=== PATIENT | female | born 1960 | race Caucasian/White ===

== ENCOUNTER 2017-07-31 23:50 | Emergency (ER) | payer OTHER, SELFPAY ==
[2017-08-01 00:46] LABS: Absolute Lymphocytes (CBC) 0.6 K/uL (0.7-4.9); Absolute Monocytes 0.5 K/uL (0.1-1.3); Absolute Neutrophil 7.5 K/uL (1.8-8.0); Basophils % 0.2 % (0-1.3); Eosinophils % 0.2 % (0-4.4); Hematocrit 37.9 % (36.0-45.0); MCH 32.6 pg (27.0-35.0); MCV 95.8 fL (80-100); MPV 7.1 fL (7.6-11.3); Monocytes % 6.3 % (3.3-12.3); RBC Red Blood Cell Count 3.95 M/uL (3.86-4.86)
[2017-08-01 00:54] LABS: Bicarbonate 24 mEq/L (21-31); Glucose Level 132 mg/dL (65-120); Potassium 3.9 mEq/L (3.6-5.0); Sodium Level 136 mEq/L (135-145)
[2017-08-01 00:57] LABS: Protime INR 0.99
[2017-08-01 00:59] LABS: ALT/SGPT 19 IU/L (10-60); AST/SGOT 35 IU/L (10-42); Albumin 3.9 g/dL (3.2-5.5); Alkaline Phosphatase 90 IU/L (42-121); BUN Blood Urea Nitrogen 13 mg/dL (6-20); Bilirubin Direct 0.1 mg/dL (0-0.2); Bilirubin Total 0.5 mg/dL (0.3-1.2); Glomerular Filtration Rate > 90 mL/min (=/>90); Protein, Total 6.7 g/dL (6.0-8.3)
[2017-08-01 01:04] LABS: Alcohol Serum/Plasma < 10 mg/dl; Salicylates Level < 4.0 mg/dl (<30)
[2017-08-01 01:34] LABS: Blood Morphology Comment NOT SEEN (NOT SEEN); Platelet Estimate ADEQ; Urine White Blood Cell Casts OK
[2017-08-01] MEDS ORDERED: LORazepam 2 MG/ML VIAL ONE (01:45)
[2017-08-01 02:59] LABS: Barbiturates NEGATIVE; Benzodiazepines NEGATIVE; Cocaine NEGATIVE; METHAMPHETAM NEGATIVE; Opiates NEGATIVE; Phencyclidine NEGATIVE; THC Cannibis NEGATIVE
[2017-08-01 03:31] LABS: Urine Blood 2+ (NEG); Urine Glucose NEGATIVE (NEG); Urine Protein NEGATIVE (NEG)
[2017-08-01] MEDS ORDERED: NA CHLORIDE 0.9% 100 ML IV ONE (03:58)
[2017-08-01] MEDS ORDERED: LEVETIRACETAM 500 MG/5 ML VIAL IV ONE (03:58)
--- NOTE | 2017-08-01 04:12 | ER ---
Nurse's Notes [facility] Unit Name: Kena Cutler Age: 56 yrs Sex: Female : 1960 Arrival Date: 07/31/2017 Time: 23:52 Bed 5 Private MD: Diagnosis: New Onset Seizure Presentation: 07/31 23:50 Presenting complaint: EMS states: that pt has had multiple seizure post smoking of fc synthetic today. EMS had gone out to see pt earlier but pt refused transport. She seized again and EMS was called back out. Transition of care: patient was not received from another setting of care. Onset of symptoms was July 31, 2017. Care prior to arrival: Medication(s) given: Normal saline infusion, 100 ml Ativan 2 mg ivp IV initiated. 20 GA, in the left antecubital area. 23:50 [facility] Of Ar[facility]: [facility] Acuity: SHELLY 3 fc TIME STUDY TECHNOLOGIST: 08/01 01:55 unknown ak1 Historical: - Allergies: 07/31 23:58 No Known Allergies; fc - Home Meds: 23:58 None [Active]; fc - PMHx: 23:58 None; fc - PSHx: 23:58 ; fc - Immunization history:: Last tetanus immunization: unknown. - Social history:: Smoking status: unknown Patient uses street drugs, Synthetic Marijuana . Screenin:59 Abuse screen: Denies threats or abuse. Nutritional screening: No deficits noted. fc Tuberculosis screening: No symptoms or risk factors identified. 08/01 01:18 Fall Risk IV access (20 points). ak1 Assessment: 00:07 General: Appears slender, Behavior is drowsy, pt responds to painful stimuli. EMS ak1 reported pt had seizures after smoking synthetic. pt was given 2mg Ativan in route. . Pain: Unable to use pain scale. Patient is unresponsive. 01:13 Reassessment: Patient appears in no apparent distress at this time. pt unwilling to ak1 uncurl from position for EKG. ERP notified, will attempt again when pt is more alert. pt became combative when RN tried to attach EKG wires. 01:17 Reassessment: pt combative on CT table, head CT unable to be performed and ERP ak1 notified. no new orders given at this time. 01:30 Reassessment: ERP gave verbal orders for 1mg Ativan IVP. pt allowed medication to be ak1 given, pt refused oxygen via NC. pt hits RN hands when attempting to apply oxygen and blood pressure cuff. 02:58 Reassessment: Pt asleep, will wake up to verbal stimuli. Continues to be resistant and tl2 combative if you try to move her. Vital Signs: 07/31 23:58 BP 159 / 71; Pulse 103; Resp 16; Temp 97.3(TE); Pulse Ox 97% on R/A; Weight 49.9 kg fc (R); Height 5 ft. 2 in. (157.48 cm) (R); Pain 0/10; 08/01 01:17 Pulse 93; Resp 16; Pulse Ox 94% on R/A; ak1 02:33 BP 127 / 101; Pulse 84; Resp 18; Temp 99.1(R); Pulse Ox 96% on R/A; tl2 02:58 BP 154 / 78; Pulse 86; Resp 18; Pulse Ox 95% on R/A; tl2 03:54 BP 170 / 83; Pulse 84; Resp 18; Temp 99.1(R); Pulse Ox 96% on R/A; Pain 0/10; ak1 07/31 23:58 Body Mass Index 20.12 (49.90 kg, 157.48 cm) fc ED Course: 07/31 23:50 Arm band placed on Patient placed in an exam room, on a stretcher. fc 23:50 Patient has correct armband on for positive identification. Bed in low position. Call fc light in reach. Side rails up X2. Seizure precautions initiated. 23:52 Patient arrived in ED. em1 23:57 Aravind Norris PA is PHCP. cp 23:57 Hai Garcia MD is Attending Physician. cp 23:57 Triage completed. fc 23:59 Maintain EMS IV. Dressing intact. Good blood return noted. Site clean \T\ dry. Gauge \T\ fc site: 20 gauge to left a/c. 08/01 00:06 Philly Valdes, RN is Primary Nurse. ak1 01:10 Radiology exam delayed due to pt not cooperating/combative for CT, Dr. Aravind Norris nb1 notified and to try again in a little bit. 01:55 No provider procedures requiring assistance completed. ak1 02:28 X-ray completed. Portable x-ray completed in exam room. Patient tolerated procedure jw2 poorly. 04:02 Patient transferred, IV remains in place. ak1 Administered Medications: 01:32 Drug: Ativan 1 mg Route: IVP; Site: right antecubital; ak1 04:12 Follow up: Response: No adverse reaction ak1 03:48 Drug: Keppra 1000 mg Route: IV; Rate: bolus; Site: left antecubital; ak1 Outcome: 04:01 Transferred by ground EMS to [facility], Transfer form completed. ak1 X-rays sent w/ patient. 04:01 Condition: stable 04:01 Discharge instructions given to family, Instructed on the need for transfer. 04:11 ER care complete, transfer ordered by . matt 04:49 Patient left the ED. ak1 Signatures: Krystal Hammond RN RN Kwame White em1 Philly Valdes RN RN ak1 Aravind Norris PA PA cp Wailes, Jenni jw2 Tina Purvis RN RN tl2 Hai Garcia MD MD wa Boothe, Nicole nb1 Corrections: (The following items were deleted from the chart) 04:00 03:54 BP 170 / 83; ak1 ak1
--- NOTE | 2017-08-01 04:12 | EDPHYS ---
Physician Documentation [facility] Name: Kena Cutler Age: 56 yrs Sex: Female : 1960 Arrival Date: 07/31/2017 Time: 23:52 Bed 5 Private MD: ED Physician Hai Garcia HPI: 08/01 00:15 This 56 yrs old Female presents to ER via EMS with complaints of seizure. cp 00:15 The patient presents with a history of multiple seizures, a total of 4, that last an cp unknown period of time, the episode(s) was witnessed, neighbor. Character of seizure(s): Loss of consciousness: the patient experienced loss of consciousness, between seizures, Motor activity: generalized, shaking all over, Incontinence: none. Seizure onset: about 2200 this evening. Associated injury: The patient did not suffer any apparent associated injury. EMS care: Ativan, 2 mg(s), IV, IV fluids. Current symptoms: decreased level of consciousness, is arousable but tired. 00:15 Patient accompanied to ED by neighbor who reports patient has been smoking synthetic cp marijuana today and had a reported seizure at about 2200 this evening. Neighbor reports he was called to patient's home by a family member and upon arrival, patient was not responsive. He picked patient up in his arms and patient begin to shake all over again, lasted 1-2 minutes. EMS was called and responded. Upon arrival, patient seemed to be okay, so EMS left and was called to scene again after another reported seizure. Neighbor reports patient had approximately 4 seizures prior to arrival to hospital. EMS administered 2 mg Ativan while in route. FILM BOOKER: 01:55 unknown ak1 Historical: - Allergies: 07/31 23:58 No Known Allergies; fc - Home Meds: 23:58 None [Active]; fc - PMHx: 23:58 None; fc - PSHx: 23:58 ; fc - Immunization history:: Last tetanus immunization: unknown. - Social history:: Smoking status: unknown Patient uses street drugs, Synthetic Marijuana . ROS: 08/01 00:20 Constitutional: Negative for fever. cp 00:20 Neuro: Positive for history of seizures. cp 00:20 Unable to obtain ROS due to altered mental status. Exam: 00:27 Head/Face: Normocephalic, atraumatic. cp 00:27 Constitutional: The patient appears in no acute distress, non-diaphoretic, well developed, frail. 00:27 Eyes: Periorbital structures: appear normal, Pupils: equal, round, and reactive to light and accomodation, Conjunctiva: normal, no exudate, no injection, Sclera: no appreciated abnormality, Lids and lashes: appear normal, bilaterally. 00:27 ENT: External ear(s): are unremarkable, Ear canal(s): are normal, clear, TM's: dullness, bilaterally, Nose: is normal, Mouth: Lips: moist, Oral mucosa: moist, Posterior pharynx: Airway: no evidence of obstruction, patent, Uvula: midline, swelling, is not appreciated, erythema, is not appreciated, exudate, is not appreciated. 00:27 Neck: External neck: is normal, C-spine: vertebral tenderness, is not appreciated, crepitus, is not appreciated, ROM/movement: Meningeal signs: are not present, nuchal rigidity, is not appreciated. 00:27 Chest/axilla: Inspection: normal, Palpation: is normal, no crepitus, no tenderness. 00:27 Cardiovascular: Rate: tachycardic, Rhythm: regular, Pulses: Pulses are 2+ in right radial artery and left radial artery. Edema: is not appreciated, JVD: is not appreciated. 00:27 Respiratory: the patient does not display signs of respiratory distress, Respirations: normal, no use of accessory muscles, no retractions, no splinting, no tachypnea, labored breathing, is not present, Breath sounds: are clear throughout, no decreased breath sounds, no stridor, no wheezing. 00:27 Abdomen/GI: Inspection: abdomen appears normal, Bowel sounds: active, all quadrants, Palpation: abdomen is soft and non-tender, in all quadrants, rebound tenderness, is not appreciated, voluntary guarding, is not appreciated, involuntary guarding, is not appreciated. 00:27 Back: pain, is absent, ROM is normal. 00:27 Skin: cellulitis, is not appreciated, no rash present. 00:27 Neuro: Orientation: Not oriented to person, place, situation, Mentation: confused, responsive to pain, combative when aroused, Motor: moves all fours. Vital Signs: 07/31 23:58 BP 159 / 71; Pulse 103; Resp 16; Temp 97.3(TE); Pulse Ox 97% on R/A; Weight 49.9 kg fc (R); Height 5 ft. 2 in. (157.48 cm) (R); Pain 0/10; 08/01 01:17 Pulse 93; Resp 16; Pulse Ox 94% on R/A; ak1 02:33 BP 127 / 101; Pulse 84; Resp 18; Temp 99.1(R); Pulse Ox 96% on R/A; tl2 02:58 BP 154 / 78; Pulse 86; Resp 18; Pulse Ox 95% on R/A; tl2 03:54 BP 170 / 83; Pulse 84; Resp 18; Temp 99.1(R); Pulse Ox 96% on R/A; Pain 0/10; ak1 07/31 23:58 Body Mass Index 20.12 (49.90 kg, 157.48 cm) fc MDM: 07/31 23:57 Patient medically screened. cp 08/01 01:00 Differential diagnosis: cerebral vascular accident, drug overdose, cardiac arrhythmia, cp seizure. 02:14 ED course: VSS. vRad report of head CT negative for acute findings. cp 03:10 Data reviewed: vital signs, nurses notes, lab test result(s), radiologic studies, CT cp scan. 03:10 Response to treatment: the patient's symptoms have mildly improved after treatment, and cp as a result, I will transfer patient. 08/01 00:15 Order name: Acetaminophen cp 08/01 00:15 Order name: Basic Metabolic Panel cp 08/01 00:15 Order name: CBC with Diff cp 08/01 00:15 Order name: ETOH Level cp 08/01 00:15 Order name: Hepatic Function cp 08/01 00:15 Order name: PT-INR cp 08/01 00:15 Order name: Ptt, Activated cp 08/01 00:15 Order name: Salicylate cp 08/01 00:15 Order name: Urine Drug Screen cp 08/01 00:49 Order name: CBC with Automated Diff; Complete Time: 01:38 EDMS 08/01 01:24 Interpretation: Normal except: MPV 7.1; DELTA% 86.3; LYM% 7.0; LYMA 0.6. cp 08/01 00:54 Order name: Basic Metabolic Panel; Complete Time: 01:24 EDMS 08/01 01:24 Interpretation: Normal except: GLUC 132. cp 08/01 01:04 Order name: Liver (Hepatic) Function; Complete Time: 01:24 EDMS 08/01 01:04 Order name: Acetaminophen Level; Complete Time: 01:24 EDMS 08/01 01:04 Order name: Alcohol Serum/Plasma; Complete Time: 01:24 EDMS 08/01 00:15 Order name: CT Head Brain wo Cont cp 08/01 00:15 Order name: Urine Test (obtain specimen); Complete Time: 02:32 cp 08/01 00:15 Order name: EKG; Complete Time: 00:16 cp 08/01 01:04 Order name: Salicylates Level; Complete Time: 01:24 EDMS 08/01 01:05 Order name: Protime (+INR); Complete Time: 01:24 EDMS 08/01 01:05 Order name: PTT, Activated Partial Thromb; Complete Time: 01:24 EDMS 08/01 01:34 Order name: CBC Smear Scan; Complete Time: 01:38 EDMS 08/01 02:14 Order name: CXR XRAY 08/01 02:52 Order name: Urine Dipstick--Ancillary (enter results) em 08/01 02:52 Order name: Urine --Ancillary (enter results) em 08/01 02:59 Order name: Urine Drug Screen; Complete Time: 03:08 EDMS 08/01 03:08 Interpretation: Reviewed. 08/01 03:32 Order name: Urine --Ancillary EDDE 08/01 03:32 Order name: Urine Dipstick-Ancillary EDDE 08/01 00:15 Order name: IV Saline Lock; Complete Time: 00:32 cp 08/01 00:15 Order name: Labs collected and sent; Complete Time: 00:32 cp 08/01 00:15 Order name: Urine Dipstick-Ancillary (obtain specimen); Complete Time: 02:32 cp Administered Medications: 01:32 Drug: Ativan 1 mg Route: IVP; Site: right antecubital; ak1 04:12 Follow up: Response: No adverse reaction ak1 03:48 Drug: Keppra 1000 mg Route: IV; Rate: bolus; Site: left antecubital; ak1 Disposition: 08/01/17 04:11 Transfer ordered to [facility]. Diagnosis is New Onset Seizure. - Reason for transfer: Higher level of care. - Accepting physician is Dr. Severino. - Condition is Stable. - Problem is new. - Symptoms have improved. Addendum: 08/04/2017 07:09 Co-signature as Attending Physician, Hai Garcia MD I agree with the assessment and w a plan of care. Signatures: Dispatcher [employer] Krystal Venegas RN RN Philly Valdes RN RN ak1 Aravind Norris PA PA Hai Urbina MD MD ny Corrections: (The following items were deleted from the chart) 08/01 01:24 01:24 Normal except: MPV 7.1; DELTA% 86.3; LYM% 7.0. cp cp
--- NOTE | 2017-08-01 08:01 | RAD REPORT ---
EXAM DESCRIPTION: Keo Single View08/01/2017 2:30 am CLINICAL HISTORY: Cough COMPARISON: none FINDINGS: 10 millimeter nodular opacity overlies the right lung base. The remainder of the lungs appear clear of acute infiltrate. The heart is normal size IMPRESSION: 10 millimeter nodular opacity overlies the right lung base. This may represent a nipple shadow or pulmonary nodule. Follow-up chest films with right nipple marker and frontal oblique chest films are recommended
--- NOTE | 2017-08-01 09:41 | RAD REPORT ---
EXAM DESCRIPTION: CT - Head Brain Wo Cont - 08/01/2017 6:56 am CLINICAL HISTORY: Seizures COMPARISON: None. TECHNIQUE: Computed axial tomography of the head was obtained. IV contrast was not requested. All CT scans are performed using dose optimization technique as appropriate and may include automated exposure control or mA/KV adjustment according to patient size. FINDINGS: An intracranial bleed is not seen . The ventricles are normal in caliber. No extra-axial fluid collection is noted. Fluid within the sinuses/ mastoids is not seen. IMPRESSION: No acute intracranial abnormality is seen. If patient's symptoms persist MRI of the bra in would be recommended.
== END 2017-08-01 04:49 | disposition short-term general hospital (02) ==
LOC: ER 23:50
DX: G40.89 Other seizures (principal); F12.90 Cannabis use, unspecified, uncomplicated
CPT/HCPCS: 36415; 70450; 71045; 80048; 80076; 80307; 80320; 80329; 81003; 81025; 85025; 85610; 85730; 99285; J1953

== ENCOUNTER 2018-03-29 09:42 | Emergency (ER) | payer SELFPAY ==
[2018-03-29] MEDS ORDERED: ETOMIDATE 20 MG/10 ML VIAL IV ONE (09:43)
[2018-03-29] MEDS ORDERED: SUCCINYLCHOLINE 20 MG/ML (10 ML) IV ONE (09:43)
--- OUTSIDE RECORDS SUMMARY | 2018-03-29 09:44 | XMS REPORT ---
:1960 [facility] [address] [place] [address] Care Team Providers Name Role Phone MARY CLAUDIO Unavailable Unavailable Problems This patient has no known problems. Allergies, Adverse Reactions, Alerts This patient has no known allergies or adverse reactions. Medications This patient has no known medications. Results Test Description Test Time Test Comments Text Results Atomic Results Result Comments URINE CULTURE 2017-08-03 11:34:00 Test Item Value Reference Range Comments CULTURE (BEAKER) (test dpxz=2482) 40-49,000 col/mL skin [place] POCT-GLUCOSE [id number] 15:55:00 Test Item Value Reference Range Comments POC-GLUCOSE METER (BEAKER) 80 mg/dL 70-110 TESTED AT [facility] [address] [facility] (test bsuh=0280) [facility] [id number] URINALYSIS W/ [id number] 14:34:00 Test Item Value Reference Range Comments COLOR (BEAKER) (test aapr=020) Light Yellow CLARITY (BEAKER) (test iwyh=216) Clear SPECIFIC GRAVITY UA (BEAKER) (test bzhe=321) 1.009 1.001-1.035 PH UA (BEAKER) (test deqo=533) 7.0 5.0-8.0 PROTEIN UA (BEAKER) (test yatn=965) Negative Negative GLUCOSE UA (BEAKER) (test rhey=617) Negative Negative KETONES UA (BEAKER) (test ytta=360) Negative Negative BILIRUBIN UA (BEAKER) (test wlvb=394) Negative Negative BLOOD UA (BEAKER) (test ejxl=353) Small Negative NITRITE UA (BEAKER) (test gcig=892) Negative Negative LEUKOCYTE ESTERASE UA (BEAKER) (test xpmr=107) Negative Negative UROBILINOGEN UA (BEAKER) (test jjei=572) 0.2 mg/dL 0.2-1.0 RBC UA (BEAKER) (test zzvo=928) 2 /HPF WBC UA (BEAKER) (test jrlo=609) < /HPF MUCUS (BEAKER) (test vrdr=0718) Rare SQUAMOUS EPITHELIAL (BEAKER) (test ddso=630) < /HPF SOURCE(BEAKER) (test kfjw=7761) RAPID DRUG SCREEN, [id number] 13:10:00 Test Item Value Reference Range Comments BARBITURATE URINE (BEAKER) (test snio=265) Negative Negative BENZODIAZEPINE SCREEN URINE (BEAKER) (test Negative Negative gfid=760) COCAINE (METAB.) SCREEN (BEAKER) (test agur=4084) Negative Negative METHADONE SCREEN (BEAKER) (test oacr=0711) Negative Negative OPIATE SCREEN URINE (BEAKER) (test jjuf=116) Negative Negative CANNABINOID SCREEN URINE (BEAKER) (test mihr=365) Negative Negative AMPH/METHAMPH SCREEN (BEAKER) (test yexx=3793) Negative Negative PHENCYCLIDINE SCREEN URINE (BEAKER) (test vipy=483) Negative Negative OXYCODONE SCREEN URINE (BEAKER) (test xlht=2271) Negative Negative DRUG CUTOFF CONC.Cocaine 300 ng/mL Cannabinoid 50 ng/mL Benzodiazepine 200 ng/mLBarbiturate 200 ng/ mLPhencyclidine 25 ng/mLOpiate 300 ng/mLMethadone 300 ng/mLAmphetamine/ 1000 ng/mL MethamphetamineOxycodone 300 ng/mLThis assay provides an unconfirmed qualitative test result for the clinical management of patients in emergency situations. Chain of custody not maintained. Some jvdh-qwj-iydkufe medications, as well as adulterants, may cause inaccurate results. Clinical correlation should be applied. A more comprehensive drug screen or confirmation of a detected drug may be performed upon request.POCT-GLUCOSE [id number] 11:49:00 Test Item Value Reference Range Comments POC-GLUCOSE METER (BEAKER) 93 mg/dL 70-110 TESTED AT [facility] [address] [facility] (test uvfh=1276) [facility] [address] [id number] 10:40:00 Test Item Value Reference Range Comments PHOSPHORUS (BEAKER) (test qacz=404) 3.0 mg/dL 2.3-4.7 [id number] 10:40:00 Test Item Value Reference Range Comments MAGNESIUM (BEAKER) (test uhhd=459) 2.6 mg/dL 1.6-2.6 BASIC METABOLIC [id number] 10:40:00 Test Item Value Reference Range Comments SODIUM (BEAKER) (test 139 meq/L 136-145 aadr=547) POTASSIUM (BEAKER) (test 3.8 meq/L 3.5-5.1 zxyr=777) CHLORIDE (BEAKER) (test 105 meq/L 98-107 yhxg=054) CO2 (BEAKER) (test 22 meq/L 22-29 jbxj=258) BLOOD UREA NITROGEN 9 mg/dL 7-21 (BEAKER) (test hqwf=766) CREATININE (BEAKER) (test 0.61 mg/dL 0.57-1.25 axdl=861) GLUCOSE RANDOM (BEAKER) 86 mg/dL 70-105 (test ilao=066) CALCIUM (BEAKER) (test 9.5 mg/dL 8.4-10.2 iuch=450) EGFR (BEAKER) (test 102 mL/min/1.73 sq m ESTIMATED GFR IS NOT gogk=2833) ACCURATE CREATININE CLEARANCE IN PREDICTING GLOMERULAR FILTRATION RATE. ESTIMATED GFR IS NOT APPLICABLE FOR DIALYSIS PATIENTS. HEPATIC FUNCTION [id number] 10:40:00 Test Item Value Reference Range Comments TOTAL PROTEIN (BEAKER) (test lwjj=004) 7.5 gm/dL 6.0-8.3 ALBUMIN (BEAKER) (test mmsf=4527) 4.4 g/dL 3.5-5.0 BILIRUBIN TOTAL (BEAKER) (test cqgq=845) 0.9 mg/dL 0.2-1.2 BILIRUBIN DIRECT (BEAKER) (test kjsg=800) 0.3 mg/dL 0.1-0.5 ALKALINE PHOSPHATASE (BEAKER) (test ampm=238) 108 U/L 40-150 AST (SGOT) (BEAKER) (test lktp=233) 28 U/L 5-34 ALT (SGPT) (BEAKER) (test myfi=484) 18 U/L 6-55 CBC W/PLT COUNT & AUTO [id number] 09:28:00 Test Item Value Reference Range Comments WHITE BLOOD CELL COUNT (BEAKER) (test cpda=857) 8.8 K/ L 3.5-10.5 RED BLOOD CELL COUNT (BEAKER) (test upvf=434) 4.39 M/ L 3.93-5.22 HEMOGLOBIN (BEAKER) (test patp=957) 13.9 GM/DL 11.2-15.7 HEMATOCRIT (BEAKER) (test ckxy=896) 41.6 % 34.1-44.9 MEAN CORPUSCULAR VOLUME (BEAKER) (test clyv=574) 94.8 fL 79.4-94.8 MEAN CORPUSCULAR HEMOGLOBIN (BEAKER) (test 31.7 pg 25.6-32.2 nxnd=589) MEAN CORPUSCULAR HEMOGLOBIN CONC (BEAKER) (test 33.4 GM/DL 32.2-35.5 zvvt=374) RED CELL DISTRIBUTION WIDTH (BEAKER) (test 13.1 % 11.7-14.4 ptfq=574) PLATELET COUNT (BEAKER) (test ngug=810) 234 K/CU MM 150-450 MEAN PLATELET VOLUME (BEAKER) (test omib=645) 9.0 fL 9.4-12.3 NUCLEATED RED BLOOD CELLS (BEAKER) (test 0 /100 WBC 0-0 pofs=159) NEUTROPHILS RELATIVE PERCENT (BEAKER) (test 69 % tkjv=213) LYMPHOCYTES RELATIVE PERCENT (BEAKER) (test 22 % cqju=951) MONOCYTES RELATIVE PERCENT (BEAKER) (test 9 % ekje=411) EOSINOPHILS RELATIVE PERCENT (BEAKER) (test 0 % wpyc=201) BASOPHILS RELATIVE PERCENT (BEAKER) (test 0 % tzul=031) NEUTROPHILS ABSOLUTE COUNT (BEAKER) (test 6.05 K/ L 1.56-6.13 fwsm=822) LYMPHOCYTES ABSOLUTE COUNT (BEAKER) (test 1.91 K/ L 1.18-3.74 roke=026) MONOCYTES ABSOLUTE COUNT (BEAKER) (test 0.76 K/ L 0.24-0.36 iebi=017) EOSINOPHILS ABSOLUTE COUNT (BEAKER) (test 0.01 K/ L 0.04-0.36 tgpn=286) BASOPHILS ABSOLUTE COUNT (BEAKER) (test 0.03 K/ L 0.01-0.08 csyl=542) IMMATURE GRANULOCYTES-RELATIVE PERCENT (BEAKER) 0 % 0-1 (test uddi=8916) PROTHROMBIN [id number] 09:23:00 Test Item Value Reference Range Comments PROTIME (BEAKER) (test rkwg=843) 13.5 seconds 11.7-14.7 INR (MARLIN) (test opik=476) 1.0 <=5.9 RECOMMENDED COUMADIN/WARFARIN INR THERAPY RANGESSTANDARD DOSE: 2.0 - 3.0 Includes: PROPHYLAXIS forvenous thrombosis, systemic embolization; TREATMENT for venous thrombosis and/or pulmonary embolus.HIGH RISK: Target INR is 2.5-3.5 for patients with mechanical heart valves.POCT-GLUCOSE [id number] 07:05:00 Test Item Value Reference Range Comments POC-GLUCOSE METER (MARLIN) 96 mg/dL 70-110 TESTED AT [facility] [address] [facility] (test tlem=8560) [facility] [address]
--- OUTSIDE RECORDS SUMMARY | 2018-03-29 09:44 | XMS REPORT | Clinical Summary ---
:1960 Author Organization [facility] Address [address] [place] [address] Care Team Providers Name Role Phone Margarita Primary Care Provider Allergies No Known Allergies Medications Medication Sig Dispensed Refills Start Date End Date Status levETIRAcetam (KEPPRA) Take 1 tablet 180 tablet 0 08/01/2017 10/30/2017 500 MG tablet (500 mg total) by mouth 2 (two) times daily for 90 days. Active Problems Problem Noted Date Seizure 08/01/2017 Encounters Date Type Specialty Care Team Description 08/01/2017 Hospital Encounter General Internal Peter Severino Seizure ( HCC); Medicine MD Sergio Substance abuse Sy Rubin MD after 03/28/2017 Social History Tobacco Use Types Packs/Day Years Used Date Never Assessed Sex Assigned at Date Recorded Not on file Job Start Date Occupation Industry Not on file Not on file Not on file Travel History Travel Start Travel End No recent travel history available. Last Filed Vital Signs Vital Sign Reading Time Taken Blood Pressure 131/60 08/01/2017 8:00 AM CDT Pulse 76 08/01/2017 8:00 AM CDT Temperature 36 C (96.8 F) 08/01/2017 8:00 AM CDT Respiratory Rate 17 08/01/2017 8:00 AM CDT Oxygen Saturation 99% 08/01/2017 8:00 AM CDT Inhaled Oxygen Concentration - - Weight - - Height - - Body Mass Index - - Plan of Treatment Not on file Procedures Procedure Name Priority Date/Time Associated Comments Diagnosis RHYTHM STRIP - SCAN 08/03/2017 2:40 PM CDT POCT-GLUCOSE METER Routine 08/01/2017 3:27 Results for this PM CDT procedure are in the results section. POCT-GLUCOSE METER Routine 08/01/2017 11:47 Results for this AM CDT procedure are in the results section. RAPID DRUG SCREEN, Routine 08/01/2017 11:15 Results for this URINE AM CDT procedure are in the results section. URINALYSIS W/ Routine 08/01/2017 11:15 Results for this MICROSCOPIC AM CDT procedure are in the results section. URINE CULTURE Routine 08/01/2017 11:14 Results for this AM CDT procedure are in the results section. ECG 12-LEAD Routine 08/01/2017 9:11 Results for this AM CDT procedure are in the results section. CBC W/PLT COUNT & Routine 08/01/2017 8:45 Results for this AUTO DIFFERENTIAL AM CDT procedure are in the results section. CBC W/PLT COUNT & Routine 08/01/2017 8:45 Results for this AUTO DIFFERENTIAL AM CDT procedure are in the results section. PHOSPHORUS Routine 08/01/2017 8:45 Results for this AM CDT procedure are in the results section. MAGNESIUM Routine 08/01/2017 8:45 Results for this AM CDT procedure are in the results section. PROTHROMBIN TIME/INR Routine 08/01/2017 8:45 Results for this AM CDT procedure are in the results section. HEPATIC FUNCTION Routine 08/01/2017 8:45 Results for this PANEL AM CDT procedure are in the results section. BASIC METABOLIC PANEL Routine 08/01/2017 8:45 Results for this (7) AM CDT procedure are in the results section. POCT-GLUCOSE METER Routine 08/01/2017 7:03 Results for this AM CDT procedure are in the results section. after 03/28/2017 Results RHYTHM STRIP - SCAN (08/03/2017 2:40 PM CDT) Narrative Performed At POC-Glucose meter (08/01/2017 3:27 PM CDT)Only the most recent of3 resultswithin the time period is included. POC-Glucose Meter 80Comment: TESTED AT 70 - 110 mg/dL [facility] [address] [facility] [place] [address] Specimen Blood Performing Organization Address City/State/Zipcode Phone Number [address] [address] CENTER Rapid drug screen, urine (08/01/2017 11:15 AM CDT) Barbiturate Screen Negative Negative [facility] Benzodiazepine Screen Negative Negative [facility] Cocaine (Metab.) Screen Negative Negative [facility] Methadone Screen Negative Negative [facility] Opiate Screen Negative Negative [facility] Cannabinoid Screen Negative Negative [facility] Amph/Methamph Screen Negative Negative [facility] Phencyclidine Screen Negative Negative [facility] Oxycodone Screen Negative Negative [facility] Specimen Urine Narrative Performed At [facility] DRUGCUTOFF CONC. Cocaine 300 ng/mL Jtskhbpsojw95 ng/mL Aklfulwwowkigq388 ng/mL Barbiturate 200 ng/mL Wrrwtmnbqngdi93 ng/mL Ntagxo247 ng/mL Methadone 300 ng/mL Amphetamine/ 1000 ng/mL Methamphetamine Oxycodone 300 ng/mL This assay provides an unconfirmed qualitative test result for the clinical management of patients in emergency situations. Chain of custody not maintained. Some dnfn-oht-dcleofe medications, as well as adulterants, may cause inaccurate results. Clinical correlation should be applied. A more comprehensive drug screen or confirmation of a detected drug may be performed upon request. Performing Organization Address City/State/Zipcode Phone Number [facility] [address] [place] [address] CENTER Urinalysis w/Microscopic (08/01/2017 11:15 AM CDT) Color, UA Light Yellow [facility] Clarity, UA Clear [facility] Specific Mcdavid, UA 1.009 1.001 - 1.035 [facility] pH, UA 7.0 5.0 - 8.0 [facility] Protein, UA Negative Negative [facility] Glucose, UA Negative Negative [facility] Ketones, UA Negative Negative [facility] Bilirubin, UA Negative Negative [facility] Blood, UA Small (A) Negative [facility] Nitrite, UA Negative Negative [facility] Leukocytes, UA Negative Negative [facility] Urobilinogen, UA 0.2 0.2 - 1.0 mg/dL [facility] RBC, UA 2 /HPF [facility] WBC, UA <1 /HPF [facility] Mucus Rare [facility] Squam Epithel, UA <1 /HPF [facility] Specimen Source [facility] Specimen Urine Performing Organization Address City/State/Zipcode Phone Number [address] [address] [place] Urine culture (08/01/2017 11:14 AM CDT) Result 40-49,000 col/mL skin [place] [facility] Specimen Urine - Urine, Voided Performing Organization Address [facility] Phone Number [address] [address] [phone] [place] ECG 12 lead (08/01/2017 9:11 AM CDT) Narrative Performed At Ventricular Rate 93 BPM GE MUSE Atrial Rate 93 BPM P-R Interval 180 ms QRS Duration 86 ms Q-T Interval 356 ms QTC Calculation(Bazett) 442 ms P [place] 82 degrees R [place] -14 degrees T [place] 74 degrees Normal sinus rhythm Normal ECG No previous ECGs available Confirmed by MD AIMEE, CICI ([id number]) on 08/01/2017 11:56:51 AM Procedure Note Interface, External Ris In - 08/01/2017 11:57 AM CDT Ventricular Rate 93 BPM Atrial Rate 93 BPM P-R Interval 180 ms QRS Duration 86 ms Q-T Interval 356 ms QTC Calculation(Bazett) 442 ms P [place] 82 degrees R [place] -14 degrees T [place] 74 degrees Normal sinus rhythm Normal ECG No previous ECGs available Confirmed by MD AIMEE, CICI ([id number]) on 08/01/2017 11:56:51 AM Performing Organization Address City/State/Zipcode Phone Number GE AYMF CBC with platelet count + automated diff (08/01/2017 8:45 AM CDT) WBC 8.8 3.5 - 10.5 K/L [facility] RBC 4.39 3.93 - 5.22 M/L [facility] Hemoglobin 13.9 11.2 - 15.7 GM/DL [facility] Hematocrit 41.6 34.1 - 44.9 % [facility] MCV 94.8 79.4 - 94.8 fL [facility] MCH 31.7 25.6 - 32.2 pg [facility] MCHC 33.4 32.2 - 35.5 GM/DL [facility] RDW 13.1 11.7 - 14.4 % [facility] Platelets 234 150 - 450 K/CU MM [facility] MPV 9.0 (L) 9.4 - 12.3 fL [facility] nRBC 0 0 - 0 /100 WBC [facility] % Neutros 69 % [facility] % Lymphs 22 % [facility] % Monos 9 % [facility] % Eos 0 % [facility] % Baso 0 % [facility] # Neutros 6.05 1.56 - 6.13 K/L [facility] # Lymphs 1.91 1.18 - 3.74 K/L [facility] # Monos 0.76 (H) 0.24 - 0.36 K/L [facility] # Eos 0.01 (L) 0.04 - 0.36 K/L [facility] # Baso 0.03 0.01 - 0.08 K/L [facility] Immature Granulocytes-Relative 0 0 - 1 % [facility] Specimen Blood Performing Organization Address City/[facility] Phone Number [address] [address] [phone] [place] Prothrombin time/INR (08/01/2017 8:45 AM CDT) Protime 13.5 11.7 - 14.7 seconds [facility] INR 1.0 <=5.9 [facility] Specimen Blood Narrative Performed At [facility] RECOMMENDED COUMADIN/WARFARIN INR THERAPY RANGES STANDARD DOSE: 2.0 - 3.0 Includes: PROPHYLAXIS for venous thrombosis, systemic embolization; TREATMENT for venous thrombosis and/or pulmonary embolus. HIGH RISK: Target INR is 2.5-3.5 for patients with mechanical heart valves. Performing Organization Address City/[facility] Phone Number [address] [address] CENTER Phosphorus (08/01/2017 8:45 AM CDT) Phosphorus 3.0 2.3 - 4.7 mg/dL [facility] Specimen Blood Performing Organization Address City/[facility] Phone Number [address] [address] CENTER Magnesium (08/01/2017 8:45 AM CDT) Magnesium 2.6 1.6 - 2.6 mg/dL [facility] Specimen Blood Performing Organization Address City/[facility] Phone Number [address] [address] CENTER Hepatic function panel (08/01/2017 8:45 AM CDT) Protein, Total 7.5 6.0 - 8.3 gm/dL [facility] Albumin 4.4 3.5 - 5.0 g/dL [facility] Total Bilirubin 0.9 0.2 - 1.2 mg/dL [facility] Bilirubin, Direct 0.3 0.1 - 0.5 mg/dL [facility] Alkaline Phosphatase 108 40 - 150 U/L [facility] AST 28 5 - 34 U/L [facility] ALT 18 6 - 55 U/L [facility] Specimen Blood Performing Organization Address City/State/Zipcode Phone Number [address] [address] [place] Basic metabolic panel (08/01/2017 8:45 AM CDT) Sodium 139 136 - 145 meq/L [facility] Potassium 3.8 3.5 - 5.1 meq/L [facility] Chloride 105 98 - 107 meq/L [facility] CO2 22 22 - 29 meq/L [facility] BUN 9 7 - 21 mg/dL [facility] Creatinine 0.61 0.57 - 1.25 mg/dL [facility] Glucose 86 70 - 105 mg/dL [facility] Calcium 9.5 8.4 - 10.2 mg/dL [facility] EGFR 102Comment: ESTIMATED GFR IS mL/min/1.73 sq m [facility] NOT ACCURATE CREATININE [facility] CLEARANCE IN PREDICTING GLOMERULAR FILTRATION RATE. ESTIMATED GFR IS NOT APPLICABLE FOR DIALYSIS PATIENTS. Specimen Blood Performing Organization Address City/State/Zipcode Phone Number [address] [address] [phone] [place] after 03/28/2017 Advance Directives For more information, please contact:[address] [phone] Code Status Date Activated Date Inactivated Comments Full Code 08/01/2017 7:39 AM 08/01/2017 7:46 PM This code status was determined by: Patient
[2018-03-29] MEDS ORDERED: RSI MEDICATION KIT IV ONE (09:50)
[2018-03-29] MEDS ORDERED: FOSPHENYTOIN PE 1,000 MG in NA CHLORIDE 0.9% 100 ML IV ONE (10:00)
[2018-03-29] MEDS ORDERED: NA CHLORIDE 0.9% 1,000 ML ONE ×3 (10:02→12:08)
[2018-03-29] MEDS ORDERED: LORazepam 2 MG/ML VIAL ONE (10:06)
[2018-03-29] MEDS ORDERED: PROPOFOL 1,000 MG/100 ML VIAL IV ONE ×2 (10:09→13:40)
--- NOTE | 2018-03-29 10:31 | RAD REPORT ---
EXAM DESCRIPTION: RAD - Chest Single View - 03/29/2018 10:07 am CLINICAL HISTORY: INTUBATION Chest pain. COMPARISON: Chest Single View dated 08/01/2017 FINDINGS: Portable technique limits examination quality. Tip of the ET tube is above the srinivasan. Lungs are grossly clear. The heart is normal in size. No disp laced fractures.
[2018-03-29] MEDS ORDERED: ACETAMINOPHEN 650MG/RECT SUPP PR ONE (10:33)
[2018-03-29] MEDS ORDERED: PHENOBARBITAL IV ONE (11:00)
[2018-03-29] MEDS ORDERED: NA CHLORIDE 0.9% IV ONE (11:00)
[2018-03-29 11:07] LABS: Absolute Lymphocytes (CBC) 0.5 K/uL (0.7-4.9); Absolute Monocytes 0.9 K/uL (0.1-1.3); Absolute Neutrophil 13.7 K/uL (1.8-8.0); Basophils % 0.3 % (0-1.3); Hematocrit 36.1 % (36.0-45.0); Lymphocytes % 3.5 % (15.3-44.8); MCV 97.9 fL (80-100); MPV 7.1 fL (7.6-11.3); RBC Red Blood Cell Count 3.69 M/uL (3.86-4.86)
[2018-03-29 11:10] LABS: Protime INR 1.06
[2018-03-29 11:22] LABS: Barbiturates NEGATIVE (NEGATIVE); Benzodiazepines POSITIVE (NEGATIVE); Cocaine NEGATIVE (NEGATIVE); METHAMPHETAM NEGATIVE (NEGATIVE); Methadone NEGATIVE (NEGATIVE); Opiates NEGATIVE (NEGATIVE); Phencyclidine NEGATIVE (NEGATIVE); THC Cannibis NEGATIVE (NEGATIVE)
[2018-03-29 11:26] LABS: ALT/SGPT 23 U/L (12-78); AST/SGOT 30 U/L (15-37); Albumin 3.1 g/dL (3.4-5.0); Alkaline Phosphatase 94 U/L (45-117); BUN Blood Urea Nitrogen 17 mg/dL (7-18); Bicarbonate 25 mmol/L (21-32); Bilirubin Direct 0.2 mg/dL (0-0.2); Bilirubin Total 0.4 mg/dL (0.2-1.0); Creatine Phosphokinase 245 U/L (26-192); Glucose Level 102 mg/dL (74-106); Protein, Total 6.1 g/dL (6.4-8.2); Sodium Level 142 mmol/L (136-145); Troponin (Emerg Dept Use Only) 0.16 ng/mL (0.0-0.045)
[2018-03-29 11:44] LABS: Urine Blood 2+ (NEG); Urine Glucose TRACE (NEG); Urine Protein 2+ (NEG); Urine Specific Gravity >1.030 (1.005-1.030); Urine pH 5.5 (5.0-7.0)
--- NOTE | 2018-03-29 12:00 | RAD REPORT ---
EXAM DESCRIPTION: CT - Head Brain Wo Cont - 03/29/2018 11:49 am CLINICAL HISTORY: Mental status change;Seizure Head injury Drowsiness COMPARISON: Head Brain Wo Cont dated 08/01/2017 TECHNIQUE: All CT scans are performed using dose optimization technique as appropriate and may inclu de automated exposure control or mA/KV adjustment according to patient size. FINDINGS: No intracranial hemorrhage, hydrocephalus or extra-axial fluid collection.No areas of brai n edema or evidence of midline shift. The paranasal sinuses and mastoids are clear. The calvarium is intact. Left frontal scalp hematoma. IMPRESSION: No acute intracranial abnormality.
[2018-03-29] MEDS ORDERED: CEFTRIAXONE/SWI 1gm 1 GM/10 ML SYR ONE (12:09)
[2018-03-29] MEDS ORDERED: VANCOMYCIN 1 GM/250 ML BAG ONE (12:22)
[2018-03-29 12:25] LABS: Blood Morphology Comment NOT SEEN (NOT SEEN); Platelet Estimate ADEQ; Urine White Blood Cell Casts OK
[2018-03-29 12:27] LABS: Arterial Blood Carboxyhemoglob 0.5 % (0-1.5); Blood Gas Oxyhemoglobin 97.8 % (94-97); Blood O2 Saturation 99.4 % (92-98.5)
[2018-03-29] MEDS ORDERED: CEFEPIME 1 GM/100 ML BAG IV ONE (12:37)
--- NOTE | 2018-03-29 12:47 | EDPHYS ---
Physician Documentation [facility] Name: Kena Cutler Age: 57 yrs Sex: Female : 1960 Arrival Date: 03/29/2018 Time: 09:47 Bed 3 Private MD: ED Physician Aravind Hobson HPI: 03/29 12:00 This 57 yrs old Female presents to ER via EMS with complaints of jr8 Unresponsive, Seizure. 12:00 Onset: The symptoms/episode began/occurred acutely, today. Duration: The episode is jr8 continuous. The symptoms are alleviated by nothing. The symptoms are aggravated by nothing. Associated signs and symptoms: Pertinent positives: agitation, combativeness. Severity of symptoms: At their worst the symptoms were moderate in the emergency department the symptoms are unchanged. Patient's baseline: Neuro: alert and fully oriented, Motor: no deficits, Ambulation: walks without assistance, Speech: normal. It is unknown whether or not the patient has had similar symptoms in the past. It is unknown whether or not the patient has recently seen a physician. Boyfriend of patient stated that they smoked synthetic last night. Was fine today and while drinking orange juice at the table immediately slumped over and had seizure. EMS called at that time. EMS stated that she was extremely combative upon there arrival. Patient when pulling in had another seizure per EMS and now is in status epilepticus . Historical: - Allergies: 09:40 No Known Allergies; bp - Home Meds: 09:40 None [Active]; bp - PMHx: 09:40 SUBSTANCE ABUSE; bp - Immunization history:: Adult Immunizations unknown. - Social history:: Smoking status: Patient uses tobacco products, unknown amount. - Ebola Screening: : Patient negative for fever greater than or equal to 101.5 degrees Fahrenheit, and additional compatible Ebola Virus Disease symptoms Patient denies exposure to infectious person Patient denies travel to an Ebola-affected area in the 21 days before illness onset No symptoms or risks identified at this time. ROS: 12:00 Unable to obtain ROS due to obtunded state, patient is on ventilator. jr8 Exam: 12:00 Radiologist reports: no acute findings jr8 12:00 Head/Face: Normocephalic, atraumatic. ENT: Nares patent. No nasal discharge, no septal abnormalities noted. Tympanic membranes are normal and external auditory canals are clear. Oropharynx with no redness, swelling, or masses, exudates, or evidence of obstruction, uvula midline. Mucous membranes moist. Neck: Trachea midline, no thyromegaly or masses palpated, and no cervical lymphadenopathy. Supple, full range of motion without nuchal rigidity, or vertebral point tenderness. No Meningismus. Abdomen/GI: Soft with normal bowel sounds. No distension or tympany. Skin: Warm, dry with normal turgor. Normal color with no rashes, no lesions, and no evidence of cellulitis. MS/ Extremity: Pulses equal, no cyanosis. 12:00 Eyes: Periorbital structures: appear normal, Pupils: dilated, bilaterally, sluggish to respond with right upward gaze, Conjunctiva: normal, Lids and lashes: appear normal. 12:00 Cardiovascular: Rate: tachycardic, Rhythm: regular, Pulses: Pulses are 2+ in right radial artery and left radial artery. Heart sounds: normal, normal S1and S2, no S3 or S4, no murmur, no rub, no gallop, Edema: is not appreciated, JVD: is not appreciated. 12:00 Neuro: Orientation: Not oriented to person, place, time, situation, Mentation: unable to follow commands, Memory: unable to test, Cranial nerves: unable to test, Cerebellar function: unable to test, Motor: unable to test, Sensation: unable to test, Gait: not tested. seizure activity, grand mal type is displayed. Vital Signs: 09:40 Pulse 151; Resp 24; Weight 40.82 kg; bp 10:00 BP 135 / 63; Pulse 150; Resp 19; Temp 99.4; Pulse Ox 100% ; bp 10:13 BP 98 / 53; Pulse 118; Resp 18; Temp 101.7; Pulse Ox 100% ; bp 10:15 BP 97 / 60; Pulse 116; Resp 20; Temp 101.5; Pulse Ox 100% ; bp 10:20 BP 113 / 63; Pulse 133; Resp 16; Temp 102.5; Pulse Ox 100% ; bp 10:30 BP 127 / 113; Pulse 131; Resp 17; Temp 102.7; Pulse Ox 100% ; bp 10:45 BP 122 / 59; Pulse 119; Resp 16; Temp 102.7; Pulse Ox 100% ; bp 11:00 BP 132 / 57; Pulse 135; Resp 17; Temp 103.0; Pulse Ox 100% ; bp 11:30 BP 107 / 61; Pulse 126; Resp 15; Temp 103.7; Pulse Ox 100% ; bp 12:00 BP 118 / 63; Pulse 113; Resp 16; Temp 104.6; Pulse Ox 100% ; bp 12:30 BP 104 / 63; Pulse 108; Resp 17; Temp 104.4; Pulse Ox 100% ; bp 13:00 BP 110 / 62; Pulse 105; Resp 17; Temp 103.8; Pulse Ox 100% ; bp 13:30 BP 116 / 65; Pulse 104; Resp 17; Temp 103.3; Pulse Ox 100% ; bp Girish Coma Score: 12:00 Eye Response: none(1). Verbal Response: none(1). Motor Response: none(1). Modifying jr8 Factors: Intubated. Total: 3. Ventilator: 12:00 Fi02: 60%; Rate: 16min; ET tube: 7.5 mm (Oral); jr8 Procedures: 03/30 06:25 Intubation: Ventilated with 100% NRB prior to procedure. O2 saturation prior to jr8 procedure was 96 %. Intubated orally using # 3 Mary blade with 7.5 mm ETT. was successful on first attempt. Ventilated with Ambu bag. ventilator. Tube secured with ETT perera at center of mouth measured 22 cm at lip. Placement verified by CXR, CO2 detector with (+) color change, auscultating bilateral breath sounds, O2 saturation after procedure was 100 %. Patient tolerated well. MDM: 03/29 09:50 Patient medically screened. jr8 12:07 Data reviewed: vital signs, nurses notes, lab test result(s), EKG, radiologic studies, jr8 CT scan, plain films. Data interpreted: Pulse oximetry: on ventilator is 100 %. Interpretation: normal. Counseling: I had a detailed discussion with the patient and/or guardian regarding: the historical points, exam findings, and any diagnostic results supporting the discharge/admit diagnosis, lab results, radiology results, the need to transfer to another facility, for higher level of care, [facility] does not immediately have the required specialist. 12:07 Differential diagnosis: CVA, metabolic disorder, drug effects, sepsis, ICH, Meningitis. jr8 12:18 ED course: Dr. Saunders consulted at [facility] and accepted to Neuro ICU for further [facility] evaluation . 03/29 09:50 Order name: Acetaminophen; Complete Time: 11:32 [facility] 03/29 09:50 Order name: Basic Metabolic Panel; Complete Time: 11:32 [facility] 03/29 09:50 Order name: CBC with Diff; Complete Time: 12:45 [facility] 03/29 09:50 Order name: ETOH Level; Complete Time: 11:32 [facility] 03/29 09:50 Order name: Hepatic Function; Complete Time: 11:32 [facility] 03/29 09:50 Order name: PT-INR; Complete Time: 12:00 [facility] 03/29 09:50 Order name: Ptt, Activated; Complete Time: 12:00 [facility] 03/29 09:50 Order name: Salicylate; Complete Time: 11:54 [facility] 03/29 09:50 Order name: Urine Drug Screen; Complete Time: 11:32 [facility] 03/29 09:51 Order name: Troponin (emerg Dept Use Only); Complete Time: 11:32 [facility] 03/29 09:52 Order name: Lactate; Complete Time: 11:32 [facility] 03/29 09:52 Order name: CK; Complete Time: 11:32 [facility] 03/29 10:48 Order name: Urine Dipstick--Ancillary (enter results); Complete Time: 11:54 03/29 10:48 Order name: Urine --Ancillary (enter results); Complete Time: 11:54 03/29 09:50 Order name: CT Head Brain wo Cont; Complete Time: 12:08 [facility] 03/29 10:01 Order name: Chest Single View; Complete Time: 10:44 [facility] 03/29 11:06 Order name: ABG; Complete Time: 12:45 [facility] 03/29 11:06 Order name: Blood Culture Adult (2) [facility] 03/29 11:09 Order name: CBC Smear Scan; Complete Time: 12:45 [facility] 03/29 09:50 Order name: Urine Test (obtain specimen); Complete Time: 12:25 [facility] 03/29 09:50 Order name: EKG; Complete Time: 09:51 [facility] 03/29 09:50 Order name: EKG - Nurse/Tech; Complete Time: 12:25 [facility] 03/29 09:50 Order name: IV Saline Lock; Complete Time: 09:53 03/29 09:50 Order name: Labs collected and sent; Complete Time: 12:26 [facility] 03/29 09:50 Order name: Urine Dipstick-Ancillary (obtain specimen); Complete Time: 10:45 03/29 09:50 Order name: Simon; Complete Time: 10:08 [facility] 03/29 12:03 Order name: Restraint:Non-Violent; Complete Time: 12:03 bp Administered Medications: 09:44 Drug: Versed 4 mg Route: IVP; Site: left antecubital; sv 10:21 Follow up: Response: No adverse reaction bp 09:47 Drug: Succinylcholine 70 mg Route: IVP; Site: left antecubital; sv 10:21 Follow up: Response: No adverse reaction bp 09:47 Drug: Etomidate 20 mg Route: IVP; Site: left antecubital; sv 10:21 Follow up: Response: No adverse reaction bp 09:50 Drug: NS 0.9% 1000 ml Route: IV; Rate: 1000 ml; Site: left upper arm; bp 10:15 Follow up: IV Status: Completed infusion; IV Intake: 1000ml bp 09:55 Drug: CEREbyx 1 grams Route: IVPB; Site: left antecubital; bp 12:25 Follow up: IV Status: Completed infusion; IV Intake: 100ml bp 09:59 Drug: Ativan 2 mg Route: IVP; Site: left antecubital; sv 10:20 Follow up: Response: No adverse reaction bp 10:00 Drug: Propofol 5 mcg/kg/min Route: IV; Rate: calculated rate; Site: left upper arm; bp 12:24 Follow up: IV Status: Infusion continued upon transfer bp 10:30 Drug: Tylenol Suppository 650 mg Route: [place]; bp 11:38 Follow up: Response: No adverse reaction bp 10:45 Drug: NS 0.9% 1000 ml Route: IV; Rate: 1000 ml; Site: left upper arm; bp 11:30 Follow up: IV Status: Completed infusion; IV Intake: 1000ml bp 11:00 Drug: PHENobarbital 20 mg/kg Route: IVPB; Rate: calculated rate; Site: left antecubital;bp 12:22 Follow up: IV Status: Completed infusion; IV Intake: 100ml bp 12:00 Drug: Cefepime 1 grams Route: IVPB; Rate: 200 ml/hr; Infused Over: 30 mins; Site: left bp upper arm; 12:30 Follow up: IV Status: Completed infusion; IV Intake: 100ml bp 12:00 Drug: NS 0.9% 1000 ml Route: IV; Rate: 250 ml/hr; Site: left upper arm; bp 12:24 Follow up: IV Status: Infusion continued upon transfer bp 12:15 Drug: vancoMYCIN 1 grams Route: IVPB; Infused Over: 2 hrs; Site: left upper arm; bp 13:30 Follow up: IV Status: Completed infusion; IV Intake: 150ml bp Disposition: 17:09 Co-signature as Attending Physician, Aravind Hobson MD I agree with the assessment and brock plan of care. Disposition: 03/29/18 12:46 Transfer ordered to [facility]. Diagnosis is Epilepsy, unspecified, intractable, with status epilepticus. - Reason for transfer: Higher level of care. - Accepting physician is Dr. Saunders . - Condition is Serious. - Problem is new. - Symptoms have improved. Critical care time excluding procedures: 12:07 Critical care time: Bedside Care: 20 minutes, Consultation: 10 minutes, Family jr8 Intervention: 10 minutes. Total time: 40 minutes Signatures: Dispatcher [employer] Rosi Ferrara, RN Aravind De Souza MD MD cha Williams, Irene, RN RN iw Terrence Russell PA PA jr8 Alexander Yan, RN RN bp Corrections: (The following items were deleted from the chart) 14:06 12:46 03/29/2018 12:46 Transfer ordered to [facility]. Diagnosis is iw Epilepsy, unspecified, intractable, with status epilepticus. Reason for transfer: Higher level of care. Accepting physician is Dr. Saunders . Condition is Serious. Problem is new. Symptoms have improved. jr8 03/30 06:27 03/29 12:00 FiO2 60%, Rate 16 min, ET 22 mm Oral, jr8 jr8
--- NOTE | 2018-03-29 12:47 | ER ---
Nurse's Notes [facility] Name: Kena Cutler Age: 57 yrs Sex: Female : 1960 Arrival Date: 03/29/2018 Time: 09:47 Bed 3 Private MD: Diagnosis: Epilepsy, unspecified, intractable, with status epilepticus Presentation: 03/29 09:40 Presenting complaint: EMS states: SMOKED SYNTHETIC, HAD A SEIZURE AND VERY COMBATIVE. bp Transition of care: patient was not received from another setting of care. Onset of symptoms is unknown. Risk Assessment: Do you want to hurt yourself or someone else? Unable to obtain. Initial Sepsis Screen: Does the patient meet any 2 criteria? Altered Mental Status. HR > 90 bpm. Yes Does the patient have a suspected source of infection? No. Patient's initial sepsis screen is negative. Care prior to arrival: EMS UNABLE TO 2/2 COMBATIVENESS. 09:40 Method Of Arrival: EMS: [facility] bp 09:40 Acuity: SHELLY 1 bp Triage Assessment: 09:40 General: Appears distressed, uncomfortable, unkempt, Behavior is combative. Pain: bp Unable to use pain scale. Does not appear to understand pain scale. Historical: - Allergies: 09:40 No Known Allergies; bp - Home Meds: 09:40 None [Active]; bp - PMHx: 09:40 SUBSTANCE ABUSE; bp - Immunization history:: Adult Immunizations unknown. - Social history:: Smoking status: Patient uses tobacco products, unknown amount. - Ebola Screening: : Patient negative for fever greater than or equal to 101.5 degrees Fahrenheit, and additional compatible Ebola Virus Disease symptoms Patient denies exposure to infectious person Patient denies travel to an Ebola-affected area in the 21 days before illness onset No symptoms or risks identified at this time. Screenin:40 Abuse screen: UNABLE TO OBTAIN. Nutritional screening: No deficits noted. Tuberculosis bp screening: No symptoms or risk factors identified. Fall Risk No fall in past 12 months (0 pts). Secondary diagnosis (15 points) seizures, IV access (20 points). Ambulatory Aid- None/Bed Rest/Nurse Assist (0 pts). Gait- Normal/Bed Rest/Wheelchair (0 pts) Mental Status- Overestimates/Forgets Limitations (15 pts.). Total Timmons Fall Scale indicates High Risk Score (45 or more points). Fall prevention measures have been instituted. Side Rails Up X 2 Placed Close to Nursing Station Frequent Obs/Assessments Occuring Family Present and informed to notify staff if the need to leave the bedside As available patient and family educated on Fall Prevention Program and Strategies. Assessment: 09:40 General: Appears unkempt, Behavior is combative, 57YO WF P/W AMS/INGESTION. PER EMS, bp 911 CALLED FOR SZ. EMS ARRIVED ON SCENE TO FIND PT AOx0, COMBATIVE AND DIAPHORETIC. PT ARRIVED TO ER COMBATIVE, AOx0, NONVERBAL. PER FAMILY, PT SMOKED "SYNTHETIC" RECENTLY. PT NONVERBAL AND COMBATIVE, NOT RESPONDING TO REDIRECTION. Pain: Unable to use pain scale. Does not appear to understand pain scale. Neuro: Level of Consciousness is COMBATIVE. Oriented to none. Cardiovascular: Rhythm is sinus tachycardia. Respiratory: Airway UNPROTECTED. GI: No deficits noted. : No deficits noted. EENT: No deficits noted. Derm: Skin is diaphoretic, Skin temperature is hot. Musculoskeletal: Range of motion: intact in all extremities. 09:45 Reassessment: PT CONTINUES TO RESIST HEALTH CARE EFFORTS, REMAINING COMBATIVE AND bp NON-VERBAL. INTUBATED AND RESTRAINED FOR PT AND STAFF SAFETY. AT B/S. 10:00 Reassessment: PT CONTINUES TO HAVE PERIODS OF SEIZURES AND POSTURING, UNABLE TO ATTEMPT bp CT AT THIS TIME. 11:00 Reassessment: PHENOBARBITOL OBTAINED FROM PHARMACY, INFUSING. CT PENDING. bp 12:00 Reassessment: PT RETURNED FROM CT. ALL CURRENT ORDERS COMPLETED. TRANSFER PENDING. bp 13:00 Reassessment: TRANSPORT IN PROCESS, ICE PACKS IN PLACE. bp 13:47 Reassessment: EMS AT B/S. PT TRANSPORTED MICHELLE. bp Vital Signs: 09:40 Pulse 151; Resp 24; Weight 40.82 kg; bp 10:00 BP 135 / 63; Pulse 150; Resp 19; Temp 99.4; Pulse Ox 100% ; bp 10:13 BP 98 / 53; Pulse 118; Resp 18; Temp 101.7; Pulse Ox 100% ; bp 10:15 BP 97 / 60; Pulse 116; Resp 20; Temp 101.5; Pulse Ox 100% ; bp 10:20 BP 113 / 63; Pulse 133; Resp 16; Temp 102.5; Pulse Ox 100% ; bp 10:30 BP 127 / 113; Pulse 131; Resp 17; Temp 102.7; Pulse Ox 100% ; bp 10:45 BP 122 / 59; Pulse 119; Resp 16; Temp 102.7; Pulse Ox 100% ; bp 11:00 BP 132 / 57; Pulse 135; Resp 17; Temp 103.0; Pulse Ox 100% ; bp 11:30 BP 107 / 61; Pulse 126; Resp 15; Temp 103.7; Pulse Ox 100% ; bp 12:00 BP 118 / 63; Pulse 113; Resp 16; Temp 104.6; Pulse Ox 100% ; bp 12:30 BP 104 / 63; Pulse 108; Resp 17; Temp 104.4; Pulse Ox 100% ; bp 13:00 BP 110 / 62; Pulse 105; Resp 17; Temp 103.8; Pulse Ox 100% ; bp 13:30 BP 116 / 65; Pulse 104; Resp 17; Temp 103.3; Pulse Ox 100% ; bp Girish Coma Score: 12:00 Eye Response: none(1). Verbal Response: none(1). Motor Response: none(1). Modifying jr8 Factors: Intubated. Total: 3. ED Course: 09:40 Inserted saline lock: 18 gauge in left antecubital area, using aseptic technique. bp 09:40 Assisted provider with intubation using 7.5 mm ETT via oral route. ET tube secured at bp 23cm at the teeth. Set up intubation tray. Intubated by Terrence BLISS Placement verified by CXR, auscultating bilateral breath sounds, Patient tolerated well. Patient transferred, IV remains in place. 09:40 Patient has correct armband on for positive identification. Placed in gown. Bed in low bp position. Call light in reach. Side rails up X2. Seizure precautions initiated. 09:40 Arm band placed on. bp 09:47 Patient arrived in ED. iw 09:50 Terrence Russell PA is PHCP. jr8 09:50 Aravind Hobson MD is Attending Physician. jr8 10:00 Inserted saline lock: 18 gauge in left upper arm, using aseptic technique. bp 10:02 X-ray completed. Portable x-ray completed in exam room. Patient tolerated procedure mh1 poorly. 10:02 Chest Single View In Process Unspecified. EDMS 10:07 Harsh Yan, RN is Primary Nurse. bp 10:08 Simon cath inserted, using sterile technique, 16 Fr., by me, balloon inflated, to sv gravity drainage, other Criticore. 10:11 Triage completed. bp 10:30 Inserted saline lock: 20 gauge in right antecubital area, using aseptic technique. bp Blood collected. 10:32 Radiology exam delayed due to PT UNSTABLE, HARSH TO CALL WHEN READY. kw1 10:44 Urine collected: Simon catheter specimen, cloudy, sediment noted. dh3 10:57 EKG done, by fire extinguisher technician. reviewed by Terrence BLISS. at1 11:[address] via stretcher. vr 11:49 CT completed. Patient tolerated procedure well. Patient moved back from CT. vr 11:49 CT Head Brain wo Cont In Process Unspecified. EDMS 13:08 Report given to LAWRENCE SALOMON, [facility], [address] [place] [address], BED [id number]. bp Restraints: 09:45 Non-Violent Restraint: Order obtained. Initiated on March 29, 2018 at 09:45 bp Restraint Education provided to family/significant other/legally authorized assisted sales representative. Actions/Behavior observed: Confused/disoriented, has impaired decision making, has decreased level of consciousness, unable to follow instructions, Less restrictive alternatives attempted: decrease environmental stimuli, 1:1 patient care, reoriented to location, medications evaluated, medicated for pain/anxiety, lines/tubes covered, eliminated unnecessary lines/tubes, verbal de-escalation performed, Alternative interventions: Ineffective. Clinical justification for use: airway protection, line protection, patient safety, Mental status: agitated/restless, Cognition: poor judgement, poor safety awareness, unable to follow commands, Circulation: Within defined parameters (based on Cardiovascular assessment) Skin integrity: Within defined parameters (based on Integumentary assessment) Signs of injury related to restraint: No injuries noted. Range of Motion (ROM): performed. Hydration/Food: patient declined. Elimination/Hygiene: with urinary catheter, Restraint status: Soft wrist restraint (Right) Started. Soft wrist restraint (Left) Started. Criteria to discontinue Restraint not met. Restraint continued. 11:00 Non-Violent Restraint: Actions/Behavior observed: Confused/disoriented, has difficulty bp remembering/follow instructions, has impaired decision making, has decreased level of consciousness, unable to follow instructions, Less restrictive alternatives attempted: decrease environmental stimuli, 1:1 patient care, placed near Nurse station, reoriented to location, medications evaluated, medicated for pain/anxiety, lines/tubes covered, eliminated unnecessary lines/tubes, verbal de-escalation performed, Alternative interventions: Ineffective. Clinical justification for use: airway protection, line protection, patient safety, Mental status: agitated/restless, Cognition: poor judgement, poor safety awareness, unable to follow commands, Circulation: Within defined parameters (based on Cardiovascular assessment) Skin integrity: Within defined parameters (based on Integumentary assessment) Signs of injury related to restraint: No injuries noted. Range of Motion (ROM): performed. Hydration/Food: patient declined. Elimination/Hygiene: with urinary catheter, Restraint status: Soft wrist restraint (Right) Continued. Soft wrist restraint (Left) Continued. Criteria to discontinue Restraint not met. Restraint continued. 13:00 Non-Violent Restraint: Actions/Behavior observed: Confused/disoriented, has impaired bp decision making, has decreased level of consciousness, unable to follow instructions, Less restrictive alternatives attempted: decrease environmental stimuli, 1:1 patient care, placed near Nurse station, reoriented to location, medications evaluated, medicated for pain/anxiety, lines/tubes covered, eliminated unnecessary lines/tubes, verbal de-escalation performed, Alternative interventions: Ineffective. Clinical justification for use: airway protection, line protection, patient safety, Mental status: agitated/restless, confused, Cognition: poor judgement, poor safety awareness, unable to follow commands, Circulation: Within defined parameters (based on Cardiovascular assessment) Skin integrity: Within defined parameters (based on Integumentary assessment) Signs of injury related to restraint: No injuries noted. Range of Motion (ROM): performed. Hydration/Food: patient declined. Elimination/Hygiene: with urinary catheter, Restraint status: Soft wrist restraint (Right) Continued. Soft wrist restraint (Left) Continued. Criteria to discontinue Restraint not met. Restraint continued. 13:45 Non-Violent Restraint: Actions/Behavior observed: Confused/disoriented, has difficulty bp remembering/follow instructions, has impaired decision making, has decreased level of consciousness, unable to follow instructions, Less restrictive alternatives attempted: decrease environmental stimuli, 1:1 patient care, placed near Nurse station, reoriented to location, medications evaluated, medicated for pain/anxiety, lines/tubes covered, eliminated unnecessary lines/tubes, verbal de-escalation performed, Alternative interventions: Ineffective. Clinical justification for use: airway protection, line protection, patient safety, Mental status: agitated/restless, confused, Cognition: poor judgement, poor safety awareness, unable to follow commands, Circulation: Within defined parameters (based on Cardiovascular assessment) Skin integrity: Within defined parameters (based on Integumentary assessment) Signs of injury related to restraint: No injuries noted. Range of Motion (ROM): performed. Hydration/Food: patient declined. Elimination/Hygiene: with urinary catheter, Restraint status: Soft wrist restraint (Right) Continued. Soft wrist restraint (Left) Continued. Criteria to discontinue Restraint not met. Restraint continued. Administered Medications: 09:44 Drug: Versed 4 mg Route: IVP; Site: left antecubital; sv 10:21 Follow up: Response: No adverse reaction bp 09:47 Drug: Succinylcholine 70 mg Route: IVP; Site: left antecubital; sv 10:21 Follow up: Response: No adverse reaction bp 09:47 Drug: Etomidate 20 mg Route: IVP; Site: left antecubital; sv 10:21 Follow up: Response: No adverse reaction bp 09:50 Drug: NS 0.9% 1000 ml Route: IV; Rate: 1000 ml; Site: left upper arm; bp 10:15 Follow up: IV Status: Completed infusion; IV Intake: 1000ml bp 09:55 Drug: CEREbyx 1 grams Route: IVPB; Site: left antecubital; bp 12:25 Follow up: IV Status: Completed infusion; IV Intake: 100ml bp 09:59 Drug: Ativan 2 mg Route: IVP; Site: left antecubital; sv 10:20 Follow up: Response: No adverse reaction bp 10:00 Drug: Propofol 5 mcg/kg/min Route: IV; Rate: calculated rate; Site: left upper arm; bp 12:24 Follow up: IV Status: Infusion continued upon transfer bp 10:30 Drug: Tylenol Suppository 650 mg Route: MT; bp 11:38 Follow up: Response: No adverse reaction bp 10:45 Drug: NS 0.9% 1000 ml Route: IV; Rate: 1000 ml; Site: left upper arm; bp 11:30 Follow up: IV Status: Completed infusion; IV Intake: 1000ml bp 11:00 Drug: PHENobarbital 20 mg/kg Route: IVPB; Rate: calculated rate; Site: left antecubital;bp 12:22 Follow up: IV Status: Completed infusion; IV Intake: 100ml bp 12:00 Drug: Cefepime 1 grams Route: IVPB; Rate: 200 ml/hr; Infused Over: 30 mins; Site: left bp upper arm; 12:30 Follow up: IV Status: Completed infusion; IV Intake: 100ml bp 12:00 Drug: NS 0.9% 1000 ml Route: IV; Rate: 250 ml/hr; Site: left upper arm; bp 12:24 Follow up: IV Status: Infusion continued upon transfer bp 12:15 Drug: vancoMYCIN 1 grams Route: IVPB; Infused Over: 2 hrs; Site: left upper arm; bp 13:30 Follow up: IV Status: Completed infusion; IV Intake: 150ml bp Intake: 10:15 IV: 1000ml; Total: 1000ml. bp 11:30 IV: 1000ml; Total: 2000ml. bp 12:22 IV: 100ml; Total: 2100ml. bp 12:25 IV: 100ml; Total: 2200ml. bp 12:30 IV: 100ml; Total: 2300ml. bp 13:30 IV: 150ml; Total: 2450ml. bp Ventilator: 12:00 Fi02: 60%; Rate: 16min; ET tube: 7.5 mm (Oral); jr8 Outcome: 12:46 ER care complete, transfer ordered by MD. summesr 13:48 Transferred by ground EMS to [facility], Transfer form completed. bp X-rays sent w/ patient. 13:48 Condition: stable 13:48 Instructed on the need for transfer. 14:06 Patient left the ED. iw Signatures: Dispatcher [employer] EDMS Rosi Gan RN Hollie Frey 1 Radha Montaño, Светлана Sosa RN, Josh, PA PA jr8 Rain Stewart, teller manager EKG Tat1 Delphine Greco 3 Harsh Yan RN RN Arianna Rodriguez kw1 Corrections: (The following items were deleted from the chart) 13:52 11:00 Non-Violent Restraint: Actions/Behavior observed: Confused/disoriented, has bp difficulty remembering/follow instructions, has impaired decision making, has decreased level of consciousness, unable to follow instructions, Less restrictive alternatives attempted: decrease environmental stimuli, 1:1 patient care, placed near Nurse station, reoriented to location, medications evaluated, medicated for pain/anxiety, lines/tubes covered, eliminated unnecessary lines/tubes, verbal de-escalation performed, Alternative interventions: Ineffective. Clinical justification for use: airway protection, line protection, patient safety, Mental status: agitated/restless, Cognition: poor judgement, poor safety awareness, unable to follow commands, Circulation: Within defined parameters (based on Cardiovascular assessment) Skin integrity: Within defined parameters (based on Integumentary assessment) Signs of injury related to restraint: No injuries noted. Range of Motion (ROM): performed. Hydration/Food: patient declined. Elimination/Hygiene: with urinary catheter, Restraint status: Soft wrist restraint (Right) Started. Soft wrist restraint (Left) Started. Criteria to discontinue Restraint not met. Restraint continued bp
--- NOTE | 2018-03-29 22:07 | EKG ---
Test Date: 2018-03-29 Test Time: 10:47:35 Patient Support Assistant: DAYAN MEASUREMENT RESULTS: Intervals: Rate: 120 LA: 140 QRSD: 84 QT: 300 QTc: 424 Ulman: P: 81 LA: 140 QRS: -32 T: 90 INTERPRETIVE STATEMENTS: Sinus tachycardia Left axis deviation Septal infarct, age undetermined Abnormal ECG Compared to ECG 08/30/2013 10:00:17 Left-axis deviation now present Myocardial infarct finding now present Atrial abnormality no longer present Electronically Signed On 03-29-18 22:06:36 [employer] PIPING DESIGNER by Sergio Main
== END 2018-03-29 14:06 | disposition short-term general hospital (02) ==
LOC: ER 09:42
PROC: 0BH17EZ Insertion of Endotracheal Airway into Trachea, Via Natural or Artificial Opening (ICD-10-PCS; principal; 2018-03-29)
PROC: 5A1935Z Respiratory Ventilation, Less than 24 Consecutive Hours (ICD-10-PCS; 2018-03-29)
DX: G40.901 Epilepsy, unspecified, not intractable, with status epilepticus (principal); Z72.0 Tobacco use
CPT/HCPCS: 31500; 36415; 51702; 70450; 71045; 80048; 80076; 80307; 80320; 80329; 81003; 81025; 82550; 82805; 83605; 84484; 85025; 85610; 85730; 87040; 93005; 99291; 99292; J0330; J0692; J0696; J2560; J2704; J3370; J7030; Q2009

== ENCOUNTER 2018-06-15 00:32 | Emergency (ER) | payer SELFPAY ==
--- OUTSIDE RECORDS SUMMARY | 2018-06-15 00:35 | XMS REPORT | Clinical Summary ---
:1960 Author Organization [facility] Address [address] [place] [address] Care Team Providers Name Role Phone Margarita Primary Care Provider Allergies No Known Allergies Medications Medication Sig Dispensed Refills Start End Date Status Date levETIRAcetam Take 1 tablet (500 60 tablet 2 03/31/20 Active (KEPPRA) 500 MG mg total) by mouth 8 19 tablet 2 (two) times daily. levETIRAcetam Take 1 tablet (500 180 tablet 0 10/31/19 (KEPPRA) 500 MG mg total) by mouth 8 18 tablet 2 (two) times daily for 90 days. levETIRAcetam Inject 1,000 mg 60 tablet 2 03/31/20 Discontinued (KEPPRA) 1000 intravenously 8 18 mg/100 mL NS (V2B) every 12 (twelve) IVPB hours for 30 days. 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 Seizure 08/01/2017 Encounters Date Type Specialty Care Team Description 03/29/2018 - Hospital Encounter Intensive Care Kwame Saunders Seizure ([facility]) 03/31/2018 MD Jacinto 08/01/2017 Hospital Encounter General Internal Peter Severino Seizure ( [facility]); Medicine MD Sergio Substance abuse Sy Rubin MD after 06/14/2017 Social History Tobacco Use Types Packs/Day Years Used Date Never Assessed Sex Assigned at Date Recorded Not on file Job Start Date Occupation Industry Not on file Not on file Not on file Travel History Travel Start Travel End No recent travel history available. Last Filed Vital Signs Vital Sign Reading Time Taken Blood Pressure 140/68 03/31/2018 2:35 PM OFFSHORING MANAGER Pulse 101 03/31/2018 2:30 PM OFFSHORING MANAGER Temperature 36.4 C (97.6 F) 03/31/2018 2:05 PM OFFSHORING MANAGER Respiratory Rate 26 03/31/2018 2:30 PM OFFSHORING MANAGER Oxygen Saturation 91% 03/31/2018 2:35 PM OFFSHORING MANAGER Inhaled Oxygen Concentration 40% 03/31/2018 10:00 AM OFFSHORING MANAGER Weight 49.1 kg (108 lb 3.9 oz) 03/31/2018 5:00 AM OFFSHORING MANAGER Height 157.5 cm (5' 2") 03/29/2018 4:02 PM OFFSHORING MANAGER Body Mass Index 19.8 03/31/2018 5:00 AM OFFSHORING MANAGER Plan of Treatment Not on file Procedures Procedure Name Priority Date/Time Associated Comments Diagnosis RHYTHM STRIP - SCAN 04/12/2018 11:30 AM OFFSHORING MANAGER POCT-GLUCOSE METER Routine 03/31/2018 11:59 Results for this AM OFFSHORING MANAGER procedure are in the results section. POTASSIUM Routine 03/31/2018 11:56 Results for this AM OFFSHORING MANAGER procedure are in the results section. PLATELET COUNT Routine 03/31/2018 11:56 Results for this AM OFFSHORING MANAGER procedure are in the results section. BLOOD GAS, VENOUS Routine 03/31/2018 8:23 Results for this AM OFFSHORING MANAGER procedure are in the results section. EEG MONITORING WITH Routine 03/31/2018 6:16 Results for this VIDEO RECORDING EACH AM OFFSHORING MANAGER procedure are in 24 HOURS the results section. POCT-GLUCOSE METER Routine 03/31/2018 6:14 Results for this AM OFFSHORING MANAGER procedure are in the results section. BLOOD GAS, ARTERIAL Routine 03/31/2018 4:21 Results for this AM OFFSHORING MANAGER procedure are in the results section. CBC W/PLT COUNT & AUTO Routine 03/31/2018 4:20 Results for this DIFFERENTIAL AM OFFSHORING MANAGER procedure are in the results section. CBC W/PLT COUNT & AUTO Routine 03/31/2018 4:20 Results for this DIFFERENTIAL AM OFFSHORING MANAGER procedure are in the results section. TRIGLYCERIDES Routine 03/31/2018 4:20 Results for this AM OFFSHORING MANAGER procedure are in the results section. LACTIC ACID, VENOUS, Routine 03/31/2018 4:20 Results for this WHOLE BLOOD AM OFFSHORING MANAGER procedure are in the results section. CREATINE KINASE (CK) Routine 03/31/2018 4:20 Results for this AM OFFSHORING MANAGER procedure are in the results section. COMPREHENSIVE Routine 03/31/2018 4:20 Results for this METABOLIC PANEL AM OFFSHORING MANAGER procedure are in the results section. XR CHEST 1 VIEW Routine 03/31/2018 3:12 Results for this PORTABLE/BEDSIDE AM OFFSHORING MANAGER procedure are in the results section. POCT-GLUCOSE METER Routine 03/30/2018 11:46 Results for this PM OFFSHORING MANAGER procedure are in the results section. XR ABDOMEN 1 VIEW STAT 03/30/2018 9:32 Results for this PM OFFSHORING MANAGER procedure are in the results section. POCT-GLUCOSE METER Routine 03/30/2018 5:48 Results for this PM OFFSHORING MANAGER procedure are in the results section. XR ABDOMEN 1 VIEW STAT 03/30/2018 1:18 Results for this PM OFFSHORING MANAGER procedure are in the results section. POCT-GLUCOSE METER Routine 03/30/2018 12:06 Results for this PM OFFSHORING MANAGER procedure are in the results section. XR CHEST 1 VIEW Routine 03/30/2018 7:41 Results for this PORTABLE/BEDSIDE AM OFFSHORING MANAGER procedure are in the results section. EEG MONITORING WITH STAT 03/30/2018 7:00 Results for this VIDEO RECORDING EACH AM OFFSHORING MANAGER procedure are in 24 HOURS the results section. POCT-GLUCOSE METER Routine 03/30/2018 6:14 Results for this AM OFFSHORING MANAGER procedure are in the results section. CBC W/PLT COUNT & AUTO Routine 03/30/2018 4:37 Results for this DIFFERENTIAL AM OFFSHORING MANAGER procedure are in the results section. BASIC METABOLIC PANEL Routine 03/30/2018 4:37 Results for this (7) AM OFFSHORING MANAGER procedure are in the results section. CBC W/PLT COUNT & AUTO Routine 03/30/2018 4:37 Results for this DIFFERENTIAL AM OFFSHORING MANAGER procedure are in the results section. BLOOD GAS, ARTERIAL Routine 03/30/2018 4:37 Results for this AM OFFSHORING MANAGER procedure are in the results section. LACTIC ACID, VENOUS, Routine 03/30/2018 4:37 Results for this WHOLE BLOOD AM OFFSHORING MANAGER procedure are in the results section. LACTIC ACID, VENOUS, STAT 03/30/2018 12:12 Results for this WHOLE BLOOD AM OFFSHORING MANAGER procedure are in the results section. POCT-GLUCOSE METER Routine 03/29/2018 11:51 Results for this PM OFFSHORING MANAGER procedure are in the results section. CT/CTA CAROTID STAT 03/29/2018 11:07 Results for this PM OFFSHORING MANAGER procedure are in the results section. CT/CTA BRAIN STAT 03/29/2018 11:07 Results for this PM OFFSHORING MANAGER procedure are in the results section. POCT-GLUCOSE METER Routine 03/29/2018 6:28 Results for this PM OFFSHORING MANAGER procedure are in the results section. EEG AWAKE AND DROWSY Routine 03/29/2018 5:52 Results for this PM OFFSHORING MANAGER procedure are in the results section. XR CHEST 1 VIEW STAT 03/29/2018 5:35 Results for this PORTABLE/BEDSIDE PM OFFSHORING MANAGER procedure are in the results section. BLOOD GAS, ARTERIAL Routine 03/29/2018 5:15 Results for this PM OFFSHORING MANAGER procedure are in the results section. CREATINE KINASE (CK) Routine 03/29/2018 5:00 Results for this PM OFFSHORING MANAGER procedure are in the results section. ETHANOL Routine 03/29/2018 5:00 Results for this PM OFFSHORING MANAGER procedure are in the results section. APTT STAT 03/29/2018 5:00 Results for this PM OFFSHORING MANAGER procedure are in the results section. PROTHROMBIN TIME/INR STAT 03/29/2018 5:00 Results for this PM OFFSHORING MANAGER procedure are in the results section. PROCALCITONIN STAT 03/29/2018 5:00 Results for this PM OFFSHORING MANAGER procedure are in the results section. LACTIC ACID, VENOUS, STAT 03/29/2018 5:00 Results for this WHOLE BLOOD PM OFFSHORING MANAGER procedure are in the results section. LACTIC ACID, VENOUS, STAT 03/29/2018 5:00 Results for this WHOLE BLOOD PM OFFSHORING MANAGER procedure are in the results section. BLOOD CULTURE STAT 03/29/2018 4:59 Results for this PM OFFSHORING MANAGER procedure are in the results section. BLOOD CULTURE STAT 03/29/2018 4:59 Results for this PM OFFSHORING MANAGER procedure are in the results section. POCT-GLUCOSE METER Routine 03/29/2018 3:46 Results for this PM OFFSHORING MANAGER procedure are in the results section. RHYTHM STRIP - SCAN 08/03/2017 2:40 PM [...] the results section. CBC W/PLT COUNT & AUTO Routine 08/01/2017 8:45 Results for this DIFFERENTIAL AM CDT procedure are in the results section. CBC W/PLT COUNT & AUTO Routine 08/01/2017 8:45 Results for this DIFFERENTIAL AM CDT procedure are in the results section. PHOSPHORUS Routine 08/01/2017 8:45 Results for this AM CDT procedure are in the results section. MAGNESIUM Routine 08/01/2017 8:45 Results for this AM CDT procedure are in the results section. PROTHROMBIN TIME/INR Routine 08/01/2017 8:45 Results for this AM CDT procedure are in the results section. HEPATIC FUNCTION PANEL Routine 08/01/2017 8:45 Results for this AM CDT procedure are in the results section. BASIC METABOLIC PANEL Routine 08/01/2017 8:45 Results for this (7) AM CDT procedure are in the results section. POCT-GLUCOSE METER Routine 08/01/2017 7:03 Results for this AM CDT procedure are in the results section. after 06/14/2017 Results RHYTHM STRIP - SCAN (04/12/2018 11:30 AM OFFSHORING MANAGER)Only the most recent of2 resultswithin the time period is included. Narrative Performed At POC-Glucose meter (03/31/2018 11:59 AM OFFSHORING MANAGER)Only the most recent of12 resultswithin the time period is included. POC-Glucose Meter 137 (H)Comment: TESTED AT 70 - 110 mg/dL [place] [id number] [facility] [id number] Specimen Blood Performing Organization Address City/[facility]/Zipcode Phone Number [address] [address] CENTER Platelet count (03/31/2018 11:56 AM OFFSHORING MANAGER) Platelets 149 (L) 150 - 450 K/CU MM [facility] Specimen Blood - Arm, Left Performing Organization Address City/State/Zipcode Phone Number [facility] [address] [place], [place] [id number] [phone] [place] Potassium (03/31/2018 11:56 AM OFFSHORING MANAGER) Potassium 4.0 3.5 - 5.1 meq/L [facility] Specimen Blood - Arm, Left Performing Organization Address City/[facility]/Zipcode Phone Number [facility] [address] [place] [address] [place] Blood gas, venous (03/31/2018 8:23 AM OFFSHORING MANAGER) pH, Patel 7.40 7.32 - 7.42 [facility] pCO2, Patel 38 (L) 41 - 51 mmHg [facility] pO2, Patel 71 (H) 25 - 40 mmHg [facility] O2 Sat, Patel 94.4 (H) 40.0 - 70.0 % [facility] HCO3, Patel 23 21 - 29 mmol/L [facility] Base Excess, Patel -1.2 -2.0 - 3.0 mmol/L [facility] Patient Temperature 37.0 C [facility] FIO2 50.0 % [facility] Specimen Blood - Arm, Right Performing Organization Address City/[facility] Phone Number [facility] [address] [place] [address] [place] EEG monitoring with video recording each 24 hours (03/31/2018 6:16 AM OFFSHORING MANAGER) Narrative Performed At Date(s) of EE03/29/18; 03/30/18;03/31/2018 GE RIS DATE OF REPORT: 03/31/18 ACC: [id number] EEG Number: [id number] Start time: 03/30/2018 at 09:41 Stop time: 03/30/2018 at 05:41 ICD-10: R56.9 CPT Code: 15514 REASON FOR EXAM: 57 yo female with PMHx of tobacco and marijuana abuse who is transferred from [facility] for treatment of sepsis and seizures in the setting of synthetic marijuana use. MEDICATIONS WHICH COULD AFFECT EEG: Levetiracetam, dexmedetomidine TECHNICAL SUMMARY: This is a digital video-EEG recorded with 32 input channels reviewed with bipolar and referential montages using the modified combinatorial system nomenclature. DESCRIPTION OF RECORD: The background is symmetric and continuous. The background consists of mixed frequency activity with a combination of13-18 Hz,with admixed 1.5-3 Hz and 5-7 Hz activity.There is spontaneous reactivity and reactivity to state change. EVENTS: none HYPERVENTILATION: Not performed PHOTIC STIMULATION: Not performed ELECTROCARDIOGRAM EVENTS: None IMPRESSION: This is an abnormal video EEG in coma due: 1. Presence of diffuse mixed frequency moderate reactive background slowing with presence of excess faster alpha/beta activity. CLINICAL CORRELATION: The Presence of diffuse mixed frequency moderate background slowing is consistent with moderate degree of encephalopathy of nonspecific etiology. Excess alpha/beta activity in this record in all regions suggests medication effect. This recording is slightly improved from the previous recording as there is spontaneous reactivity and reactivity to state change. Dmitriy Mcmillan MD Clinical Neurophysiology Fellow Howard Blanc M.D., FACAMBREEN, FAAN, JESSIKA Professor of Neurology, [facility] [employer] [facility] Director, [facility] Head, [facility] Neurophysiology Lab Procedure Note Interface, External Ris In - 03/31/2018 11:38 AM OFFSHORING MANAGER Date(s) of EE03/29/18; 03/30/18;03/31/2018 DATE OF REPORT: 03/31/18 ACC: [id number] EEG Number: [id number] Start time: 03/30/2018 at 09:41 Stop time: 03/30/2018 at 05:41 ICD-10: R56.9 CPT Code: 45769 REASON FOR EXAM: 57 yo female with PMHx of tobacco and marijuana abuse who is transferred from [facility] for treatment of sepsis and seizures in the setting of synthetic marijuana use. MEDICATIONS WHICH COULD AFFECT EEG: Levetiracetam, dexmedetomidine TECHNICAL SUMMARY: This is a digital video-EEG recorded with 32 input channels reviewed with bipolar and referential montages using the modified combinatorial system nomenclature. DESCRIPTION OF RECORD: The background is symmetric and continuous. The background consists of mixed frequency activity with a combination of 13-18 Hz, with admixed 1.5-3 Hz and 5-7 Hz activity. There is spontaneous reactivity and reactivity to state change. EVENTS: none HYPERVENTILATION: Not performed PHOTIC STIMULATION: Not performed ELECTROCARDIOGRAM EVENTS: None IMPRESSION: This is an abnormal video EEG in coma due: 1. Presence of diffuse mixed frequency moderate reactive background slowing with presence of excess faster alpha/beta activity. CLINICAL CORRELATION: The Presence of diffuse mixed frequency moderate background slowing is consistent with moderate degree of encephalopathy of nonspecific etiology. Excess alpha/beta activity in this record in all regions suggests medication effect. This recording is slightly improved from the previous recording as there is spontaneous reactivity and reactivity to state change. Dmitriy Mcmillan MD Clinical Neurophysiology Fellow Howard Blanc M.D., ALISE, JACQUIEN, JESSIKA Professor of Neurology, [facility] Director, [facility] Epilepsy [place] Head, Doyle Devi Neurophysiology Lab Performing Organization Address City/[facility] Phone Number [facility] Blood gas, arterial (03/31/2018 4:21 AM OFFSHORING MANAGER)Only the most recent of3 resultswithin the time period is included. pH, Arterial 7.45 7.35 - 7.45 [facility] pCO2, Arterial 29 (L) 35 - 45 mmHg [facility] pO2, Arterial 175 (H) 80 - 90 mmHg [facility] O2 Sat, Arterial 99.3 (H) 96.0 - 97.0 % [facility] HCO3, Arterial 19 (L) 21 - 29 mmol/L [facility] Base Excess, Arterial -3.8 (L) -2.0 - 3.0 mmol/L [facility] Patient Temperature 37.0 C [facility] FIO2 50.0 % [facility] Specimen Blood, Arterial Performing Organization Address City/[facility]/Zipcode Phone Number [facility] [address] [place] [address] CENTER CBC with platelet count + automated diff (03/31/2018 4:20 AM OFFSHORING MANAGER)Only the most recent of3 resultswithin the time period is included. WBC 9.5 3.5 - 10.5 K/L [facility] RBC 3.07 (L) 3.93 - 5.22 M/L [facility] Hemoglobin 9.9 (L) 11.2 - 15.7 GM/DL [facility] Hematocrit 29.5 (L) 34.1 - 44.9 % [facility] MCV 96.1 (H) 79.4 - 94.8 fL [facility] MCH 32.2 25.6 - 32.2 pg [facility] MCHC 33.6 32.2 - 35.5 GM/DL [facility] RDW 13.4 11.7 - 14.4 % [facility] Platelets 97 (L) 150 - 450 K/CU MM [facility] MPV 10.7 9.4 - 12.3 fL [facility] nRBC 0 0 - 0 /100 WBC [facility] % Neutros 82 % [facility] % Lymphs 10 % [facility] % Monos 8 % [facility] % Eos 0 % [facility] % Baso 0 % [facility] # Neutros 7.76 (H) 1.56 - 6.13 K/L [facility] # Lymphs 0.93 (L) 1.18 - 3.74 K/L [facility] # Monos 0.75 (H) 0.24 - 0.36 K/L [facility] # Eos 0.01 (L) 0.04 - 0.36 K/L [facility] # Baso 0.03 0.01 - 0.08 K/L [facility] Immature Granulocytes-Relative 0 0 - 1 % [facility] Specimen Blood - Arm, Left Performing Organization Address [facility] Phone Number [address] [address] [place] Lactic acid, venous, whole blood Daily (03/31/2018 4:20 AM OFFSHORING MANAGER)Only the most recent of5 resultswithin the time period is included. Lactate, Venous 0.8 0.5 - 2.2 mmol/L [facility] Specimen Blood - Arm, Left Performing Organization Address [facility] Phone Number [address] [address] [place] Triglycerides (03/31/2018 4:20 AM OFFSHORING MANAGER) Triglycerides 85 mg/dL [facility] Specimen Blood - Arm, Left Narrative Performed At TRIGLYCERIDE REFERENCE RANGE [facility] Low Risk<150 Borderline Risk 150-199 High [id number] Very High Risk >=500 Performing Organization Address [facility] Phone Number [address] [address] [phone] CENTER Creatine Kinase (CK) (03/31/2018 4:20 AM OFFSHORING MANAGER)Only the most recent of2 resultswithin the time period is included. Total CK 969 (H) 29 - 200 U/L [facility] Specimen Blood - Arm, Left Performing Organization Address [facility] Phone Number [address] [address] [place] Comprehensive metabolic panel (03/31/2018 4:20 AM OFFSHORING MANAGER) Protein, Total 5.7 (L) 6.0 - 8.3 gm/dL [facility] Albumin 3.9 3.5 - 5.0 g/dL [facility] Alkaline Phosphatase 85 40 - 150 U/L [facility] Total Bilirubin 1.1 0.2 - 1.2 mg/dL [facility] Sodium 134 (L) 136 - 145 meq/L [facility] Potassium 2.9 (L) 3.5 - 5.1 meq/L [facility] Chloride 107 98 - 107 meq/L [facility] CO2 20 (L) 22 - 29 meq/L [facility] BUN 10 7 - 21 mg/dL [facility] Creatinine 0.58 0.57 - 1.25 mg/dL [facility] Glucose 105 70 - 105 mg/dL [facility] Calcium 8.3 (L) 8.4 - 10.2 mg/dL [facility] AST 60 (H) 5 - 34 U/L [facility] ALT 37 6 - 55 U/L [facility] EGFR 108Comment: ESTIMATED mL/min/1.73 sq m [facility] GFR IS NOT ACCURATE [facility] CREATININE CLEARANCE IN PREDICTING GLOMERULAR FILTRATION RATE. ESTIMATED GFR IS NOT APPLICABLE FOR DIALYSIS PATIENTS. Specimen Blood - Arm, Left Performing Organization Address City/State/Zipcode Phone Number [facility] [address] [place] [address] CENTER XR chest 1 view portable / bedside (03/31/2018 3:12 AM OFFSHORING MANAGER)Only the most recent of3 resultswithin the time period is included. Narrative Performed At FINAL REPORT [facility] CLINICAL INDICATION: Support lines. Comparison: 03/30/2018 The cardiomediastinal contours are stable. There is no focal consolidation, pneumothorax, large pleural effusion or evidence of overt pulmonary edema. A feeding tube traverses examination to the upper abdomen. An endotracheal tube is stable. Signed: Leonides Guerra MD Report Verified Date/Time:03/31/2018 03:30:39 Reading Location: [address] Reading Room Procedure Note Interface, External Ris In - 03/31/2018 4:45 AM OFFSHORING MANAGER FINAL REPORT CLINICAL INDICATION: Support lines. Comparison: 03/30/2018 The cardiomediastinal contours are stable. There is no focal consolidation, pneumothorax, large pleural effusion or evidence of overt pulmonary edema. A feeding tube traverses examination to the upper abdomen. An endotracheal tube is stable. Signed: Leonides Guerra MD Report Verified Date/Time: 03/31/2018 03:30:39 Reading Location: [address] Reading Room Performing Organization Address City/State/Zipcode Phone Number GE RIS XR abdomen / KUB 1 view (03/30/2018 9:32 PM OFFSHORING MANAGER)Only the most recent of2 resultswithin the time period is included. Narrative Performed At FINAL REPORT [facility] CLINICAL HISTORY: ngt placement TECHNIQUE: RAD, ABDOMEN/KUB, 1 VIEW AP COMPARISON: Plain radiograph the abdomen, same day. FINDINGS: Weighted tip enteric tube is seen coursing below the diaphragm, looping in the stomach with tip overlying the gastric fundus. Nonspecific bowel gas pattern without distended loops of bowel. Otherwise unchanged imaging of the abdomen. Signed: Abbey Day MD Report Verified Date/Time:03/30/2018 22:04:23 Reading Location: [facility] C013 Transitional Reading Room Procedure Note Interface, External Ris In - 03/30/2018 10:06 PM OFFSHORING MANAGER FINAL REPORT CLINICAL HISTORY: ngt placement TECHNIQUE: RAD, ABDOMEN/KUB, 1 VIEW AP COMPARISON: Plain radiograph the abdomen, same day. FINDINGS: Weighted tip enteric tube is seen coursing below the diaphragm, looping in the stomach with tip overlying the gastric fundus. Nonspecific bowel gas pattern without distended loops of bowel. Otherwise unchanged imaging of the abdomen. Signed: Abbey Day MD Report Verified Date/Time: 03/30/2018 22:04:23 Reading Location: [place] [id number] Transitional Reading Room Performing Organization Address City/State/Zipcode Phone Number [facility] EEG monitoring with video recording each 24 hours (03/30/2018 7:00 AM OFFSHORING MANAGER) Narrative Performed At Date(s) of EE03/29/18 GE RIS DATE OF REPORT: 03/30/18 ACC: [id number] EEG Number: [id number] Start time: 03/29/2018 at 17:52 Stop time: 03/29/2018 at 22:28 ICD-10: R56.9 CPT Code: 22179-63 REASON FOR EXAM: 57 yo female with PMHx of tobacco and marijuana abuse who is transferred from [facility] for treatment of sepsis and seizures in the setting of synthetic marijuana use. MEDICATIONS WHICH COULD AFFECT EEG: propofol, Lorazepam, Levetiracetam, Midazolam TECHNICAL SUMMARY: This is a digital video-EEG recorded with 32 input channels reviewed with bipolar and referential montages using the modified combinatorial system nomenclature. DESCRIPTION OF RECORD: The background is symmetric and consists of mixed frequency activity witha combination of8- 13 Hz with admixed 1.5-3 Hz and 5-7 Hz activity.There brief periods of background attenuation lasting 1-3s. No obvious reactive background variability is evident. HYPERVENTILATION: Not performed PHOTIC STIMULATION: Not performed ELECTROCARDIOGRAM EVENTS: None IMPRESSION: This is an abnormal EEG in coma due the 1. Presence of diffusemixed frequency background slowing and discontinuity with presence ofexcess faster alpha/beta activity. CLINICAL CORRELATION: The Presence of diffuse mixed frequency background slowing and discontinuity is consistent with severe encephalopathy of nonspecific etiology. Excess alpha/beta activity in this record in all regions suggests medication effect. Dmitriy Mcmillan MD Clinical Neurophysiology Fellow I have reviewed the electroencephalogram and this report and agree with its interpretation. Igor Garnica MD Attending Neurophysiologist [facility] Procedure Note Interface, External Ris In - 03/30/2018 4:39 PM OFFSHORING MANAGER Date(s) of EE03/29/18 DATE OF REPORT: 03/30/18 ACC: [id number] EEG Number: [id number] Start time: 03/29/2018 at 17:52 Stop time: 03/29/2018 at 22:28 ICD-10: R56.9 CPT Code: 16286-27 REASON FOR EXAM: 57 yo female with PMHx of tobacco and marijuana abuse who is transferred from [facility] for treatment of sepsis and seizures in the setting of synthetic marijuana use. MEDICATIONS WHICH COULD AFFECT EEG: propofol, Lorazepam, Levetiracetam, Midazolam TECHNICAL SUMMARY: This is a digital video-EEG recorded with 32 input channels reviewed with bipolar and referential montages using the modified combinatorial system nomenclature. DESCRIPTION OF RECORD: The background is symmetric and consists of mixed frequency activity with a combination of 8- 13 Hz with admixed 1.5-3 Hz and 5-7 Hz activity. There brief periods of background attenuation lasting 1-3s. No obvious reactive background variability is evident. HYPERVENTILATION: Not performed PHOTIC STIMULATION: Not performed ELECTROCARDIOGRAM EVENTS: None IMPRESSION: This is an abnormal EEG in coma due the 1. Presence of diffuse mixed frequency background slowing and discontinuity with presence of excess faster alpha/beta activity. CLINICAL CORRELATION: The Presence of diffuse mixed frequency background slowing and discontinuity is consistent with severe encephalopathy of nonspecific etiology. Excess alpha/beta activity in this record in all regions suggests medication effect. Dmitriy Mcmillan MD Clinical Neurophysiology Fellow I have reviewed the electroencephalogram and this report and agree with its interpretation. Igor Garnica MD Attending Neurophysiologist [facility] Performing Organization Address City/State/Zipcode Phone Number [facility] Basic Metabolic Panel (03/30/2018 4:37 AM OFFSHORING MANAGER)Only the most recent of2 resultswithin the time period is included. Sodium 136 136 - 145 meq/L [facility] Potassium 2.4 (LL) 3.5 - 5.1 meq/L [facility] Chloride 109 (H) 98 - 107 meq/L [facility] CO2 20 (L) 22 - 29 meq/L [facility] BUN 9 7 - 21 mg/dL [facility] Creatinine 0.49 (L) 0.57 - 1.25 mg/dL [facility] Glucose 80 70 - 105 mg/dL [facility] Calcium 8.0 (L) 8.4 - 10.2 mg/dL [facility] EGFR 131Comment: ESTIMATED GFR IS mL/min/1.73 sq m [facility] NOT ACCURATE CREATININE [facility] CENTER CLEARANCE IN PREDICTING GLOMERULAR FILTRATION RATE. ESTIMATED GFR IS NOT APPLICABLE FOR DIALYSIS PATIENTS. Specimen Blood Performing Organization Address City/State/Zipcode Phone Number [facility] [address] [place] [address] CENTER CTA carotid (03/29/2018 11:07 PM OFFSHORING MANAGER) Narrative Performed At FINAL REPORT [facility] CLINICAL HISTORY: Stroke TECHNIQUE: Initially, noncontrast head CT images were performed. Contiguous contrast-enhanced axial images through the neck followed by axial images through the head with coronal and sagittal reformations to assess the arterial circulation. 3-D reconstructions were performed using a volume rendered technique separately on a workstation. This exam was performed according to the departmental dose optimization program which includes automated exposure control, adjustment of the mA and/or kV according to the patient size, and/or use of an iterative reconstruction technique. COMPARISON: None FINDINGS: There is no CT evidence of acute infarct or hemorrhage. There is no hydrocephalus or midline shift. Ventricles are normal in size and configuration. The skull is intact. Soft tissue stranding and subgaleal fluid collection over the left frontal calvarium. Mild mucosal thickening in the bilateral ethmoid air cells, otherwise paranasal sinuses are clear. Trace left mastoid air cell effusion. The CT angiogram images of the head reveal no evidence of proximal branch vessel occlusion. 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 Moderate stenosis of the origin of the temporal branch of the right M2 segment of the middle cerebral artery. Sclerotic calcifications of the carotid siphons resulting in mild stenosis of the supraclinoid right internal carotid artery. There is no significant stenosis of the left internal carotid artery. The left MCA and bilateral ACAs are patent. The basilar artery is patent. The posterior cerebral arteries are patent. The major intradural venous sinuses are patent. Fibrofatty plaque in the left common carotid artery with no more than 25% stenosis. There is no stenosis of the proximal right internal carotid artery by NASCET criteria. There is no stenosis of the proximal left internal carotid artery by NASCET criteria. Mild stenosis of the origins of the bilateral vertebral arteries. The remainder of the cervical vertebral arteries are patent. Endotracheal tube terminates the level of T3-4. Heterogeneous thyroid gland with no discrete lesions that meet size criteria for additional evaluation. There are dorsal spondylitic changes in the cervical spine. There are scattered subcentimeter lymph nodes in the neck. Soft tissues of the neck are normal. Paraseptal emphysematous changes. Scattered areas of mucous plugging and bronchial wall thickening. Scattered centrilobular ground glass micronodules are favored to be smoking-related changes. IMPRESSION: There is no CT evidence of acute infarct or hemorrhage. Soft tissue stranding and subgaleal fluid collection over the left frontal calvarium. No evidence of intracranial proximal branch vessel occlusion. 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 Intracranial atherosclerosis, worst in the right M2 branch of the middle cerebral artery with, temporal branch origin where it is moderate. No evidence of hemodynamically significant stenosis in the cervical internal carotid arteries by NASCET criteria. Approximately 25% stenosis of the left common carotid artery secondary to fibrofatty plaque. Mild stenosis of the origins of the bilateral vertebral arteries are otherwise patent. Signed: Abbey Day MD Report Verified Date/Time:03/29/2018 23:38:34 Reading Location: [address] Transitional Reading Room Procedure Note Interface, External Ris In - 03/29/2018 11:40 PM OFFSHORING MANAGER FINAL REPORT CLINICAL HISTORY: Stroke TECHNIQUE: Initially, noncontrast head CT images were performed. Contiguous contrast-enhanced axial images through the neck followed by axial images through the head with coronal and sagittal reformations to assess the arterial circulation. 3-D reconstructions were performed using a volume rendered technique separately on a workstation. This exam was performed according to the departmental dose optimization program which includes automated exposure control, adjustment of the mA and/or kV according to the patient size, and/or use of an iterative reconstruction technique. COMPARISON: None FINDINGS: There is no CT evidence of acute infarct or hemorrhage. There is no hydrocephalus or midline shift. Ventricles are normal in size and configuration. The skull is intact. Soft tissue stranding and subgaleal fluid collection over the left frontal calvarium. Mild mucosal thickening in the bilateral ethmoid air cells, otherwise paranasal sinuses are clear. Trace left mastoid air cell effusion. The CT angiogram images of the head reveal no evidence of proximal branch vessel occlusion. 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 Moderate stenosis of the origin of the temporal branch of the right M2 segment of the middle cerebral artery. Sclerotic calcifications of the carotid siphons resulting in mild stenosis of the supraclinoid right internal carotid artery. There is no significant stenosis of the left internal carotid artery. The left MCA and bilateral ACAs are patent. The basilar artery is patent. The posterior cerebral arteries are patent. The major intradural venous sinuses are patent. Fibrofatty plaque in the left common carotid artery with no more than 25% stenosis. There is no stenosis of the proximal right internal carotid artery by NASCET criteria. There is no stenosis of the proximal left internal carotid artery by NASCET criteria. Mild stenosis of the origins of the bilateral vertebral arteries. The remainder of the cervical vertebral arteries are patent. Endotracheal tube terminates the level of T3-4. Heterogeneous thyroid gland with no discrete lesions that meet size criteria for additional evaluation. There are dorsal spondylitic changes in the cervical spine. There are scattered subcentimeter lymph nodes in the neck. Soft tissues of the neck are normal. Paraseptal emphysematous changes. Scattered areas of mucous plugging and bronchial wall thickening. Scattered centrilobular ground glass micronodules are favored to be smoking-related changes. IMPRESSION: There is no CT evidence of acute infarct or hemorrhage. Soft tissue stranding and subgaleal fluid collection over the left frontal calvarium. No evidence of intracranial proximal branch vessel occlusion. 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 Intracranial atherosclerosis, worst in the right M2 branch of the middle cerebral artery with, temporal branch origin where it is moderate. No evidence of hemodynamically significant stenosis in the cervical internal carotid arteries by NASCET criteria. Approximately 25% stenosis of the left common carotid artery secondary to fibrofatty plaque. Mild stenosis of the origins of the bilateral vertebral arteries are otherwise patent. Signed: Abbey Day MD Report Verified Date/Time: 03/29/2018 23:38:34 Reading Location: [facility] B1 C013T Transitional Reading Room Performing Organization Address City/State/Zipcode Phone Number [facility] CTA brain (03/29/2018 11:07 PM OFFSHORING MANAGER) Narrative Performed At FINAL REPORT [facility] CLINICAL HISTORY: Stroke TECHNIQUE: Initially, noncontrast head CT images were performed. Contiguous contrast-enhanced axial images through the neck followed by axial images through the head with coronal and sagittal reformations to assess the arterial circulation. 3-D reconstructions were performed using a volume rendered technique separately on a workstation. This exam was performed according to the departmental dose optimization program which includes automated exposure control, adjustment of the mA and/or kV according to the patient size, and/or use of an iterative reconstruction technique. COMPARISON: None FINDINGS: There is no CT evidence of acute infarct or hemorrhage. There is no hydrocephalus or midline shift. Ventricles are normal in size and configuration. The skull is intact. Soft tissue stranding and subgaleal fluid collection over the left frontal calvarium. Mild mucosal thickening in the bilateral ethmoid air cells, otherwise paranasal sinuses are clear. Trace left mastoid air cell effusion. The CT angiogram images of the head reveal no evidence of proximal branch vessel occlusion. 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 Moderate stenosis of the origin of the temporal branch of the right M2 segment of the middle cerebral artery. Sclerotic calcifications of the carotid siphons resulting in mild stenosis of the supraclinoid right internal carotid artery. There is no significant stenosis of the left internal carotid artery. The left MCA and bilateral ACAs are patent. The basilar artery is patent. The posterior cerebral arteries are patent. The major intradural venous sinuses are patent. Fibrofatty plaque in the left common carotid artery with no more than 25% stenosis. There is no stenosis of the proximal right internal carotid artery by NASCET criteria. There is no stenosis of the proximal left internal carotid artery by NASCET criteria. Mild stenosis of the origins of the bilateral vertebral arteries. The remainder of the cervical vertebral arteries are patent. Endotracheal tube terminates the level of T3-4. Heterogeneous thyroid gland with no discrete lesions that meet size criteria for additional evaluation. There are dorsal spondylitic changes in the cervical spine. There are scattered subcentimeter lymph nodes in the neck. Soft tissues of the neck are normal. Paraseptal emphysematous changes. Scattered areas of mucous plugging and bronchial wall thickening. Scattered centrilobular ground glass micronodules are favored to be smoking-related changes. IMPRESSION: There is no CT evidence of acute infarct or hemorrhage. Soft tissue stranding and subgaleal fluid collection over the left frontal calvarium. No evidence of intracranial proximal branch vessel occlusion. 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 Intracranial atherosclerosis, worst in the right M2 branch of the middle cerebral artery with, temporal branch origin where it is moderate. No evidence of hemodynamically significant stenosis in the cervical internal carotid arteries by NASCET criteria. Approximately 25% stenosis of the left common carotid artery secondary to fibrofatty plaque. Mild stenosis of the origins of the bilateral vertebral arteries are otherwise patent. Signed: Abbey Day MD Report Verified Date/Time:03/29/2018 23:38:34 Reading Location: [address] Transitional Reading Room Procedure Note Interface, External Ris In - 03/29/2018 11:40 PM OFFSHORING MANAGER FINAL REPORT CLINICAL HISTORY: Stroke TECHNIQUE: Initially, noncontrast head CT images were performed. Contiguous contrast-enhanced axial images through the neck followed by axial images through the head with coronal and sagittal reformations to assess the arterial circulation. 3-D reconstructions were performed using a volume rendered technique separately on a workstation. This exam was performed according to the departmental dose optimization program which includes automated exposure control, adjustment of the mA and/or kV according to the patient size, and/or use of an iterative reconstruction technique. COMPARISON: None FINDINGS: There is no CT evidence of acute infarct or hemorrhage. There is no hydrocephalus or midline shift. Ventricles are normal in size and configuration. The skull is intact. Soft tissue stranding and subgaleal fluid collection over the left frontal calvarium. Mild mucosal thickening in the bilateral ethmoid air cells, otherwise paranasal sinuses are clear. Trace left mastoid air cell effusion. The CT angiogram images of the head reveal no evidence of proximal branch vessel occlusion. 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 Moderate stenosis of the origin of the temporal branch of the right M2 segment of the middle cerebral artery. Sclerotic calcifications of the carotid siphons resulting in mild stenosis of the supraclinoid right internal carotid artery. There is no significant stenosis of the left internal carotid artery. The left MCA and bilateral ACAs are patent. The basilar artery is patent. The posterior cerebral arteries are patent. The major intradural venous sinuses are patent. Fibrofatty plaque in the left common carotid artery with no more than 25% stenosis. There is no stenosis of the proximal right internal carotid artery by NASCET criteria. There is no stenosis of the proximal left internal carotid artery by NASCET criteria. Mild stenosis of the origins of the bilateral vertebral arteries. The remainder of the cervical vertebral arteries are patent. Endotracheal tube terminates the level of T3-4. Heterogeneous thyroid gland with no discrete lesions that meet size criteria for additional evaluation. There are dorsal spondylitic changes in the cervical spine. There are scattered subcentimeter lymph nodes in the neck. Soft tissues of the neck are normal. Paraseptal emphysematous changes. Scattered areas of mucous plugging and bronchial wall thickening. Scattered centrilobular ground glass micronodules are favored to be smoking-related changes. IMPRESSION: There is no CT evidence of acute infarct or hemorrhage. Soft tissue stranding and subgaleal fluid collection over the left frontal calvarium. No evidence of intracranial proximal branch vessel occlusion. 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 Intracranial atherosclerosis, worst in the right M2 branch of the middle cerebral artery with, temporal branch origin where it is moderate. No evidence of hemodynamically significant stenosis in the cervical internal carotid arteries by NASCET criteria. Approximately 25% stenosis of the left common carotid artery secondary to fibrofatty plaque. Mild stenosis of the origins of the bilateral vertebral arteries are otherwise patent. Signed: Abbey Day MD Report Verified Date/Time: 03/29/2018 23:38:34 Reading Location: [facility] [address] [place] [address] Reading Room Performing Organization Address City/State/Zipcode Phone Number [facility] EEG AWAKE AND DROWSY (03/29/2018 5:52 PM OFFSHORING MANAGER) Narrative Performed At Date(s) of EE03/29/18 RIS DATE OF REPORT: 03/29/18 ACC: [id number] EEG Number: [id number] Start time: 17:29 Stop time: 17:52 ICD-10: R56.9 CPT Code: 78018 REASON FOR EXAM: 57 yo female with PMHx of tobacco and marijuana abuse who is transferred from [facility] for treatment of sepsis and seizures in the setting of synthetic marijuana use. MEDICATIONS WHICH COULD AFFECT EEG: Dexmedetomidine, Lorazepam, Levetiracetam, Midazolam TECHNICAL SUMMARY: This is a digital video-EEG recorded with 32 input channels reviewed with bipolar and referential montages using the modified combinatorial system nomenclature. DESCRIPTION OF RECORD: Symmetric mixed frequency activity is evident, made up of a combination of primarily 8- 13 Hz with admixed 1.5-3 Hz and 5-7 Hz activity.There are frequent very brief suppressive bursts, lasting 1-3s. No obvious reactive background variability is evident. HYPERVENTILATION: Not performed PHOTIC STIMULATION: No abnormal waveforms were appreciated with varying frequencies of flickering lights. ELECTROCARDIOGRAM EVENTS: None IMPRESSION: This is an abnormal EEG in coma due the presence of diffuse mixed frequency background slowing and disorganization with mild discontinuity, consistent with a severe etiologically nonspecific encephalopathy. Excess alpha/beta activity in this record in all regions suggests the presence of chemical sedation, such as propofol. Maureen Cao MD Clinical Neurophysiology Fellow Arturo Walker [facility] Attending Neurophysiologist [facility] Procedure Note Interface, External Ris In - 03/29/2018 10:21 PM OFFSHORING MANAGER Date(s) of EE03/29/18 DATE OF REPORT: 03/29/18 ACC: [id number] EEG Number: [id number] Start time: 17:29 Stop time: 17:52 ICD-10: R56.9 CPT Code: 37427 REASON FOR EXAM: 57 yo female with PMHx of tobacco and marijuana abuse who is transferred from [facility]SH for treatment of sepsis and seizures in the setting of synthetic marijuana use. MEDICATIONS WHICH COULD AFFECT EEG: Dexmedetomidine, Lorazepam, Levetiracetam, Midazolam TECHNICAL SUMMARY: This is a digital video-EEG recorded with 32 input channels reviewed with bipolar and referential montages using the modified combinatorial system nomenclature. DESCRIPTION OF RECORD: Symmetric mixed frequency activity is evident, made up of a combination of primarily 8- 13 Hz with admixed 1.5-3 Hz and 5-7 Hz activity. There are frequent very brief suppressive bursts, lasting 1-3s. No obvious reactive background variability is evident. HYPERVENTILATION: Not performed PHOTIC STIMULATION: No abnormal waveforms were appreciated with varying frequencies of flickering lights. ELECTROCARDIOGRAM EVENTS: None IMPRESSION: This is an abnormal EEG in coma due the presence of diffuse mixed frequency background slowing and disorganization with mild discontinuity, consistent with a severe etiologically nonspecific encephalopathy. Excess alpha/beta activity in this record in all regions suggests the presence of chemical sedation, such as propofol. Maureen Cao MD Clinical Neurophysiology Fellow Arturo Walker [facility] Attending Neurophysiologist [facility] Performing Organization Address [facility] Phone Number [facility] Procalcitonin (03/29/2018 5:00 PM OFFSHORING MANAGER) Procalcitonin 0.42 (H) <0.05 ng/mL [facility] Specimen Blood Narrative Performed At SEPSIS RISK (ng/mL) [facility] Low:0.05-0.50 Intermediate: 0.51-2.00 High: >=2.01 Performing Organization Address [facility] Phone Number [address] [address] [place] aPTT (03/29/2018 5:00 PM OFFSHORING MANAGER) PTT 29.1 22.5 - 36.0 seconds [facility] Specimen Blood Performing Organization Address [facility] Phone Number [address] [address] [place] Prothrombin time/INR (03/29/2018 5:00 PM OFFSHORING MANAGER)Only the most recent of2 resultswithin the time period is included. Protime 14.6 11.7 - 14.7 seconds [facility] INR 1.1 <=5.9 [facility] Specimen Blood Narrative Performed At RECOMMENDED COUMADIN/WARFARIN INR THERAPY [facility] RANGES STANDARD DOSE: 2.0 - 3.0 Includes: PROPHYLAXIS for venous thrombosis, systemic embolization; TREATMENT for venous thrombosis and/or pulmonary embolus. HIGH RISK: Target INR is 2.5-3.5 for patients with mechanical heart valves. Performing Organization Address City/[facility]/Zipcode Phone Number [address] [address] [phone] [place] Ethanol (03/29/2018 5:00 PM OFFSHORING MANAGER) Ethanol Lvl <10 <=10 mg/dL [facility] Specimen Blood Performing Organization Address City/[facility] Phone Number [address] [address] [phone] [place] Blood culture #2 (03/29/2018 4:59 PM OFFSHORING MANAGER)Only the most recent of2 resultswithin the time period is included. Result No growth in 5 days [facility] Specimen Blood - Arm, Right Performing Organization Address [facility] Phone Number [address] [address] [phone] [place] Rapid drug screen, urine (08/01/2017 11:15 AM CDT) Barbiturate Screen Negative Negative [facility] Benzodiazepine Screen Negative Negative [facility] Cocaine (Metab.) Screen Negative Negative [facility] Methadone Screen Negative Negative [facility] Opiate Screen Negative Negative [facility] Cannabinoid Screen Negative Negative [facility] Amph/Methamph Screen Negative Negative [facility] Phencyclidine Screen Negative Negative [facility] Oxycodone Screen Negative Negative [facility] CENTER Specimen Urine Narrative Performed At [facility] DRUGCUTOFF CONC. Cocaine 300 ng/mL Qdbydaetazj20 ng/mL Bskopexpvvxvqt490 ng/mL Barbiturate 200 ng/mL Vohbbgcgmgooq27 ng/mL Hdixix755 ng/mL Methadone 300 ng/mL Amphetamine/ 1000 ng/mL Methamphetamine Oxycodone 300 ng/mL This assay provides an unconfirmed qualitative test result for the clinical management of patients in emergency situations. Chain of custody not maintained. Some unep-kir-jgobcwf medications, as well as adulterants, may cause inaccurate results. Clinical correlation should be applied. A more comprehensive drug screen or confirmation of a detected drug may be performed upon request. Performing Organization Address City/State/Zipcode Phone Number [facility] [address] [place] [address] CENTER Urinalysis w/Microscopic (08/01/2017 11:15 AM CDT) Color, UA Light Yellow [facility] Clarity, UA Clear [facility] Specific [place], UA 1.009 1.001 - 1.035 [facility] pH, UA 7.0 5.0 - 8.0 [facility] Protein, UA Negative Negative [facility] Glucose, UA Negative Negative [facility] Ketones, UA Negative Negative [facility] Bilirubin, UA Negative Negative [facility] Blood, UA Small (A) Negative [facility] Nitrite, UA Negative Negative [facility] Leukocytes, UA Negative Negative [facility] Urobilinogen, UA 0.2 0.2 - 1.0 mg/dL [facility] RBC, UA 2 /HPF [facility] WBC, UA <1 /HPF [facility] Mucus Rare [facility] Squam Epithel, UA <1 /HPF [facility] Specimen Source [facility] Specimen Urine Performing Organization Address City/[facility]/Zipcode Phone Number [facility] [address] [place] [phone] [place] Urine culture (08/01/2017 11:14 AM CDT) Result 40-49,000 col/mL skin [place] [facility] Specimen Urine - Urine, Voided Performing Organization Address [facility] Phone Number [address] [phone] [place] ECG 12 lead (08/01/2017 9:11 AM CDT) Narrative Performed At Ventricular Rate 93 BPM GE MUSE Atrial Rate 93 BPM P-R Interval 180 ms QRS Duration 86 ms Q-T Interval 356 ms QTC Calculation(Bazett) 442 ms P [place] 82 degrees R [place] -14 degrees T [place] 74 degrees Normal sinus rhythm Normal ECG No previous ECGs available Confirmed by MD YU RUPA ([id number]) on 08/01/2017 11:56:51 AM Procedure Note Interface, External Ris In - 08/01/2017 11:57 AM CDT Ventricular Rate 93 BPM Atrial Rate 93 BPM P-R Interval 180 ms QRS Duration 86 ms Q-T Interval 356 ms QTC Calculation(Bazett) 442 ms P [place] 82 degrees R [place] -14 degrees T [place] 74 degrees Normal sinus rhythm Normal ECG No previous ECGs available Confirmed by MD YU RUPA ([id number]) on 08/01/2017 11:56:51 AM Performing Organization Address City/[facility] Phone Number GE MUSE Phosphorus (08/01/2017 8:45 AM CDT) Phosphorus 3.0 2.3 - 4.7 mg/dL [facility] Specimen Blood Performing Organization Address City/[facility]/Zipcode Phone Number [address] [address] [phone] [place] Magnesium (08/01/2017 8:45 AM CDT) Magnesium 2.6 1.6 - 2.6 mg/dL [facility] Specimen Blood Performing Organization Address City/[facility] Phone Number [facility] [address] [place] [address] [place] Hepatic function panel (08/01/2017 8:45 AM CDT) Protein, Total 7.5 6.0 - 8.3 gm/dL [facility] Albumin 4.4 3.5 - 5.0 g/dL [facility] Total Bilirubin 0.9 0.2 - 1.2 mg/dL [facility] Bilirubin, Direct 0.3 0.1 - 0.5 mg/dL [facility] Alkaline Phosphatase 108 40 - 150 U/L [facility] AST 28 5 - 34 U/L [facility] ALT 18 6 - 55 U/L [facility] Specimen Blood Performing Organization Address City/State/Zipcode Phone Number [facility] [address] [place] [phone] [place] after 06/14/2017 Advance Directives For more information, please contact:[address] [phone] Code Status Date Activated Date Inactivated Comments Full Code 08/01/2017 7:39 AM 08/01/2017 7:46 PM This code status was determined by: Patient
--- OUTSIDE RECORDS SUMMARY | 2018-06-15 00:36 | XMS REPORT ---
:1960 [facility] Address [address] [place] [address] Care Team Providers Name Role Phone MARTIN WILLIS Unavailable Unavailable MARY CLAUDIO Unavailable Unavailable Problems This patient has no known problems. Allergies, Adverse Reactions, Alerts This patient has no known allergies or adverse reactions. Medications This patient has no known medications. Results Test Description Test Time Test Comments Text Results Atomic Results Result Comments BLOOD CULTURE 2018-04-03 23:01:00 Test Item Value Reference Range Comments CULTURE (BEAKER) (test hsxh=9630) No growth in 5 days BLOOD [id number] 23:01:00 Test Item Value Reference Range Comments CULTURE (BEAKER) (test blou=0843) No growth in 5 days [id number] 13:27:00 Test Item Value Reference Range Comments POTASSIUM (BEAKER) (test wghv=087) 4.0 meq/L 3.5-5.1 PLATELET [id number] 12:44:00 Test Item Value Reference Range Comments PLATELET COUNT (BEAKER) (test egzj=631) 149 K/CU MM 150-450 POCT-GLUCOSE [id number] 12:14:00 Test Item Value Reference Range Comments POC-GLUCOSE METER (BEAKER) 137 mg/dL 70-110 TESTED AT [address] (test sjfl=8222) [facility] [address] EEG MONITORING WITH VIDEO RECORDING EACH 24 [id number] 11:38:00For STAT EEG - after 5 PM weekdays, weekends and holidays, page the on-call EEG TechReason for exam:->SeizureDate(s) of EE03/29/18; 03/30/18;03/31/2018DATE OF REPORT : 03/31/18ACC: [id number] Number: [id number] time: 03/30/2018 at 09:41Stop time: 03/30/2018 at 05:41ICD-10: R56.9CPT Code: 66674LJKAOZ FOR EXAM: 57 yo female with PMHx of tobacco and marijuana abuse who is transferred from [facility] for treatmentof sepsis and seizures in the setting of synthetic marijuana use. MEDICATIONS WHICH COULD AFFECT EEG: Levetiracetam, dexmedetomidineTECHNICAL SUMMARY: This is a digital video-EEG recorded with 32 inputchannels reviewed with bipolar and referential montages using the modified combinatorial system nomenclature. DESCRIPTION OF RECORD: The background is symmetric and continuous. The background consists of mixed frequency activity with a combination of 13-18 Hz, with admixed 1.5-3 Hz and 5-7 Hz activity. There is spontaneous reactivity and reactivity to state change. EVENTS: noneHYPERVENTILATION: Not performedPHOTIC STIMULATION: Not performedELECTROCARDIOGRAM EVENTS: NoneIMPRESSION: This is an abnormal video EEG in coma due: 1. Presence of diffuse mixed frequency moderate reactive background slowing with presence of excess faster alpha/beta activity. CLINICAL CORRELATION: The Presence of diffuse mixed frequency moderate background slowing is consistent with moderate degree of encephalopathy of nonspecific etiology. Excess alpha/beta activity in this record in all regions suggests medicationeffect. This recording is slightly improved from the previous recording as there is spontaneous reactivity and reactivity to state change.Dmitriy Mcmillan, MDClinical Neurophysiology Fellow Howard Castro M.D. , FACNS, FAAN, FAESProfessor of Neurology, [facility]'S HospitalDirector, [facility] Epilepsy CenterSelect Medical Specialty Hospital - YoungstownDoyleschuyler [facility] hospital Neurophysiology Lab BLOOD GAS , [id number] 11:32:00 Test Item Value Reference Range Comments PH VENOUS (BEAKER) (test fsqb=803) 7.40 7.32-7.42 PCO2 VENOUS (BEAKER) (test vafw=690) 38 mmHg 41-51 PO2 VENOUS (BEAKER) (test lamm=674) 71 mmHg 25-40 O2 SATURATION VENOUS (BEAKER) (test xdma=937) 94.4 % 40.0-70.0 HCO3 VENOUS (BEAKER) (test fwxh=839) 23 mmol/L 21-29 BASE EXCESS VENOUS (BEAKER) (test sfqy=253) -1.2 mmol/L -2.0-3.0 PATIENT TEMPERATURE (BEAKER) (test feeq=5260) 37.0 C FIO2 (BEAKER) (test vdpi=3109) 50.0 % POCT-GLUCOSE [id number] 06:16:00 Test Item Value Reference Range Comments POC-GLUCOSE METER (BEAKER) 130 mg/dL 70-110 TESTED AT [facility] [address] [facility] (test ncud=3578) [facility] [address] CBC W/PLT COUNT & AUTO [id number] 05:59:00 Test Item Value Reference Range Comments WHITE BLOOD CELL COUNT (BEAKER) (test uikk=975) 9.5 K/ L 3.5-10.5 RED BLOOD CELL COUNT (BEAKER) (test mojp=565) 3.07 M/ L 3.93-5.22 HEMOGLOBIN (BEAKER) (test cxmi=402) 9.9 GM/DL 11.2-15.7 HEMATOCRIT (BEAKER) (test raxi=479) 29.5 % 34.1-44.9 MEAN CORPUSCULAR VOLUME (BEAKER) (test uram=941) 96.1 fL 79.4-94.8 MEAN CORPUSCULAR HEMOGLOBIN (BEAKER) (test 32.2 pg 25.6-32.2 oomf=407) MEAN CORPUSCULAR HEMOGLOBIN CONC (BEAKER) (test 33.6 GM/DL 32.2-35.5 lnez=844) RED CELL DISTRIBUTION WIDTH (BEAKER) (test 13.4 % 11.7-14.4 bcgh=055) PLATELET COUNT (BEAKER) (test lelt=775) 97 K/CU MM 150-450 MEAN PLATELET VOLUME (BEAKER) (test pluk=467) 10.7 fL 9.4-12.3 NUCLEATED RED BLOOD CELLS (BEAKER) (test 0 /100 WBC 0-0 fggy=529) NEUTROPHILS RELATIVE PERCENT (BEAKER) (test 82 % spdz=745) LYMPHOCYTES RELATIVE PERCENT (BEAKER) (test 10 % bzwb=528) MONOCYTES RELATIVE PERCENT (BEAKER) (test 8 % ksls=541) EOSINOPHILS RELATIVE PERCENT (BEAKER) (test 0 % uafv=274) BASOPHILS RELATIVE PERCENT (BEAKER) (test 0 % oqon=755) NEUTROPHILS ABSOLUTE COUNT (BEAKER) (test 7.76 K/ L 1.56-6.13 gqei=167) LYMPHOCYTES ABSOLUTE COUNT (BEAKER) (test 0.93 K/ L 1.18-3.74 bitr=809) MONOCYTES ABSOLUTE COUNT (BEAKER) (test obfx=864) 0.75 K/ L 0.24-0.36 EOSINOPHILS ABSOLUTE COUNT (BEAKER) (test 0.01 K/ L 0.04-0.36 oucx=040) BASOPHILS ABSOLUTE COUNT (BEAKER) (test sipw=096) 0.03 K/ L 0.01-0.08 IMMATURE GRANULOCYTES-RELATIVE PERCENT (BEAKER) 0 % 0-1 (test qdvt=8852) COMPREHENSIVE METABOLIC [id number] 05:19:00 Test Item Value Reference Range Comments TOTAL PROTEIN (BEAKER) 5.7 gm/dL 6.0-8.3 (test zqii=797) ALBUMIN (BEAKER) (test 3.9 g/dL 3.5-5.0 rewk=2017) ALKALINE PHOSPHATASE 85 U/L 40-150 (BEAKER) (test uovf=273) BILIRUBIN TOTAL (BEAKER) 1.1 mg/dL 0.2-1.2 (test ylea=691) SODIUM (BEAKER) (test 134 meq/L 136-145 elde=033) POTASSIUM (BEAKER) (test 2.9 meq/L 3.5-5.1 qmlj=558) CHLORIDE (BEAKER) (test 107 meq/L 98-107 vndz=119) CO2 (BEAKER) (test 20 meq/L 22-29 mqaj=041) BLOOD UREA NITROGEN 10 mg/dL 7-21 (BEAKER) (test qpki=300) CREATININE (BEAKER) (test 0.58 mg/dL 0.57-1.25 cpjb=527) GLUCOSE RANDOM (BEAKER) 105 mg/dL 70-105 (test tydc=484) CALCIUM (BEAKER) (test 8.3 mg/dL 8.4-10.2 ozla=227) AST (SGOT) (BEAKER) (test 60 U/L 5-34 nnrh=375) ALT (SGPT) (BEAKER) (test 37 U/L 6-55 nmji=224) EGFR (BEAKER) (test 108 mL/min/1.73 sq ESTIMATED GFR IS NOT ckok=4632) m ACCURATE CREATININE CLEARANCE IN PREDICTING GLOMERULAR FILTRATION RATE. ESTIMATED GFR IS NOT APPLICABLE FOR DIALYSIS PATIENTS. CREATINE KINASE (CK)2018-03-31 05:19:00 Test Item Value Reference Range Comments CREATINE KINASE TOTAL (BEAKER) (test rwls=014) 969 U/L 29-200 [id number] 05:05:00 Test Item Value Reference Range Comments TRIGLYCERIDES (BEAKER) (test ondo=466) 85 mg/dL TRIGLYCERIDE REFERENCE RANGELow Risk <150Borderline Risk 150-199High Risk 200-499Very High Risk>=500BLOOD GAS, [id number] 05:01:00 Test Item Value Reference Range Comments PH ARTERIAL (BEAKER) (test tjuo=690) 7.45 7.35-7.45 PCO2 ARTERIAL (BEAKER) (test hgrr=907) 29 mmHg 35-45 PO2 ARTERIAL (BEAKER) (test iwqd=571) 175 mmHg 80-90 O2 SATURATION ARTERIAL (BEAKER) (test zibi=470) 99.3 % 96.0-97.0 HCO3 ARTERIAL (BEAKER) (test bkto=385) 19 mmol/L 21-29 BASE EXCESS ARTERIAL (BEAKER) (test rgxr=683) -3.8 mmol/L -2.0-3.0 PATIENT TEMPERATURE (BEAKER) (test pufb=5586) 37.0 C FIO2 (BEAKER) (test kiid=3725) 50.0 % LACTIC ACID, VENOUS, WHOLE [id number] 05:01:00 Test Item Value Reference Range Comments LACTATE BLOOD VENOUS (2) (BEAKER) (test 0.8 mmol/L 0.5-2.2 lobg=6639) RAD, CHEST, 1 VIEW, NON [id number] 03:30:00Reason for exam:->ETTShould this be performed at the bedside?->YesFINAL REPORT CLINICAL INDICATION: Support lines. Comparison: 03/30/2018 The cardiomediastinal contours are stable. There is no focal consolidation, pneumothorax, large pleural effusion or evidence of overt pulmonary edema. A feeding tube traverses examination to the upper abdomen. An endotracheal tube is stable. Signed: Leonides Guerraeport Verified Date/Time: 03/31/2018 03:30: 39 Reading Location: [address] Reading Room POCT-GLUCOSE [id number] 23:48:00 Test Item Value Reference Range Comments POC-GLUCOSE METER (BEAKER) 70 mg/dL 70-110 TESTED AT [address] (test xrtq=6591) [facility] [address] RAD, ABDOMEN/KUB, 1 VIEW [id number] 22:04:00Reason for exam:->ngt placement Should this be performed at the bedside?->YesFINAL REPORT CLINICAL HISTORY: ngt placement TECHNIQUE: RAD, ABDOMEN/KUB, 1 VIEW AP COMPARISON: Plain radiograph the abdomen, same day. FINDINGS: Weighted tip enteric tube is seen coursing below the diaphragm, looping in the stomach with tip overlying the gastric fundus. Nonspecific bowel gas pattern without distended loops of bowel. Otherwise unchanged imaging of the abdomen.Signed: Abbey Day Verified Date/Time: 03/30/2018 22:04:23 Reading Location: [address] Reading Room POCT-GLUCOSE [id number] 17:50:00 Test Item Value Reference Range Comments POC-GLUCOSE METER (BEAKER) 68 mg/dL 70-110 Notified AIME MCINTOSH/TESTED AT [facility] (test wwnf=2144) [address] [place] [address] EEG MONITORING WITH VIDEO RECORDING EACH 24 [id number] 16:39:00c/f subclinical seizuresDate(s) of EE03/29/18 DATE OF REPORT: 03/30/18 ACC: [id number] EEG Number: [id number] Start time: 03/29/2018 at 17:52 Stop time: 2017 at 22:28 ICD-10: R56.9 CPT Code: 30566-25 REASON FOR EXAM: 57 yo female with PMHx of tobacco and marijuana abuse who is transferred from OSH for treatment of sepsisand seizures in the setting of synthetic marijuana [...] its interpretation. Igor Garnica MD Attending Neurophysiologist [facility] RAD, ABDOMEN/ KUB, 1 VIEW [id number] 14:37:00Reason for exam:->NGT placementFINAL REPORT CLINICAL HISTORY: NGT placement TECHNIQUE: Two supine views of the abdomen. IMPRESSION: The tip of the feeding tube is at the gastroesophageal junction and should beadvanced into the stomach. The bowel gas pattern is nonspecific. Signed: Anahi Leigh MDReport Verified Date/Time: 14:37:17 Reading Location: [address] Consult Reading Room POCT- GLUCOSE [id number] 12:10:00 Test Item Value Reference Range Comments POC-GLUCOSE METER (BEAKER) 76 mg/dL 70-110 TESTED AT [address] (test nyrs=2139) [facility] [address] RAD, CHEST, 1 VIEW, NON [id number] 07:16:00Reason for exam:->ETTShould this be performed at the bedside?->YesFINAL REPORT RAD , CHEST, 1 VIEW, NON DEPT INDICATION: ETT COMPARISON: Prior day's exam FINDINGS : Portable frontal view of the chest. IMPRESSION: Support Lines: Positioning of endotracheal tube is stable. Lungs and pleura: Lungs are normally inflated. There is no focal consolidation. No pneumothorax.Heart and mediastinum: Stable contours. Additional findings: None. Signed: JR Gates Robert MDReport Verified Date/Time: 03/30/2018 07:16:21 Reading Location: [facility] C013V Neuro Reading Room POCT-GLUCOSE [id number] 06:54:00 Test Item Value Reference Range Comments POC-GLUCOSE METER (BEAKER) 77 mg/dL 70-110 TESTED AT [facility] [address] [facility] (test zogo=0490) [facility] [address] BASIC METABOLIC [id number] 06:01:00 Test Item Value Reference Range Comments SODIUM (BEAKER) (test 136 meq/L 136-145 hoyf=449) POTASSIUM (BEAKER) (test 2.4 meq/L 3.5-5.1 najc=193) CHLORIDE (BEAKER) (test 109 meq/L 98-107 txrp=017) CO2 (BEAKER) (test 20 meq/L 22-29 xtfw=632) BLOOD UREA NITROGEN 9 mg/dL 7-21 (BEAKER) (test iixq=383) CREATININE (BEAKER) (test 0.49 mg/dL 0.57-1.25 kdqm=070) GLUCOSE RANDOM (BEAKER) 80 mg/dL 70-105 (test npfx=670) CALCIUM (BEAKER) (test 8.0 mg/dL 8.4-10.2 ukqs=820) EGFR (BEAKER) (test 131 mL/min/1.73 sq m ESTIMATED GFR IS NOT xmbs=7611) ACCURATE CREATININE CLEARANCE IN PREDICTING GLOMERULAR FILTRATION RATE. ESTIMATED GFR IS NOT APPLICABLE FOR DIALYSIS PATIENTS. LACTIC ACID, VENOUS, WHOLE [id number] 05:46:00 Test Item Value Reference Range Comments LACTATE BLOOD VENOUS (2) (BEAKER) (test 0.5 mmol/L 0.5-2.2 mdky=0209) CBC W/PLT COUNT & AUTO [id number] 05:40:00 Test Item Value Reference Range Comments WHITE BLOOD CELL COUNT (BEAKER) (test kvih=444) 8.0 K/ L 3.5-10.5 RED BLOOD CELL COUNT (BEAKER) (test vzoq=954) 3.03 M/ L 3.93-5.22 HEMOGLOBIN (BEAKER) (test amwi=518) 9.7 GM/DL 11.2-15.7 HEMATOCRIT (BEAKER) (test vouo=375) 29.7 % 34.1-44.9 MEAN CORPUSCULAR VOLUME (BEAKER) (test kyja=621) 98.0 fL 79.4-94.8 MEAN CORPUSCULAR HEMOGLOBIN (BEAKER) (test 32.0 pg 25.6-32.2 sxnx=222) MEAN CORPUSCULAR HEMOGLOBIN CONC (BEAKER) (test 32.7 GM/DL 32.2-35.5 mfad=726) RED CELL DISTRIBUTION WIDTH (BEAKER) (test 13.6 % 11.7-14.4 xzdp=254) PLATELET COUNT (BEAKER) (test hrna=062) 140 K/CU MM 150-450 MEAN PLATELET VOLUME (BEAKER) (test xmwp=363) 9.4 fL 9.4-12.3 NUCLEATED RED BLOOD CELLS (BEAKER) (test 0 /100 WBC 0-0 outx=103) NEUTROPHILS RELATIVE PERCENT (BEAKER) (test 75 % laqs=909) LYMPHOCYTES RELATIVE PERCENT (BEAKER) (test 14 % gjrk=106) MONOCYTES RELATIVE PERCENT (BEAKER) (test 10 % vovf=127) EOSINOPHILS RELATIVE PERCENT (BEAKER) (test 0 % kcua=905) BASOPHILS RELATIVE PERCENT (BEAKER) (test 0 % jlcv=588) NEUTROPHILS ABSOLUTE COUNT (BEAKER) (test 5.98 K/ L 1.56-6.13 uagr=704) LYMPHOCYTES ABSOLUTE COUNT (BEAKER) (test 1.15 K/ L 1.18-3.74 qbvm=516) MONOCYTES ABSOLUTE COUNT (BEAKER) (test 0.81 K/ L 0.24-0.36 ciqs=929) EOSINOPHILS ABSOLUTE COUNT (BEAKER) (test 0.01 K/ L 0.04-0.36 yzie=137) BASOPHILS ABSOLUTE COUNT (BEAKER) (test 0.03 K/ L 0.01-0.08 llfo=836) IMMATURE GRANULOCYTES-RELATIVE PERCENT (BEAKER) 0 % 0-1 (test thed=5416) BLOOD GAS, [id number] 05:38:00 Test Item Value Reference Range Comments PH ARTERIAL (BEAKER) (test mklk=357) 7.42 7.35-7.45 PCO2 ARTERIAL (BEAKER) (test nlsu=161) 32 mmHg 35-45 PO2 ARTERIAL (BEAKER) (test lrhk=282) 131 mmHg 80-90 O2 SATURATION ARTERIAL (BEAKER) (test beew=525) 98.7 % 96.0-97.0 HCO3 ARTERIAL (BEAKER) (test mbzq=632) 20 mmol/L 21-29 BASE EXCESS ARTERIAL (BEAKER) (test powi=737) -3.3 mmol/L -2.0-3.0 PATIENT TEMPERATURE (BEAKER) (test nquz=5522) 36.8 C FIO2 (BEAKER) (test soap=9185) 50.0 % LACTIC ACID, VENOUS, WHOLE [id number] 00:48:00 Test Item Value Reference Range Comments LACTATE BLOOD VENOUS (2) (BEAKER) (test 1.8 mmol/L 0.5-2.2 qrof=8491) POCT-GLUCOSE [id number] 23:53:00 Test Item Value Reference Range Comments POC-GLUCOSE METER (BEAKER) 107 mg/dL 70-110 TESTED AT [address] (test fwji=7967) [facility] [address] [address], CTANGIO [id number] 23:38:00FINAL REPORT CLINICAL HISTORY: Stroke TECHNIQUE: Initially, noncontrast head CT images were performed. Contiguous contrast-enhanced axial images through the neck followed by axial images through the head with coronal and sagittal reformations to assess the arterial circulation. 3-D reconstructions were performed using a volume rendered technique separately on a workstation. This exam was performed according to the departmental dose optimization program which includes automatedexposure control, adjustment of the mA and/or kV [...] of the origin of the temporal branch ofthe right M2 segment of the middle cerebral artery. Sclerotic calcifications of the carotid siphons resulting in mild stenosis of the supraclinoid right internal carotid artery. There is no significantstenosis of the left internal carotid artery. The left MCA and bilateral ACAs are patent. The basilar artery is patent. The posterior cerebral arteries are patent. The major intradural venous sinuses are patent.Fibrofatty plaque in the left common carotid artery with no more than 25 % stenosis. There is no stenosis of the proximal right internal carotid artery by NASCET criteria. There is no stenosis of the proximal left internal carotid artery by NASCET criteria. Mild stenosis of the origins of the bilateral vertebral arteries. The remainder of the cervical vertebral arteries are patent. Endotracheal tube terminates the level of T3-4. Heterogeneous thyroid gland with no discrete lesions thatmeet size criteria for additional evaluation.There are dorsal spondylitic changes in the cervical spine. There are scattered subcentimeter lymph nodes in the neck. Soft tissues of the neck are normal. Paraseptal emphysematous changes. Scattered areas of mucous plugging and bronchial wall thickening. Scattered centrilobular ground glass micronodules are favored to be smoking-related changes. IMPRESSION:There is no CT evidence of acute infarct [...] vertebral arteries are otherwise patent. Signed: [facility] Verified Date/Time: 03/29/2018 23:38:34 Reading Location: [facility] Transitional Reading Room CT, CAROTID, [id number] 23:38: 00FINAL REPORT CLINICAL HISTORY: Stroke TECHNIQUE: Initially, noncontrast head CT images were performed. Contiguous contrast- enhanced axial images through the neck followed by axial images through the head with coronal and sagittal reformations to assess the arterial circulation. 3-D reconstructions were performed using a volume rendered technique separately on a workstation. This exam was performed according to the departmental dose optimization program which includes automatedexposure control, adjustment of the mA and/or kV [...] of the origin of the temporal branch ofthe right M2 segment of the middle cerebral artery. Sclerotic calcifications of the carotid siphons resulting in mild stenosis of the supraclinoid right internal carotid artery. There is no significantstenosis of the left internal carotid artery. The left MCA and bilateral ACAs are patent. The basilar artery is patent. The posterior cerebral arteries are patent. The major intradural venous sinuses are patent.Fibrofatty plaque in the left common carotid artery [...] Heterogeneous thyroid gland with no discrete lesions thatmeet size criteria for additional evaluation.There are dorsal spondylitic changes in the cervical spine. There are scattered subcentimeter lymph nodes in the neck. Soft tissues of the neck are normal. Paraseptal emphysematous changes. Scattered areas of mucous plugging and bronchial wall thickening. Scattered centrilobular ground glass micronodules are favored to be smoking-related changes. IMPRESSION:There is no CT evidence of acute infarct [...] vertebral arteries are otherwise patent. Signed: Abbey Dayeport Verified Date/Time: 03/29/2018 23:38:34 Reading Location: [address] Transitional Reading Room EEG AWAKE AND [id number] 22:21:00Baseline for cEEGDate(s) of EE03/29/18 DATE OF REPORT: 03/29/18 ACC: [id number] EEG Number: [id number] Start time: 17:29 Stop time: 17:52 ICD-10: R56.9 CPT Code: 17141 REASON FOR EXAM: 57 yo female with [...] activity is evident, made up of a combinationof primarily 8- 13 Hz with admixed 1.5-3 [...] with a severe etiologically nonspecific encephalopathy. Excess alpha/ beta activity in this record in all regions suggests the presence of chemical sedation, such as propofol. Maureen Cao MD Clinical Neurophysiology Fellow Arturo Walker [facility] Attending Neurophysiologist [facility] POCT-GLUCOSE [id number] 18:57:00 Test Item Value Reference Range Comments POC-GLUCOSE METER (BEAKER) 90 mg/dL 70-110 TESTED AT [facility] [address] (test opag=8668) [facility] [address] RAD, CHEST, 1 VIEW, NON [id number] 18:48:00Reason for exam:->TubeShould this be performed at the bedside?->YesFINAL REPORT Portable chest. MEDICAL HISTORY: Tube. COMPARISON STUDY: None available. FINDINGS: A dextrocardia is seen. There is an endotracheal tube in place, the tip approximately 5 cm above the srinivasan. No focal pulmonary opacity, pleural effusion or pneumothorax is seen. IMPRESSION: Dextrocardia identified. Please ensure proper labeling of the film. Signed: Yan Calabrese MDReport Verified Date/Time: 03/29/2018 18:48:13 Reading Location: [address] Consult Reading Room [id number] 18:04:00 Test Item Value Reference Range Comments PROCALCITONIN (BEAKER) (test ubia=5196) 0.42 ng/mL <0.05 SEPSIS RISK (ng/mL)Low: 0.05-0.50Intermediate: 0.51-2.00High: & gt;=2.01CREATINE KINASE (CK)2018-03-29 17:58:00 Test Item Value Reference Range Comments CREATINE KINASE TOTAL (BEAKER) (test xbmc=475) 983 U/L 29-200 [id number] 17:43:00 Test Item Value Reference Range Comments ETHANOL (BEAKER) (test lnsr=056) < mg/dL <=10 LACTIC ACID, VENOUS, WHOLE [id number] 17:42:00 Test Item Value Reference Range Comments LACTATE BLOOD VENOUS (2) 0.6 mmol/L 0.5-2.2 Specimen slightly hemolyzed (BEAKER) (test nlnd=2435) LACTIC ACID, VENOUS, WHOLE [id number] 17:42:00 Test Item Value Reference Range Comments LACTATE BLOOD VENOUS (2) 1.6 mmol/L 0.5-2.2 Specimen slightly hemolyzed (BEAKER) (test rkqt=9486) PROTHROMBIN TIME/[id number] 17:34:00 Test Item Value Reference Range Comments PROTIME (BEAKER) (test hdjw=280) 14.6 seconds 11.7-14.7 INR (BEAKER) (test osmm=501) 1.1 <=5.9 RECOMMENDED COUMADIN/WARFARIN INR THERAPY RANGESSTANDARD DOSE: 2.0 - 3.0 Includes: PROPHYLAXIS forvenous thrombosis, systemic embolization; TREATMENT for venous thrombosis and/or pulmonary embolus.HIGH RISK: Target INR is 2.5-3.5 for patients with mechanical heart valves.[id number] 17:34:00 Test Item Value Reference Range Comments PARTIAL THROMBOPLASTIN TIME (BEAKER) (test 29.1 seconds 22.5-36.0 pqur=761) BLOOD GAS, [id number] 17:33:00 Test Item Value Reference Range Comments PH ARTERIAL (BEAKER) (test lhtd=709) 7.42 7.35-7.45 PCO2 ARTERIAL (BEAKER) (test kqey=451) 35 mmHg 35-45 PO2 ARTERIAL (BEAKER) (test lsuh=787) 277 mmHg 80-90 O2 SATURATION ARTERIAL (BEAKER) (test hzjt=093) 99.7 % 96.0-97.0 HCO3 ARTERIAL (BEAKER) (test clrr=343) 22 mmol/L 21-29 BASE EXCESS ARTERIAL (BEAKER) (test swkn=786) -1.3 mmol/L -2.0-3.0 PATIENT TEMPERATURE (BEAKER) (test mjqn=9254) 38.0 C FIO2 (BEAKER) (test dmnh=1053) 50.0 % POCT-GLUCOSE [id number] 16:39:00 Test Item Value Reference Range Comments POC-GLUCOSE METER (BEAKER) 110 mg/dL 70-110 TESTED AT [address] (test rekg=4978) [facility] [address] URINE [id number] 11:34:00 Test Item Value Reference Range Comments CULTURE (BEAKER) (test 40-49,000 col/mL skin [place] ilmz=3564) POCT-GLUCOSE [id number] 15:55:00 Test Item Value Reference Range Comments POC-GLUCOSE METER (BEAKER) 80 mg/dL 70-110 TESTED AT [address] (test mcep=1187) [facility] [address] URINALYSIS W/ [id number] 14:34:00 Test Item Value Reference Range Comments COLOR (BEAKER) (test rcvl=068) Light Yellow CLARITY (BEAKER) (test bqtg=109) Clear SPECIFIC GRAVITY UA (BEAKER) (test shrw=583) 1.009 1.001-1.035 PH UA (BEAKER) (test qjge=178) 7.0 5.0-8.0 PROTEIN UA (BEAKER) (test ssqp=494) Negative Negative GLUCOSE UA (BEAKER) (test lytt=519) Negative Negative KETONES UA (BEAKER) (test fznm=602) Negative Negative BILIRUBIN UA (BEAKER) (test ixmi=795) Negative Negative BLOOD UA (BEAKER) (test httz=698) Small Negative NITRITE UA (BEAKER) (test hlop=989) Negative Negative LEUKOCYTE ESTERASE UA (BEAKER) (test xczf=090) Negative Negative UROBILINOGEN UA (BEAKER) (test sjkm=076) 0.2 mg/dL 0.2-1.0 RBC UA (BEAKER) (test mxvi=160) 2 /HPF WBC UA (BEAKER) (test zrvg=630) < /HPF MUCUS (BEAKER) (test xfag=9971) Rare SQUAMOUS EPITHELIAL (BEAKER) (test sscn=013) < /HPF SOURCE(BEAKER) (test kpns=0071) RAPID DRUG SCREEN, [id number] 13:10:00 Test Item Value Reference Range Comments BARBITURATE URINE (BEAKER) (test nhau=088) Negative Negative BENZODIAZEPINE SCREEN URINE (BEAKER) (test Negative Negative vezb=809) COCAINE (METAB.) SCREEN (BEAKER) (test btbm=8302) Negative Negative METHADONE SCREEN (BEAKER) (test hxfh=5498) Negative Negative OPIATE SCREEN URINE (BEAKER) (test jkdk=979) Negative Negative CANNABINOID SCREEN URINE (BEAKER) (test zrms=312) Negative Negative AMPH/METHAMPH SCREEN (BEAKER) (test khoy=8454) Negative Negative PHENCYCLIDINE SCREEN URINE (BEAKER) (test ekrs=059) Negative Negative OXYCODONE SCREEN URINE (BEAKER) (test sghe=2130) Negative Negative DRUG CUTOFF CONC.Cocaine 300 ng/mL Cannabinoid 50 ng/mL Benzodiazepine 200 ng/mLBarbiturate 200 ng/ mLPhencyclidine 25 ng/mLOpiate 300 ng/mLMethadone 300 ng/mLAmphetamine/ 1000 ng/mL MethamphetamineOxycodone 300 ng/mLThis assay provides an unconfirmed qualitative test result for the clinical management of patients in emergency situations. Chain of custody not maintained. Some tsmz-knt-letlulv medications, as well as adulterants, may cause inaccurate results. Clinical correlation should be applied. A more comprehensive drug screen or confirmation of a detected drug may be performed upon request.POCT-GLUCOSE [id number] 11:49:00 Test Item Value Reference Range Comments POC-GLUCOSE METER (BEAKER) 93 mg/dL 70-110 TESTED AT [facility] [address] [facility] (test cssg=7300) [facility] [address] [id number] 10:40:00 Test Item Value Reference Range Comments PHOSPHORUS (BEAKER) (test ejhw=248) 3.0 mg/dL 2.3-4.7 [id number] 10:40:00 Test Item Value Reference Range Comments MAGNESIUM (BEAKER) (test rrrc=406) 2.6 mg/dL 1.6-2.6 BASIC METABOLIC [id number] 10:40:00 Test Item Value Reference Range Comments SODIUM (BEAKER) (test 139 meq/L 136-145 inrz=958) POTASSIUM (BEAKER) (test 3.8 meq/L 3.5-5.1 ducj=440) CHLORIDE (BEAKER) (test 105 meq/L 98-107 vhby=412) CO2 (BEAKER) (test 22 meq/L 22-29 yldn=175) BLOOD UREA NITROGEN 9 mg/dL 7-21 (BEAKER) (test phrd=373) CREATININE (BEAKER) (test 0.61 mg/dL 0.57-1.25 vsvc=743) GLUCOSE RANDOM (BEAKER) 86 mg/dL 70-105 (test smps=982) CALCIUM (BEAKER) (test 9.5 mg/dL 8.4-10.2 wsgc=507) EGFR (BEAKER) (test 102 mL/min/1.73 sq m ESTIMATED GFR IS NOT rdeo=0566) ACCURATE CREATININE CLEARANCE IN PREDICTING GLOMERULAR FILTRATION RATE. ESTIMATED GFR IS NOT APPLICABLE FOR DIALYSIS PATIENTS. HEPATIC FUNCTION [id number] 10:40:00 Test Item Value Reference Range Comments TOTAL PROTEIN (BEAKER) (test awhg=818) 7.5 gm/dL 6.0-8.3 ALBUMIN (BEAKER) (test pqjg=1408) 4.4 g/dL 3.5-5.0 BILIRUBIN TOTAL (BEAKER) (test nqkf=644) 0.9 mg/dL 0.2-1.2 BILIRUBIN DIRECT (BEAKER) (test xqwe=408) 0.3 mg/dL 0.1-0.5 ALKALINE PHOSPHATASE (BEAKER) (test jtdg=084) 108 U/L 40-150 AST (SGOT) (BEAKER) (test oeft=937) 28 U/L 5-34 ALT (SGPT) (BEAKER) (test wuyh=182) 18 U/L 6-55 CBC W/PLT COUNT & AUTO [id number] 09:28:00 Test Item Value Reference Range Comments WHITE BLOOD CELL COUNT (BEAKER) (test uzut=149) 8.8 K/ L 3.5-10.5 RED BLOOD CELL COUNT (BEAKER) (test tbwo=835) 4.39 M/ L 3.93-5.22 HEMOGLOBIN (BEAKER) (test bnfw=546) 13.9 GM/DL 11.2-15.7 HEMATOCRIT (BEAKER) (test hpvg=771) 41.6 % 34.1-44.9 MEAN CORPUSCULAR VOLUME (BEAKER) (test odgw=328) 94.8 fL 79.4-94.8 MEAN CORPUSCULAR HEMOGLOBIN (BEAKER) (test 31.7 pg 25.6-32.2 ezma=352) MEAN CORPUSCULAR HEMOGLOBIN CONC (BEAKER) (test 33.4 GM/DL 32.2-35.5 ejab=991) RED CELL DISTRIBUTION WIDTH (BEAKER) (test 13.1 % 11.7-14.4 dxdn=157) PLATELET COUNT (BEAKER) (test dumj=752) 234 K/CU MM 150-450 MEAN PLATELET VOLUME (BEAKER) (test orxn=443) 9.0 fL 9.4-12.3 NUCLEATED RED BLOOD CELLS (BEAKER) (test 0 /100 WBC 0-0 qalj=144) NEUTROPHILS RELATIVE PERCENT (BEAKER) (test 69 % wokn=230) LYMPHOCYTES RELATIVE PERCENT (BEAKER) (test 22 % xyvp=673) MONOCYTES RELATIVE PERCENT (BEAKER) (test 9 % hbwb=192) EOSINOPHILS RELATIVE PERCENT (BEAKER) (test 0 % tupj=242) BASOPHILS RELATIVE PERCENT (BEAKER) (test 0 % ozrd=337) NEUTROPHILS ABSOLUTE COUNT (BEAKER) (test 6.05 K/ L 1.56-6.13 eybg=479) LYMPHOCYTES ABSOLUTE COUNT (BEAKER) (test 1.91 K/ L 1.18-3.74 jjwe=514) MONOCYTES ABSOLUTE COUNT (BEAKER) (test 0.76 K/ L 0.24-0.36 zoch=783) EOSINOPHILS ABSOLUTE COUNT (BEAKER) (test 0.01 K/ L 0.04-0.36 qvvu=001) BASOPHILS ABSOLUTE COUNT (BEAKER) (test 0.03 K/ L 0.01-0.08 hcpb=725) IMMATURE GRANULOCYTES-RELATIVE PERCENT (BEAKER) 0 % 0-1 (test gyjm=7522) PROTHROMBIN [id number] 09:23:00 Test Item Value Reference Range Comments PROTIME (BEAKER) (test ztkq=286) 13.5 seconds 11.7-14.7 INR (BEAKER) (test jkde=787) 1.0 <=5.9 RECOMMENDED COUMADIN/WARFARIN INR THERAPY RANGESSTANDARD DOSE: 2.0 - 3.0 Includes: PROPHYLAXIS forvenous thrombosis, systemic embolization; TREATMENT for venous thrombosis and/or pulmonary embolus.HIGH RISK: Target INR is 2.5-3.5 for patients with mechanical heart valves.POCT-GLUCOSE [id number] 07:05:00 Test Item Value Reference Range Comments POC-GLUCOSE METER (BEAKER) 96 mg/dL 70-110 TESTED AT [address] (test ekuq=0004) [facility] [address]
[2018-06-15] MEDS ORDERED: LORazepam 2 MG/ML VIAL ONE (00:51)
[2018-06-15] MEDS ORDERED: NA CHLORIDE 0.9% 1,000 ML ONE (01:30)
[2018-06-15 01:45] LABS: Barbiturates NEGATIVE (NEGATIVE); Benzodiazepines POSITIVE (NEGATIVE); Cocaine NEGATIVE (NEGATIVE); METHAMPHETAM NEGATIVE (NEGATIVE); Methadone NEGATIVE (NEGATIVE); Opiates NEGATIVE (NEGATIVE); Phencyclidine NEGATIVE (NEGATIVE); THC Cannibis NEGATIVE (NEGATIVE)
[2018-06-15] MEDS ORDERED: LIDOCAINE 1% 20 ML MDV ONE (02:06)
[2018-06-15 02:29] LABS: Absolute Lymphocytes (CBC) 0.5 K/uL (0.7-4.9); Absolute Monocytes 0.7 K/uL (0.1-1.3); Absolute Neutrophil 13.2 K/uL (1.8-8.0); Basophils % 0.1 % (0-1.3); Hematocrit 36.8 % (36.0-45.0); Lymphocytes % 3.4 % (15.3-44.8); MPV 7.4 fL (7.6-11.3); Monocytes % 4.8 % (3.3-12.3); RBC Red Blood Cell Count 3.92 M/uL (3.86-4.86)
[2018-06-15 03:56] LABS: ALT/SGPT 20 U/L (12-78); AST/SGOT 31 U/L (15-37); Albumin 3.8 g/dL (3.4-5.0); Alkaline Phosphatase 120 U/L (45-117); BUN Blood Urea Nitrogen 16 mg/dL (7-18); Bicarbonate 24 mmol/L (21-32); Bilirubin Direct 0.2 mg/dL (0-0.2); Bilirubin Total 0.7 mg/dL (0.2-1.0); Glucose Level 106 mg/dL (74-106); Potassium 3.7 mmol/L (3.5-5.1); Protein, Total 6.8 g/dL (6.4-8.2); Sodium Level 140 mmol/L (136-145)
[2018-06-15 04:02] LABS: Blood Morphology Comment NOT SEEN (NOT SEEN); Platelet Estimate ADEQ
[2018-06-15 04:07] LABS: Urine Blood 2+ (NEG); Urine Glucose NEGATIVE (NEG); Urine Protein 2+ (NEG); Urine Specific Gravity >1.030 (1.005-1.030)
--- NOTE | 2018-06-15 07:39 | EKG ---
Test Date: 2018-05-15 Test Time: 00:58:44 Poultry Processing Supervisor: JAYDON MEASUREMENT RESULTS: Intervals: Rate: 106 [place]: 158 QRSD: 88 QT: 322 QTc: 427 [place]: P: 79 [place]: 158 QRS: 27 T: 83 INTERPRETIVE STATEMENTS: Sinus tachycardia Possible Left atrial enlargement Septal infarct, age undetermined Abnormal ECG Compared to ECG 03/29/2018 10:47:35 Left-axis deviation no longer present Myocardial infarct finding still present Electronically Signed On 06-15-18 07:29:56 WASTE RECYCLER by Sergio Main
--- NOTE | 2018-06-15 11:15 | ER ---
Nurse's Notes [facility] Name: Kena Cutler Age: 57 yrs Sex: Female : 1960 Arrival Date: 06/15/2018 Time: 00:34 Bed 3 Private MD: Diagnosis: Adverse effect of unspecified narcotics Presentation: 06/15 00:36 Presenting complaint: EMS states: they were called to the residence for a "person not ak1 acting right" EMS stated pt did not wish to have pt transported. a "friend" at the residence called EMS but could not report how the pt received the laceration to the right side of her forehead. pt awake with eyes closed, pt combative. EMS stated no one at the residence could say how the pt received the lac or what was going on with the pt. pt arrived combative and unclothed. Transition of care: patient was not received from another setting of care. Onset of symptoms was June 15, 2018. Risk Assessment: Do you want to hurt yourself or someone else? Patient reports no desire to harm self or others. Care prior to arrival: None. 00:36 Method Of Arrival: EMS: [facility] ak1 00:36 Acuity: SHELLY 2 ak1 00:44 Note EMS stated they gave 2 ativan and [address] WORKER. ak1 01:32 Initial Sepsis Screen: Does the patient meet any 2 criteria? No. Patient's initial ak1 sepsis screen is negative. Does the patient have a suspected source of infection? No. Patient's initial sepsis screen is negative. Historical: - Allergies: 00:43 No Known Allergies; ak1 - Home Meds: 00:43 Unable to obtain [Active]; ak1 - PMHx: 00:43 Substance Abuse; ak1 - PSHx: 00:43 Unable to obtain; ak1 - Immunization history:: Adult Immunizations unknown. - Social history:: Smoking status: unknown Patient uses pt has been seen in ER for synthetic marijuana use in the past.. - Ebola Screening: : No symptoms or risks identified at this time. Screenin:30 Abuse screen: unknown at this time. Nutritional screening: No deficits noted. ak1 Tuberculosis screening: No symptoms or risk factors identified. Fall Risk IV access (20 points). Assessment: 01:26 General: Appears unkempt, Behavior is pt becomes combative when stimulated. . Pain: ak1 Unable to use pain scale. Patient is disoriented. Does not appear to understand pain scale. Patient appears agitated, quiet, withdrawn. Neuro: Level of Consciousness is stuporous, Oriented to none Moves all extremities. Cardiovascular: Rhythm is sinus tachycardia. Respiratory: No deficits noted. GI: No signs and/or symptoms were reported involving the gastrointestinal system. : No signs and/or symptoms were reported regarding the genitourinary system. EENT: No signs and/or symptoms were reported regarding the EENT system. Derm: Wound noted forehead. Musculoskeletal: No signs and/or symptoms reported regarding the musculoskeletal system. 02:16 Reassessment: Patient appears in no apparent distress at this time. No changes from ak1 previously documented assessment. labs collected by Dr. Herrera via EJ butterfly draw. 03:18 Reassessment: Patient appears in no apparent distress at this time. No changes from ak1 previously documented assessment. Patient states symptoms have not improved. pt remains responsive to painful stimuli only. pt resting with eyes closed. resp even and unlabored, skin warm and dry. will continue to monitor. . 05:11 Reassessment: Patient appears in no apparent distress at this time. No changes from ak1 previously documented assessment. Patient states symptoms have not improved. pt remains responsive to painful stimuli. resp even and unlabored. pt repositioned for comfort. will continue to monitor. . 06:23 Reassessment: Patient appears in no apparent distress at this time. No changes from ak1 previously documented assessment. 07:15 Reassessment: Patient appears in no apparent distress at this time. NAD. Responds to hb painful stimuli. Respirations even and unlabored. Pt repositioned. 08:15 Reassessment: Patient appears in no apparent distress at this time. No changes from hb previously documented assessment. 09:00 Reassessment: Patient appears in no apparent distress at this time. No changes from hb previously documented assessment. 10:00 Reassessment: Patient appears in no apparent distress at this time. No changes from hb previously documented assessment. 11:20 Reassessment: Patient appears in no apparent distress at this time. Pt woke up ph momentarily, assisted from bed by landscape technician to be taken to restroom, pt then stood up from wheelchair and urinated on floor, now back in bed asleep, VSS. 13:00 Reassessment: Patient appears in no apparent distress at this time. Patient and/or ph family updated on plan of care and expected duration. Pain level reassessed. Pt asleep w/ equal and unlabored respirations. 14:20 Reassessment: Patient appears in no apparent distress at this time. Patient and/or ph family updated on plan of care and expected duration. Pain level reassessed. Pt woke up, stated, " I gotta pee." Taken to restroom via wheelchair, now back in bed sleeping w/ even and unlabored respirations, attempted to contact family or friend to come and molded goods spot picker pt but #'s for next of kin no good. 15:30 Reassessment: Patient appears in no apparent distress at this time. Patient and/or hb family updated on plan of care and expected duration. Pain level reassessed. Patient is alert, oriented x 3, equal unlabored respirations, skin warm/dry/pink. 16:20 Reassessment: Unsuccessful phone call attempts to reach pt's family for d/c home. [place] was contacted to go to pt's residence and check if there was family there. PD to call us back with update. . 16:45 Reassessment: Pt's daughter in law called and stated she is on her way to pick pt up. . nick 18:19 Reassessment: Contacted pt's daughter in law and she states "I am on my way now, I just nick didn't have a car earlier but I should be there in about 15 minutes" . Vital Signs: 00:46 Resp 20; Temp 98.4; Weight 54.43 kg (R); Height 5 ft. 2 in. (157.48 cm) (R); ak1 01:18 BP 155 / 74; Pulse 101; Resp 20; Pulse Ox 97% on R/A; ak1 01:26 Pulse 98; Resp 20; Pulse Ox 96% on R/A; ak1 02:16 BP 162 / 75; Pulse 98; Resp 18; Pulse Ox 96% on R/A; ak1 02:42 BP 147 / 60; Pulse 98; Resp 22; Pulse Ox 96% on R/A; ak1 03:20 BP 151 / 65; Pulse 94; Resp 20; Pulse Ox 96% on R/A; ak1 05:14 BP 150 / 62; Pulse 95; Resp 22; Pulse Ox 97% on R/A; ak1 06:23 BP 144 / 65; Pulse 89; Resp 20; Pulse Ox 97% on R/A; ak1 07:15 BP 138 / 64; Pulse 88; Resp 15; Pulse Ox 97% on R/A; hb 08:15 BP 132 / 59; Pulse 78; Resp 15; Pulse Ox 97% on R/A; hb 09:00 BP 137 / 76; Pulse 74; Resp 15; Pulse Ox 100% on R/A; hb 10:00 BP 131 / 68; Pulse 76; Resp 18; Pulse Ox 98% on R/A; ph 11:00 BP 140 / 76; Pulse 72; Resp 16; Pulse Ox 99% on R/A; ph 12:00 BP 127 / 70; Pulse 72; Resp 18; Pulse Ox 100% on R/A; ph 13:00 BP 137 / 80; Pulse 73; Resp 16; Pulse Ox 98% on R/A; ph 14:00 BP 118 / 78; Pulse 71; Resp 16; Pulse Ox 99% on R/A; ph 15:00 BP 135 / 68; Pulse 68; Resp 16; Pulse Ox 100% on R/A; ph 16:00 BP 134 / 68; Pulse 75; Resp 16; Pulse Ox 98% on R/A; ph 17:00 BP 127 / 72; Pulse 74; Resp 16; Pulse Ox 99% on R/A; ph 00:46 Body Mass Index 21.95 (54.43 kg, 157.48 cm) ak1 ED Course: 00:34 Patient arrived in ED. bb 00:34 Rafael Herrera MD is Attending Physician. gs 00:36 Philly Valdes RN is Primary Nurse. ak1 00:40 Triage completed. ak1 00:44 Arm band placed on Patient placed in an exam room, on a stretcher, on advanced manufacturing consultant, ak1 on pulse oximetry. 00:45 Patient has correct armband on for positive identification. Placed in gown. Bed in low ak1 position. Side rails up X2. Seizure precautions initiated. practice director on. Pulse ox on. NIBP on. 00:45 Inserted saline lock: 20 gauge in right antecubital area, using aseptic technique. ak1 ,using aseptic technique. unable to obtain blood for labs. 01:07 CT Head C Spine In Process Unspecified. EDMS 01:30 Urine collected: straight cath specimen, clear, Amount Returned: 75mL. ak1 02:17 Assist provider with laceration repair on head that was 2.5 cm. or less using sutures. ak1 Set up tray. Performed by Rafael Herrera MD Patient tolerated well. 16:00 IV discontinued, intact, bleeding controlled, No redness/swelling at site. Pressure hb dressing applied. 16:13 Primary Nurse role handed off by Philly Valdes RN hb 16:13 Attending Physician role handed off by Rafael Herrera MD 16:17 Monico Barrow MD is Attending Physician. ps1 17:20 Meagan Helms RN is Primary Nurse. ph Administered Medications: 00:45 Drug: Ativan 2 mg Route: IVP; Site: right antecubital; ak1 01:25 Follow up: Response: No adverse reaction ak1 01:25 Drug: NS 0.9% 1000 ml Route: IV; Rate: 125 ml/hr; Site: right antecubital; ak1 05:22 Follow up: IV Status: Completed infusion; verbal order to change fluids to a bolus, ak1 bolus complete. 02:13 Drug: Lidocaine-Epinephrine -1%: (1:100,000) 5 ml {Note: at bedside for ERP.} Volume: ak1 20 ml; Route: Infiltration; Point of Care Testing: Blood Glucose: 00:46 Blood Glucose: 163 mg/dL; ak1 Ranges: Intake: Outcome: 11:15 Discharge ordered by . rn 15:59 Discharged to home via wheelchair. hb 15:59 Condition: stable 15:59 Discharge instructions given to patient, Instructed on discharge instructions, follow up and referral plans. Demonstrated understanding of instructions, follow-up care. 16:01 Patient left the ED. hb 18:48 Patient left the ED. hb Signatures: Dispatcher [employer] EDMS Catie Carrillo RN RN bb Nieto, Roman, MD MD rn Calderon, Audri, RN RN aa5 Philly Valdes RN RN ak1 Meagan Helms RN RN ph Baxter, Heather, RN RN Rafael Herrera MD MD Monico Barrow MD MD ps1
--- NOTE | 2018-06-15 11:16 | EDPHYS ---
Physician Documentation [facility] Name: Kena Cutler Age: 57 yrs Sex: Female : 1960 Arrival Date: 06/15/2018 Time: 00:34 Bed 3 Private MD: ED Physician HPI: 06/15 03:42 This 57 yrs old Female presents to ER via EMS with complaints of ams. gs 03:42 Onset: The symptoms/episode began/occurred just prior to arrival. Possible causes: drug gs use, similar episodes in past with . Current symptoms: In the emergency department the patient's symptoms are unchanged from the initial presentation, lethargic, comatose. The patient has experienced similar episodes in the past, several times. Historical: - Allergies: 00:43 No Known Allergies; ak1 - Home Meds: 00:43 Unable to obtain [Active]; ak1 - PMHx: 00:43 Substance Abuse; ak1 - PSHx: 00:43 Unable to obtain; ak1 - Immunization history:: Adult Immunizations unknown. - Social history:: Smoking status: unknown Patient uses pt has been seen in ER for synthetic marijuana use in the past.. - Ebola Screening: : No symptoms or risks identified at this time. ROS: 03:42 All other systems are negative. gs Exam: 04:04 Head/Face: Normocephalic, atraumatic. Eyes: Pupils equal round and reactive to light, gs extra-ocular motions intact. Lids and lashes normal. Conjunctiva and sclera are non-icteric and not injected. Cornea within normal limits. Periorbital areas with no swelling, redness, or edema. ENT: Nares patent. No nasal discharge, no septal abnormalities noted. Tympanic membranes are normal and external auditory canals are clear. Oropharynx with no redness, swelling, or masses, exudates, or evidence of obstruction, uvula midline. Mucous membranes moist. Neck: Trachea midline, no thyromegaly or masses palpated, and no cervical lymphadenopathy. Supple, full range of motion without nuchal rigidity, or vertebral point tenderness. No Meningismus. Chest/axilla: Normal chest wall appearance and motion. Nontender with no deformity. No lesions are appreciated. 04:04 Respiratory: Lungs have equal breath sounds bilaterally, clear to auscultation and percussion. No rales, rhonchi or wheezes noted. No increased work of breathing, no retractions or nasal flaring. Abdomen/GI: Soft, non-tender, with normal bowel sounds. No distension or tympany. No guarding or rebound. No evidence of tenderness throughout. Back: No spinal tenderness. No costovertebral tenderness. Full range of motion. Skin: Warm, dry with normal turgor. Normal color with no rashes, no lesions, and no evidence of cellulitis. MS/ Extremity: Pulses equal, no cyanosis. Neurovascular intact. Full, normal range of motion. 04:04 Constitutional: The patient appears lethargic. 04:04 Cardiovascular: Rate: tachycardic, Rhythm: regular, Pulses: no pulse deficits are appreciated. 04:04 ECG was reviewed by the Attending Physician. 04:04 Neuro: Orientation: Not oriented to person, place, time, situation, Mentation: somnolent, responsive to pain, Motor: moves all fours. 04:04 Head/face: Noted is a laceration(s), that is deep, 3.5 cm(s). gs Vital Signs: 00:46 Resp 20; Temp 98.4; Weight 54.43 kg (R); Height 5 ft. 2 in. (157.48 cm) (R); ak1 01:18 BP 155 / 74; Pulse 101; Resp 20; Pulse Ox 97% on R/A; ak1 01:26 Pulse 98; Resp 20; Pulse Ox 96% on R/A; ak1 02:16 BP 162 / 75; Pulse 98; Resp 18; Pulse Ox 96% on R/A; ak1 02:42 BP 147 / 60; Pulse 98; Resp 22; Pulse Ox 96% on R/A; ak1 03:20 BP 151 / 65; Pulse 94; Resp 20; Pulse Ox 96% on R/A; ak1 05:14 BP 150 / 62; Pulse 95; Resp 22; Pulse Ox 97% on R/A; ak1 06:23 BP 144 / 65; Pulse 89; Resp 20; Pulse Ox 97% on R/A; ak1 07:15 BP 138 / 64; Pulse 88; Resp 15; Pulse Ox 97% on R/A; hb 08:15 BP 132 / 59; Pulse 78; Resp 15; Pulse Ox 97% on R/A; hb 09:00 BP 137 / 76; Pulse 74; Resp 15; Pulse Ox 100% on R/A; hb 10:00 BP 131 / 68; Pulse 76; Resp 18; Pulse Ox 98% on R/A; ph 11:00 BP 140 / 76; Pulse 72; Resp 16; Pulse Ox 99% on R/A; ph 12:00 BP 127 / 70; Pulse 72; Resp 18; Pulse Ox 100% on R/A; ph 13:00 BP 137 / 80; Pulse 73; Resp 16; Pulse Ox 98% on R/A; ph 14:00 BP 118 / 78; Pulse 71; Resp 16; Pulse Ox 99% on R/A; ph 15:00 BP 135 / 68; Pulse 68; Resp 16; Pulse Ox 100% on R/A; ph 16:00 BP 134 / 68; Pulse 75; Resp 16; Pulse Ox 98% on R/A; ph 17:00 BP 127 / 72; Pulse 74; Resp 16; Pulse Ox 99% on R/A; ph 00:46 Body Mass Index 21.95 (54.43 kg, 157.48 cm) ak1 Laceration: 04:04 Wound Repair of 3.5cm ( 1.4in ) subcutaneous laceration to forehead. Distal gs neuro/vascular/tendon intact. Anesthesia: Local anesthetic administered with 5 mls of 1% lidocaine. Wound prep: Simple cleansing with betadine. Skin closed with 4 4-0 Prolene using simple sutures and sterile technique. Patient tolerated well. MDM: 00:34 Patient medically screened. 04:04 Differential Diagnosis: CVA, electrolyte abnormality, alcohol intoxication, gs intracranial bleed, overdose. Data reviewed: vital signs, nurses notes. Response to treatment: the patient's symptoms have markedly improved after treatment. ED course: pt awake answers questions, knows where she is at plan to observe a couple more hours and discharge. 11:13 Counseling: I had a detailed discussion with the patient and/or guardian regarding: the rn historical points, exam findings, and any diagnostic results supporting the discharge/admit diagnosis, lab results, the need for outpatient follow up, to return to the emergency department if symptoms worsen or persist or if there are any questions or concerns that arise at home. 06/15 00:34 Order name: Acetaminophen; Complete Time: :33 gs 06/15 00:34 Order name: Basic Metabolic Panel; Complete Time: 05:33 gs 02/05 00:34 Order name: CBC with Diff; Complete Time: 05:33 gs 02 00:34 Order name: ETOH Level; Complete Time: 05:33 gs 06/15 00:34 Order name: Hepatic Function; Complete Time: 05:33 gs 02 00:34 Order name: CT Head C Spine gs 06/15 00:34 Order name: Salicylate; Complete Time: 05:33 gs 06/15 00:34 Order name: Urine Drug Screen; Complete Time: 05:33 gs 02 00:47 Order name: glucometer results - FOR PT WITH NO ID ak1 06/15 01:18 Order name: Urine Dipstick--Ancillary (enter results); Complete Time: 05:33 ar5 02 02:33 Order name: Manual Differential; Complete Time: 05:33 EDMS 02 00:34 Order name: EKG; Complete Time: 00:36 gs 06/15 00:34 Order name: EKG - Nurse/Tech; Complete Time: 01:16 gs 06/15 00:34 Order name: IV Saline Lock; Complete Time: 00:47 gs 06/15 00:34 Order name: Labs collected and sent; Complete Time: 02:13 gs 06/15 00:34 Order name: Urine Dipstick-Ancillary (obtain specimen); Complete Time: 01:17 gs 06/15 15:41 Order name: Diet Regular; Complete Time: 15:41 aj EC:04 Rate is 106 beats/min. Rhythm is regular. [place] interval is normal. QRS interval is gs normal. QT interval is normal. T waves are Flattened. Clinical impression: NSR w/ Non-specific ST/T Changes. Interpreted by me. Administered Medications: 00:45 Drug: Ativan 2 mg Route: IVP; Site: right antecubital; ak1 01:25 Follow up: Response: No adverse reaction ak1 01:25 Drug: NS 0.9% 1000 ml Route: IV; Rate: 125 ml/hr; Site: right antecubital; ak1 05:22 Follow up: IV Status: Completed infusion; verbal order to change fluids to a bolus, ak1 bolus complete. 02:13 Drug: Lidocaine-Epinephrine -1%: (1:100,000) 5 ml {Note: at bedside for ERP.} Volume: ak1 20 ml; Route: Infiltration; Point of Care Testing: Blood Glucose: 00:46 Blood Glucose: 163 mg/dL; ak1 Ranges: Critical Glucose Levels:Adult <50 mg/dl or >400 mg/dl <40 mg/dl or >180 mg/dl Disposition: 06/15/18 11:15 Discharged to Home. Impression: Adverse effect of unspecified narcotics. - Condition is Stable. - Discharge Instructions: Drug Overdose, Drug Toxicity. - Medication Reconciliation Form, Thank You Letter, Antibiotic Education, Prescription Opioid Use form. - Follow up: Private Physician; When: 2 - 3 days; Reason: Re-evaluation by your physician. Signatures: Dispatcher [employer] EDMS Marbin Aguirre MD MD rn Krenek, Amber, RN RN ak1 Viviana Huynh RN RN hb Herrera, MD DAYNA Hall gs Corrections: (The following items were deleted from the chart) 04:06 03:42 Constitutional: The patient appears alert, awake, gs gs 16:01 11:15 06/15/2018 11:15 Discharged to Home. Impression: Adverse effect of unspecified hb narcotics. Condition is Stable. Discharge Instructions: Drug Overdose, Drug Toxicity. Forms are Medication Reconciliation Form, Thank You Letter, Antibiotic Education, Prescription Opioid Use. Follow up: Private Physician; When: 2 - 3 days; Reason: Re-evaluation by your physician. rn 18:48 16:01 06/15/2018 11:15 Discharged to Home. Impression: Adverse effect of unspecified hb narcotics. Condition is Stable. Discharge Instructions: Drug Overdose, Drug Toxicity. Forms are Medication Reconciliation Form, Thank You Letter, Antibiotic Education, Prescription Opioid Use. Follow up: Private Physician; When: 2 - 3 days; Reason: Re-evaluation by your physician. hb
--- NOTE | 2018-06-15 21:37 | RAD REPORT ---
EXAM DESCRIPTION: CT - Head C Spine Mpr Wo Con CLINICAL HISTORY: The patinet is 57 years old and is Female; PAIN. COMPARISON: CT head without contrast dated March 29, 2018 (report not available) TECHNIQUE: Axial computed tomography images of the head/brain and cervical spine without intravenous contrast. Sagittal and coronal reformatted images were created and reviewed. This CT exam was perfor med using one or more of the following dose reduction techniques: Automated exposure control, adjustm ent of the mA and/or kV according to patient size, and/or use of iterative reconstruction technique. FINDINGS: BRAIN: Unremarkable. No hemorrhage. No significant white matter disease. No edema. VENTRICLES: Unremarkable.No ventriculomegaly. SKULL: No acute fracture. SINUSES: Unremarkable as visualized. No acute sinusitis. MASTOID AIR CELLS: Partial pneumatization of the right mastoid air cells, unchanged. VERTEBRAE: Anterolisthesis of C4 on C5 and retrolisthesis of C5 on C6 noted. Reversal of cervical lordosis centered at C5. No acute fracture. DISCS/SPINAL CANAL/NEURAL FORAMINA: Mild C5-6 disc space narrowing and anterior osteophytosis. SOFT TISSUES: Small nodular soft tissue defects involving the right frontal scalp. LUNG APICES: Apical lung zones demonstrate emphysematous changes. OTHER FINDINGS: IMPRESSION: 1. No acute intracranial abnormality. 2. No acute fracture of the cervical spine. 3. Small nodular soft tissue defects involving the right frontal scalp. Resolved left frontal scalp s welling. 4. Mid cervical degenerative changes with spondylolisthesis as detailed above. 5. Mild apical chronic lung changes. Electronically signed by: Michael Basihr DO 06/15/2018 1:19 AM OSD CLERK Due to temporary technical issues with the PACS/Fluency reporting system, reports are being signed by the in house radiologist as a courtesy to ensure prompt reporting. The interpreting radiologist is f ully responsible for the content of the report.
== END 2018-06-15 18:48 | disposition home or self-care (01) ==
LOC: ER 00:32
PROC: 0JQ10ZZ Repair Face Subcutaneous Tissue and Fascia, Open Approach (ICD-10-PCS; principal; 2018-06-15)
DX: S01.81XA Laceration without foreign body of other part of head, initial encounter (principal); T40.605A Adverse effect of unspecified narcotics, initial encounter
CPT/HCPCS: 36415; 70450; 72125; 80048; 80076; 80307; 80320; 80329; 81003; 82962; 85025; 93005; 96361; 96374; 99285; J7030

== ENCOUNTER 2018-07-06 11:18 | Emergency (ER) | payer SELFPAY ==
--- OUTSIDE RECORDS SUMMARY | 2018-07-06 11:22 | XMS REPORT | Clinical Summary ---
:1960 Author Organization [facility] Address [address] [place] [address] Care Team Providers Name Role Phone Margarita [...] Hospital Encounter Intensive Care Kwame Saunders Seizure (FORMERLY [facility]) 03/31/2018 MD Jacinto 08/01/2017 Hospital Encounter General Internal Peter Severino Seizure ( FORMERLY [facility]); Medicine MD Sergio Substance abuse Sy Rubin MD after 07/05/2017 Social History Tobacco Use Types Packs/Day Years Used Date Never Assessed Sex Assigned at Date Recorded Not on file Job Start Date Occupation Industry Not on file Not on file Not on file Travel History Travel Start Travel End No recent travel history available. Last Filed Vital Signs Vital Sign Reading Time Taken Blood Pressure 140/68 03/31/2018 2:35 PM [employer] WORK[employer] Pulse 101 03/31/2018 2:30 PM [employer] WORKER Temperature 36.4 C (97.6 F) 03/31/2018 2:05 PM H[employer] WORKER Respiratory Rate 26 03/31/2018 2:30 PM HIGH WORKER Oxygen Saturation 91% 03/31/2018 2:35 PM HIGH WORKER Inhaled Oxygen Concentration 40% 03/31/2018 10:00 AM HIGH WORKER Weight 49.1 kg (108 lb 3.9 oz) 03/31/2018 5:00 AM HIGH WORKER Height 157.5 cm (5' 2") 03/29/2018 4:02 PM HIGH WORKER Body Mass Index 19.8 03/31/2018 5:00 AM HIGH WORKER Plan of Treatment Not on file Procedures Procedure Name Priority Date/Time Associated Comments Diagnosis RHYTHM STRIP - SCAN 04/12/2018 11:30 AM HIGH WORKER POCT-GLUCOSE METER Routine 03/31/2018 11:59 Results for this AM HIGH WORKER procedure are in the results section. POTASSIUM Routine 03/31/2018 11:56 Results for this AM HIGH WORKER procedure are in the results section. PLATELET COUNT Routine 03/31/2018 11:56 Results for this AM HIGH WORKER procedure are in the results section. BLOOD GAS, VENOUS Routine 03/31/2018 8:23 Results for this AM HIGH WORKER procedure are in the results section. EEG MONITORING WITH Routine 03/31/2018 6:16 Results for this VIDEO RECORDING EACH AM HIGH WORKER procedure are in 24 HOURS the results section. POCT-GLUCOSE METER Routine 03/31/2018 6:14 Results for this AM HIGH WORKER procedure are in the results section. BLOOD GAS, ARTERIAL Routine 03/31/2018 4:21 Results for this AM HIGH WORKER procedure are in the results section. CBC W/PLT COUNT & AUTO Routine 03/31/2018 4:20 Results for this DIFFERENTIAL AM HIGH WORKER procedure are in the results section. CBC W/PLT COUNT & AUTO Routine 03/31/2018 4:20 Results for this DIFFERENTIAL AM HIGH WORKER procedure are in the results section. TRIGLYCERIDES Routine 03/31/2018 4:20 Results for this AM HIGH WORKER procedure are in the results section. LACTIC ACID, VENOUS, Routine 03/31/2018 4:20 Results for this WHOLE BLOOD AM HIGH WORKER procedure are in the results section. CREATINE KINASE (CK) Routine 03/31/2018 4:20 Results for this AM HIGH WORKER procedure are in the results section. COMPREHENSIVE Routine 03/31/2018 4:20 Results for this METABOLIC PANEL AM HIGH WORKER procedure are in the results section. XR CHEST 1 VIEW Routine 03/31/2018 3:12 Results for this PORTABLE/BEDSIDE AM HIGH WORKER procedure are in the results section. POCT-GLUCOSE METER Routine 03/30/2018 11:46 Results for this PM H[employer] WORKER procedure are in the results section. XR ABDOMEN 1 VIEW STAT 03/30/2018 9:32 Results for this PM HIGH WORKER procedure are in the results section. POCT-GLUCOSE METER Routine 03/30/2018 5:48 Results for this PM HIGH WORKER procedure are in the results section. XR ABDOMEN 1 VIEW STAT 03/30/2018 1:18 Results for this PM HIGH WORKER procedure are in the results section. POCT-GLUCOSE METER Routine 03/30/2018 12:06 Results for this PM HIGH WORKER procedure are in the results section. XR CHEST 1 VIEW Routine 03/30/2018 7:41 Results for this PORTABLE/BEDSIDE AM HIGH WORKER procedure are in the results section. EEG MONITORING WITH STAT 03/30/2018 7:00 Results for this VIDEO RECORDING EACH AM HIGH WORKER procedure are in 24 HOURS the results section. POCT-GLUCOSE METER Routine 03/30/2018 6:14 Results for this AM HIGH WORKER procedure are in the results section. CBC W/PLT COUNT & AUTO Routine 03/30/2018 4:37 Results for this DIFFERENTIAL AM HIGH WORKER procedure are in the results section. BASIC METABOLIC PANEL Routine 03/30/2018 4:37 Results for this (7) AM HIGH WORKER procedure are in the results section. CBC W/PLT COUNT & AUTO Routine 03/30/2018 4:37 Results for this DIFFERENTIAL AM HIGH WORKER procedure are in the results section. BLOOD GAS, ARTERIAL Routine 03/30/2018 4:37 Results for this AM HIGH WORKER procedure are in the results section. LACTIC ACID, VENOUS, Routine 03/30/2018 4:37 Results for this WHOLE BLOOD AM HIGH WORKER procedure are in the results section. LACTIC ACID, VENOUS, STAT 03/30/2018 12:12 Results for this WHOLE BLOOD AM HIGH WORKER procedure are in the results section. POCT-GLUCOSE METER Routine 03/29/2018 11:51 Results for this PM HIGH WORKER procedure are in the results section. CT/CTA CAROTID STAT 03/29/2018 11:07 Results for this PM HIGH WORKER procedure are in the results section. CT/CTA BRAIN STAT 03/29/2018 11:07 Results for this PM HIGH WORKER procedure are in the results section. POCT-GLUCOSE METER Routine 03/29/2018 6:28 Results for this PM HIGH WORKER procedure are in the results section. EEG AWAKE AND DROWSY Routine 03/29/2018 5:52 Results for this PM HIGH WORKER procedure are in the results section. XR CHEST 1 VIEW STAT 03/29/2018 5:35 Results for this PORTABLE/BEDSIDE PM HIGH WORKER procedure are in the results section. BLOOD GAS, ARTERIAL Routine 03/29/2018 5:15 Results for this PM HIGH WORKER procedure are in the results section. CREATINE KINASE (CK) Routine 03/29/2018 5:00 Results for this PM HIGH WORKER procedure are in the results section. ETHANOL Routine 03/29/2018 5:00 Results for this PM HIGH WORKER procedure are in the results section. APTT STAT 03/29/2018 5:00 Results for this PM HIGH WORKER procedure are in the results section. PROTHROMBIN TIME/INR STAT 03/29/2018 5:00 Results for this PM HIGH WORKER procedure are in the results section. PROCALCITONIN STAT 03/29/2018 5:00 Results for this PM HIGH WORKER procedure are in the results section. LACTIC ACID, VENOUS, STAT 03/29/2018 5:00 Results for this WHOLE BLOOD PM [employer] WORKER procedure are in the results section. LACTIC ACID, VENOUS, STAT 03/29/2018 5:00 Results for this WHOLE BLOOD PM HIGH WORKER procedure are in the results section. BLOOD CULTURE STAT 03/29/2018 4:59 Results for this PM H[employer] WORKER procedure are in the results section. BLOOD CULTURE STAT 03/29/2018 4:59 Results for this PM HIGH WORKER procedure are in the results section. POCT-GLUCOSE METER Routine 03/29/2018 3:46 Results for this PM HIGH WORKER procedure are in the results section. RHYTHM [...] procedure are in the results section. after 07/05/2017 Results RHYTHM STRIP - SCAN (04/12/2018 11:30 AM HIGH WORKER)Only the most recent of2 resultswithin the time period is included. Narrative Performed At POC-Glucose meter (03/31/2018 11:59 AM HIGH WORKER)Only the most recent of12 resultswithin the time period is included. POC-Glucose Meter 137 (H)Comment: TESTED AT 70 - 110 mg/dL [place] [id number] [facility] [id number] Specimen Blood Performing Organization Address City/[facility]/Zipcode Phone Number [address] [address] [phone] CENTER Platelet count (03/31/2018 11:56 AM HIGH WORKER) Platelets 149 (L) 150 - 450 K/CU MM [facility] Specimen Blood - Arm, Left Performing Organization Address City/State/Zipcode Phone Number [facility] [address] [place], [place] [phone] [place] Potassium (03/31/2018 11:56 AM HIGH WORKER) Potassium 4.0 3.5 - 5.1 meq/L [facility] Specimen Blood - Arm, Left Performing Organization Address City/[facility]/Zipcode Phone Number [facility] [address] [place] [address] [phone] [place] Blood gas, venous (03/31/2018 8:23 AM HIGH WORKER) pH, Patel 7.40 7.32 - 7.42 [facility] pCO2, Patel 38 (L) 41 - 51 mmHg [facility] pO2, Patel 71 (H) 25 - 40 mmHg [facility] O2 Sat, Patel 94.4 (H) 40.0 - 70.0 % [facility] HCO3, Patel 23 21 - 29 mmol/L [facility] Base Excess, Patel -1.2 -2.0 - 3.0 mmol/L [facility] Patient Temperature 37.0 C [facility] FIO2 50.0 % [facility] Specimen Blood - Arm, Right Performing Organization Address City/[facility] Phone Number [facility] [address] [place] [address] [place] EEG monitoring with video recording each 24 hours (03/31/2018 6:16 AM HIGH WORKER) Narrative Performed At Date(s) of EE03/29/18; 03/30/18;03/31/2018 GE RIS DATE OF REPORT: 03/31/18 ACC: [id number] EEG Number: [id number] Start time: 03/30/2018 at 09:41 Stop time: 03/30/2018 at 05:41 ICD-10: R56.9 CPT Code: 44447 REASON FOR EXAM: 57 yo female with [...] M.D., FACAMBREEN, FAAN, JESSIKA Professor of Neurology, [facility] [employer] [facility] Director, [facility] Head, Doyle [facility] Neurophysiology Lab Procedure Note Interface, External Ris In - 03/31/2018 11:38 AM HIGH WORKER Date(s) of EE03/29/18; 03/30/18;03/31/2018 DATE OF REPORT: 03/31/18 ACC: [id number] EEG Number: [id number] Start time: 03/30/2018 at 09:41 Stop time: 03/30/2018 at 05:41 ICD-10: R56.9 CPT Code: 74539 REASON FOR EXAM: 57 yo female with [...] M.D., ALISE, JACQUIEN, JESSIKA Professor of Neurology, [facility] Director, [facility] Epilepsy [place] Head, Doyle Devi Neurophysiology Lab Performing Organization Address City/[facility] Cent[facility]ode Phone Number [facility] Blood gas, arterial (03/31/2018 4:21 AM HIGH WORKER)Only the most recent of3 resultswithin the time period is included. pH, Arterial 7.45 7.35 - 7.45 [facility] pCO2, Arterial 29 (L) 35 - 45 mmHg [facility] pO2, Arterial 175 (H) 80 - 90 mmHg [facility] O2 Sat, Arterial 99.3 (H) 96.0 - 97.0 % [facility] HCO3, Arterial 19 (L) 21 - 29 mmol/L [facility] Base Excess, Arterial -3.8 (L) -2.0 - 3.0 mmol/L [facility] Patient Temperature 37.0 C [facility] FIO2 50.0 % [facility] Specimen Blood, Arterial Performing Organization Address City/[facility]/Zipcode Phone Number [facility] [address] [place] [address] CENTER CBC with platelet count + automated diff (03/31/2018 4:20 AM HIGH WORKER)Only the most recent of3 resultswithin the time period is included. WBC 9.5 3.5 - 10.5 K/L [facility] RBC 3.07 (L) 3.93 - 5.22 M/L [facility] Hemoglobin 9.9 (L) 11.2 - 15.7 GM/DL [facility] Hematocrit 29.5 (L) 34.1 - 44.9 % [facility] MCV 96.1 (H) 79.4 - 94.8 fL [facility] MCH 32.2 25.6 - 32.2 pg [facility] MCHC 33.6 32.2 - 35.5 GM/DL [facility] RDW 13.4 11.7 - 14.4 % [facility] Platelets 97 (L) 150 - 450 K/CU MM [facility] MPV 10.7 9.4 - 12.3 fL [facility] nRBC 0 0 - 0 /100 WBC [facility] % Neutros 82 % [facility] % Lymphs 10 % [facility] % Monos 8 % [facility] % Eos 0 % [facility] % Baso 0 % [facility] # Neutros 7.76 (H) 1.56 - 6.13 K/L [facility] # Lymphs 0.93 (L) 1.18 - 3.74 K/L [facility] # Monos 0.75 (H) 0.24 - 0.36 K/L [facility] # Eos 0.01 (L) 0.04 - 0.36 K/L [facility] # Baso 0.03 0.01 - 0.08 K/L [facility] Immature Granulocytes-Relative 0 0 - 1 % [facility] Specimen Blood - Arm, Left Performing Organization Address [facility]oks Phone Number [address] [address] [place] Lactic acid, venous, whole blood Daily (03/31/2018 4:20 AM HIGH WORKER)Only the most recent of5 resultswithin the time period is included. Lactate, Venous 0.8 0.5 - 2.2 mmol/L [facility] Specimen Blood - Arm, Left Performing Organization Address [facility] Phone Number [address] [address] [place] Triglycerides (03/31/2018 4:20 AM HIGH WORKER) Triglycerides 85 mg/dL [facility] Specimen Blood - Arm, Left Narrative Performed At TRIGLYCERIDE REFERENCE RANGE [facility] Low Risk<150 Borderline Risk 150-199 High Qwst395-275 Very High Risk >=500 Performing Organization Address [facility] Phone Number [address] [address] CENTER Creatine Kinase (CK) (03/31/2018 4:20 AM HIGH WORKER)Only the most recent of2 resultswithin the time period is included. Total CK 969 (H) 29 - 200 U/L [facility] Specimen Blood - Arm, Left Performing Organization Address [facility] Phone Number [address] [address] [phone] [place] Comprehensive metabolic panel (03/31/2018 4:20 AM HIGH WORKER) Protein, Total 5.7 (L) 6.0 - 8.3 gm/dL [facility] Albumin 3.9 3.5 - 5.0 g/dL [facility] Alkaline Phosphatase 85 40 - 150 U/L [facility] Total Bilirubin 1.1 0.2 - 1.2 mg/dL [facility] Sodium 134 (L) 136 - 145 meq/L [facility] Potassium 2.9 (L) 3.5 - 5.1 meq/L [facility] Chloride 107 98 - 107 meq/L [facility] CO2 20 (L) 22 - 29 meq/L [facility] BUN 10 7 - 21 mg/dL [facility] Creatinine 0.58 0.57 - 1.25 mg/dL [facility] Glucose 105 70 - 105 mg/dL [facility] Calcium 8.3 (L) 8.4 - 10.2 mg/dL [facility] AST 60 (H) 5 - 34 U/L [facility] ALT 37 6 - 55 U/L [facility] EGFR 108Comment: ESTIMATED mL/min/1.[address] [facility] GFR IS NOT ACCURATE [facility] CREATININE CLEARANCE IN PREDICTING GLOMERULAR FILTRATION RATE. ESTIMATED GFR IS NOT APPLICABLE FOR DIALYSIS PATIENTS. Specimen Blood - Arm, Left Performing Organization Address City/State/Zipcode Phone Number [facility] [address] [place] [address] [phone] CENTER XR chest 1 view portable / bedside (03/31/2018 3:12 AM HIGH WORKER)Only the most recent of3 resultswithin the time period is included. Narrative Performed At FINAL REPORT [facility] CLINICAL INDICATION: Support lines. Comparison: 03/30/2018 The cardiomediastinal contours are stable. There is no focal consolidation, pneumothorax, large pleural effusion or evidence of overt pulmonary edema. A feeding tube traverses examination to the upper abdomen. An endotracheal tube is stable. Signed: Leonides Guerra MD Report Verified Date/Time:03/31/2018 03:30:39 Reading Location: [address] Reading Room Procedure Note Interface, External Ris In - 03/31/2018 4:45 AM HIGH WORKER FINAL REPORT CLINICAL INDICATION: Support lines. Comparison: 03/30/2018 The cardiomediastinal contours are stable. There is no focal consolidation, pneumothorax, large pleural effusion or evidence of overt pulmonary edema. A feeding tube traverses examination to the upper abdomen. An endotracheal tube is stable. Signed: Leonides Guerra MD Report Verified Date/Time: 03/31/2018 03:30:39 Reading Location: [address] Reading Room Performing Organization Address City/State/Zipcode Phone Number GE RIS XR abdomen / KUB 1 view (03/30/2018 9:32 PM HIGH WORKER)Only the most recent of2 resultswithin the time [...] MD Report Verified Date/Time:03/30/2018 22:04:23 Reading Location: [facility] C013 Transitional Reading Room Procedure Note Interface, External Ris In - 03/30/2018 10:06 PM HIGH WORKER FINAL REPORT CLINICAL HISTORY: ngt placement TECHNIQUE: [...] Report Verified Date/Time: 03/30/2018 22:04:23 Reading Location: [place] [id number] Transitional Reading Room Performing Organization Address City/State/Zipcode Phone Number [facility] EEG monitoring with video recording each 24 hours (03/30/2018 7:00 AM HIGH WORKER) Narrative Performed At Date(s) of EE03/29/18 GE RIS DATE OF REPORT: 03/30/18 ACC: [id number] EEG Number: [id number] Start time: 03/29/2018 at 17:52 Stop time: 03/29/2018 at 22:28 ICD-10: R56.9 CPT Code: 08622-60 REASON FOR EXAM: 57 yo female with [...] report and agree with its interpretation. Igor Garinca MD Attending Neurophysiologist [facility] Procedure Note Interface, External Ris In - 03/30/2018 4:39 PM HIGH WORKER Date(s) of EE03/29/18 DATE OF REPORT: 03/30/18 ACC: [id number] EEG Number: [id number] Start time: 03/29/2018 at 17:52 Stop time: 03/29/2018 at 22:28 ICD-10: R56.9 CPT Code: 62489-74 REASON FOR EXAM: 57 yo female with [...] its interpretation. Igor Garnica MD Attending Neurophysiologist [facility] Performing Organization Address City/State/Zipcode Phone Number GE RIS Basic Metabolic Panel (03/30/2018 4:37 AM HIGH WORKER)Only the most recent of2 resultswithin the time period is included. Sodium 136 136 - 145 meq/L [facility] Potassium 2.4 (LL) 3.5 - 5.1 meq/L [facility] Chloride 109 (H) 98 - 107 meq/L [facility] CO2 20 (L) 22 - 29 meq/L [facility] BUN 9 7 - 21 mg/dL [facility] Creatinine 0.49 (L) 0.57 - 1.25 mg/dL [facility] Glucose 80 70 - 105 mg/dL [facility] Calcium 8.0 (L) 8.4 - 10.2 mg/dL [facility] EGFR 131Comment: ESTIMATED GFR IS mL/min/1.73 sq m [facility] NOT ACCURATE [facility]ATININE [facility] CLEARANCE IN PREDICTING GLOMERULAR FILTRATION RATE. ESTIMATED GFR IS NOT APPLICABLE FOR DIALYSIS PATIENTS. Specimen Blood Performing Organization Address City/State/Zipcode Phone Number [facility] [address] [place] [address] CENTER CTA carotid (03/29/2018 11:07 PM HIGH WORKER) Narrative Performed At FINAL REPORT [facility] CLINICAL HISTORY: Stroke TECHNIQUE: Initially, noncontrast head [...] MD Report Verified Date/Time:03/29/2018 23:38:34 Reading Location: [address] Transitional Reading Room Procedure Note Interface, External Ris In - 03/29/2018 11:40 PM HIGH WORKER FINAL REPORT CLINICAL HISTORY: Stroke TECHNIQUE: Initially, [...] Report Verified Date/Time: 03/29/2018 23:38:34 Reading Location: [facility] B1 [id number] Transitional Reading Room Performing Organization Address City/State/Zipcode Phone Number GE RIS CTA brain (03/29/2018 11:07 PM HIGH WORKER) Narrative Performed At FINAL REPORT GE RIS [...] MD Report Verified Date/Time:03/29/2018 23:38:34 Reading Location: [address] Transitional Reading Room Procedure Note Interface, External Ris In - 03/29/2018 11:40 PM HIGH WORKER FINAL REPORT CLINICAL HISTORY: Stroke TECHNIQUE: Initially, [...] Report Verified Date/Time: 03/29/2018 23:38:34 Reading Location: [facility] [address] [place] [address] Reading Room Performing Organization Address City/State/Zipcode Phone Number [facility] EEG AWAKE AND DROWSY (03/29/2018 5:52 PM HIGH WORKER) Narrative Performed At Date(s) of EE03/29/18 RIS DATE OF REPORT: 03/29/18 ACC: [id number] EEG Number: [id number] Start time: 17:29 Stop time: 17:52 ICD-10: R56.9 CPT Code: 76001 REASON FOR EXAM: 57 yo female with [...] Cao MD Clinical Neurophysiology Fellow Arturo Walker [facility] Attending Neurophysiologist [facility] Procedure Note Interface, External Ris In - 03/29/2018 10:21 PM HIGH WORKER Date(s) of EE03/29/18 DATE OF REPORT: 03/29/18 ACC: [id number] EEG Number: [id number] Start time: 17:29 Stop time: 17:52 ICD-10: R56.9 CPT Code: 93812 REASON FOR EXAM: 57 yo female with [...] Cao MD Clinical Neurophysiology Fellow Arturo Walker [facility] Attending Neurophysiologist [facility] Performing Organization Address [facility] Phone Number GE RIS Procalcitonin (03/29/2018 5:00 PM HIGH WORKER) Procalcitonin 0.42 (H) <0.05 ng/mL [facility] Specimen Blood Narrative Performed At SEPSIS RISK (ng/mL) [facility] Low:0.05-0.50 Intermediate: 0.51-2.00 High: >=2.01 Performing Organization Address [facility] Phone Number [address] [address] [place] aPTT (03/29/2018 5:00 PM HIGH WORKER) PTT 29.1 22.5 - 36.0 seconds [facility] Specimen Blood Performing Organization Address [facility] Phone Number [address] [address] [place] Prothrombin time/INR (03/29/2018 5:00 PM HIGH WORKER)Only the most recent of2 resultswithin the time period is included. Protime 14.6 11.7 - 14.7 seconds [facility] INR 1.1 <=5.9 [facility] Specimen Blood Narrative Performed At RECOMMENDED COUMADIN/WARFARIN INR THERAPY [facility] RANGES STANDARD DOSE: 2.0 - 3.0 Includes: PROPHYLAXIS for venous thrombosis, systemic embolization; TREATMENT for venous thrombosis and/or pulmonary embolus. HIGH RISK: Target INR is 2.5-3.5 for patients with mechanical heart valves. Performing Organization Address City/[facility]/Zipcode Phone Number [address] [address] [place] Ethanol (03/29/2018 5:00 PM HIGH WORKER) Ethanol Lvl <10 <=10 mg/dL [facility] Specimen Blood Performing Organization Address City/[facility] Cent[facility]ode Phone Number [address] [address] [place] Blood culture #2 (03/29/2018 4:59 PM HIGH WORKER)Only the most recent of2 resultswithin the time period is included. Result No growth in 5 days [facility] Specimen Blood - Arm, Right Performing Organization Address [facility] Phone Number [address] [address] [place] Rapid drug screen, urine (08/01/2017 11:15 AM CDT) Barbiturate Screen Negative Negative [facility] Benzodiazepine Screen Negative Negative [facility] Cocaine (Metab.) Screen Negative Negative [facility] Methadone Screen Negative Negative [facility] Opiate Screen Negative Negative [facility] Cannabinoid Screen Negative Negative [facility] Amph/Methamph Screen Negative Negative [facility] Phencyclidine Screen Negative Negative [facility] Oxycodone Screen Negative Negative [facility] Specimen Urine Narrative Performed At [facility] DRUGCUTOFF CONC. Cocaine 300 ng/mL Vtikkkjmpvg78 ng/mL Cvwklvnucsueda095 ng/mL Barbiturate 200 ng/mL Ymlrjuvnrsnly28 ng/mL Xxkdlq783 ng/mL Methadone 300 ng/mL Amphetamine/ 1000 ng/mL Methamphetamine Oxycodone 300 ng/mL This assay provides an unconfirmed qualitative test result for the clinical management of patients in emergency situations. Chain of custody not maintained. Some [id number] medications, as well as adulterants, may cause inaccurate results. Clinical correlation should be applied. A more comprehensive drug screen or confirmation of a detected drug may be performed upon request. Performing Organization Address City/State/Zipcode Phone Number [facility] [address] [place] [address] [phone] CENTER Urinalysis w/Microscopic (08/01/2017 11:15 AM CDT) Color, UA Light Yellow [facility] Clarity, UA Clear [facility] Specific [place], UA 1.009 1.001 - 1.035 [facility] pH, UA 7.0 5.0 - 8.0 [facility] Protein, UA Negative Negative [facility] Glucose, UA Negative Negative [facility] Ketones, UA Negative Negative [facility] Bilirubin, UA Negative Negative [facility] Blood, UA Small (A) Negative [facility] Nitrite, UA Negative Negative [facility] Leukocytes, UA Negative Negative [facility] Urobilinogen, UA 0.2 0.2 - 1.0 mg/dL [facility] RBC, UA 2 /HPF [facility] WBC, UA <1 /HPF [facility] Mucus Rare [facility] Squam Epithel, UA <1 /HPF [facility] Specimen Source [facility] Specimen Urine Performing Organization Address City/[facility]/Zipcode Phone Number [facility] [address] [place] [phone] [place] Urine culture (08/01/2017 11:14 AM CDT) Result 40-49,000 col/mL skin [place] [facility] Specimen Urine - Urine, Voided Performing Organization Address [facility] Phone Number [address] [address] [phone] [place] ECG 12 lead (08/01/2017 9:11 AM CDT) Narrative Performed At Ventricular Rate 93 BPM GE MUSE Atrial Rate 93 BPM P-R Interval 180 ms QRS Duration 86 ms Q-T Interval 356 ms QTC Calculation(Bazett) 442 ms P [place] 82 degrees R Vern[place] -14 degrees T [place] 74 degrees Normal sinus rhythm Normal ECG No previous ECGs available Confirmed by MD YU RUPA ([id number]) on 08/01/2017 11:56:51 AM Procedure Note Interface, External Ris In - 08/01/2017 11:57 AM CDT Ventricular Rate 93 BPM Atrial Rate 93 BPM P-R Interval 180 ms QRS Duration 86 ms Q-T Interval 356 ms QTC Calculation(Bazett) 442 ms P [place] 82 degrees R [place] -14 degrees T [place] 74 degrees Normal sinus rhythm Normal ECG No previous ECGs available Confirmed by MD YU RUPA ([id number]) on 08/01/2017 11:56:51 AM Performing Organization Address City/[facility] Phone Number GE MUSE Phosphorus (08/01/2017 8:45 AM CDT) Phosphorus 3.0 2.3 - 4.7 mg/dL [facility] Specimen Blood Performing Organization Address City/[facility]/Zipcode Phone Number [address] [address] [phone] [place] Magnesium (08/01/2017 8:45 AM CDT) Magnesium 2.6 1.6 - 2.6 mg/dL [facility] Specimen Blood Performing Organization Address City/[facility] Cent[facility]ode Phone Number [facility] [address] [place] [address] [place] Hepatic function panel (08/01/2017 8:45 AM CDT) Protein, Total 7.5 6.0 - 8.3 gm/dL [facility] Albumin 4.4 3.5 - 5.0 g/dL [facility] Total Bilirubin 0.9 0.2 - 1.2 mg/dL [facility] Bilirubin, Direct 0.3 0.1 - 0.5 mg/dL [facility] Alkaline Phosphatase 108 40 - 150 U/L [facility] AST 28 5 - 34 U/L [facility] ALT 18 6 - 55 U/L [facility] Specimen Blood Performing Organization Address City/State/Zipcode Phone Number [facility] [address] [place] [phone] [place] after 07/05/2017 Advance Directives For more information, please contact:[address] [phone] Code Status Date Activated Date Inactivated Comments Full Code 08/01/2017 7:39 AM 08/01/2017 7:46 PM This code status was determined by: Patient
--- OUTSIDE RECORDS SUMMARY | 2018-07-06 11:23 | XMS REPORT ---
:1960 [facility] Address [address] [place] [address] Care Team Providers Name Role Phone MARTIN [...] Value Reference Range Comments CULTURE (BEAKER) (test vfgr=1455) No growth in 5 days BLOOD [id number] 23:01:00 Test Item Value Reference Range Comments CULTURE (BEAKER) (test gmao=9353) No growth in 5 days [id number] 13:27:00 Test Item Value Reference Range Comments POTASSIUM (BEAKER) (test hdsh=604) 4.0 meq/L 3.5-5.1 PLATELET [id number] 12:44:00 Test Item Value Reference Range Comments PLATELET COUNT (BEAKER) (test vseo=305) 149 K/CU MM 150-450 POCT-GLUCOSE [id number] 12:14:00 Test Item Value Reference Range Comments POC-GLUCOSE METER (BEAKER) 137 mg/dL 70-110 TESTED AT [address] (test lzav=2784) [facility] [address] EEG MONITORING WITH VIDEO RECORDING EACH 24 [id number] 11:38:00For STAT EEG - after 5 PM weekdays, weekends and holidays, page the on-call EEG TechReason for exam:->SeizureDate(s) of EE03/29/18; 03/30/18;03/31/2018DATE OF REPORT : 03/31/18ACC: [id number] Number: [id number] time: 03/30/2018 at 09:41Stop time: 03/30/2018 at 05:41ICD-10: R56.9CPT Code: [id number] FOR EXAM: 57 yo female with PMHx [...] M.D. , FACNS, FAAN, FAESProfessor of Neurology, [facility] HospitalDirector, [facility]ile[facility] CenterNorwalk Memorial HospitalDoylecommunity [facility] Neurophysiology Lab BLOOD GAS , [id number] 11:32:00 Test Item Value Reference Range Comments PH VENOUS (BEAKER) (test ykjm=562) 7.40 7.32-7.42 PCO2 VENOUS (BEAKER) (test ldtf=905) 38 mmHg 41-51 PO2 VENOUS (BEAKER) (test ijif=743) 71 mmHg 25-40 O2 SATURATION VENOUS (BEAKER) (test mfiy=657) 94.4 % 40.0-70.0 HCO3 VENOUS (BEAKER) (test ctuo=788) 23 mmol/L 21-29 BASE EXCESS VENOUS (BEAKER) (test afdc=691) -1.2 mmol/L -2.0-3.0 PATIENT TEMPERATURE (BEAKER) (test issi=9141) 37.0 C FIO2 (BEAKER) (test qiev=3046) 50.0 % POCT-GLUCOSE [id number] 06:16:00 Test Item Value Reference Range Comments POC-GLUCOSE METER (BEAKER) 130 mg/dL 70-110 TESTED AT [facility] [address] [facility] (test nafh=8293) [facility] [address] CBC W/PLT COUNT & AUTO [id number] 05:59:00 Test Item Value Reference Range Comments WHITE BLOOD CELL COUNT (BEAKER) (test qlbv=483) 9.5 K/ L 3.5-10.5 RED BLOOD CELL COUNT (BEAKER) (test mulh=802) 3.07 M/ L 3.93-5.22 HEMOGLOBIN (BEAKER) (test qlse=311) 9.9 GM/DL 11.2-15.7 HEMATOCRIT (BEAKER) (test hiny=739) 29.5 % 34.1-44.9 MEAN CORPUSCULAR VOLUME (BEAKER) (test klpg=502) 96.1 fL 79.4-94.8 MEAN CORPUSCULAR HEMOGLOBIN (BEAKER) (test 32.2 pg 25.6-32.2 gymm=730) MEAN CORPUSCULAR HEMOGLOBIN CONC (BEAKER) (test 33.6 GM/DL 32.2-35.5 kqsi=118) RED CELL DISTRIBUTION WIDTH (BEAKER) (test 13.4 % 11.7-14.4 quic=732) PLATELET COUNT (BEAKER) (test bhhv=773) 97 K/CU MM 150-450 MEAN PLATELET VOLUME (BEAKER) (test xnjs=670) 10.7 fL 9.4-12.3 NUCLEATED RED BLOOD CELLS (BEAKER) (test 0 /100 WBC 0-0 txme=607) NEUTROPHILS RELATIVE PERCENT (BEAKER) (test 82 % gnha=048) LYMPHOCYTES RELATIVE PERCENT (BEAKER) (test 10 % yhpj=615) MONOCYTES RELATIVE PERCENT (BEAKER) (test 8 % qshv=291) EOSINOPHILS RELATIVE PERCENT (BEAKER) (test 0 % rjsq=911) BASOPHILS RELATIVE PERCENT (BEAKER) (test 0 % fsjv=780) NEUTROPHILS ABSOLUTE COUNT (BEAKER) (test 7.76 K/ L 1.56-6.13 yzhu=950) LYMPHOCYTES ABSOLUTE COUNT (BEAKER) (test 0.93 K/ L 1.18-3.74 hzmb=040) MONOCYTES ABSOLUTE COUNT (BEAKER) (test ejik=284) 0.75 K/ L 0.24-0.36 EOSINOPHILS ABSOLUTE COUNT (BEAKER) (test 0.01 K/ L 0.04-0.36 toyq=183) BASOPHILS ABSOLUTE COUNT (BEAKER) (test emdv=243) 0.03 K/ L 0.01-0.08 IMMATURE GRANULOCYTES-RELATIVE PERCENT (BEAKER) 0 % 0-1 (test wwjx=3650) COMPREHENSIVE METABOLIC [id number] 05:19:00 Test Item Value Reference Range Comments TOTAL PROTEIN (BEAKER) 5.7 gm/dL 6.0-8.3 (test ifip=375) ALBUMIN (BEAKER) (test 3.9 g/dL 3.5-5.0 outf=0090) ALKALINE PHOSPHATASE 85 U/L 40-150 (BEAKER) (test stul=653) BILIRUBIN TOTAL (BEAKER) 1.1 mg/dL 0.2-1.2 (test ubqv=982) SODIUM (BEAKER) (test 134 meq/L 136-145 bnvz=104) POTASSIUM (BEAKER) (test 2.9 meq/L 3.5-5.1 wbnp=018) CHLORIDE (BEAKER) (test 107 meq/L 98-107 avkw=128) CO2 (BEAKER) (test 20 meq/L 22-29 plyj=144) BLOOD UREA NITROGEN 10 mg/dL 7-21 (BEAKER) (test qwyx=818) CREATININE (BEAKER) (test 0.58 mg/dL 0.57-1.25 jtyl=256) GLUCOSE RANDOM (BEAKER) 105 mg/dL 70-105 (test gudi=118) CALCIUM (BEAKER) (test 8.3 mg/dL 8.4-10.2 jiid=179) AST (SGOT) (BEAKER) (test 60 U/L 5-34 wypa=038) ALT (SGPT) (BEAKER) (test 37 U/L 6-55 pzcj=590) EGFR (BEAKER) (test 108 mL/min/1.73 sq ESTIMATED GFR IS NOT meep=7362) m ACCURATE CREATININE CLEARANCE IN PREDICTING GLOMERULAR FILTRATION RATE. ESTIMATED GFR IS NOT APPLICABLE FOR DIALYSIS PATIENTS. CREATINE KINASE (CK)2018-03-31 05:19:00 Test Item Value Reference Range Comments CREATINE KINASE TOTAL (BEAKER) (test uniu=165) 969 U/L 29-200 [id number] 05:05:00 Test Item Value Reference Range Comments TRIGLYCERIDES (BEAKER) (test ayez=475) 85 mg/dL TRIGLYCERIDE REFERENCE RANGELow Risk <150Borderline Risk 150-199High Risk 200-499Very High Risk>=500BLOOD GAS, [id number] 05:01:00 Test Item Value Reference Range Comments PH ARTERIAL (BEAKER) (test ffts=539) 7.45 7.35-7.45 PCO2 ARTERIAL (BEAKER) (test mufx=572) 29 mmHg 35-45 PO2 ARTERIAL (BEAKER) (test eath=423) 175 mmHg 80-90 O2 SATURATION ARTERIAL (BEAKER) (test ensg=380) 99.3 % 96.0-97.0 HCO3 ARTERIAL (BEAKER) (test fyao=905) 19 mmol/L 21-29 BASE EXCESS ARTERIAL (BEAKER) (test eoik=888) -3.8 mmol/L -2.0-3.0 PATIENT TEMPERATURE (BEAKER) (test eafr=8237) 37.0 C FIO2 (BEAKER) (test fvbh=6711) 50.0 % LACTIC ACID, VENOUS, WHOLE [id number] 05:01:00 Test Item Value Reference Range Comments LACTATE BLOOD VENOUS (2) (BEAKER) (test 0.8 mmol/L 0.5-2.2 myef=5332) RAD, CHEST, 1 VIEW, NON [id number] 03:30:00Reason for exam:->ETTShould this be performed at the bedside?->YesFINAL REPORT CLINICAL INDICATION: Support lines. Comparison: 03/30/2018 The cardiomediastinal contours are stable. There is no focal consolidation, pneumothorax, large pleural effusion or evidence of overt pulmonary edema. A feeding tube traverses examination to the upper abdomen. An endotracheal tube is stable. Signed: Leonides Guerraeport Verified Date/Time: 03/31/2018 03:30: 39 Reading Location: [address] Reading Room POCT-GLUCOSE [id number] 23:48:00 Test Item Value Reference Range Comments POC-GLUCOSE METER (BEAKER) 70 mg/dL 70-110 TESTED AT [address] (test luyl=8062) [facility] [address] RAD, ABDOMEN/KUB, 1 VIEW [id number] 22:04:00Reason for exam:->ngt placement Should this be [...] Day Verified Date/Time: 03/30/2018 22:04:23 Reading Location: [address] Reading Room POCT-GLUCOSE [id number] 17:50:00 Test Item Value Reference Range Comments POC-GLUCOSE METER (BEAKER) 68 mg/dL 70-110 Notified AIME MCINTOSH/TESTED AT [facility] (test ikjq=4004) [address] [place] [address] EEG MONITORING WITH VIDEO RECORDING EACH 24 [id number] 16:39:00c/f subclinical seizuresDate(s) of EE03/29/18 DATE OF REPORT: 03/30/18 ACC: [id number] EEG Number: [id number] Start time: 03/29/2018 at 17:52 Stop time: 2017 at 22:28 ICD-10: R56.9 CPT Code: 85317-20 REASON FOR EXAM: 57 yo female with [...] interpretation. Igor Garnica MD Attending Neurophysiologist [facility] RAD, ABDOMEN/ KUB, 1 VIEW [id number] 14:37:00Reason for exam:->NGT placementFINAL REPORT CLINICAL HISTORY: NGT placement TECHNIQUE: Two supine views of the abdomen. IMPRESSION: The tip of the feeding tube is at the gastroesophageal junction and should beadvanced into the stomach. The bowel gas pattern is nonspecific. Signed: Anahi Leigh MDReport Verified Date/Time: 14:37:17 Reading Location: [address] Consult Reading Room POCT- GLUCOSE [id number] 12:10:00 Test Item Value Reference Range Comments POC-GLUCOSE METER (BEAKER) 76 mg/dL 70-110 TESTED AT [address] (test bvxw=2630) [facility] [address] RAD, CHEST, 1 VIEW, NON [id number] 07:16:00Reason for exam:->ETTShould this be performed at [...] MDReport Verified Date/Time: 03/30/2018 07:16:21 Reading Location: [facility] C013V Neuro Reading Room POCT-GLUCOSE [id number] 06:54:00 Test Item Value Reference Range Comments POC-GLUCOSE METER (BEAKER) 77 mg/dL 70-110 TESTED AT [facility] [address] [facility] (test rcfq=8725) [facility] [address] BASIC METABOLIC [id number] 06:01:00 Test Item Value Reference Range Comments SODIUM (BEAKER) (test 136 meq/L 136-145 xnix=042) POTASSIUM (BEAKER) (test 2.4 meq/L 3.5-5.1 pfwh=226) CHLORIDE (BEAKER) (test 109 meq/L 98-107 npzx=589) CO2 (BEAKER) (test 20 meq/L 22-29 belt=103) BLOOD UREA NITROGEN 9 mg/dL 7-21 (BEAKER) (test ulqc=668) CREATININE (BEAKER) (test 0.49 mg/dL 0.57-1.25 sgwz=598) GLUCOSE RANDOM (BEAKER) 80 mg/dL 70-105 (test oyfi=807) CALCIUM (BEAKER) (test 8.0 mg/dL 8.4-10.2 mydb=067) EGFR (BEAKER) (test 131 mL/min/1.73 sq m ESTIMATED GFR IS NOT sjyu=7192) ACCURATE CREATININE CLEARANCE IN PREDICTING GLOMERULAR FILTRATION RATE. ESTIMATED GFR IS NOT APPLICABLE FOR DIALYSIS PATIENTS. LACTIC ACID, VENOUS, WHOLE [id number] 05:46:00 Test Item Value Reference Range Comments LACTATE BLOOD VENOUS (2) (BEAKER) (test 0.5 mmol/L 0.5-2.2 nvxf=3375) CBC W/PLT COUNT & AUTO [id number] 05:40:00 Test Item Value Reference Range Comments WHITE BLOOD CELL COUNT (BEAKER) (test jpzo=480) 8.0 K/ L 3.5-10.5 RED BLOOD CELL COUNT (BEAKER) (test tqbq=969) 3.03 M/ L 3.93-5.22 HEMOGLOBIN (BEAKER) (test kurz=940) 9.7 GM/DL 11.2-15.7 HEMATOCRIT (BEAKER) (test yguu=050) 29.7 % 34.1-44.9 MEAN CORPUSCULAR VOLUME (BEAKER) (test krgo=701) 98.0 fL 79.4-94.8 MEAN CORPUSCULAR HEMOGLOBIN (BEAKER) (test 32.0 pg 25.6-32.2 qsdu=413) MEAN CORPUSCULAR HEMOGLOBIN CONC (BEAKER) (test 32.7 GM/DL 32.2-35.5 mnxo=377) RED CELL DISTRIBUTION WIDTH (BEAKER) (test 13.6 % 11.7-14.4 uvwc=909) PLATELET COUNT (BEAKER) (test krtl=032) 140 K/CU MM 150-450 MEAN PLATELET VOLUME (BEAKER) (test foqt=263) 9.4 fL 9.4-12.3 NUCLEATED RED BLOOD CELLS (BEAKER) (test 0 /100 WBC 0-0 agss=521) NEUTROPHILS RELATIVE PERCENT (BEAKER) (test 75 % cldf=174) LYMPHOCYTES RELATIVE PERCENT (BEAKER) (test 14 % fxpa=677) MONOCYTES RELATIVE PERCENT (BEAKER) (test 10 % lyks=732) EOSINOPHILS RELATIVE PERCENT (BEAKER) (test 0 % hdyl=320) BASOPHILS RELATIVE PERCENT (BEAKER) (test 0 % awlt=554) NEUTROPHILS ABSOLUTE COUNT (BEAKER) (test 5.98 K/ L 1.56-6.13 adrb=180) LYMPHOCYTES ABSOLUTE COUNT (BEAKER) (test 1.15 K/ L 1.18-3.74 vuhp=183) MONOCYTES ABSOLUTE COUNT (BEAKER) (test 0.81 K/ L 0.24-0.36 iwun=430) EOSINOPHILS ABSOLUTE COUNT (BEAKER) (test 0.01 K/ L 0.04-0.36 wnwr=132) BASOPHILS ABSOLUTE COUNT (BEAKER) (test 0.03 K/ L 0.01-0.08 jhba=181) IMMATURE GRANULOCYTES-RELATIVE PERCENT (BEAKER) 0 % 0-1 (test xcsj=0157) BLOOD GAS, [id number] 05:38:00 Test Item Value Reference Range Comments PH ARTERIAL (BEAKER) (test krsp=955) 7.42 7.35-7.45 PCO2 ARTERIAL (BEAKER) (test xtwk=643) 32 mmHg 35-45 PO2 ARTERIAL (BEAKER) (test tquk=178) 131 mmHg 80-90 O2 SATURATION ARTERIAL (BEAKER) (test ehog=528) 98.7 % 96.0-97.0 HCO3 ARTERIAL (BEAKER) (test pxnk=266) 20 mmol/L 21-29 BASE EXCESS ARTERIAL (BEAKER) (test nrzb=751) -3.3 mmol/L -2.0-3.0 PATIENT TEMPERATURE (BEAKER) (test orpy=5161) 36.8 C FIO2 (BEAKER) (test iemv=7699) 50.0 % LACTIC ACID, VENOUS, WHOLE [id number] 00:48:00 Test Item Value Reference Range Comments LACTATE BLOOD VENOUS (2) (BEAKER) (test 1.8 mmol/L 0.5-2.2 fnck=4523) POCT-GLUCOSE [id number] 23:53:00 Test Item Value Reference Range Comments POC-GLUCOSE METER (BEAKER) 107 mg/dL 70-110 TESTED AT [address] (test xgck=3377) [facility] [address] CT, CTANGIO [id number] 23:38:00FINAL REPORT CLINICAL HISTORY: Stroke TECHNIQUE: Initially, [...] vertebral arteries are otherwise patent. Signed: Abbey Dayssm [facility] Verified Date/Time: 03/29/2018 23:38:34 Reading Location: [facility] C0[facility] Transitional Reading Room CT, CAROTID, [id number] 23:38: 00FINAL REPORT CLINICAL HISTORY: Stroke TECHNIQUE: [...] Dayeport Verified Date/Time: 03/29/2018 23:38:34 Reading Location: [address] Transitional Reading Room EEG AWAKE AND [id number] 22:21:00Baseline for cEEGDate(s) of EE03/29/18 DATE OF REPORT: 03/29/18 ACC: [id number] EEG Number: [id number] Start time: 17:29 Stop time: 17:52 ICD-10: R56.9 CPT Code: 84385 REASON FOR EXAM: 57 yo female with [...] Cao MD Clinical Neurophysiology Fellow Arturo Walker [facility] ED Attending Neurophysiologist [facility][note 3] POCT-GLUCOSE [id number] 18:57:00 Test Item Value Reference Range Comments POC-GLUCOSE METER (BEAKER) 90 mg/dL 70-110 TESTED AT [facility] [address] (test ijdp=5869) [facility] [address] RAD, CHEST, 1 VIEW, NON [id number] 18:48:00Reason for exam:->TubeShould this be performed at [...] MDReport Verified Date/Time: 03/29/2018 18:48:13 Reading Location: [address] Consult Reading Room [id number] 18:04:00 Test Item Value Reference Range Comments PROCALCITONIN (BEAKER) (test wvbt=4591) 0.42 ng/mL <0.05 SEPSIS RISK (ng/mL)Low: 0.05-0.50Intermediate: 0.51-2.00High: & gt;=2.01CREATINE KINASE (CK)2018-03-29 17:58:00 Test Item Value Reference Range Comments CREATINE KINASE TOTAL (BEAKER) (test llot=795) 983 U/L 29-200 [id number] 17:43:00 Test Item Value Reference Range Comments ETHANOL (BEAKER) (test ilbs=069) < mg/dL <=10 LACTIC ACID, VENOUS, WHOLE [id number] 17:42:00 Test Item Value Reference Range Comments LACTATE BLOOD VENOUS (2) 0.6 mmol/L 0.5-2.2 Specimen slightly hemolyzed (BEAKER) (test qntx=8778) LACTIC ACID, VENOUS, WHOLE [id number] 17:42:00 Test Item Value Reference Range Comments LACTATE BLOOD VENOUS (2) 1.6 mmol/L 0.5-2.2 Specimen slightly hemolyzed (BEAKER) (test qsoy=7695) PROTHROMBIN [id number] 17:34:00 Test Item Value Reference Range Comments PROTIME (BEAKER) (test yzpl=729) 14.6 seconds 11.7-14.7 INR (BEAKER) (test kqat=780) 1.1 <=5.9 RECOMMENDED COUMADIN/WARFARIN INR THERAPY RANGESSTANDARD DOSE: 2.0 - 3.0 Includes: PROPHYLAXIS forvenous thrombosis, systemic embolization; TREATMENT for venous thrombosis and/or pulmonary embolus.HIGH RISK: Target INR is 2.5-3.5 for patients with mechanical heart valves.[id number] 17:34:00 Test Item Value Reference Range Comments PARTIAL THROMBOPLASTIN TIME (BEAKER) (test 29.1 seconds 22.5-36.0 jbjy=712) BLOOD GAS, [id number] 17:33:00 Test Item Value Reference Range Comments PH ARTERIAL (BEAKER) (test apue=295) 7.42 7.35-7.45 PCO2 ARTERIAL (BEAKER) (test absq=650) 35 mmHg 35-45 PO2 ARTERIAL (BEAKER) (test wzvi=414) 277 mmHg 80-90 O2 SATURATION ARTERIAL (BEAKER) (test udog=922) 99.7 % 96.0-97.0 HCO3 ARTERIAL (BEAKER) (test douz=106) 22 mmol/L 21-29 BASE EXCESS ARTERIAL (BEAKER) (test wylp=589) -1.3 mmol/L -2.0-3.0 PATIENT TEMPERATURE (BEAKER) (test fbzl=0678) 38.0 C FIO2 (BEAKER) (test vyoh=4832) 50.0 % POCT-GLUCOSE [id number] 16:39:00 Test Item Value Reference Range Comments POC-GLUCOSE METER (BEAKER) 110 mg/dL 70-110 TESTED AT [address] (test aoha=4017) [facility] [address] URINE [id number] 11:34:00 Test Item Value Reference Range Comments CULTURE (BEAKER) (test 40-49,000 col/mL skin [place] ednu=4624) POCT-GLUCOSE [id number] 15:55:00 Test Item Value Reference Range Comments POC-GLUCOSE METER (BEAKER) 80 mg/dL 70-110 TESTED AT [address] (test tqgg=6580) [facility] [address] URINALYSIS W/ [id number] 14:34:00 Test Item Value Reference Range Comments COLOR (BEAKER) (test lnby=859) Light Yellow CLARITY (BEAKER) (test wyif=155) Clear SPECIFIC GRAVITY UA (BEAKER) (test sdcs=772) 1.009 1.001-1.035 PH UA (BEAKER) (test naeg=441) 7.0 5.0-8.0 PROTEIN UA (BEAKER) (test boxq=795) Negative Negative GLUCOSE UA (BEAKER) (test hrmg=843) Negative Negative KETONES UA (BEAKER) (test fhfw=675) Negative Negative BILIRUBIN UA (BEAKER) (test zdas=072) Negative Negative BLOOD UA (BEAKER) (test spxt=456) Small Negative NITRITE UA (BEAKER) (test tkks=340) Negative Negative LEUKOCYTE ESTERASE UA (BEAKER) (test vewc=615) Negative Negative UROBILINOGEN UA (BEAKER) (test xamg=376) 0.2 mg/dL 0.2-1.0 RBC UA (BEAKER) (test cmhj=211) 2 /HPF WBC UA (BEAKER) (test xwpm=548) < /HPF MUCUS (BEAKER) (test kfec=2728) Rare SQUAMOUS EPITHELIAL (BEAKER) (test mduc=831) < /HPF SOURCE(BEAKER) (test rrvl=8495) RAPID DRUG SCREEN, [id number] 13:10:00 Test Item Value Reference Range Comments BARBITURATE URINE (BEAKER) (test xraa=796) Negative Negative BENZODIAZEPINE SCREEN URINE (BEAKER) (test Negative Negative spgh=166) COCAINE (METAB.) SCREEN (BEAKER) (test qpdj=5994) Negative Negative METHADONE SCREEN (BEAKER) (test jcxm=7612) Negative Negative OPIATE SCREEN URINE (BEAKER) (test qnwx=719) Negative Negative CANNABINOID SCREEN URINE (BEAKER) (test xyux=306) Negative Negative AMPH/METHAMPH SCREEN (BEAKER) (test jhjz=8771) Negative Negative PHENCYCLIDINE SCREEN URINE (BEAKER) (test kwle=730) Negative Negative OXYCODONE SCREEN URINE (BEAKER) (test esut=8436) Negative Negative DRUG CUTOFF CONC.Cocaine 300 ng/mL Cannabinoid 50 ng/mL Benzodiazepine 200 ng/mLBarbiturate 200 ng/ mLPhencyclidine 25 ng/mLOpiate 300 ng/mLMethadone 300 ng/mLAmphetamine/ 1000 ng/mL MethamphetamineOxycodone 300 ng/mLThis assay provides an unconfirmed qualitative test result for the clinical management of patients in emergency situations. Chain of custody not maintained. Some tpvd-sif-fzkxcvn medications, as well as adulterants, may cause inaccurate results. Clinical correlation should be applied. A more comprehensive drug screen or confirmation of a detected drug may be performed upon request.POCT-GLUCOSE [id number] 11:49:00 Test Item Value Reference Range Comments POC-GLUCOSE METER (BEAKER) 93 mg/dL 70-110 TESTED AT [facility] [address] [facility] (test mxrn=7096) [facility] [address] [id number] 10:40:00 Test Item Value Reference Range Comments PHOSPHORUS (BEAKER) (test cjly=464) 3.0 mg/dL 2.3-4.7 [id number] 10:40:00 Test Item Value Reference Range Comments MAGNESIUM (BEAKER) (test ezmv=832) 2.6 mg/dL 1.6-2.6 BASIC METABOLIC [id number] 10:40:00 Test Item Value Reference Range Comments SODIUM (BEAKER) (test 139 meq/L 136-145 cxbk=708) POTASSIUM (BEAKER) (test 3.8 meq/L 3.5-5.1 tyke=635) CHLORIDE (BEAKER) (test 105 meq/L 98-107 edmm=294) CO2 (BEAKER) (test 22 meq/L 22-29 skui=763) BLOOD UREA NITROGEN 9 mg/dL 7-21 (BEAKER) (test amns=494) CREATININE (BEAKER) (test 0.61 mg/dL 0.57-1.25 vicg=771) GLUCOSE RANDOM (BEAKER) 86 mg/dL 70-105 (test dfne=541) CALCIUM (BEAKER) (test 9.5 mg/dL 8.4-10.2 ajrn=389) EGFR (BEAKER) (test 102 mL/min/1.73 sq m ESTIMATED GFR IS NOT nyql=0016) ACCURATE CREATININE CLEARANCE IN PREDICTING GLOMERULAR FILTRATION RATE. ESTIMATED GFR IS NOT APPLICABLE FOR DIALYSIS PATIENTS. HEPATIC FUNCTION [id number] 10:40:00 Test Item Value Reference Range Comments TOTAL PROTEIN (BEAKER) (test epqy=605) 7.5 gm/dL 6.0-8.3 ALBUMIN (BEAKER) (test rhlq=9225) 4.4 g/dL 3.5-5.0 BILIRUBIN TOTAL (BEAKER) (test hzjj=257) 0.9 mg/dL 0.2-1.2 BILIRUBIN DIRECT (BEAKER) (test kwqf=596) 0.3 mg/dL 0.1-0.5 ALKALINE PHOSPHATASE (BEAKER) (test jlth=643) 108 U/L 40-150 AST (SGOT) (BEAKER) (test pzcq=289) 28 U/L 5-34 ALT (SGPT) (BEAKER) (test fwga=594) 18 U/L 6-55 CBC W/PLT COUNT & AUTO [id number] 09:28:00 Test Item Value Reference Range Comments WHITE BLOOD CELL COUNT (BEAKER) (test cflw=482) 8.8 K/ L 3.5-10.5 RED BLOOD CELL COUNT (BEAKER) (test jlvl=212) 4.39 M/ L 3.93-5.22 HEMOGLOBIN (BEAKER) (test ilie=253) 13.9 GM/DL 11.2-15.7 HEMATOCRIT (BEAKER) (test zvtq=824) 41.6 % 34.1-44.9 MEAN CORPUSCULAR VOLUME (BEAKER) (test zfkk=493) 94.8 fL 79.4-94.8 MEAN CORPUSCULAR HEMOGLOBIN (BEAKER) (test 31.7 pg 25.6-32.2 mlyk=592) MEAN CORPUSCULAR HEMOGLOBIN CONC (BEAKER) (test 33.4 GM/DL 32.2-35.5 xjav=218) RED CELL DISTRIBUTION WIDTH (BEAKER) (test 13.1 % 11.7-14.4 lqtr=625) PLATELET COUNT (BEAKER) (test ojya=112) 234 K/CU MM 150-450 MEAN PLATELET VOLUME (BEAKER) (test jbjd=370) 9.0 fL 9.4-12.3 NUCLEATED RED BLOOD CELLS (BEAKER) (test 0 /100 WBC 0-0 trtx=485) NEUTROPHILS RELATIVE PERCENT (BEAKER) (test 69 % icfn=700) LYMPHOCYTES RELATIVE PERCENT (BEAKER) (test 22 % yrxr=768) MONOCYTES RELATIVE PERCENT (BEAKER) (test 9 % wkyj=682) EOSINOPHILS RELATIVE PERCENT (BEAKER) (test 0 % yxxf=915) BASOPHILS RELATIVE PERCENT (BEAKER) (test 0 % yjxw=235) NEUTROPHILS ABSOLUTE COUNT (BEAKER) (test 6.05 K/ L 1.56-6.13 qezg=631) LYMPHOCYTES ABSOLUTE COUNT (BEAKER) (test 1.91 K/ L 1.18-3.74 ekij=810) MONOCYTES ABSOLUTE COUNT (BEAKER) (test 0.76 K/ L 0.24-0.36 kexe=047) EOSINOPHILS ABSOLUTE COUNT (BEAKER) (test 0.01 K/ L 0.04-0.36 xzso=423) BASOPHILS ABSOLUTE COUNT (BEAKER) (test 0.03 K/ L 0.01-0.08 ttwb=721) IMMATURE GRANULOCYTES-RELATIVE PERCENT (BEAKER) 0 % 0-1 (test klll=0925) PROTHROMBIN [id number] 09:23:00 Test Item Value Reference Range Comments PROTIME (BEAKER) (test duqn=046) 13.5 seconds 11.7-14.7 INR (BEAKER) (test leif=372) 1.0 <=5.9 RECOMMENDED COUMADIN/WARFARIN INR THERAPY RANGESSTANDARD DOSE: 2.0 - 3.0 Includes: PROPHYLAXIS forvenous thrombosis, systemic embolization; TREATMENT for venous thrombosis and/or pulmonary embolus.HIGH RISK: Target INR is 2.5-3.5 for patients with mechanical heart valves.POCT-GLUCOSE [id number] 07:05:00 Test Item Value Reference Range Comments POC-GLUCOSE METER (BEAKER) 96 mg/dL 70-110 TESTED AT [address] (test njdd=0568) [facility] [id number]
--- NOTE | 2018-07-06 11:52 | EDPHYS ---
Physician Documentation [facility] Name: Kena Cutler Age: 57 yrs Sex: Female : 1960 Arrival Date: 07/06/2018 Time: 11:19 Bed 17 Private MD: ED Physician Marbin Aguirre HPI: 07/06 11:50 This 57 yrs old Female presents to ER via Ambulatory with complaints of rn Suture Removal. 11:50 The patient has sutures on the face. Previous treatment: The patient was initially rn treated 2 weeks ago. Sutures/colin progress: The patient has no c/o's. The wound is well-healing with no redness, swelling, discharge, or dehiscence reported. The patient has not experienced similar symptoms in the past. Here with , thought to get her sutures out, no complications.. Historical: - Allergies: 11:31 No Known Allergies; tw2 - PMHx: 11:31 Substance Abuse; tw2 - Immunization history:: Adult Immunizations up to date. - Social history:: Smoking status: . - Ebola Screening: : Patient denies travel to an Ebola-affected area in the 21 days before illness onset. - Family history:: not pertinent. - Hospitalizations: : No recent hospitalization is reported. ROS: 11:50 Constitutional: Negative for fever, chills, and weight loss, Skin: + well healed wound rn Exam: 11:50 Constitutional: This is a well developed, well nourished patient who is awake, alert, rn and in no acute distress. Head/Face: Normocephalic, well healed wound with 4 prolene sutures right forehead. c/d/i, no sign of infection Vital Signs: 11:46 BP 127 / 89; Pulse 89; Resp 18; Temp 98.0; Pulse Ox 99% on R/A; ph Procedures: 11:50 Suture/Staple removal: Removed 4 sutures, from face, site appears well healed, dressed rn with band aid, Patient tolerated well. MDM: 11:36 Patient medically screened. rn 11:50 Data reviewed: vital signs, nurses notes, and as a result, I will discharge patient. rn Counseling: I had a detailed discussion with the patient and/or guardian regarding:. Special discussion: I discussed with the patient/guardian in detail that at this point there is no indication for admission to the hospital. It is understood, however, that if the symptoms persist or worsen the patient needs to return immediately for re-evaluation. Administered Medications: No medications were administered Disposition: 07/06/18 11:52 Discharged to Home. Impression: Encounter for removal of sutures. - Condition is Stable. - Discharge Instructions: Suture Removal, Care After. - Medication Reconciliation Form, Thank You Letter, Antibiotic Education, Prescription Opioid Use form. - Follow up: Private Physician; When: As needed; Reason: Recheck today's complaints, Re-evaluation by your physician. - Problem is new. - Symptoms have improved. Signatures: Marbin Aguirre MD MD rn Joaquin, Henry, RN RN hj Wise, Tara, RN RN tw2 Corrections: (The following items were deleted from the chart) 11:59 11:52 07/06/2018 11:52 Discharged to Home. Impression: Encounter for removal of hj sutures. Condition is Stable. Forms are Medication Reconciliation Form, Thank You Letter, Antibiotic Education, Prescription Opioid Use. Follow up: Private Physician; When: As needed; Reason: Recheck today's complaints, Re-evaluation by your physician. Problem is new. Symptoms have improved. rn
--- NOTE | 2018-07-06 11:52 | ER ---
Nurse's Notes [facility] Name: Kena Cutler Age: 57 yrs Sex: Female : 1960 Arrival Date: 07/06/2018 Time: 11:19 Bed 17 Private MD: Diagnosis: Encounter for removal of sutures Presentation: 07/06 11:45 Presenting complaint: Patient states: Received sutures to forehead approx 2 weeks ago ph and needs removed. Transition of care: patient was not received from another setting of care. Onset of symptoms was July 06, 2018. Risk Assessment: Do you want to hurt yourself or someone else? Patient reports no desire to harm self or others. Initial Sepsis Screen: Does the patient meet any 2 criteria? No. Patient's initial sepsis screen is negative. Does the patient have a suspected source of infection? No. Patient's initial sepsis screen is negative. Care prior to arrival: None. 11:45 Method Of Arrival: Ambulatory ph 11:45 Acuity: SHELLY 5 ph Triage Assessment: 11:46 General: Appears in no apparent distress. comfortable, slender, well groomed, Behavior ph is calm, cooperative, appropriate for age, Denies fever, feeling ill. Pain: Denies pain. Neuro: Level of Consciousness is awake, alert, obeys commands, Oriented to person, place, time, Appropriate for age. Respiratory: Airway is compromised Respiratory effort is even, unlabored. Derm: Skin is intact, is healthy with good turgor, Skin is pink, warm \T\ dry. sutures noted to R side of forehead, site healthy in appearance w. no redness, swelling, or sign of infection, ERP at bedside to remove sutures, pt tolerated well. Musculoskeletal: Circulation, motion, and sensation intact. Range of motion: intact in all extremities. Historical: - Allergies: 11:31 No Known Allergies; tw2 - PMHx: 11:31 Substance Abuse; tw2 - Immunization history:: Adult Immunizations up to date. - Social history:: Smoking status: . - Ebola Screening: : Patient denies travel to an Ebola-affected area in the 21 days before illness onset. - Family history:: not pertinent. - Hospitalizations: : No recent hospitalization is reported. Screenin:30 Abuse screen: Denies threats or abuse. Nutritional screening: No deficits noted. tw2 Tuberculosis screening: No symptoms or risk factors identified. Fall Risk None identified. Assessment: 11:48 General: No change from previously documented assessment, see triage tab. ph 11:50 General: Appears in no apparent distress. uncomfortable, Behavior is calm, cooperative, hj appropriate for age. Derm: Skin wound on forehead approximated and healing;. Vital Signs: 11:46 BP 127 / 89; Pulse 89; Resp 18; Temp 98.0; Pulse Ox 99% on R/A; ph ED Course: 11:19 Patient arrived in ED. as 11:29 Marbin Aguirre MD is Attending Physician. tw2 11:37 Jv Jimenez, RN is Primary Nurse. hj 11:46 Triage completed. ph 11:48 Arm band placed on. ph 11:48 Patient has correct armband on for positive identification. Bed in low position. Call ph light in reach. Side rails up X 1. 11:48 No provider procedures requiring assistance completed. Patient did not have IV access ph during this emergency room visit. Administered Medications: No medications were administered Outcome: 11:51 Discharged to home ambulatory, with family. hj 11:51 Condition: stable 11:51 Discharge instructions given to patient, family, Instructed on discharge instructions, follow up and referral plans. wound care, Demonstrated understanding of instructions, follow-up care, wound care. 11:52 Discharge ordered by . rn 11:59 Patient left the ED. hj Signatures: Loida Bower as Marbin Aguirre MD MD rn Hall, Patricia, RN RN Jv Jimenez RN RN Mary Cam RN RN tw2
== END 2018-07-06 11:59 | disposition home or self-care (01) ==
LOC: ER 11:18
DX: Z48.02 Encounter for removal of sutures (principal)
CPT/HCPCS: 99281

== ENCOUNTER 2019-01-09 14:04 | Emergency (ER) | payer SELFPAY ==
--- OUTSIDE RECORDS SUMMARY | 2019-01-09 14:06 | XMS REPORT | Clinical Summary ---
:1960 Author Organization [facility] Address [address] [place] [address] Care Team Providers Name Role Phone Margarita Primary Care Provider Allergies No Known Allergies Medications Medication Sig Dispensed Refills Start Date End Date Status levETIRAcetam Take 1 tablet (500 60 tablet 2 03/31/2018 03/31/20 Active (KEPPRA) 500 MG mg total) by mouth 19 tablet 2 (two) times daily. levETIRAcetam Inject 1,000 mg 60 tablet 2 03/31/2018 03/31/20 Discontinued (KEPPRA) 1000 intravenously 18 mg/100 mL NS (V2B) every 12 (twelve) IVPB hours for 30 days. 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 Last Filed Vital Signs Vital Sign Reading Time Taken Blood Pressure 140/68 03/31/2018 2:35 PM [employer] PICK[employer] MACHINE OPERATOR Pulse 101 03/31/2018 2:30 PM [employer] PICK[employer] MACHINE OPERATOR Temperature 36.4 C (97.6 F) 03/31/2018 2:05 PM [employer] MACHINE OPERATOR Respiratory Rate 26 03/31/2018 2:30 PM [employer] PICK[employer] MACHINE OPERATOR Oxygen Saturation 91% 03/31/2018 2:35 PM [employer] MACHINE OPERATOR Inhaled Oxygen Concentration 40% 03/31/2018 10:00 AM [employer] P[employer] MACHINE OPERATOR Weight 49.1 kg (108 lb 3.9 oz) 03/31/2018 5:00 AM [employer] P[employer] MACHINE OPERATOR Height 157.5 cm (5' 2") 03/29/2018 4:02 PM [employer] MACHINE OPERATOR Body Mass Index 19.8 03/31/2018 5:00 AM [employer] PICKING MACHINE OPERATOR Plan of Treatment Not on file Procedures Procedure Name Priority Date/Time Associated Comments Diagnosis RHYTHM STRIP - SCAN 04/12/2018 11:30 AM C[employer]TON PICKING MACHINE OPERATOR POCT-GLUCOSE METER Routine 03/31/2018 11:59 Results for this AM [employer] PICKING MACHINE OPERATOR procedure are in the results section. POTASSIUM Routine 03/31/2018 11:56 Results for this AM [employer] PICKING MACHINE OPERATOR procedure are in the results section. PLATELET COUNT Routine 03/31/2018 11:56 Results for this AM [employer] PICKING MACHINE OPERATOR procedure are in the results section. BLOOD GAS, VENOUS Routine 03/31/2018 8:23 Results for this AM [employer] PICKING MACHINE OPERATOR procedure are in the results section. EEG MONITORING WITH Routine 03/31/2018 6:16 Results for this VIDEO RECORDING EACH AM [employer] PICKING MACHINE OPERATOR procedure are in 24 HOURS the results section. POCT-GLUCOSE METER Routine 03/31/2018 6:14 Results for this AM [employer] PICKING MACHINE OPERATOR procedure are in the results section. BLOOD GAS, ARTERIAL Routine 03/31/2018 4:21 Results for this AM [employer] PICKING MACHINE OPERATOR procedure are in the results section. CBC W/PLT COUNT & AUTO Routine 03/31/2018 4:20 Results for this DIFFERENTIAL AM [employer] PICKING MACHINE OPERATOR procedure are in the results section. CBC W/PLT COUNT & AUTO Routine 03/31/2018 4:20 Results for this DIFFERENTIAL AM [employer] PICKING MACHINE OPERATOR procedure are in the results section. TRIGLYCERIDES Routine 03/31/2018 4:20 Results for this AM [employer] PICKING MACHINE OPERATOR procedure are in the results section. LACTIC ACID, VENOUS Routine 03/31/2018 4:20 Results for this AM [employer] PICKING MACHINE OPERATOR procedure are in the results section. CREATINE KINASE (CK) Routine 03/31/2018 4:20 Results for this AM [employer]TON PICKING MACHINE OPERATOR procedure are in the results section. COMPREHENSIVE Routine 03/31/2018 4:20 Results for this METABOLIC PANEL AM [employer] PICKING MACHINE OPERATOR procedure are in the results section. XR CHEST 1 VIEW Routine 03/31/2018 3:12 Results for this PORTABLE/BEDSIDE AM [employer] PICKING MACHINE OPERATOR procedure are in the results section. POCT-GLUCOSE METER Routine 03/30/2018 11:46 Results for this PM [employer] PICKING MACHINE OPERATOR procedure are in the results section. XR ABDOMEN 1 VIEW STAT 03/30/2018 9:32 Results for this PM [employer] PICKING MACHINE OPERATOR procedure are in the results section. POCT-GLUCOSE METER Routine 03/30/2018 5:48 Results for this PM [employer] PICKING MACHINE OPERATOR procedure are in the results section. XR ABDOMEN 1 VIEW STAT 03/30/2018 1:18 Results for this PM COTTON PICKING MACHINE OPERATOR procedure are in the results section. POCT-GLUCOSE METER Routine 03/30/2018 12:06 Results for this PM [employer]TON PICKING MACHINE OPERATOR procedure are in the results section. XR CHEST 1 VIEW Routine 03/30/2018 7:41 Results for this PORTABLE/BEDSIDE AM [employer]TON PICKING MACHINE OPERATOR procedure are in the results section. EEG MONITORING WITH STAT 03/30/2018 7:00 Results for this VIDEO RECORDING EACH AM [employer] PICKING MACHINE OPERATOR procedure are in 24 HOURS the results section. POCT-GLUCOSE METER Routine 03/30/2018 6:14 Results for this AM [employer] PICKING MACHINE OPERATOR procedure are in the results section. CBC W/PLT COUNT & AUTO Routine 03/30/2018 4:37 Results for this DIFFERENTIAL AM [employer] PICKING MACHINE OPERATOR procedure are in the results section. BASIC METABOLIC PANEL Routine 03/30/2018 4:37 Results for this (7) AM [employer] PICKING MACHINE OPERATOR procedure are in the results section. CBC W/PLT COUNT & AUTO Routine 03/30/2018 4:37 Results for this DIFFERENTIAL AM [employer] PICKING MACHINE OPERATOR procedure are in the results section. BLOOD GAS, ARTERIAL Routine 03/30/2018 4:37 Results for this AM [employer] PICKING MACHINE OPERATOR procedure are in the results section. LACTIC ACID, VENOUS Routine 03/30/2018 4:37 Results for this AM [employer] PICKING MACHINE OPERATOR procedure are in the results section. LACTIC ACID, VENOUS STAT 03/30/2018 12:12 Results for this AM [employer] PICKING MACHINE OPERATOR procedure are in the results section. POCT-GLUCOSE METER Routine 03/29/2018 11:51 Results for this PM [employer] PICKING MACHINE OPERATOR procedure are in the results section. CT/CTA CAROTID STAT 03/29/2018 11:07 Results for this PM [employer]TON PICKING MACHINE OPERATOR procedure are in the results section. CT/CTA BRAIN STAT 03/29/2018 11:07 Results for this PM [employer]TON PICKING MACHINE OPERATOR procedure are in the results section. POCT-GLUCOSE METER Routine 03/29/2018 6:28 Results for this PM [employer]TON PICKING MACHINE OPERATOR procedure are in the results section. EEG AWAKE AND DROWSY Routine 03/29/2018 5:52 Results for this PM [employer] PICKING MACHINE OPERATOR procedure are in the results section. XR CHEST 1 VIEW STAT 03/29/2018 5:35 Results for this PORTABLE/BEDSIDE PM [employer] PICKING MACHINE OPERATOR procedure are in the results section. BLOOD GAS, ARTERIAL Routine 03/29/2018 5:15 Results for this PM [employer] PICKING MACHINE OPERATOR procedure are in the results section. CREATINE KINASE (CK) Routine 03/29/2018 5:00 Results for this PM [employer]TON PICKING MACHINE OPERATOR procedure are in the results section. ETHANOL Routine 03/29/2018 5:00 Results for this PM [employer] PICKING MACHINE OPERATOR procedure are in the results section. APTT STAT 03/29/2018 5:00 Results for this PM [employer] PICKING MACHINE OPERATOR procedure are in the results section. PROTHROMBIN TIME/INR STAT 03/29/2018 5:00 Results for this PM [employer] PICKING MACHINE OPERATOR procedure are in the results section. PROCALCITONIN STAT 03/29/2018 5:00 Results for this PM [employer] PICKING MACHINE OPERATOR procedure are in the results section. LACTIC ACID, VENOUS STAT 03/29/2018 5:00 Results for this PM [employer] PICKING MACHINE OPERATOR procedure are in the results section. LACTIC ACID, VENOUS STAT 03/29/2018 5:00 Results for this PM [employer]OTTON PICKING MACHINE OPERATOR procedure are in the results section. BLOOD CULTURE STAT 03/29/2018 4:59 Results for this PM [employer]OT[employer] PICKING MACHINE OPERATOR procedure are in the results section. BLOOD CULTURE STAT 03/29/2018 4:59 Results for this PM [employer] PICKING MACHINE OPERATOR procedure are in the results section. POCT-GLUCOSE METER Routine 03/29/2018 3:46 Results for this PM COTTON PICKING MACHINE OPERATOR procedure are in the results section. after 01/08/2018 Results RHYTHM STRIP - SCAN (04/12/2018 11:30 AM COTTON PICKING MACHINE OPERATOR) Narrative Performed At POC-Glucose meter (03/31/2018 11:59 AM COTTON PICKING MACHINE OPERATOR)Only the most recent of9 resultswithin the time period is included. POC-Glucose Meter 137 (H)Comment: TESTED AT 70 - 110 mg/dL [facility] [address] [place] [id number] Specimen Blood Performing Organization Address City/[facility]/Zipcode Phone Number [address] [address] CENTER Platelet count (03/31/2018 11:56 AM COTTON PICKING MACHINE OPERATOR) Platelets 149 (L) 150 - 450 K/CU MM [facility] Specimen Blood Performing Organization Address City/[facility]/Zipcode Phone Number [address] [place], [place] [address] [phone] CENTER Potassium (03/31/2018 11:56 AM COTTON PICKING MACHINE OPERATOR) Potassium 4.0 3.5 - 5.1 meq/L [facility] Specimen Blood Performing Organization Address City/State/Zipcode Phone Number [address] [address] [place] Blood gas, venous (03/31/2018 8:23 AM COTTON PICKING MACHINE OPERATOR) pH, Patel 7.40 7.32 - 7.42 [facility] pCO2, Patel 38 (L) 41 - [address] [facility] pO2, Patel 71 (H) 25 - [address] [facility] O2 Sat, Patel 94.4 (H) 40.0 - 70.0 % [facility] HCO3, Patel 23 21 - 29 mmol/L [facility] Base Excess, Patel -1.2 -2.0 - 3.0 mmol/L [facility] Patient Temperature 37.[address] [facility] FIO2 50.0 % [facility] Specimen Blood Performing Organization Address City/State/Zipcode Phone Number [address] [address] [place] EEG monitoring with video recording each 24 hours (03/31/2018 6:16 AM COTTON PICKING MACHINE OPERATOR) Specimen Narrative Performed At Date(s) of EE03/29/18; 03/30/18;03/31/2018 RIS DATE OF REPORT: 03/31/18 ACC: [id number] EEG Number: [id number] Start time: 03/30/2018 at 09:41 Stop time: 03/30/2018 at 05:41 ICD-10: R56.9 CPT Code: 62981 REASON FOR EXAM: 57 yo female with [...] Clinical Neurophysiology Fellow Howard Blanc M.D., ALISE, LIZETT, JESSIKA Professor of Neurology, [facility] of Medicine Director, [facility] Epilepsy Center Head, Doyle [facility] Neurophysiology Lab Procedure Note Interface, External Ris In - 03/31/2018 11:38 AM COTTON PICKING MACHINE OPERATOR Date(s) of EE03/29/18; 03/30/18;03/31/2018 DATE OF REPORT: 03/31/18 ACC: [id number] EEG Number: [id number] Start time: 03/30/2018 at 09:41 Stop time: 03/30/2018 at 05:41 ICD-10: R56.9 CPT Code: 16862 REASON FOR EXAM: 57 yo female with PMHx of tobacco and marijuana abuse who is transferred from [facility] for treatment of sepsis and seizures in [...] M.D., FACAMBREEN, FAAN, JESSIKA Professor of Neurology, [facility] of [facility] Director, [facility] Epilepsy [place] Head, Doyle Devi Neurophysiology Lab Performing Organization Address City/[facility] Phone Number RIS Blood gas, arterial (03/31/2018 4:21 AM COTTON PICKING MACHINE OPERATOR)Only the most recent of3 resultswithin the time period is included. pH, Arterial 7.45 7.35 - 7.45 [facility] pCO2, Arterial 29 (L) 35 - [address] [facility] pO2, Arterial 175 (H) 80 - [address] [facility] O2 Sat, Arterial 99.3 (H) 96.0 - 97.0 % [facility] HCO3, Arterial 19 (L) 21 - 29 mmol/L [facility] Base Excess, Arterial -3.8 (L) -2.0 - 3.0 mmol/L [facility] Patient Temperature 37.[address] [facility] FIO2 50.0 % [facility] Specimen Blood, Arterial Performing Organization Address City/State/Zipcode Phone Number [facility] [address] [place] [address] CENTER CBC with platelet count + automated diff (03/31/2018 4:20 AM COTTON PICKING MACHINE OPERATOR)Only the most recent of2 resultswithin the time period is included. WBC 9.5 3.5 - 10.5 K/L [facility] RBC 3.07 (L) 3.93 - 5.22 M/L [facility] Hemoglobin 9.9 (L) 11.2 - 15.7 GM/DL [facility] Hematocrit 29.5 (L) 34.1 - 44.9 % [facility] MCV 96.1 (H) 79.4 - 94.[address] [facility] MCH 32.2 25.6 - 32.[address] [facility] MCHC 33.6 32.2 - 35.5 GM/DL [facility] RDW 13.4 11.7 - 14.4 % [facility] Platelets 97 (L) 150 - 450 K/CU MM [facility] MPV 10.7 9.4 - 12.[address] [facility] nRBC 0 0 - 0 /[address] [facility] % Neutros 82 % [facility] % Lymphs 10 % [facility] % Monos 8 % [facility] % Eos 0 % [facility] % Baso 0 % [facility] # Neutros 7.76 (H) 1.56 - 6.13 K/L [facility] # Lymphs 0.93 (L) 1.18 - 3.74 K/L [facility] # Monos 0.75 (H) 0.24 - 0.36 K/L [facility] # Eos 0.01 (L) 0.04 - 0.36 K/L [facility] # Baso 0.03 0.01 - 0.08 K/L [facility] Immature Granulocytes-Relative 0 0 - 1 % [facility] Specimen Blood Performing Organization Address [facility] Phone Number [address] [address] [place] Lactic acid, venous, whole blood Daily (03/31/2018 4:20 AM COTTON PICKING MACHINE OPERATOR)Only the most recent of5 resultswithin the time period is included. Lactate, Venous 0.8 0.5 - 2.2 mmol/L [facility] Specimen Blood Performing Organization Address [facility] Phone Number [address] [address] [place] Triglycerides (03/31/2018 4:20 AM COTTON PICKING MACHINE OPERATOR) Triglycerides 85 mg/dL [facility] Specimen Blood Narrative Performed At TRIGLYCERIDE REFERENCE RANGE [facility] Low Risk<150 Borderline Risk 150-199 High [id number] Very High Risk >=500 Performing Organization Address [facility] Phone Number [address] [address] [place] Creatine Kinase (CK) (03/31/2018 4:20 AM COTTON PICKING MACHINE OPERATOR)Only the most recent of2 resultswithin the time period is included. Total CK 969 (H) 29 - 200 U/L [facility] Specimen Blood Performing Organization Address City/[facility] Phone Number [address] [address] [phone] [place] Comprehensive metabolic panel (03/31/2018 4:20 AM COTTON PICKING MACHINE OPERATOR) Protein, Total 5.7 (L) 6.0 - 8.3 gm/dL [facility] Albumin 3.9 3.5 - 5.0 g/dL [facility] Alkaline Phosphatase 85 40 - 150 U/L [facility] Total Bilirubin 1.1 0.2 - 1.2 mg/dL [facility] Sodium 134 (L) 136 - 145 meq/L [facility] Potassium 2.9 (L) 3.5 - 5.1 meq/L [facility] Chloride 107 98 - 107 meq/L [facility] CO2 20 (L) 22 - 29 meq/L [facility] BUN 10 7 - 21 mg/dL [facility] Creatinine 0.58 0.57 - 1.25 mg/dL [facility] Glucose 105 70 - 105 mg/dL [facility] Calcium 8.3 (L) 8.4 - 10.2 mg/dL [facility] AST 60 (H) 5 - 34 U/L [facility] ALT 37 6 - 55 U/L [facility] EGFR 108Comment: ESTIMATED mL/min/1.73 sq m [facility] GFR IS NOT ACCURATE [facility] CREATININE CLEARANCE IN PREDICTING GLOMERULAR FILTRATION RATE. ESTIMATED GFR IS NOT APPLICABLE FOR DIALYSIS PATIENTS. Specimen Blood Performing Organization Address City/State/Zipcode Phone Number [place] [phone] [place] [address] [phone] CENTER XR chest 1 view portable / bedside (03/31/2018 3:12 AM COTTON PICKING MACHINE OPERATOR)Only the most recent of3 resultswithin the time period is included. Specimen Narrative Performed At FINAL REPORT [facility] CLINICAL INDICATION: Support lines. Comparison: 03/30/2018 The cardiomediastinal contours are stable. There is no focal consolidation, pneumothorax, large pleural effusion or evidence of overt pulmonary edema. A feeding tube traverses examination to the upper abdomen. An endotracheal tube is stable. Signed: Leonides Guerra MD Report Verified Date/Time:03/31/2018 03:30:39 Reading Location: [address] Reading Room Procedure Note Interface, External Ris In - 03/31/2018 4:45 AM COTTON PICKING MACHINE OPERATOR FINAL REPORT CLINICAL INDICATION: Support lines. Comparison: 03/30/2018 The cardiomediastinal contours are stable. There is no focal consolidation, pneumothorax, large pleural effusion or evidence of overt pulmonary edema. A feeding tube traverses examination to the upper abdomen. An endotracheal tube is stable. Signed: Leonides Guerra MD Report Verified Date/Time: 03/31/2018 03:30:39 Reading Location: [address] Reading Room Performing Organization Address City/State/Zipcode Phone Number GE RIS XR abdomen / KUB 1 view (03/30/2018 9:32 PM COTTON PICKING MACHINE OPERATOR)Only the most recent of2 resultswithin the time period is included. Specimen Narrative Performed At FINAL REPORT GE [facility]IS [...] MD Report Verified Date/Time:03/30/2018 22:04:23 Reading Location: [address] Transitional Reading Room Procedure Note Interface, External Ris In - 03/30/2018 10:06 PM COTTON PICKING MACHINE OPERATOR FINAL REPORT CLINICAL HISTORY: ngt placement TECHNIQUE: [...] Report Verified Date/Time: 03/30/2018 22:04:23 Reading Location: [address] Transitional Reading Room Performing Organization Address City/State/Zipcode Phone Number [facility] EEG monitoring with video recording each 24 hours (03/30/2018 7:00 AM COTTON PICKING MACHINE OPERATOR) Specimen Narrative Performed At Date(s) of EE03/29/18 [facility] DATE OF REPORT: 03/30/18 ACC: [id number] EEG Number: [id number] Start time: 03/29/2018 at 17:52 Stop time: 03/29/2018 at 22:28 ICD-10: R56.9 CPT Code: 40038-65 REASON FOR EXAM: 57 yo female with PMHx of tobacco and marijuana abuse who is transferred from [facility] for treatment of sepsis and seizures in [...] its interpretation. Igor Garnica MD Attending Neurophysiologist [facility] Procedure Note Interface, External Ris In - 03/30/2018 4:39 PM COTTON PICKING MACHINE OPERATOR Date(s) of EE03/29/18 DATE OF REPORT: 03/30/18 ACC: [id number] EEG Number: [id number] Start time: 03/29/2018 at 17:52 Stop time: 03/29/2018 at 22:28 ICD-10: R56.9 CPT Code: 13109-21 REASON FOR EXAM: 57 yo female with [...] its interpretation. Igor Garnica MD Attending Neurophysiologist [facility] Performing Organization Address City/State/Zipcode Phone Number GE RIS Basic Metabolic Panel (03/30/2018 4:37 AM COTTON PICKING MACHINE OPERATOR) Sodium 136 136 - 145 meq/L [facility] Potassium 2.4 (LL) 3.5 - 5.1 meq/L [facility] Chloride 109 (H) 98 - 107 meq/L [facility] CO2 20 (L) 22 - 29 meq/L [facility] BUN 9 7 - 21 mg/dL [facility] Creatinine 0.49 (L) 0.57 - 1.25 mg/dL [facility] Glucose 80 70 - 105 mg/dL [facility] Calcium 8.0 (L) 8.4 - 10.2 mg/dL [facility] EGFR 131Comment: ESTIMATED GFR IS mL/min/1.73 sq m [facility] NOT ACCURATE [facility] CLEARANCE IN PREDICTING GLOMERULAR FILTRATION RATE. ESTIMATED GFR IS NOT APPLICABLE FOR DIALYSIS PATIENTS. Specimen Blood Performing Organization Address City/State/Zipcode Phone Number [facility] [address] [place] [address] CENTER CTA carotid (03/29/2018 11:07 PM COTTON PICKING MACHINE OPERATOR) Specimen Narrative Performed At FINAL REPORT [employer] CLINICAL HISTORY: Stroke TECHNIQUE: Initially, noncontrast head [...] MD Report Verified Date/Time:03/29/2018 23:38:34 Reading Location: [address] Transitional Reading Room Procedure Note Interface, External Ris In - 03/29/2018 11:40 PM COTTON PICKING MACHINE OPERATOR FINAL REPORT CLINICAL HISTORY: Stroke TECHNIQUE: Initially, [...] Report Verified Date/Time: 03/29/2018 23:38:34 Reading Location: [facility] B1 C013T Transitional Reading Room Performing Organization Address City/State/Zipcode Phone Number [facility]IE SANTIAGO CTA brain (03/29/2018 11:07 PM COTTON PICKING MACHINE OPERATOR) Specimen Narrative Performed At FINAL REPORT [facility] CLINICAL HISTORY: Stroke TECHNIQUE: Initially, noncontrast head [...] MD Report Verified Date/Time:03/29/2018 23:38:34 Reading Location: [address] Transitional Reading Room Procedure Note Interface, External Ris In - 03/29/2018 11:40 PM COTTON PICKING MACHINE OPERATOR FINAL REPORT CLINICAL HISTORY: Stroke TECHNIQUE: Initially, [...] Report Verified Date/Time: 03/29/2018 23:38:34 Reading Location: [facility] B1 C013T Transitional Reading Room Performing Organization Address City/State/Zipcode Phone Number [employer] EEG AWAKE AND DROWSY (03/29/2018 5:52 PM COTTON PICKING MACHINE OPERATOR) Specimen Narrative Performed At Date(s) of EE03/29/18 GE RIS DATE OF REPORT: 03/29/18 ACC: [id number] EEG Number: [id number] Start time: 17:29 Stop time: 17:52 ICD-10: R56.9 CPT Code: 92737 REASON FOR EXAM: 57 yo female with [...] Clinical Neurophysiology Fellow Arturo Walker [facility] Attending Neurophysiologist [facility] Procedure Note Interface, External Ris In - 03/29/2018 10:21 PM COTTON PICKING MACHINE OPERATOR Date(s) of EE03/29/18 DATE OF REPORT: 03/29/18 ACC: [id number] EEG Number: [id number] Start time: 17:29 Stop time: 17:52 ICD-10: R56.9 CPT Code: 84809 REASON FOR EXAM: 57 yo female with [...] Clinical Neurophysiology Fellow Arturo Walker [facility] Attending Neurophysiologist [facility] Performing Organization Address [facility] Phone Number [facility] Procalcitonin (03/29/2018 5:00 PM COTTON PICKING MACHINE OPERATOR) Procalcitonin 0.42 (H) <0.05 ng/mL [facility] Specimen Blood Narrative Performed At SEPSIS RISK (ng/mL) [facility] Low:0.05-0.50 Intermediate: 0.51-2.00 High: >=2.01 Performing Organization Address [facility] Phone Number [address] [address] [phone] [place] aPTT (03/29/2018 5:00 PM COTTON PICKING MACHINE OPERATOR) PTT 29.1 22.5 - 36.[address] [facility] Specimen Blood Performing Organization Address [facility] Phone Number [address] [address] [place] Prothrombin time/INR (03/29/2018 5:00 PM COTTON PICKING MACHINE OPERATOR) Protime 14.6 11.7 - 14.[address] [facility] INR 1.1 <=[address]9 [facility] Specimen Blood Narrative Performed At RECOMMENDED COUMADIN/WARFARIN INR THERAPY [facility] RANGES STANDARD DOSE: 2.0 - 3.0 Includes: PROPHYLAXIS for venous thrombosis, systemic embolization; TREATMENT for venous thrombosis and/or pulmonary embolus. HIGH RISK: Target INR is 2.5-3.5 for patients with mechanical heart valves. Performing Organization Address City/State/Zipcode Phone Number [address] [address] [phone] [place] Ethanol (03/29/2018 5:00 PM COTTON PICKING MACHINE OPERATOR) Ethanol Lvl <10 <=10 mg/dL [facility] Specimen Blood Performing Organization Address City/[facility]/Zipcode Phone Number [address] [address] [phone] [place] Blood culture #2 (03/29/2018 4:59 PM COTTON PICKING MACHINE OPERATOR)Only the most recent of2 resultswithin the time period is included. Result No growth in [address] [facility] Specimen Blood Performing Organization Address [facility] Phone Number [address] [address] [place] after 01/08/2018 Advance Directives For more information, please contact:[address] [phone] Code Status Date Activated Date Inactivated Comments Full Code 08/01/2017 7:39 AM 08/01/2017 7:46 PM This code status was determined by: Patient
--- OUTSIDE RECORDS SUMMARY | 2019-01-09 14:07 | XMS REPORT ---
:1960 Author Organization [facility] Address [address] [place] [address] [address]. Ramos [address] [place] [address] Care Team Providers Name Role Phone MARTIN [...] Value Reference Range Comments CULTURE (BEAKER) (test tnrj=8800) No growth in 5 days BLOOD [id number] 23:01:00 Test Item Value Reference Range Comments CULTURE (BEAKER) (test vftg=8789) No growth in 5 days [id number] 13:27:00 Test Item Value Reference Range Comments POTASSIUM (BEAKER) (test swgn=891) 4.0 meq/L 3.5-5.1 PLATELET [id number] 12:44:00 Test Item Value Reference Range Comments PLATELET COUNT (BEAKER) (test vrgp=672) 149 K/CU MM 150-450 POCT-GLUCOSE [id number] 12:14:00 Test Item Value Reference Range Comments POC-GLUCOSE METER (BEAKER) 137 mg/dL 70-110 TESTED AT [address] (test grqh=1378) [facility] [address] EEG MONITORING WITH VIDEO RECORDING EACH 24 [id number] 11:38:00For STAT EEG - after 5 PM weekdays, weekends and holidays, page the on-call EEG TechReason for exam:->SeizureDate(s) of EE03/29/18; 03/30/18;03/31/2018DATE OF REPORT : 03/31/18ACC: [id number] Number: [id number] time: 03/30/2018 at 09:41Stop time: 03/30/2018 at 05:41ICD-10: R56.9CPT Code: 75383FBTHDH FOR EXAM: 57 yo female with PMHx [...] FAAN, FAESProfessor of Neurology, [facility] HospitalDirector, [facility] Epilepsy [facility] Neurophysiology Lab BLOOD GAS , [id number] 11:32:00 Test Item Value Reference Range Comments PH VENOUS (BEAKER) (test xcnh=639) 7.40 7.32-7.42 PCO2 VENOUS (BEAKER) (test ijho=927) 38 mmHg 41-51 PO2 VENOUS (BEAKER) (test kcxa=691) 71 mmHg 25-40 O2 SATURATION VENOUS (BEAKER) (test soss=307) 94.4 % 40.0-70.0 HCO3 VENOUS (BEAKER) (test knck=100) 23 mmol/L 21-29 BASE EXCESS VENOUS (BEAKER) (test iddk=180) -1.2 mmol/L -2.0-3.0 PATIENT TEMPERATURE (BEAKER) (test taxf=3086) 37.0 C FIO2 (BEAKER) (test ozwa=7353) 50.0 % POCT-GLUCOSE [id number] 06:16:00 Test Item Value Reference Range Comments POC-GLUCOSE METER (BEAKER) 130 mg/dL 70-110 TESTED AT [facility] [address] [facility] (test lmiz=6794) [facility] [address] CBC W/PLT COUNT & AUTO [id number] 05:59:00 Test Item Value Reference Range Comments WHITE BLOOD CELL COUNT (BEAKER) (test rqwp=509) 9.5 K/ L 3.5-10.5 RED BLOOD CELL COUNT (BEAKER) (test mdwe=129) 3.07 M/ L 3.93-5.22 HEMOGLOBIN (BEAKER) (test oajh=540) 9.9 GM/DL 11.2-15.7 HEMATOCRIT (BEAKER) (test hubc=559) 29.5 % 34.1-44.9 MEAN CORPUSCULAR VOLUME (BEAKER) (test hkti=801) 96.1 fL 79.4-94.8 MEAN CORPUSCULAR HEMOGLOBIN (BEAKER) (test 32.2 pg 25.6-32.2 ptyf=242) MEAN CORPUSCULAR HEMOGLOBIN CONC (BEAKER) (test 33.6 GM/DL 32.2-35.5 vswv=669) RED CELL DISTRIBUTION WIDTH (BEAKER) (test 13.4 % 11.7-14.4 slku=863) PLATELET COUNT (BEAKER) (test waut=615) 97 K/CU MM 150-450 MEAN PLATELET VOLUME (BEAKER) (test naep=971) 10.7 fL 9.4-12.3 NUCLEATED RED BLOOD CELLS (BEAKER) (test 0 /100 WBC 0-0 bgzo=682) NEUTROPHILS RELATIVE PERCENT (BEAKER) (test 82 % pmom=757) LYMPHOCYTES RELATIVE PERCENT (BEAKER) (test 10 % smra=995) MONOCYTES RELATIVE PERCENT (BEAKER) (test 8 % tnvf=166) EOSINOPHILS RELATIVE PERCENT (BEAKER) (test 0 % lmcy=746) BASOPHILS RELATIVE PERCENT (BEAKER) (test 0 % qhbq=354) NEUTROPHILS ABSOLUTE COUNT (BEAKER) (test 7.76 K/ L 1.56-6.13 ojeq=020) LYMPHOCYTES ABSOLUTE COUNT (BEAKER) (test 0.93 K/ L 1.18-3.74 pxfb=890) MONOCYTES ABSOLUTE COUNT (BEAKER) (test kkzj=796) 0.75 K/ L 0.24-0.36 EOSINOPHILS ABSOLUTE COUNT (BEAKER) (test 0.01 K/ L 0.04-0.36 dhyp=701) BASOPHILS ABSOLUTE COUNT (BEAKER) (test apfa=521) 0.03 K/ L 0.01-0.08 IMMATURE GRANULOCYTES-RELATIVE PERCENT (BEAKER) 0 % 0-1 (test atyc=9104) COMPREHENSIVE METABOLIC [id number] 05:19:00 Test Item Value Reference Range Comments TOTAL PROTEIN (BEAKER) 5.7 gm/dL 6.0-8.3 (test pyst=823) ALBUMIN (BEAKER) (test 3.9 g/dL 3.5-5.0 ixdr=6952) ALKALINE PHOSPHATASE 85 U/L 40-150 (BEAKER) (test xocs=148) BILIRUBIN TOTAL (BEAKER) 1.1 mg/dL 0.2-1.2 (test zwsi=024) SODIUM (BEAKER) (test 134 meq/L 136-145 ootq=916) POTASSIUM (BEAKER) (test 2.9 meq/L 3.5-5.1 wzfz=293) CHLORIDE (BEAKER) (test 107 meq/L 98-107 xsic=615) CO2 (BEAKER) (test 20 meq/L 22-29 cuny=361) BLOOD UREA NITROGEN 10 mg/dL 7-21 (BEAKER) (test uzni=347) CREATININE (BEAKER) (test 0.58 mg/dL 0.57-1.25 aeor=041) GLUCOSE RANDOM (BEAKER) 105 mg/dL 70-105 (test ezll=786) CALCIUM (BEAKER) (test 8.3 mg/dL 8.4-10.2 vumn=891) AST (SGOT) (BEAKER) (test 60 U/L 5-34 qbye=659) ALT (SGPT) (BEAKER) (test 37 U/L 6-55 dwap=972) EGFR (BEAKER) (test 108 mL/min/1.73 sq ESTIMATED GFR IS NOT moiu=7131) m ACCURATE CREATININE CLEARANCE IN PREDICTING GLOMERULAR FILTRATION RATE. ESTIMATED GFR IS NOT APPLICABLE FOR DIALYSIS PATIENTS. CREATINE KINASE (CK)2018-03-31 05:19:00 Test Item Value Reference Range Comments CREATINE KINASE TOTAL (BEAKER) (test adui=359) 969 U/L 29-200 [id number] 05:05:00 Test Item Value Reference Range Comments TRIGLYCERIDES (BEAKER) (test pynu=702) 85 mg/dL TRIGLYCERIDE REFERENCE RANGELow Risk <150Borderline Risk 150-199High Risk 200-499Very High Risk>=500BLOOD GAS, [id number] 05:01:00 Test Item Value Reference Range Comments PH ARTERIAL (BEAKER) (test qxgs=119) 7.45 7.35-7.45 PCO2 ARTERIAL (BEAKER) (test phic=527) 29 mmHg 35-45 PO2 ARTERIAL (BEAKER) (test uezu=971) 175 mmHg 80-90 O2 SATURATION ARTERIAL (BEAKER) (test hwna=943) 99.3 % 96.0-97.0 HCO3 ARTERIAL (BEAKER) (test jfft=745) 19 mmol/L 21-29 BASE EXCESS ARTERIAL (BEAKER) (test xvuu=009) -3.8 mmol/L -2.0-3.0 PATIENT TEMPERATURE (BEAKER) (test zpzp=4471) 37.0 C FIO2 (BEAKER) (test pzel=7724) 50.0 % LACTIC ACID, VENOUS, WHOLE [id number] 05:01:00 Test Item Value Reference Range Comments LACTATE BLOOD VENOUS (2) (BEAKER) (test 0.8 mmol/L 0.5-2.2 lckp=1715) RAD, CHEST, 1 VIEW, NON [id number] 03:30:00Reason for exam:->ETTShould this be performed at the bedside?->YesFINAL REPORT CLINICAL INDICATION: Support lines. Comparison: 03/30/2018 The cardiomediastinal contours are stable. There is no focal consolidation, pneumothorax, large pleural effusion or evidence of overt pulmonary edema. A feeding tube traverses examination to the upper abdomen. An endotracheal tube is stable. Signed: Leonides Guerraeport Verified Date/Time: 03/31/2018 03:30: 39 Reading Location: [address] Reading Room POCT-GLUCOSE [id number] 23:48:00 Test Item Value Reference Range Comments POC-GLUCOSE METER (BEAKER) 70 mg/dL 70-110 TESTED AT [address] (test nhul=2563) [facility] [address] RAD, ABDOMEN/KUB, 1 VIEW [id number] 22:04:00Reason for exam:->ngt placement Should this be [...] Day Verified Date/Time: 03/30/2018 22:04:23 Reading Location: [address] Reading Room POCT-GLUCOSE [id number] 17:50:00 Test Item Value Reference Range Comments POC-GLUCOSE METER (BEAKER) 68 mg/dL 70-110 Notified AIME MCINTOSH/TESTED AT [facility] (test qfek=2809) [address] [place] [address] EEG MONITORING WITH VIDEO RECORDING EACH 24 [id number] 16:39:00c/f subclinical seizuresDate(s) of EE03/29/18 DATE OF REPORT: 03/30/18 ACC: [id number] EEG Number: [id number] Start time: 03/29/2018 at 17:52 Stop time: 2017 at 22:28 ICD-10: R56.9 CPT Code: 12026-19 REASON FOR EXAM: 57 yo female with [...] interpretation. Igor Garnica MD Attending Neurophysiologist [facility] RAD, ABDOMEN/ KUB, 1 VIEW [id number] 14:37:00Reason for exam:->NGT placementFINAL REPORT CLINICAL HISTORY: NGT placement TECHNIQUE: Two supine views of the abdomen. IMPRESSION: The tip of the feeding tube is at the gastroesophageal junction and should beadvanced into the stomach. The bowel gas pattern is nonspecific. Signed: Anahi Leigh MDReport Verified Date/Time: 14:37:17 Reading Location: [address] Consult Reading Room POCT- GLUCOSE [id number] 12:10:00 Test Item Value Reference Range Comments POC-GLUCOSE METER (BEAKER) 76 mg/dL 70-110 TESTED AT [address] (test znou=1589) [facility] [address] RAD, CHEST, 1 VIEW, NON [id number] 07:16:00Reason for exam:->ETTShould this be performed at [...] Additional findings: None. Signed: JR Gates Robert MDRepmarion Verified Date/Time: 03/30/2018 07:16:21 Reading Location: [facility] C013V Neuro Reading Room POCT-GLUCOSE [id number] 06:54:00 Test Item Value Reference Range Comments POC-GLUCOSE METER (BEAKER) 77 mg/dL 70-110 TESTED AT [facility] [address] [facility] (test hjla=5094) [facility] [address] BASIC METABOLIC [id number] 06:01:00 Test Item Value Reference Range Comments SODIUM (BEAKER) (test 136 meq/L 136-145 sbxp=088) POTASSIUM (BEAKER) (test 2.4 meq/L 3.5-5.1 nvru=683) CHLORIDE (BEAKER) (test 109 meq/L 98-107 mhnb=635) CO2 (BEAKER) (test 20 meq/L 22-29 mevb=465) BLOOD UREA NITROGEN 9 mg/dL 7-21 (BEAKER) (test nafp=155) CREATININE (BEAKER) (test 0.49 mg/dL 0.57-1.25 oyvd=365) GLUCOSE RANDOM (BEAKER) 80 mg/dL 70-105 (test gaqz=107) CALCIUM (BEAKER) (test 8.0 mg/dL 8.4-10.2 yoym=644) EGFR (BEAKER) (test 131 mL/min/1.73 sq m ESTIMATED GFR IS NOT cdif=7521) ACCURATE CREATININE CLEARANCE IN PREDICTING GLOMERULAR FILTRATION RATE. ESTIMATED GFR IS NOT APPLICABLE FOR DIALYSIS PATIENTS. LACTIC ACID, VENOUS, WHOLE [id number] 05:46:00 Test Item Value Reference Range Comments LACTATE BLOOD VENOUS (2) (BEAKER) (test 0.5 mmol/L 0.5-2.2 lxdt=4478) CBC W/PLT COUNT & AUTO [id number] 05:40:00 Test Item Value Reference Range Comments WHITE BLOOD CELL COUNT (BEAKER) (test hpvc=343) 8.0 K/ L 3.5-10.5 RED BLOOD CELL COUNT (BEAKER) (test fkhf=054) 3.03 M/ L 3.93-5.22 HEMOGLOBIN (BEAKER) (test gbmv=884) 9.7 GM/DL 11.2-15.7 HEMATOCRIT (BEAKER) (test wvpn=565) 29.7 % 34.1-44.9 MEAN CORPUSCULAR VOLUME (BEAKER) (test fldg=863) 98.0 fL 79.4-94.8 MEAN CORPUSCULAR HEMOGLOBIN (BEAKER) (test 32.0 pg 25.6-32.2 vrim=602) MEAN CORPUSCULAR HEMOGLOBIN CONC (BEAKER) (test 32.7 GM/DL 32.2-35.5 mxlv=238) RED CELL DISTRIBUTION WIDTH (BEAKER) (test 13.6 % 11.7-14.4 ndok=067) PLATELET COUNT (BEAKER) (test zzvl=698) 140 K/CU MM 150-450 MEAN PLATELET VOLUME (BEAKER) (test wnuk=272) 9.4 fL 9.4-12.3 NUCLEATED RED BLOOD CELLS (BEAKER) (test 0 /100 WBC 0-0 vosj=987) NEUTROPHILS RELATIVE PERCENT (BEAKER) (test 75 % oqzt=462) LYMPHOCYTES RELATIVE PERCENT (BEAKER) (test 14 % uugo=509) MONOCYTES RELATIVE PERCENT (BEAKER) (test 10 % suaa=205) EOSINOPHILS RELATIVE PERCENT (BEAKER) (test 0 % xnnb=354) BASOPHILS RELATIVE PERCENT (BEAKER) (test 0 % engl=084) NEUTROPHILS ABSOLUTE COUNT (BEAKER) (test 5.98 K/ L 1.56-6.13 mnft=734) LYMPHOCYTES ABSOLUTE COUNT (BEAKER) (test 1.15 K/ L 1.18-3.74 pesp=703) MONOCYTES ABSOLUTE COUNT (BEAKER) (test 0.81 K/ L 0.24-0.36 eobc=308) EOSINOPHILS ABSOLUTE COUNT (BEAKER) (test 0.01 K/ L 0.04-0.36 hqrc=787) BASOPHILS ABSOLUTE COUNT (BEAKER) (test 0.03 K/ L 0.01-0.08 nisb=518) IMMATURE GRANULOCYTES-RELATIVE PERCENT (BEAKER) 0 % 0-1 (test cann=0916) BLOOD GAS, [id number] 05:38:00 Test Item Value Reference Range Comments PH ARTERIAL (BEAKER) (test cljr=476) 7.42 7.35-7.45 PCO2 ARTERIAL (BEAKER) (test jfwd=824) 32 mmHg 35-45 PO2 ARTERIAL (BEAKER) (test uzjf=949) 131 mmHg 80-90 O2 SATURATION ARTERIAL (BEAKER) (test hwpe=432) 98.7 % 96.0-97.0 HCO3 ARTERIAL (BEAKER) (test zglo=942) 20 mmol/L 21-29 BASE EXCESS ARTERIAL (BEAKER) (test tssk=245) -3.3 mmol/L -2.0-3.0 PATIENT TEMPERATURE (BEAKER) (test agpt=7702) 36.8 C FIO2 (BEAKER) (test jeto=1280) 50.0 % LACTIC ACID, VENOUS, WHOLE [id number] 00:48:00 Test Item Value Reference Range Comments LACTATE BLOOD VENOUS (2) (BEAKER) (test 1.8 mmol/L 0.5-2.2 ljdw=8507) POCT-GLUCOSE [id number] 23:53:00 Test Item Value Reference Range Comments POC-GLUCOSE METER (BEAKER) 107 mg/dL 70-110 TESTED AT [facility] [address] [facility] (test dyhy=7611) [facility] [address] CT, CTANGIO [id number] 23:38:00FINAL REPORT CLINICAL HISTORY: Stroke TECHNIQUE: Initially, [...] arteries are otherwise patent. Signed: Abbey Day MDReport Verified Date/Time: 03/29/2018 23:38:34 Reading Location: [address] Transitional Reading Room CT, CAROTID, [id number] 23:38: 00FINAL REPORT CLINICAL HISTORY: Stroke TECHNIQUE: [...] arteries are otherwise patent. Signed: Abbey Day Verified Date/Time: 03/29/2018 23:38:34 Reading Location: [address] Reading Room EEG AWAKE AND [id number] 22:21:00Baseline for cEEGDate(s) of EE03/29/18 DATE OF REPORT: 03/29/18 ACC: [id number] EEG Number: [id number] Start time: 17:29 Stop time: 17:52 ICD-10: R56.9 CPT Code: 49042 REASON FOR EXAM: 57 yo female with [...] [facility] Attending Neurophysiologist [facility] [place] POCT-GLUCOSE [id number] 18:57:00 Test Item Value Reference Range Comments POC-GLUCOSE METER (BEAKER) 90 mg/dL 70-110 TESTED AT [facility] [address] (test paio=8483) [facility] [address] RAD, CHEST, 1 VIEW, NON [id number] 18:48:00Reason for exam:->TubeShould this be performed at [...] MDReport Verified Date/Time: 03/29/2018 18:48:13 Reading Location: [address] Consult Reading Room [id number] 18:04:00 Test Item Value Reference Range Comments PROCALCITONIN (BEAKER) (test aqfy=8404) 0.42 ng/mL <0.05 SEPSIS RISK (ng/mL)Low: 0.05-0.50Intermediate: 0.51-2.00High: & gt;=2.01CREATINE KINASE (CK)2018-03-29 17:58:00 Test Item Value Reference Range Comments CREATINE KINASE TOTAL (BEAKER) (test qqpr=463) 983 U/L 29-200 [id number] 17:43:00 Test Item Value Reference Range Comments ETHANOL (BEAKER) (test uysy=141) < mg/dL <=10 LACTIC ACID, VENOUS, WHOLE [id number] 17:42:00 Test Item Value Reference Range Comments LACTATE BLOOD VENOUS (2) 0.6 mmol/L 0.5-2.2 Specimen slightly hemolyzed (BEAKER) (test arsp=1978) LACTIC ACID, VENOUS, WHOLE [id number] 17:42:00 Test Item Value Reference Range Comments LACTATE BLOOD VENOUS (2) 1.6 mmol/L 0.5-2.2 Specimen slightly hemolyzed (BEAKER) (test doli=4571) PROTHROMBIN [id number] 17:34:00 Test Item Value Reference Range Comments PROTIME (BEAKER) (test mzeu=226) 14.6 seconds 11.7-14.7 INR (BEAKER) (test xccm=239) 1.1 <=5.9 RECOMMENDED COUMADIN/WARFARIN INR THERAPY RANGESSTANDARD DOSE: 2.0 - 3.0 Includes: PROPHYLAXIS forvenous thrombosis, systemic embolization; TREATMENT for venous thrombosis and/or pulmonary embolus.HIGH RISK: Target INR is 2.5-3.5 for patients with mechanical heart valves.[id number] 17:34:00 Test Item Value Reference Range Comments PARTIAL THROMBOPLASTIN TIME (BEAKER) (test 29.1 seconds 22.5-36.0 mbcn=511) BLOOD GAS, [id number] 17:33:00 Test Item Value Reference Range Comments PH ARTERIAL (BEAKER) (test zbdy=357) 7.42 7.35-7.45 PCO2 ARTERIAL (BEAKER) (test nabx=885) 35 mmHg 35-45 PO2 ARTERIAL (BEAKER) (test oxja=354) 277 mmHg 80-90 O2 SATURATION ARTERIAL (BEAKER) (test pjjo=126) 99.7 % 96.0-97.0 HCO3 ARTERIAL (BEAKER) (test covz=921) 22 mmol/L 21-29 BASE EXCESS ARTERIAL (BEAKER) (test ygto=354) -1.3 mmol/L -2.0-3.0 PATIENT TEMPERATURE (BEAKER) (test rkiw=3078) 38.0 C FIO2 (BEAKER) (test kzfz=5491) 50.0 % POCT-GLUCOSE [id number] 16:39:00 Test Item Value Reference Range Comments POC-GLUCOSE METER (BEAKER) 110 mg/dL 70-110 TESTED AT [address] (test odef=1352) [facility] [address] URINE [id number] 11:34:00 Test Item Value Reference Range Comments CULTURE (BEAKER) (test 40-49,000 col/mL skin dak[place]ah xgkv=1332) POCT-GLUCOSE [id number] 15:55:00 Test Item Value Reference Range Comments POC-GLUCOSE METER (BEAKER) 80 mg/dL 70-110 TESTED AT [address] (test xddd=9208) [place] [id number] URINALYSIS W/ [id number] 14:34:00 Test Item Value Reference Range Comments COLOR (BEAKER) (test dzjr=191) Light Yellow CLARITY (BEAKER) (test ffay=688) Clear SPECIFIC GRAVITY UA (BEAKER) (test xqqv=516) 1.009 1.001-1.035 PH UA (BEAKER) (test hvpo=916) 7.0 5.0-8.0 PROTEIN UA (BEAKER) (test qhek=542) Negative Negative GLUCOSE UA (BEAKER) (test vylm=296) Negative Negative KETONES UA (BEAKER) (test cpep=059) Negative Negative BILIRUBIN UA (BEAKER) (test gxpu=736) Negative Negative BLOOD UA (BEAKER) (test qfpa=612) Small Negative NITRITE UA (BEAKER) (test okzp=134) Negative Negative LEUKOCYTE ESTERASE UA (BEAKER) (test enqv=133) Negative Negative UROBILINOGEN UA (BEAKER) (test zspy=714) 0.2 mg/dL 0.2-1.0 RBC UA (BEAKER) (test dbxj=960) 2 /HPF WBC UA (BEAKER) (test desd=923) < /HPF MUCUS (BEAKER) (test czdt=1110) Rare SQUAMOUS EPITHELIAL (BEAKER) (test sjjf=718) < /HPF SOURCE(BEAKER) (test buyy=6274) RAPID DRUG SCREEN, [id number] 13:10:00 Test Item Value Reference Range Comments BARBITURATE URINE (BEAKER) (test miok=693) Negative Negative BENZODIAZEPINE SCREEN URINE (BEAKER) (test Negative Negative lmdw=077) COCAINE (METAB.) SCREEN (BEAKER) (test yank=8825) Negative Negative METHADONE SCREEN (BEAKER) (test rulv=5130) Negative Negative OPIATE SCREEN URINE (BEAKER) (test oucl=156) Negative Negative CANNABINOID SCREEN URINE (BEAKER) (test qsml=445) Negative Negative AMPH/METHAMPH SCREEN (BEAKER) (test mwtg=3093) Negative Negative PHENCYCLIDINE SCREEN URINE (BEAKER) (test kvni=444) Negative Negative OXYCODONE SCREEN URINE (BEAKER) (test xnwf=1560) Negative Negative DRUG CUTOFF CONC.Cocaine 300 ng/mL Cannabinoid 50 ng/mL Benzodiazepine 200 ng/mLBarbiturate 200 ng/ mLPhencyclidine 25 ng/mLOpiate 300 ng/mLMethadone 300 ng/mLAmphetamine/ 1000 ng/mL MethamphetamineOxycodone 300 ng/mLThis assay provides an unconfirmed qualitative test result for the clinical management of patients in emergency situations. Chain of custody not maintained. Some kgbg-tws-ybhlhse medications, as well as adulterants, may cause inaccurate results. Clinical correlation should be applied. A more comprehensive drug screen or confirmation of a detected drug may be performed upon request.POCT-GLUCOSE [id number] 11:49:00 Test Item Value Reference Range Comments POC-GLUCOSE METER (BEAKER) 93 mg/dL 70-110 TESTED AT [facility] [address] [facility] (test sahy=8744) [facility] [address] [id number] 10:40:00 Test Item Value Reference Range Comments PHOSPHORUS (BEAKER) (test cchv=658) 3.0 mg/dL 2.3-4.7 [id number] 10:40:00 Test Item Value Reference Range Comments MAGNESIUM (BEAKER) (test wjvr=160) 2.6 mg/dL 1.6-2.6 BASIC METABOLIC [id number] 10:40:00 Test Item Value Reference Range Comments SODIUM (BEAKER) (test 139 meq/L 136-145 meph=599) POTASSIUM (BEAKER) (test 3.8 meq/L 3.5-5.1 maff=487) CHLORIDE (BEAKER) (test 105 meq/L 98-107 nrma=426) CO2 (BEAKER) (test 22 meq/L 22-29 cqvw=084) BLOOD UREA NITROGEN 9 mg/dL 7-21 (BEAKER) (test mkkh=103) CREATININE (BEAKER) (test 0.61 mg/dL 0.57-1.25 zfep=658) GLUCOSE RANDOM (BEAKER) 86 mg/dL 70-105 (test jvlt=691) CALCIUM (BEAKER) (test 9.5 mg/dL 8.4-10.2 ryyp=154) EGFR (BEAKER) (test 102 mL/min/1.73 sq m ESTIMATED GFR IS NOT yxzu=7349) ACCURATE CREATININE CLEARANCE IN PREDICTING GLOMERULAR FILTRATION RATE. ESTIMATED GFR IS NOT APPLICABLE FOR DIALYSIS PATIENTS. HEPATIC FUNCTION [id number] 10:40:00 Test Item Value Reference Range Comments TOTAL PROTEIN (BEAKER) (test kroc=707) 7.5 gm/dL 6.0-8.3 ALBUMIN (BEAKER) (test czpm=0780) 4.4 g/dL 3.5-5.0 BILIRUBIN TOTAL (BEAKER) (test qqpz=210) 0.9 mg/dL 0.2-1.2 BILIRUBIN DIRECT (BEAKER) (test wgdv=761) 0.3 mg/dL 0.1-0.5 ALKALINE PHOSPHATASE (BEAKER) (test sdnq=371) 108 U/L 40-150 AST (SGOT) (BEAKER) (test fnoc=318) 28 U/L 5-34 ALT (SGPT) (BEAKER) (test olhg=683) 18 U/L 6-55 CBC W/PLT COUNT & AUTO [id number] 09:28:00 Test Item Value Reference Range Comments WHITE BLOOD CELL COUNT (BEAKER) (test kzfm=346) 8.8 K/ L 3.5-10.5 RED BLOOD CELL COUNT (BEAKER) (test vbjw=431) 4.39 M/ L 3.93-5.22 HEMOGLOBIN (BEAKER) (test ysfi=349) 13.9 GM/DL 11.2-15.7 HEMATOCRIT (BEAKER) (test mtkw=123) 41.6 % 34.1-44.9 MEAN CORPUSCULAR VOLUME (BEAKER) (test plus=493) 94.8 fL 79.4-94.8 MEAN CORPUSCULAR HEMOGLOBIN (BEAKER) (test 31.7 pg 25.6-32.2 qogl=557) MEAN CORPUSCULAR HEMOGLOBIN CONC (BEAKER) (test 33.4 GM/DL 32.2-35.5 exsa=658) RED CELL DISTRIBUTION WIDTH (BEAKER) (test 13.1 % 11.7-14.4 mgsu=360) PLATELET COUNT (BEAKER) (test xznn=519) 234 K/CU MM 150-450 MEAN PLATELET VOLUME (BEAKER) (test klah=900) 9.0 fL 9.4-12.3 NUCLEATED RED BLOOD CELLS (BEAKER) (test 0 /100 WBC 0-0 ufjs=384) NEUTROPHILS RELATIVE PERCENT (BEAKER) (test 69 % rthk=211) LYMPHOCYTES RELATIVE PERCENT (BEAKER) (test 22 % suro=116) MONOCYTES RELATIVE PERCENT (BEAKER) (test 9 % plhs=699) EOSINOPHILS RELATIVE PERCENT (BEAKER) (test 0 % nfrt=354) BASOPHILS RELATIVE PERCENT (BEAKER) (test 0 % eyro=664) NEUTROPHILS ABSOLUTE COUNT (BEAKER) (test 6.05 K/ L 1.56-6.13 bacb=025) LYMPHOCYTES ABSOLUTE COUNT (BEAKER) (test 1.91 K/ L 1.18-3.74 ocak=509) MONOCYTES ABSOLUTE COUNT (BEAKER) (test 0.76 K/ L 0.24-0.36 wkbu=224) EOSINOPHILS ABSOLUTE COUNT (BEAKER) (test 0.01 K/ L 0.04-0.36 xuxl=582) BASOPHILS ABSOLUTE COUNT (BEAKER) (test 0.03 K/ L 0.01-0.08 recd=242) IMMATURE GRANULOCYTES-RELATIVE PERCENT (BEAKER) 0 % 0-1 (test hqri=7074) PROTHROMBIN [id number] 09:23:00 Test Item Value Reference Range Comments PROTIME (BEAKER) (test fhzb=352) 13.5 seconds 11.7-14.7 INR (BEAKER) (test vbne=543) 1.0 <=5.9 RECOMMENDED COUMADIN/WARFARIN INR THERAPY RANGESSTANDARD DOSE: 2.0 - 3.0 Includes: PROPHYLAXIS forvenous thrombosis, systemic embolization; TREATMENT for venous thrombosis and/or pulmonary embolus.HIGH RISK: Target INR is 2.5-3.5 for patients with mechanical heart valves.POCT-GLUCOSE [id number] 07:05:00 Test Item Value Reference Range Comments POC-GLUCOSE METER (BEAKER) 96 mg/dL 70-110 TESTED AT [address] (test xvcm=5501) [facility] [id number]
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
[2019-01-09] MEDS ORDERED: NA CHLORIDE 0.9% 1,000 ML ONE (16:48)
[2019-01-09] MEDS ORDERED: ONDANSETRON 4 MG/2 ML VIAL ONE (16:48)
== END 2019-01-09 15:23 | disposition left against medical advice (07) ==
LOC: ER 14:04
DX: R45.851 Suicidal ideations (principal); F17.210 Nicotine dependence, cigarettes, uncomplicated
CPT/HCPCS: 99284; J2405; J7030

== ENCOUNTER 2019-01-09 15:26 | Emergency (ER) | payer SELFPAY ==
--- OUTSIDE RECORDS SUMMARY | 2019-01-09 15:29 | XMS REPORT | Clinical Summary ---
:1960 Author Organization [facility] Address [address] [place] [address] Care Team Providers Name Role Phone Margarita [...] Taken Blood Pressure 140/68 03/31/2018 2:35 PM INDUSTRIAL EDUCATION TEACHER Pulse 101 03/31/2018 2:30 PM INDUSTRIAL EDUCATION TEACHER Temperature 36.4 C (97.6 F) 03/31/2018 2:05 PM INDUSTRIAL EDUCATION TEACHER Respiratory Rate 26 03/31/2018 2:30 PM INDUSTRIAL EDUCATION TEACHER Oxygen Saturation 91% 03/31/2018 2:35 PM INDUSTRIAL EDUCATION TEACHER Inhaled Oxygen Concentration 40% 03/31/2018 10:00 AM INDUSTRIAL EDUCATION TEACHER Weight 49.1 kg (108 lb 3.9 oz) 03/31/2018 5:00 AM INDUSTRIAL EDUCATION TEACHER Height 157.5 cm (5' 2") 03/29/2018 4:02 PM INDUSTRIAL EDUCATION TEACHER Body Mass Index 19.8 03/31/2018 5:00 AM INDUSTRIAL EDUCATION TEACHER Plan of Treatment Not on file Procedures Procedure Name Priority Date/Time Associated Comments Diagnosis RHYTHM STRIP - SCAN 04/12/2018 11:30 AM INDUSTRIAL EDUCATION TEACHER POCT-GLUCOSE METER Routine 03/31/2018 11:59 Results for this AM INDUSTRIAL EDUCATION TEACHER procedure are in the results section. POTASSIUM Routine 03/31/2018 11:56 Results for this AM INDUSTRIAL EDUCATION TEACHER procedure are in the results section. PLATELET COUNT Routine 03/31/2018 11:56 Results for this AM INDUSTRIAL EDUCATION TEACHER procedure are in the results section. BLOOD GAS, VENOUS Routine 03/31/2018 8:23 Results for this AM INDUSTRIAL EDUCATION TEACHER procedure are in the results section. EEG MONITORING WITH Routine 03/31/2018 6:16 Results for this VIDEO RECORDING EACH AM INDUSTRIAL EDUCATION TEACHER procedure are in 24 HOURS the results section. POCT-GLUCOSE METER Routine 03/31/2018 6:14 Results for this AM INDUSTRIAL EDUCATION TEACHER procedure are in the results section. BLOOD GAS, ARTERIAL Routine 03/31/2018 4:21 Results for this AM INDUSTRIAL EDUCATION TEACHER procedure are in the results section. CBC W/PLT COUNT & AUTO Routine 03/31/2018 4:20 Results for this DIFFERENTIAL AM INDUSTRIAL EDUCATION TEACHER procedure are in the results section. CBC W/PLT COUNT & AUTO Routine 03/31/2018 4:20 Results for this DIFFERENTIAL AM INDUSTRIAL EDUCATION TEACHER procedure are in the results section. TRIGLYCERIDES Routine 03/31/2018 4:20 Results for this AM INDUSTRIAL EDUCATION TEACHER procedure are in the results section. LACTIC ACID, VENOUS Routine 03/31/2018 4:20 Results for this AM INDUSTRIAL EDUCATION TEACHER procedure are in the results section. CREATINE KINASE (CK) Routine 03/31/2018 4:20 Results for this AM INDUSTRIAL EDUCATION TEACHER procedure are in the results section. COMPREHENSIVE Routine 03/31/2018 4:20 Results for this METABOLIC PANEL AM INDUSTRIAL EDUCATION TEACHER procedure are in the results section. XR CHEST 1 VIEW Routine 03/31/2018 3:12 Results for this PORTABLE/BEDSIDE AM INDUSTRIAL EDUCATION TEACHER procedure are in the results section. POCT-GLUCOSE METER Routine 03/30/2018 11:46 Results for this PM INDUSTRIAL EDUCATION TEACHER procedure are in the results section. XR ABDOMEN 1 VIEW STAT 03/30/2018 9:32 Results for this PM INDUSTRIAL EDUCATION TEACHER procedure are in the results section. POCT-GLUCOSE METER Routine 03/30/2018 5:48 Results for this PM INDUSTRIAL EDUCATION TEACHER procedure are in the results section. XR ABDOMEN 1 VIEW STAT 03/30/2018 1:18 Results for this PM INDUSTRIAL EDUCATION TEACHER procedure are in the results section. POCT-GLUCOSE METER Routine 03/30/2018 12:06 Results for this PM INDUSTRIAL EDUCATION TEACHER procedure are in the results section. XR CHEST 1 VIEW Routine 03/30/2018 7:41 Results for this PORTABLE/BEDSIDE AM INDUSTRIAL EDUCATION TEACHER procedure are in the results section. EEG MONITORING WITH STAT 03/30/2018 7:00 Results for this VIDEO RECORDING EACH AM INDUSTRIAL EDUCATION TEACHER procedure are in 24 HOURS the results section. POCT-GLUCOSE METER Routine 03/30/2018 6:14 Results for this AM INDUSTRIAL EDUCATION TEACHER procedure are in the results section. CBC W/PLT COUNT & AUTO Routine 03/30/2018 4:37 Results for this DIFFERENTIAL AM INDUSTRIAL EDUCATION TEACHER procedure are in the results section. BASIC METABOLIC PANEL Routine 03/30/2018 4:37 Results for this (7) AM INDUSTRIAL EDUCATION TEACHER procedure are in the results section. CBC W/PLT COUNT & AUTO Routine 03/30/2018 4:37 Results for this DIFFERENTIAL AM INDUSTRIAL EDUCATION TEACHER procedure are in the results section. BLOOD GAS, ARTERIAL Routine 03/30/2018 4:37 Results for this AM INDUSTRIAL EDUCATION TEACHER procedure are in the results section. LACTIC ACID, VENOUS Routine 03/30/2018 4:37 Results for this AM INDUSTRIAL EDUCATION TEACHER procedure are in the results section. LACTIC ACID, VENOUS STAT 03/30/2018 12:12 Results for this AM INDUSTRIAL EDUCATION TEACHER procedure are in the results section. POCT-GLUCOSE METER Routine 03/29/2018 11:51 Results for this PM INDUSTRIAL EDUCATION TEACHER procedure are in the results section. CT/CTA CAROTID STAT 03/29/2018 11:07 Results for this PM INDUSTRIAL EDUCATION TEACHER procedure are in the results section. CT/CTA BRAIN STAT 03/29/2018 11:07 Results for this PM INDUSTRIAL EDUCATION TEACHER procedure are in the results section. POCT-GLUCOSE METER Routine 03/29/2018 6:28 Results for this PM INDUSTRIAL EDUCATION TEACHER procedure are in the results section. EEG AWAKE AND DROWSY Routine 03/29/2018 5:52 Results for this PM INDUSTRIAL EDUCATION TEACHER procedure are in the results section. XR CHEST 1 VIEW STAT 03/29/2018 5:35 Results for this PORTABLE/BEDSIDE PM INDUSTRIAL EDUCATION TEACHER procedure are in the results section. BLOOD GAS, ARTERIAL Routine 03/29/2018 5:15 Results for this PM INDUSTRIAL EDUCATION TEACHER procedure are in the results section. CREATINE KINASE (CK) Routine 03/29/2018 5:00 Results for this PM INDUSTRIAL EDUCATION TEACHER procedure are in the results section. ETHANOL Routine 03/29/2018 5:00 Results for this PM INDUSTRIAL EDUCATION TEACHER procedure are in the results section. APTT STAT 03/29/2018 5:00 Results for this PM INDUSTRIAL EDUCATION TEACHER procedure are in the results section. PROTHROMBIN TIME/INR STAT 03/29/2018 5:00 Results for this PM INDUSTRIAL EDUCATION TEACHER procedure are in the results section. PROCALCITONIN STAT 03/29/2018 5:00 Results for this PM INDUSTRIAL EDUCATION TEACHER procedure are in the results section. LACTIC ACID, VENOUS STAT 03/29/2018 5:00 Results for this PM INDUSTRIAL EDUCATION TEACHER procedure are in the results section. LACTIC ACID, VENOUS STAT 03/29/2018 5:00 Results for this PM INDUSTRIAL EDUCATION TEACHER procedure are in the results section. BLOOD CULTURE STAT 03/29/2018 4:59 Results for this PM INDUSTRIAL EDUCATION TEACHER procedure are in the results section. BLOOD CULTURE STAT 03/29/2018 4:59 Results for this PM INDUSTRIAL EDUCATION TEACHER procedure are in the results section. POCT-GLUCOSE METER Routine 03/29/2018 3:46 Results for this PM INDUSTRIAL EDUCATION TEACHER procedure are in the results section. after 01/08/2018 Results RHYTHM STRIP - SCAN (04/12/2018 11:30 AM INDUSTRIAL EDUCATION TEACHER) Narrative Performed At POC-Glucose meter (03/31/2018 11:59 AM INDUSTRIAL EDUCATION TEACHER)Only the most recent of9 resultswithin the time period is included. POC-Glucose Meter 137 (H)Comment: TESTED AT 70 - 110 mg/dL [facility] [address] [place] [id number] Specimen Blood Performing Organization Address City/[facility]/Zipcode Phone Number [address] [address] [phone] CENTER Platelet count (03/31/2018 11:56 AM INDUSTRIAL EDUCATION TEACHER) Platelets 149 (L) 150 - 450 K/CU MM [facility] Specimen Blood Performing Organization Address City/[facility]/Zipcode Phone Number [address] [place], [place] [address] [phone] CENTER Potassium (03/31/2018 11:56 AM INDUSTRIAL EDUCATION TEACHER) Potassium 4.0 3.5 - 5.1 meq/L [facility] Specimen Blood Performing Organization Address City/State/Zipcode Phone Number [address] [address] [phone] [place] Blood gas, venous (03/31/2018 8:23 AM INDUSTRIAL EDUCATION TEACHER) pH, Patel 7.40 7.32 - 7.42 [facility] pCO2, Patel 38 (L) 41 - [address] [facility] pO2, Patel 71 (H) 25 - [address] [facility] O2 Sat, Patel 94.4 (H) 40.0 - 70.0 % [facility] HCO3, Patel 23 21 - 29 mmol/L [facility] Base Excess, Patel -1.2 -2.0 - 3.0 mmol/L [facility] Patient Temperature 37.[address] [facility] FIO2 50.0 % [facility] Specimen Blood Performing Organization Address City/State/Zipcode Phone Number [address] [address] [place] EEG monitoring with video recording each 24 hours (03/31/2018 6:16 AM INDUSTRIAL EDUCATION TEACHER) Specimen Narrative Performed At Date(s) of EE03/29/18; 03/30/18;03/31/2018 RIS DATE OF REPORT: 03/31/18 ACC: [id number] EEG Number: [id number] Start time: 03/30/2018 at 09:41 Stop time: 03/30/2018 at 05:41 ICD-10: R56.9 CPT Code: 17155 REASON FOR EXAM: 57 yo female with [...] M.D., ALISE, LIZETT, JESSIKA Professor of Neurology, [facility] Director, [facility] [[email or web address] Epilepsy Center Head, Doyle [facility] Neurophysiology Lab Procedure Note Interface, External Ris In - 03/31/2018 11:38 AM INDUSTRIAL EDUCATION TEACHER Date(s) of EE03/29/18; 03/30/18;03/31/2018 DATE OF REPORT: 03/31/18 ACC: [id number] EEG Number: [id number] Start time: 03/30/2018 at 09:41 Stop time: 03/30/2018 at 05:41 ICD-10: R56.9 CPT Code: 45592 REASON FOR EXAM: 57 yo female with PMHx of tobacco and marijuana abuse who is transferred from [facility] for treatment of sepsis and seizures in [...] M.D., FACAMBREEN, FAAN, JESSIKA Professor of Neurology, [facility] Director, [facility] [[email or web address] Epilepsy [place] Head, Doyle Devi Neurophysiology Lab Performing Organization Address City/[facility] Phone Number RIS Blood gas, arterial (03/31/2018 4:21 AM INDUSTRIAL EDUCATION TEACHER)Only the most recent of3 resultswithin the time period is included. pH, Arterial 7.45 7.35 - 7.45 [facility] pCO2, Arterial 29 (L) 35 - [address] [facility] pO2, Arterial 175 (H) 80 - [address] [facility] O2 Sat, Arterial 99.3 (H) 96.0 - 97.0 % [facility] HCO3, Arterial 19 (L) 21 - 29 mmol/L [facility] Base Excess, Arterial -3.8 (L) -2.0 - 3.0 mmol/L [facility] Patient Temperature 37.[address] [facility] FIO2 50.0 % [facility] Specimen Blood, Arterial Performing Organization Address City/State/Zipcode Phone Number [facility] [address] [place] [address] CENTER CBC with platelet count + automated diff (03/31/2018 4:20 AM INDUSTRIAL EDUCATION TEACHER)Only the most recent of2 resultswithin the time period is included. WBC 9.5 3.5 - 10.5 K/L [facility] RBC 3.07 (L) 3.93 - 5.22 M/L [facility] Hemoglobin 9.9 (L) 11.2 - 15.7 GM/DL [facility] Hematocrit 29.5 (L) 34.1 - 44.9 % [facility] MCV 96.1 (H) 79.4 - 94.[address] [facility] MCH 32.2 25.6 - 32.[address] [facility] MCHC 33.6 32.2 - 35.5 GM/DL [facility] RDW 13.4 11.7 - 14.4 % [facility] Platelets 97 (L) 150 - 450 K/CU MM [facility] MPV 10.7 9.4 - 12.[address] [facility] nRBC 0 0 - 0 /[address] [facility] % Neutros 82 % [facility] % Lymphs 10 % [facility] % Monos 8 % [facility] % Eos 0 % [facility] % Baso 0 % [facility] # Neutros 7.76 (H) 1.56 - 6.13 K/L [facility] # Lymphs 0.93 (L) 1.18 - 3.74 K/L [facility] # Monos 0.75 (H) 0.24 - 0.36 K/L [facility] # Eos 0.01 (L) 0.04 - 0.36 K/L [facility] # Baso 0.03 0.01 - 0.08 K/L [facility] Immature Granulocytes-Relative 0 0 - 1 % [facility] Specimen Blood Performing Organization Address [facility] Phone Number [address] [address] [phone] [place] Lactic acid, venous, whole blood Daily (03/31/2018 4:20 AM INDUSTRIAL EDUCATION TEACHER)Only the most recent of5 resultswithin the time period is included. Lactate, Venous 0.8 0.5 - 2.2 mmol/L [facility] Specimen Blood Performing Organization Address [facility] Phone Number [address] [address] [phone] [place] Triglycerides (03/31/2018 4:20 AM INDUSTRIAL EDUCATION TEACHER) Triglycerides 85 mg/dL [facility] Specimen Blood Narrative Performed At TRIGLYCERIDE REFERENCE RANGE [facility] Low Risk<150 Borderline Risk 150-199 High Hbxd591-721 Very High Risk >=500 Performing Organization Address [facility] Phone Number [address] [address] [phone] [place] Creatine Kinase (CK) (03/31/2018 4:20 AM INDUSTRIAL EDUCATION TEACHER)Only the most recent of2 resultswithin the time period is included. Total CK 969 (H) 29 - 200 U/L [facility] Specimen Blood Performing Organization Address City/[facility] Phone Number [address] [address] [place] Comprehensive metabolic panel (03/31/2018 4:20 AM INDUSTRIAL EDUCATION TEACHER) Protein, Total 5.7 (L) 6.0 - 8.3 gm/dL [facility] Albumin 3.9 3.5 - 5.0 g/dL [facility] Alkaline Phosphatase 85 40 - 150 U/L [facility] Total Bilirubin 1.1 0.2 - 1.2 mg/dL [facility] Sodium 134 (L) 136 - 145 meq/L [facility] Potassium 2.9 (L) 3.5 - 5.1 meq/L [facility] Chloride 107 98 - 107 meq/L [facility] CO2 20 (L) 22 - 29 meq/L [facility] BUN 10 7 - 21 mg/dL [facility] Creatinine 0.58 0.57 - 1.25 mg/dL [facility] Glucose 105 70 - 105 mg/dL [facility] Calcium 8.3 (L) 8.4 - 10.2 mg/dL [facility] AST 60 (H) 5 - 34 U/L [facility] ALT 37 6 - 55 U/L [facility] EGFR 108Comment: ESTIMATED mL/min/1.[address] [facility] GFR IS NOT ACCURATE [facility] CREATININE CLEARANCE IN PREDICTING GLOMERULAR FILTRATION RATE. ESTIMATED GFR IS NOT APPLICABLE FOR DIALYSIS PATIENTS. Specimen Blood Performing Organization Address City/State/Zipcode Phone Number [place] [phone] [place] [address] [phone] CENTER XR chest 1 view portable / bedside (03/31/2018 3:12 AM INDUSTRIAL EDUCATION TEACHER)Only the most recent of3 resultswithin the time period is included. Specimen Narrative Performed At FINAL REPORT [facility] CLINICAL INDICATION: Support lines. Comparison: 03/30/2018 The cardiomediastinal contours are stable. There is no focal consolidation, pneumothorax, large pleural effusion or evidence of overt pulmonary edema. A feeding tube traverses examination to the upper abdomen. An endotracheal tube is stable. Signed: Leonides Guerra MD Report Verified Date/Time:03/31/2018 03:30:39 Reading Location: [address] Reading Room Procedure Note Interface, External Ris In - 03/31/2018 4:45 AM INDUSTRIAL EDUCATION TEACHER FINAL REPORT CLINICAL INDICATION: Support lines. Comparison: 03/30/2018 The cardiomediastinal contours are stable. There is no focal consolidation, pneumothorax, large pleural effusion or evidence of overt pulmonary edema. A feeding tube traverses examination to the upper abdomen. An endotracheal tube is stable. Signed: Leonides Guerra MD Report Verified Date/Time: 03/31/2018 03:30:39 Reading Location: [address] Reading Room Performing Organization Address City/State/Zipcode Phone Number GE RIS XR abdomen / KUB 1 view (03/30/2018 9:32 PM INDUSTRIAL EDUCATION TEACHER)Only the most recent of2 resultswithin the time [...] MD Report Verified Date/Time:03/30/2018 22:04:23 Reading Location: [address] Transitional Reading Room Procedure Note Interface, External Ris In - 03/30/2018 10:06 PM INDUSTRIAL EDUCATION TEACHER FINAL REPORT CLINICAL HISTORY: ngt placement TECHNIQUE: [...] Report Verified Date/Time: 03/30/2018 22:04:23 Reading Location: [address] Transitional Reading Room Performing Organization Address City/State/Zipcode Phone Number [facility] EEG monitoring with video recording each 24 hours (03/30/2018 7:00 AM INDUSTRIAL EDUCATION TEACHER) Specimen Narrative Performed At Date(s) of EE03/29/18 [facility] DATE OF REPORT: 03/30/18 ACC: [id number] EEG Number: [id number] Start time: 03/29/2018 at 17:52 Stop time: 03/29/2018 at 22:28 ICD-10: R56.9 CPT Code: 56069-52 REASON FOR EXAM: 57 yo female with PMHx of tobacco and marijuana abuse who is transferred from [facility] for treatment of sepsis and seizures in [...] its interpretation. Igor Garnica MD Attending Neurophysiologist [facility] Procedure Note Interface, External Ris In - 03/30/2018 4:39 PM INDUSTRIAL EDUCATION TEACHER Date(s) of EE03/29/18 DATE OF REPORT: 03/30/18 ACC: [id number] EEG Number: [id number] Start time: 03/29/2018 at 17:52 Stop time: 03/29/2018 at 22:28 ICD-10: R56.9 CPT Code: 39669-50 REASON FOR EXAM: 57 yo female with [...] its interpretation. Igor Garnica MD Attending Neurophysiologist [facility] Performing Organization Address City/State/Zipcode Phone Number GE RIS Basic Metabolic Panel (03/30/2018 4:37 AM INDUSTRIAL EDUCATION TEACHER) Sodium 136 136 - 145 meq/L [facility] Potassium 2.4 (LL) 3.5 - 5.1 meq/L [facility] Chloride 109 (H) 98 - 107 meq/L [facility] CO2 20 (L) 22 - 29 meq/L [facility] BUN 9 7 - 21 mg/dL [facility] Creatinine 0.49 (L) 0.57 - 1.25 mg/dL [facility] Glucose 80 70 - 105 mg/dL [facility] Calcium 8.0 (L) 8.4 - 10.2 mg/dL [facility] EGFR 131Comment: ESTIMATED GFR IS mL/min/1.73 sq m [facility] NOT ACCURATE [facility] CLEARANCE IN PREDICTING GLOMERULAR FILTRATION RATE. ESTIMATED GFR IS NOT APPLICABLE FOR DIALYSIS PATIENTS. Specimen Blood Performing Organization Address City/State/Zipcode Phone Number [facility] [address] [place] [address] CENTER CTA carotid (03/29/2018 11:07 PM INDUSTRIAL EDUCATION TEACHER) Specimen Narrative Performed At FINAL REPORT [employer] CLINICAL HISTORY: Stroke TECHNIQUE: Initially, noncontrast head [...] MD Report Verified Date/Time:03/29/2018 23:38:34 Reading Location: [address] Transitional Reading Room Procedure Note Interface, External Ris In - 03/29/2018 11:40 PM INDUSTRIAL EDUCATION TEACHER FINAL REPORT CLINICAL HISTORY: Stroke TECHNIQUE: Initially, [...] Report Verified Date/Time: 03/29/2018 23:38:34 Reading Location: [facility] B1 C013T Transitional Reading Room Performing Organization Address City/State/Zipcode Phone Number ROMIE SANTIAGO CTA brain (03/29/2018 11:07 PM INDUSTRIAL EDUCATION TEACHER) Specimen Narrative Performed At FINAL REPORT ROMIE [...] MD Report Verified Date/Time:03/29/2018 23:38:34 Reading Location: [address] Transitional Reading Room Procedure Note Interface, External Ris In - 03/29/2018 11:40 PM INDUSTRIAL EDUCATION TEACHER FINAL REPORT CLINICAL HISTORY: Stroke TECHNIQUE: Initially, [...] Report Verified Date/Time: 03/29/2018 23:38:34 Reading Location: [facility] B1 C013T Transitional Reading Room Performing Organization Address City/State/Zipcode Phone Number [employer] EEG AWAKE AND DROWSY (03/29/2018 5:52 PM INDUSTRIAL EDUCATION TEACHER) Specimen Narrative Performed At Date(s) of EE03/29/18 [facility]IS DATE OF REPORT: 03/29/18 ACC: [id number] EEG Number: [id number] Start time: 17:29 Stop time: 17:52 ICD-10: R56.9 CPT Code: 34229 REASON FOR EXAM: 57 yo female with [...] Clinical Neurophysiology Fellow Arturo Walker [facility] Attending Neurophysiologist [facility] Procedure Note Interface, External Ris In - 03/29/2018 10:21 PM INDUSTRIAL EDUCATION TEACHER Date(s) of EE03/29/18 DATE OF REPORT: 03/29/18 ACC: [id number] EEG Number: [id number] Start time: 17:29 Stop time: 17:52 ICD-10: R56.9 CPT Code: 60536 REASON FOR EXAM: 57 yo female with [...] Clinical Neurophysiology Fellow Arturo Walker [facility] Attending Neurophysiologist [facility] Performing Organization Address [facility] Phone Number [facility] Procalcitonin (03/29/2018 5:00 PM INDUSTRIAL EDUCATION TEACHER) Procalcitonin 0.42 (H) <0.05 ng/mL [facility] Specimen Blood Narrative Performed At SEPSIS RISK (ng/mL) [facility] Low:0.05-0.50 Intermediate: 0.51-2.00 High: >=2.01 Performing Organization Address [facility] Phone Number [address] [address] [phone] [place] aPTT (03/29/2018 5:00 PM INDUSTRIAL EDUCATION TEACHER) PTT 29.1 22.5 - 36.[address] [facility] Specimen Blood Performing Organization Address [facility] Phone Number [address] [address] [place] Prothrombin time/INR (03/29/2018 5:00 PM INDUSTRIAL EDUCATION TEACHER) Protime 14.6 11.7 - 14.[address] [facility] INR 1.1 <=5.9 [facility] Specimen Blood Narrative Performed At RECOMMENDED COUMADIN/WARFARIN INR THERAPY [facility] RANGES STANDARD DOSE: 2.0 - 3.0 Includes: PROPHYLAXIS for venous thrombosis, systemic embolization; TREATMENT for venous thrombosis and/or pulmonary embolus. HIGH RISK: Target INR is 2.5-3.5 for patients with mechanical heart valves. Performing Organization Address City/State/Zipcode Phone Number [address] [address] [place] Ethanol (03/29/2018 5:00 PM INDUSTRIAL EDUCATION TEACHER) Ethanol Lvl <10 <=10 mg/dL [facility] – [facility] Specimen Blood Performing Organization Address City/[facility]/Zipcode Phone Number [address] [address] [phone] [place] Blood culture #2 (03/29/2018 4:59 PM INDUSTRIAL EDUCATION TEACHER)Only the most recent of2 resultswithin the time period is included. Result No growth in [address] [facility] Specimen Blood Performing Organization Address [facility] Phone Number [address] [address] [place] after 01/08/2018 Advance Directives For more information, please contact:[address] [phone] Code Status Date Activated Date Inactivated Comments Full Code 08/01/2017 7:39 AM 08/01/2017 7:46 PM This code status was determined by: Patient
--- OUTSIDE RECORDS SUMMARY | 2019-01-09 15:30 | XMS REPORT ---
:1960 [facility] Address [address] [place] [address] Care Team Providers Name Role Phone MARTIN [...] Value Reference Range Comments CULTURE (BEAKER) (test vbnl=4145) No growth in 5 days BLOOD [id number] 23:01:00 Test Item Value Reference Range Comments CULTURE (BEAKER) (test snyw=6407) No growth in 5 days [id number] 13:27:00 Test Item Value Reference Range Comments POTASSIUM (BEAKER) (test gqbp=125) 4.0 meq/L 3.5-5.1 PLATELET [id number] 12:44:00 Test Item Value Reference Range Comments PLATELET COUNT (BEAKER) (test zfoz=888) 149 K/CU MM 150-450 POCT-GLUCOSE [id number] 12:14:00 Test Item Value Reference Range Comments POC-GLUCOSE METER (BEAKER) 137 mg/dL 70-110 TESTED AT [address] (test dioj=0963) [facility] [address] EEG MONITORING WITH VIDEO RECORDING EACH 24 [id number] 11:38:00For STAT EEG - after 5 PM weekdays, weekends and holidays, page the on-call EEG TechReason for exam:->SeizureDate(s) of EE03/29/18; 03/30/18;03/31/2018DATE OF REPORT : 03/31/18ACC: [id number] Number: [id number] time: 03/30/2018 at 09:41Stop time: 03/30/2018 at 05:41ICD-10: R56.9CPT Code: 52197DSQHIH FOR EXAM: 57 yo female with PMHx [...] M.D. , FACNS, FAAN, FAESProfessor of Neurology, [facility] Community HospitalDirector, [facility] Epilepsy CenterAkron Children'S HospitalD[facility]children[facility] Neurophysiology Lab BLOOD GAS , [id number] 11:32:00 Test Item Value Reference Range Comments PH VENOUS (BEAKER) (test kqpx=841) 7.40 7.32-7.42 PCO2 VENOUS (BEAKER) (test psrw=308) 38 mmHg 41-51 PO2 VENOUS (BEAKER) (test aovn=743) 71 mmHg 25-40 O2 SATURATION VENOUS (BEAKER) (test tcpw=513) 94.4 % 40.0-70.0 HCO3 VENOUS (BEAKER) (test lpjv=047) 23 mmol/L 21-29 BASE EXCESS VENOUS (BEAKER) (test uoyd=177) -1.2 mmol/L -2.0-3.0 PATIENT TEMPERATURE (BEAKER) (test gtvw=8633) 37.0 C FIO2 (BEAKER) (test damc=9005) 50.0 % POCT-GLUCOSE [id number] 06:16:00 Test Item Value Reference Range Comments POC-GLUCOSE METER (BEAKER) 130 mg/dL 70-110 TESTED AT [facility] [address] [facility] (test jkmi=6936) [facility] [address] CBC W/PLT COUNT & AUTO [id number] 05:59:00 Test Item Value Reference Range Comments WHITE BLOOD CELL COUNT (BEAKER) (test gpnw=210) 9.5 K/ L 3.5-10.5 RED BLOOD CELL COUNT (BEAKER) (test wygy=367) 3.07 M/ L 3.93-5.22 HEMOGLOBIN (BEAKER) (test gfes=265) 9.9 GM/DL 11.2-15.7 HEMATOCRIT (BEAKER) (test wqlf=657) 29.5 % 34.1-44.9 MEAN CORPUSCULAR VOLUME (BEAKER) (test hcgk=800) 96.1 fL 79.4-94.8 MEAN CORPUSCULAR HEMOGLOBIN (BEAKER) (test 32.2 pg 25.6-32.2 nsov=956) MEAN CORPUSCULAR HEMOGLOBIN CONC (BEAKER) (test 33.6 GM/DL 32.2-35.5 sbpw=089) RED CELL DISTRIBUTION WIDTH (BEAKER) (test 13.4 % 11.7-14.4 aupm=829) PLATELET COUNT (BEAKER) (test xgkf=434) 97 K/CU MM 150-450 MEAN PLATELET VOLUME (BEAKER) (test ttol=269) 10.7 fL 9.4-12.3 NUCLEATED RED BLOOD CELLS (BEAKER) (test 0 /100 WBC 0-0 gnnh=567) NEUTROPHILS RELATIVE PERCENT (BEAKER) (test 82 % jndh=532) LYMPHOCYTES RELATIVE PERCENT (BEAKER) (test 10 % jdka=669) MONOCYTES RELATIVE PERCENT (BEAKER) (test 8 % rdwe=340) EOSINOPHILS RELATIVE PERCENT (BEAKER) (test 0 % jlvv=100) BASOPHILS RELATIVE PERCENT (BEAKER) (test 0 % uhrd=862) NEUTROPHILS ABSOLUTE COUNT (BEAKER) (test 7.76 K/ L 1.56-6.13 afps=210) LYMPHOCYTES ABSOLUTE COUNT (BEAKER) (test 0.93 K/ L 1.18-3.74 mmji=943) MONOCYTES ABSOLUTE COUNT (BEAKER) (test hrmh=321) 0.75 K/ L 0.24-0.36 EOSINOPHILS ABSOLUTE COUNT (BEAKER) (test 0.01 K/ L 0.04-0.36 qqqk=685) BASOPHILS ABSOLUTE COUNT (BEAKER) (test ozvd=995) 0.03 K/ L 0.01-0.08 IMMATURE GRANULOCYTES-RELATIVE PERCENT (BEAKER) 0 % 0-1 (test fkdq=4445) COMPREHENSIVE METABOLIC [id number] 05:19:00 Test Item Value Reference Range Comments TOTAL PROTEIN (BEAKER) 5.7 gm/dL 6.0-8.3 (test kyvv=069) ALBUMIN (BEAKER) (test 3.9 g/dL 3.5-5.0 nolu=4746) ALKALINE PHOSPHATASE 85 U/L 40-150 (BEAKER) (test qffs=194) BILIRUBIN TOTAL (BEAKER) 1.1 mg/dL 0.2-1.2 (test uhfz=472) SODIUM (BEAKER) (test 134 meq/L 136-145 ziag=441) POTASSIUM (BEAKER) (test 2.9 meq/L 3.5-5.1 lxgk=104) CHLORIDE (BEAKER) (test 107 meq/L 98-107 rllo=175) CO2 (BEAKER) (test 20 meq/L 22-29 inqr=229) BLOOD UREA NITROGEN 10 mg/dL 7-21 (BEAKER) (test hwwz=294) CREATININE (BEAKER) (test 0.58 mg/dL 0.57-1.25 mhgx=483) GLUCOSE RANDOM (BEAKER) 105 mg/dL 70-105 (test gilk=708) CALCIUM (BEAKER) (test 8.3 mg/dL 8.4-10.2 xcss=687) AST (SGOT) (BEAKER) (test 60 U/L 5-34 offh=840) ALT (SGPT) (BEAKER) (test 37 U/L 6-55 ktqv=029) EGFR (BEAKER) (test 108 mL/min/1.73 sq ESTIMATED GFR IS NOT tpne=0253) m ACCURATE CREATININE CLEARANCE IN PREDICTING GLOMERULAR FILTRATION RATE. ESTIMATED GFR IS NOT APPLICABLE FOR DIALYSIS PATIENTS. CREATINE KINASE (CK)2018-03-31 05:19:00 Test Item Value Reference Range Comments CREATINE KINASE TOTAL (BEAKER) (test ligb=294) 969 U/L 29-200 [id number] 05:05:00 Test Item Value Reference Range Comments TRIGLYCERIDES (BEAKER) (test rwcr=313) 85 mg/dL TRIGLYCERIDE REFERENCE RANGELow Risk <150Borderline Risk 150-199High Risk 200-499Very High Risk>=500BLOOD GAS, [id number] 05:01:00 Test Item Value Reference Range Comments PH ARTERIAL (BEAKER) (test gnvp=385) 7.45 7.35-7.45 PCO2 ARTERIAL (BEAKER) (test eaqe=956) 29 mmHg 35-45 PO2 ARTERIAL (BEAKER) (test zmyo=038) 175 mmHg 80-90 O2 SATURATION ARTERIAL (BEAKER) (test nnyq=259) 99.3 % 96.0-97.0 HCO3 ARTERIAL (BEAKER) (test pqjw=929) 19 mmol/L 21-29 BASE EXCESS ARTERIAL (BEAKER) (test ixux=120) -3.8 mmol/L -2.0-3.0 PATIENT TEMPERATURE (BEAKER) (test biho=9921) 37.0 C FIO2 (BEAKER) (test lcrs=6564) 50.0 % LACTIC ACID, VENOUS, WHOLE [id number] 05:01:00 Test Item Value Reference Range Comments LACTATE BLOOD VENOUS (2) (BEAKER) (test 0.8 mmol/L 0.5-2.2 wgan=7707) RAD, CHEST, 1 VIEW, NON [id number] 03:30:00Reason for exam:->ETTShould this be performed at the bedside?->YesFINAL REPORT CLINICAL INDICATION: Support lines. Comparison: 03/30/2018 The cardiomediastinal contours are stable. There is no focal consolidation, pneumothorax, large pleural effusion or evidence of overt pulmonary edema. A feeding tube traverses examination to the upper abdomen. An endotracheal tube is stable. Signed: Leonides Guerraeport Verified Date/Time: 03/31/2018 03:30: 39 Reading Location: [address] Reading Room POCT-GLUCOSE [id number] 23:48:00 Test Item Value Reference Range Comments POC-GLUCOSE METER (BEAKER) 70 mg/dL 70-110 TESTED AT [address] (test xbno=3695) [facility] [address] RAD, ABDOMEN/KUB, 1 VIEW [id number] 22:04:00Reason for exam:->ngt placement Should this be [...] Day Verified Date/Time: 03/30/2018 22:04:23 Reading Location: [address] Reading Room POCT-GLUCOSE [id number] 17:50:00 Test Item Value Reference Range Comments POC-GLUCOSE METER (BEAKER) 68 mg/dL 70-110 Notified AIME MCINTOSH/TESTED AT [facility] (test qcks=8438) [address] [place] [address] EEG MONITORING WITH VIDEO RECORDING EACH 24 [id number] 16:39:00c/f subclinical seizuresDate(s) of EE03/29/18 DATE OF REPORT: 03/30/18 ACC: [id number] EEG Number: [id number] Start time: 03/29/2018 at 17:52 Stop time: 2017 at 22:28 ICD-10: R56.9 CPT Code: 10579-45 REASON FOR EXAM: 57 yo female with [...] interpretation. Igor Garnica MD Attending Neurophysiologist [facility] RAD, ABDOMEN/ KUB, 1 VIEW [id number] 14:37:00Reason for exam:->NGT placementFINAL REPORT CLINICAL HISTORY: NGT placement TECHNIQUE: Two supine views of the abdomen. IMPRESSION: The tip of the feeding tube is at the gastroesophageal junction and should beadvanced into the stomach. The bowel gas pattern is nonspecific. Signed: Anahi Leigh MDReport Verified Date/Time: 14:37:17 Reading Location: [address] Consult Reading Room POCT- GLUCOSE [id number] 12:10:00 Test Item Value Reference Range Comments POC-GLUCOSE METER (BEAKER) 76 mg/dL 70-110 TESTED AT [address] (test rttm=9741) [facility] [address] RAD, CHEST, 1 VIEW, NON [id number] 07:16:00Reason for exam:->ETTShould this be performed at [...] MDReport Verified Date/Time: 03/30/2018 07:16:21 Reading Location: [facility] C013V Neuro Reading Room POCT-GLUCOSE [id number] 06:54:00 Test Item Value Reference Range Comments POC-GLUCOSE METER (BEAKER) 77 mg/dL 70-110 TESTED AT [facility] [address] [facility] (test oqac=9544) [facility] [address] BASIC METABOLIC [id number] 06:01:00 Test Item Value Reference Range Comments SODIUM (BEAKER) (test 136 meq/L 136-145 bpco=725) POTASSIUM (BEAKER) (test 2.4 meq/L 3.5-5.1 kyxk=936) CHLORIDE (BEAKER) (test 109 meq/L 98-107 tkge=947) CO2 (BEAKER) (test 20 meq/L 22-29 hwcs=706) BLOOD UREA NITROGEN 9 mg/dL 7-21 (BEAKER) (test tjgn=218) CREATININE (BEAKER) (test 0.49 mg/dL 0.57-1.25 ymka=711) GLUCOSE RANDOM (BEAKER) 80 mg/dL 70-105 (test bycd=957) CALCIUM (BEAKER) (test 8.0 mg/dL 8.4-10.2 ekcb=855) EGFR (BEAKER) (test 131 mL/min/1.73 sq m ESTIMATED GFR IS NOT wnhm=3887) ACCURATE CREATININE CLEARANCE IN PREDICTING GLOMERULAR FILTRATION RATE. ESTIMATED GFR IS NOT APPLICABLE FOR DIALYSIS PATIENTS. LACTIC ACID, VENOUS, WHOLE [id number] 05:46:00 Test Item Value Reference Range Comments LACTATE BLOOD VENOUS (2) (BEAKER) (test 0.5 mmol/L 0.5-2.2 gcrj=1910) CBC W/PLT COUNT & AUTO [id number] 05:40:00 Test Item Value Reference Range Comments WHITE BLOOD CELL COUNT (BEAKER) (test tpho=131) 8.0 K/ L 3.5-10.5 RED BLOOD CELL COUNT (BEAKER) (test fpor=076) 3.03 M/ L 3.93-5.22 HEMOGLOBIN (BEAKER) (test coiv=864) 9.7 GM/DL 11.2-15.7 HEMATOCRIT (BEAKER) (test jfnw=331) 29.7 % 34.1-44.9 MEAN CORPUSCULAR VOLUME (BEAKER) (test nzxv=096) 98.0 fL 79.4-94.8 MEAN CORPUSCULAR HEMOGLOBIN (BEAKER) (test 32.0 pg 25.6-32.2 vhlt=187) MEAN CORPUSCULAR HEMOGLOBIN CONC (BEAKER) (test 32.7 GM/DL 32.2-35.5 pneb=327) RED CELL DISTRIBUTION WIDTH (BEAKER) (test 13.6 % 11.7-14.4 aqlk=075) PLATELET COUNT (BEAKER) (test kmrg=656) 140 K/CU MM 150-450 MEAN PLATELET VOLUME (BEAKER) (test aesj=595) 9.4 fL 9.4-12.3 NUCLEATED RED BLOOD CELLS (BEAKER) (test 0 /100 WBC 0-0 kdur=769) NEUTROPHILS RELATIVE PERCENT (BEAKER) (test 75 % iikd=020) LYMPHOCYTES RELATIVE PERCENT (BEAKER) (test 14 % parh=770) MONOCYTES RELATIVE PERCENT (BEAKER) (test 10 % uqmd=304) EOSINOPHILS RELATIVE PERCENT (BEAKER) (test 0 % vhzs=507) BASOPHILS RELATIVE PERCENT (BEAKER) (test 0 % fkcn=458) NEUTROPHILS ABSOLUTE COUNT (BEAKER) (test 5.98 K/ L 1.56-6.13 aeno=783) LYMPHOCYTES ABSOLUTE COUNT (BEAKER) (test 1.15 K/ L 1.18-3.74 iyfh=722) MONOCYTES ABSOLUTE COUNT (BEAKER) (test 0.81 K/ L 0.24-0.36 nxla=856) EOSINOPHILS ABSOLUTE COUNT (BEAKER) (test 0.01 K/ L 0.04-0.36 udfn=940) BASOPHILS ABSOLUTE COUNT (BEAKER) (test 0.03 K/ L 0.01-0.08 bgsl=025) IMMATURE GRANULOCYTES-RELATIVE PERCENT (BEAKER) 0 % 0-1 (test yjby=6272) BLOOD GAS, [id number] 05:38:00 Test Item Value Reference Range Comments PH ARTERIAL (BEAKER) (test khep=071) 7.42 7.35-7.45 PCO2 ARTERIAL (BEAKER) (test yjpg=450) 32 mmHg 35-45 PO2 ARTERIAL (BEAKER) (test mkxw=818) 131 mmHg 80-90 O2 SATURATION ARTERIAL (BEAKER) (test ydqe=074) 98.7 % 96.0-97.0 HCO3 ARTERIAL (BEAKER) (test mqzd=670) 20 mmol/L 21-29 BASE EXCESS ARTERIAL (BEAKER) (test ucpi=346) -3.3 mmol/L -2.0-3.0 PATIENT TEMPERATURE (BEAKER) (test ejda=9430) 36.8 C FIO2 (BEAKER) (test hxng=5999) 50.0 % LACTIC ACID, VENOUS, WHOLE [id number] 00:48:00 Test Item Value Reference Range Comments LACTATE BLOOD VENOUS (2) (BEAKER) (test 1.8 mmol/L 0.5-2.2 zssj=2655) POCT-GLUCOSE [id number] 23:53:00 Test Item Value Reference Range Comments POC-GLUCOSE METER (BEAKER) 107 mg/dL 70-110 TESTED AT [address] (test pmbw=0258) [facility] [address] CT, CTANGIO [id number] 23:38:00FINAL REPORT CLINICAL HISTORY: Stroke TECHNIQUE: Initially, [...] arteries are otherwise patent. Signed: Abbey Dayssm rehab Verified Date/Time: 03/29/2018 23:38:34 Reading Location: [facility] C0[facility] Transitional Reading Room CT, CAROTID, [id number] 23:38: 00FINAL REPORT CLINICAL HISTORY: Stroke TECHNIQUE: [...] Dayeport Verified Date/Time: 03/29/2018 23:38:34 Reading Location: [address] Transitional Reading Room EEG AWAKE AND [id number] 22:21:00Baseline for cEEGDate(s) of EE03/29/18 DATE OF REPORT: 03/29/18 ACC: [id number] EEG Number: [id number] Start time: 17:29 Stop time: 17:52 ICD-10: R56.9 CPT Code: 25160 REASON FOR EXAM: 57 yo female with [...] Cao MD Clinical Neurophysiology Fellow [facility] Attending Neurophysiologist [facility] [place] POCT-GLUCOSE [id number] 18:57:00 Test Item Value Reference Range Comments POC-GLUCOSE METER (BEAKER) 90 mg/dL 70-110 TESTED AT [facility] [address] (test odhg=7905) [facility] [address] RAD, CHEST, 1 VIEW, NON [id number] 18:48:00Reason for exam:->TubeShould this be performed at [...] MDReport Verified Date/Time: 03/29/2018 18:48:13 Reading Location: [address] Consult Reading Room [id number] 18:04:00 Test Item Value Reference Range Comments PROCALCITONIN (BEAKER) (test wzpd=0427) 0.42 ng/mL <0.05 SEPSIS RISK (ng/mL)Low: 0.05-0.50Intermediate: 0.51-2.00High: & gt;=2.01CREATINE KINASE (CK)2018-03-29 17:58:00 Test Item Value Reference Range Comments CREATINE KINASE TOTAL (BEAKER) (test yemv=042) 983 U/L 29-200 [id number] 17:43:00 Test Item Value Reference Range Comments ETHANOL (BEAKER) (test vbib=760) < mg/dL <=10 LACTIC ACID, VENOUS, WHOLE [id number] 17:42:00 Test Item Value Reference Range Comments LACTATE BLOOD VENOUS (2) 0.6 mmol/L 0.5-2.2 Specimen slightly hemolyzed (BEAKER) (test ockr=1613) LACTIC ACID, VENOUS, WHOLE [id number] 17:42:00 Test Item Value Reference Range Comments LACTATE BLOOD VENOUS (2) 1.6 mmol/L 0.5-2.2 Specimen slightly hemolyzed (BEAKER) (test taxt=4380) PROTHROMBIN [id number] 17:34:00 Test Item Value Reference Range Comments PROTIME (BEAKER) (test aldu=000) 14.6 seconds 11.7-14.7 INR (BEAKER) (test ugnc=803) 1.1 <=5.9 RECOMMENDED COUMADIN/WARFARIN INR THERAPY RANGESSTANDARD DOSE: 2.0 - 3.0 Includes: PROPHYLAXIS forvenous thrombosis, systemic embolization; TREATMENT for venous thrombosis and/or pulmonary embolus.HIGH RISK: Target INR is 2.5-3.5 for patients with mechanical heart valves.[id number] 17:34:00 Test Item Value Reference Range Comments PARTIAL THROMBOPLASTIN TIME (BEAKER) (test 29.1 seconds 22.5-36.0 enep=706) BLOOD GAS, [id number] 17:33:00 Test Item Value Reference Range Comments PH ARTERIAL (BEAKER) (test rztq=190) 7.42 7.35-7.45 PCO2 ARTERIAL (BEAKER) (test jshp=754) 35 mmHg 35-45 PO2 ARTERIAL (BEAKER) (test wirx=466) 277 mmHg 80-90 O2 SATURATION ARTERIAL (BEAKER) (test woex=549) 99.7 % 96.0-97.0 HCO3 ARTERIAL (BEAKER) (test bezw=117) 22 mmol/L 21-29 BASE EXCESS ARTERIAL (BEAKER) (test mvab=399) -1.3 mmol/L -2.0-3.0 PATIENT TEMPERATURE (BEAKER) (test hipa=0469) 38.0 C FIO2 (BEAKER) (test iimm=8498) 50.0 % POCT-GLUCOSE [id number] 16:39:00 Test Item Value Reference Range Comments POC-GLUCOSE METER (BEAKER) 110 mg/dL 70-110 TESTED AT [address] (test fugo=3757) [facility] [address] URINE [id number] 11:34:00 Test Item Value Reference Range Comments CULTURE (BEAKER) (test 40-49,000 col/mL skin dakotah zjqs=7200) POCT-GLUCOSE [id number] 15:55:00 Test Item Value Reference Range Comments POC-GLUCOSE METER (BEAKER) 80 mg/dL 70-110 TESTED AT [address] (test wpuo=0265) [facility] [address] URINALYSIS W/ [id number] 14:34:00 Test Item Value Reference Range Comments COLOR (BEAKER) (test ebxe=932) Light Yellow CLARITY (BEAKER) (test egnh=757) Clear SPECIFIC GRAVITY UA (BEAKER) (test nexd=501) 1.009 1.001-1.035 PH UA (BEAKER) (test dxge=372) 7.0 5.0-8.0 PROTEIN UA (BEAKER) (test xwsn=465) Negative Negative GLUCOSE UA (BEAKER) (test pdat=891) Negative Negative KETONES UA (BEAKER) (test dkjn=864) Negative Negative BILIRUBIN UA (BEAKER) (test rseo=301) Negative Negative BLOOD UA (BEAKER) (test uvjz=168) Small Negative NITRITE UA (BEAKER) (test mvxq=801) Negative Negative LEUKOCYTE ESTERASE UA (BEAKER) (test zyyf=619) Negative Negative UROBILINOGEN UA (BEAKER) (test ooah=164) 0.2 mg/dL 0.2-1.0 RBC UA (BEAKER) (test dwvs=105) 2 /HPF WBC UA (BEAKER) (test udir=618) < /HPF MUCUS (BEAKER) (test ugig=7917) Rare SQUAMOUS EPITHELIAL (BEAKER) (test qtpu=799) < /HPF SOURCE(BEAKER) (test klnq=3445) RAPID DRUG SCREEN, [id number] 13:10:00 Test Item Value Reference Range Comments BARBITURATE URINE (BEAKER) (test ekop=051) Negative Negative BENZODIAZEPINE SCREEN URINE (BEAKER) (test Negative Negative eusm=049) COCAINE (METAB.) SCREEN (BEAKER) (test bvyi=6191) Negative Negative METHADONE SCREEN (BEAKER) (test turu=8581) Negative Negative OPIATE SCREEN URINE (BEAKER) (test vbik=297) Negative Negative CANNABINOID SCREEN URINE (BEAKER) (test kagd=079) Negative Negative AMPH/METHAMPH SCREEN (BEAKER) (test yhhv=1429) Negative Negative PHENCYCLIDINE SCREEN URINE (BEAKER) (test jgli=276) Negative Negative OXYCODONE SCREEN URINE (BEAKER) (test uxjx=0090) Negative Negative DRUG CUTOFF CONC.Cocaine 300 ng/mL Cannabinoid 50 ng/mL Benzodiazepine 200 ng/mLBarbiturate 200 ng/ mLPhencyclidine 25 ng/mLOpiate 300 ng/mLMethadone 300 ng/mLAmphetamine/ 1000 ng/mL MethamphetamineOxycodone 300 ng/mLThis assay provides an unconfirmed qualitative test result for the clinical management of patients in emergency situations. Chain of custody not maintained. Some gptb-wuj-vrchofo medications, as well as adulterants, may cause inaccurate results. Clinical correlation should be applied. A more comprehensive drug screen or confirmation of a detected drug may be performed upon request.POCT-GLUCOSE [id number] 11:49:00 Test Item Value Reference Range Comments POC-GLUCOSE METER (BEAKER) 93 mg/dL 70-110 TESTED AT [facility] [address] [facility] (test llpm=6925) [facility] [address] [id number] 10:40:00 Test Item Value Reference Range Comments PHOSPHORUS (BEAKER) (test owya=306) 3.0 mg/dL 2.3-4.7 [id number] 10:40:00 Test Item Value Reference Range Comments MAGNESIUM (BEAKER) (test xsto=501) 2.6 mg/dL 1.6-2.6 BASIC METABOLIC [id number] 10:40:00 Test Item Value Reference Range Comments SODIUM (BEAKER) (test 139 meq/L 136-145 rglp=728) POTASSIUM (BEAKER) (test 3.8 meq/L 3.5-5.1 ojfb=323) CHLORIDE (BEAKER) (test 105 meq/L 98-107 kyee=150) CO2 (BEAKER) (test 22 meq/L 22-29 ztrd=658) BLOOD UREA NITROGEN 9 mg/dL 7-21 (BEAKER) (test obcy=597) CREATININE (BEAKER) (test 0.61 mg/dL 0.57-1.25 jpnd=839) GLUCOSE RANDOM (BEAKER) 86 mg/dL 70-105 (test urdr=653) CALCIUM (BEAKER) (test 9.5 mg/dL 8.4-10.2 jdwm=582) EGFR (BEAKER) (test 102 mL/min/1.73 sq m ESTIMATED GFR IS NOT quou=4153) ACCURATE CREATININE CLEARANCE IN PREDICTING GLOMERULAR FILTRATION RATE. ESTIMATED GFR IS NOT APPLICABLE FOR DIALYSIS PATIENTS. HEPATIC FUNCTION [id number] 10:40:00 Test Item Value Reference Range Comments TOTAL PROTEIN (BEAKER) (test huxg=984) 7.5 gm/dL 6.0-8.3 ALBUMIN (BEAKER) (test zmwv=8054) 4.4 g/dL 3.5-5.0 BILIRUBIN TOTAL (BEAKER) (test cdxc=888) 0.9 mg/dL 0.2-1.2 BILIRUBIN DIRECT (BEAKER) (test vfkx=017) 0.3 mg/dL 0.1-0.5 ALKALINE PHOSPHATASE (BEAKER) (test lzdi=322) 108 U/L 40-150 AST (SGOT) (BEAKER) (test jngg=672) 28 U/L 5-34 ALT (SGPT) (BEAKER) (test hotp=283) 18 U/L 6-55 CBC W/PLT COUNT & AUTO [id number] 09:28:00 Test Item Value Reference Range Comments WHITE BLOOD CELL COUNT (BEAKER) (test dyri=687) 8.8 K/ L 3.5-10.5 RED BLOOD CELL COUNT (BEAKER) (test zsqr=792) 4.39 M/ L 3.93-5.22 HEMOGLOBIN (BEAKER) (test bxla=315) 13.9 GM/DL 11.2-15.7 HEMATOCRIT (BEAKER) (test tnqy=498) 41.6 % 34.1-44.9 MEAN CORPUSCULAR VOLUME (BEAKER) (test fwoa=503) 94.8 fL 79.4-94.8 MEAN CORPUSCULAR HEMOGLOBIN (BEAKER) (test 31.7 pg 25.6-32.2 kqgg=139) MEAN CORPUSCULAR HEMOGLOBIN CONC (BEAKER) (test 33.4 GM/DL 32.2-35.5 bbqo=682) RED CELL DISTRIBUTION WIDTH (BEAKER) (test 13.1 % 11.7-14.4 zrqx=064) PLATELET COUNT (BEAKER) (test rgkm=885) 234 K/CU MM 150-450 MEAN PLATELET VOLUME (BEAKER) (test zunl=119) 9.0 fL 9.4-12.3 NUCLEATED RED BLOOD CELLS (BEAKER) (test 0 /100 WBC 0-0 qyyi=634) NEUTROPHILS RELATIVE PERCENT (BEAKER) (test 69 % mnim=169) LYMPHOCYTES RELATIVE PERCENT (BEAKER) (test 22 % ykeb=595) MONOCYTES RELATIVE PERCENT (BEAKER) (test 9 % jzga=007) EOSINOPHILS RELATIVE PERCENT (BEAKER) (test 0 % zoie=550) BASOPHILS RELATIVE PERCENT (BEAKER) (test 0 % ugwt=305) NEUTROPHILS ABSOLUTE COUNT (BEAKER) (test 6.05 K/ L 1.56-6.13 rtou=339) LYMPHOCYTES ABSOLUTE COUNT (BEAKER) (test 1.91 K/ L 1.18-3.74 bgcx=094) MONOCYTES ABSOLUTE COUNT (BEAKER) (test 0.76 K/ L 0.24-0.36 nftb=654) EOSINOPHILS ABSOLUTE COUNT (BEAKER) (test 0.01 K/ L 0.04-0.36 jack=681) BASOPHILS ABSOLUTE COUNT (BEAKER) (test 0.03 K/ L 0.01-0.08 xitw=639) IMMATURE GRANULOCYTES-RELATIVE PERCENT (BEAKER) 0 % 0-1 (test vovt=8674) PROTHROMBIN [id number] 09:23:00 Test Item Value Reference Range Comments PROTIME (BEAKER) (test qobd=063) 13.5 seconds 11.7-14.7 INR (BEAKER) (test umml=453) 1.0 <=5.9 RECOMMENDED COUMADIN/WARFARIN INR THERAPY RANGESSTANDARD DOSE: 2.0 - 3.0 Includes: PROPHYLAXIS forvenous thrombosis, systemic embolization; TREATMENT for venous thrombosis and/or pulmonary embolus.HIGH RISK: Target INR is 2.5-3.5 for patients with mechanical heart valves.POCT-GLUCOSE [id number] 07:05:00 Test Item Value Reference Range Comments POC-GLUCOSE METER (BEAKER) 96 mg/dL 70-110 TESTED AT [address] (test lsmz=8018) [facility] [id number]
[2019-01-09 16:28] LABS: Absolute Lymphocytes (CBC) 1.6 K/uL (0.7-4.9); Basophils % 0.7 % (0-1.3); Hematocrit 43.8 % (36.0-45.0); Lymphocytes % 19.7 % (15.3-44.8); MPV 7.8 fL (7.6-11.3)
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
--- NOTE | 2019-01-09 16:36 | EDPHYS ---
Physician Documentation [facility] Name: Kena Cutler Age: 58 yrs Sex: Female : 1960 Arrival Date: 01/09/2019 Time: 15:34 Bed 16 Private MD: ED Physician Aravind Hobson HPI: 01/09 16:27 This 58 yrs old Female presents to ER via Law Enforcement with complaints of brock suicidal ideation. 16:27 The patient presents to the emergency department with depression, suicide ideation, and brock the patient has a plan. Onset: The symptoms/episode began/occurred 2 day(s) ago. Past psychiatric history: Prior diagnosis: depression. Associated signs and symptoms: Pertinent positives; substance abuse, suicide ideation. Severity of symptoms: At their worst the symptoms were moderate severe in the emergency department the symptoms have improved moderately. The patient has experienced similar episodes in the past, a few times. Historical: - Allergies: 15:58 No Known Allergies; hb - PMHx: 15:58 Substance Abuse; hb - PSHx: 15:58 None; hb - Immunization history:: Adult Immunizations up to date. - Social history:: Smoking status: Patient uses tobacco products, smokes one pack cigarettes per day. - Ebola Screening: : No symptoms or risks identified at this time. - Family history:: not pertinent. ROS: 16:27 Constitutional: Negative for fever, chills, and weight loss, Eyes: Negative for injury, brock pain, redness, and discharge, ENT: Negative for injury, pain, and discharge, Neck: Negative for injury, pain, and swelling, Cardiovascular: Negative for chest pain, palpitations, and edema, Respiratory: Negative for shortness of breath, cough, wheezing, and pleuritic chest pain, Abdomen/GI: Negative for abdominal pain, nausea, vomiting, diarrhea, and constipation, Back: Negative for injury and pain, : Negative for injury, bleeding, discharge, and swelling, Skin: Negative for injury, rash, and discoloration, Neuro: Negative for headache, weakness, numbness, tingling, and seizure, Psych: Negative for depression, anxiety, suicide ideation, homicidal ideation, and hallucinations, Allergy/Immunology: Negative for hives, rash, and allergies, Endocrine: Negative for neck swelling, polydipsia, polyuria, polyphagia, and marked weight changes, Hematologic/Lymphatic: Negative for swollen nodes, abnormal bleeding, and unusual bruising. 16:27 MS/extremity: Negative for acute changes. Exam: 16:27 Constitutional: This is a well developed, well nourished patient who is awake, alert, brock and in no acute distress. Head/Face: Normocephalic, atraumatic. Eyes: Pupils equal round and reactive to light, extra-ocular motions intact. Lids and lashes normal. Conjunctiva and sclera are non-icteric and not injected. Cornea within normal limits. Periorbital areas with no swelling, redness, or edema. ENT: Nares patent. No nasal discharge, no septal abnormalities noted. Tympanic membranes are normal and external auditory canals are clear. Oropharynx with no redness, swelling, or masses, exudates, or evidence of obstruction, uvula midline. Mucous membranes moist. Neck: Trachea midline, no thyromegaly or masses palpated, and no cervical lymphadenopathy. Supple, full range of motion without nuchal rigidity, or vertebral point tenderness. No Meningismus. Chest/axilla: Normal chest wall appearance and motion. Nontender with no deformity. No lesions are appreciated. Cardiovascular: Regular rate and rhythm with a normal S1 and S2. No gallops, murmurs, or rubs. Normal PMI, no JVD. No pulse deficits. Respiratory: Lungs have equal breath sounds bilaterally, clear to auscultation and percussion. No rales, rhonchi or wheezes noted. No increased work of breathing, no retractions or nasal flaring. Abdomen/GI: Soft, non-tender, with normal bowel sounds. No distension or tympany. No guarding or rebound. No evidence of tenderness throughout. Back: No spinal tenderness. No costovertebral tenderness. Full range of motion. Skin: Warm, dry with normal turgor. Normal color with no rashes, no lesions, and no evidence of cellulitis. MS/ Extremity: Pulses equal, no cyanosis. Neurovascular intact. Full, normal range of motion. Neuro: Awake and alert, GCS 15, oriented to person, place, time, and situation. Cranial nerves II-XII grossly intact. Motor strength 5/5 in all extremities. Sensory grossly intact. Cerebellar exam normal. Normal gait. 16:27 Psych: Behavior/mood is pleasant, cooperative, Affect is calm, Oriented to person, place, time, Patient has no thoughts/intents to harm self or others. Judgement / Insight is normal. Memory is normal. Delusions/hallucinations are not present. Vital Signs: 15:55 BP 146 / 78; Pulse 98; Resp 16; Temp 98.6(O); Pulse Ox 96% on R/A; Weight 43.09 kg; 3 Height 5 ft. 2 in. (157.48 cm); Pain 0/10; 16:33 BP 150 / 69; Pulse 78; Resp 19; Temp 98.6; Pulse Ox 99% ; Pain 0/10; sc2 19:52 BP 131 / 53; Pulse 71; Resp 18; Temp 96.7; cj1 23:20 BP 141 / 63; Pulse 65; Resp 17; Temp 97; Pulse Ox 98% ; rr5 15:55 Body Mass Index 17.38 (43.09 kg, 157.48 cm) 3 MDM: 15:51 Patient medically screened. [place] 16:27 Data reviewed: vital signs, nurses notes, lab test result(s), EKG, radiologic studies. [place] 01/09 15:51 Order name: Acetaminophen; Complete Time: 17:31 [place] 01/09 15:51 Order name: Basic Metabolic Panel; Complete Time: 17:31 [place] 01/09 15:51 Order name: CBC with Diff; Complete Time: 17:31 [place] 01/09 15:51 Order name: ETOH Level; Complete Time: 17:31 [place] 01/09 15:51 Order name: Hepatic Function; Complete Time: 17:31 [place] 01/09 15:51 Order name: PT-INR; Complete Time: 17:31 [place] 01/09 15:51 Order name: Ptt, Activated; Complete Time: 17:31 [place] 01/09 15:51 Order name: Salicylate; Complete Time: 17:31 [place] 01/09 15:51 Order name: EKG; Complete Time: 15:53 [place] 01/09 15:51 Order name: EKG - Nurse/Tech; Complete Time: 16:53 [place] 01/09 16:13 Order name: Diet Regular; Complete Time: 16:15 [facility] 01/09 15:51 Order name: IV Saline Lock; Complete Time: 16:15 [place] 01/09 15:51 Order name: Labs collected and sent; Complete Time: 16:15 brock Administered Medications: 16:51 Drug: Zofran 4 mg Route: IVP; Site: left forearm; sg 19:23 Drug: NS 0.9% 1000 ml Route: IV; Rate: 1 bolus; Site: left forearm; rr5 20:30 Follow up: Response: No adverse reaction; IV Status: Completed infusion; IV Intake: rr5 1000ml 21:58 Follow up: Response: No adverse reaction; IV Status: Completed infusion; IV Intake: rr5 1000ml Disposition: 01/09/19 16:34 Transfer ordered to [facility]. Diagnosis are Major depressive disorder, recurrent, Suicidal ideations. - Reason for transfer: Higher level of care. - Accepting physician is to dr jack mckeon. - Condition is Stable. - Problem is new. - Symptoms have improved. Signatures: Dispatcher [employer] EDNj Wilson RN RN Aravind Rosenthal MD MD cha Baxter, Heather, RN RN Bassem Valdes RN RN rr5 Corrections: (The following items were deleted from the chart) 23:29 16:34 01/09/2019 16:34 Transfer ordered to [facility]. Diagnosis is rr5 Major depressive disorder, recurrent; Suicidal ideations. Reason for transfer: Higher level of care. Accepting physician is to dr jack mckeon. Condition is Stable. Problem is new. Symptoms have improved. brock
[2019-01-09 16:47] LABS: ALT/SGPT 22 U/L (12-78); AST/SGOT 19 U/L (15-37); Albumin 3.9 g/dL (3.4-5.0); Alkaline Phosphatase 122 U/L (45-117); BUN Blood Urea Nitrogen 15 mg/dL (7-18); Bicarbonate 25 mmol/L (21-32); Bilirubin Direct 0.1 mg/dL (0-0.2); Bilirubin Total 0.3 mg/dL (0.2-1.0); Glucose Level 85 mg/dL (74-106); Potassium 3.7 mmol/L (3.5-5.1); Protein, Total 7.8 g/dL (6.4-8.2); Sodium Level 143 mmol/L (136-145)
--- NOTE | 2019-01-10 08:37 | EKG ---
Test Date: 2019-01-09 Test Time: 16:50:42 Paper Bag Inspector: HILLARY MEASUREMENT RESULTS: Intervals: Rate: 70 TX: 168 QRSD: 86 QT: 362 QTc: 390 [place]: P: 82 TX: 168 QRS: 25 T: 80 INTERPRETIVE STATEMENTS: Normal sinus rhythm Septal infarct, age undetermined Abnormal ECG Compared to ECG 06/15/2018 00:58:44 Sinus tachycardia no longer present Myocardial infarct finding still present Electronically Signed On 01-10-19 08:36:02 CDT by Pietro Jackson
== END 2019-01-09 23:29 | disposition short-term general hospital (02) ==
LOC: ER 15:26
DX: R45.851 Suicidal ideations (principal); F33.9 Major depressive disorder, recurrent, unspecified; F17.210 Nicotine dependence, cigarettes, uncomplicated
CPT/HCPCS: 36415; 80048; 80076; 80320; 80329; 85025; 85610; 85730; 93005; 96361; 96374; 99285

== ENCOUNTER 2019-06-10 12:33 | Emergency (ER) | payer SELFPAY ==
--- OUTSIDE RECORDS SUMMARY | 2019-06-10 12:36 | XMS REPORT ---
:1960 Author Organization [facility] Address [address] [place] [address] Care Team Providers Name Role Phone MARTIN [...] Value Reference Range Comments CULTURE (BEAKER) (test eduj=9863) No growth in 5 days BLOOD [id number] 23:01:00 Test Item Value Reference Range Comments CULTURE (BEAKER) (test wtlf=5071) No growth in 5 days [id number] 13:27:00 Test Item Value Reference Range Comments POTASSIUM (BEAKER) (test iefj=196) 4.0 meq/L 3.5-5.1 PLATELET [id number] 12:44:00 Test Item Value Reference Range Comments PLATELET COUNT (BEAKER) (test qlsk=219) 149 K/CU MM 150-450 POCT-GLUCOSE [id number] 12:14:00 Test Item Value Reference Range Comments POC-GLUCOSE METER (BEAKER) 137 mg/dL 70-110 TESTED AT [address] (test yzwn=7842) [facility] [address] EEG MONITORING WITH VIDEO RECORDING EACH 24 [id number] 11:38:00For STAT EEG - after 5 PM weekdays, weekends and holidays, page the on-call EEG TechReason for exam:->SeizureDate(s) of EE03/29/18; 03/30/18;03/31/2018DATE OF REPORT : 03/31/18ACC: [id number] Number: [id number] time: 03/30/2018 at 09:41Stop time: 03/30/2018 at 05:41ICD-10: R56.9CPT Code: 48636GBUCCD FOR EXAM: 57 yo female with PMHx [...] M.D. , FACNS, FAAN, FAESProfessor of Neurology, [facility] HospitalDirector, [facility] CenterPaulding County HospitalDoylegordon [facility] Neurophysiology Lab BLOOD GAS , [id number] 11:32:00 Test Item Value Reference Range Comments PH VENOUS (BEAKER) (test ihbs=372) 7.40 7.32-7.42 PCO2 VENOUS (BEAKER) (test gwbq=168) 38 mmHg 41-51 PO2 VENOUS (BEAKER) (test xxle=511) 71 mmHg 25-40 O2 SATURATION VENOUS (BEAKER) (test vtja=267) 94.4 % 40.0-70.0 HCO3 VENOUS (BEAKER) (test munt=941) 23 mmol/L 21-29 BASE EXCESS VENOUS (BEAKER) (test mazc=751) -1.2 mmol/L -2.0-3.0 PATIENT TEMPERATURE (BEAKER) (test eisf=4225) 37.0 C FIO2 (BEAKER) (test kmmc=3076) 50.0 % POCT-GLUCOSE [id number] 06:16:00 Test Item Value Reference Range Comments POC-GLUCOSE METER (BEAKER) 130 mg/dL 70-[address] [facility] [address] [facility] (test bspj=6614) [facility] [address] CBC W/PLT COUNT & AUTO [id number] 05:59:00 Test Item Value Reference Range Comments WHITE BLOOD CELL COUNT (BEAKER) (test brxu=081) 9.5 K/ L 3.5-10.5 RED BLOOD CELL COUNT (BEAKER) (test vmwy=806) 3.07 M/ L 3.93-5.22 HEMOGLOBIN (BEAKER) (test cwcv=675) 9.9 GM/DL 11.2-15.7 HEMATOCRIT (BEAKER) (test rdjb=544) 29.5 % 34.1-44.9 MEAN CORPUSCULAR VOLUME (BEAKER) (test mphh=739) 96.1 fL 79.4-94.8 MEAN CORPUSCULAR HEMOGLOBIN (BEAKER) (test 32.2 pg 25.6-32.2 azqy=797) MEAN CORPUSCULAR HEMOGLOBIN CONC (BEAKER) (test 33.6 GM/DL 32.2-35.5 ptbf=296) RED CELL DISTRIBUTION WIDTH (BEAKER) (test 13.4 % 11.7-14.4 pfuo=154) PLATELET COUNT (BEAKER) (test onwj=586) 97 K/CU MM 150-450 MEAN PLATELET VOLUME (BEAKER) (test vzui=003) 10.7 fL 9.4-12.3 NUCLEATED RED BLOOD CELLS (BEAKER) (test 0 /100 WBC 0-0 cohp=160) NEUTROPHILS RELATIVE PERCENT (BEAKER) (test 82 % fgut=977) LYMPHOCYTES RELATIVE PERCENT (BEAKER) (test 10 % wtue=206) MONOCYTES RELATIVE PERCENT (BEAKER) (test 8 % cqow=119) EOSINOPHILS RELATIVE PERCENT (BEAKER) (test 0 % oemf=588) BASOPHILS RELATIVE PERCENT (BEAKER) (test 0 % zgic=122) NEUTROPHILS ABSOLUTE COUNT (BEAKER) (test 7.76 K/ L 1.56-6.13 npzg=082) LYMPHOCYTES ABSOLUTE COUNT (BEAKER) (test 0.93 K/ L 1.18-3.74 qkii=663) MONOCYTES ABSOLUTE COUNT (BEAKER) (test sjzk=208) 0.75 K/ L 0.24-0.36 EOSINOPHILS ABSOLUTE COUNT (BEAKER) (test 0.01 K/ L 0.04-0.36 esci=955) BASOPHILS ABSOLUTE COUNT (BEAKER) (test vyfv=244) 0.03 K/ L 0.01-0.08 IMMATURE GRANULOCYTES-RELATIVE PERCENT (BEAKER) 0 % 0-1 (test xqpr=0363) COMPREHENSIVE METABOLIC [id number] 05:19:00 Test Item Value Reference Range Comments TOTAL PROTEIN (BEAKER) 5.7 gm/dL 6.0-8.3 (test qmnm=260) ALBUMIN (BEAKER) (test 3.9 g/dL 3.5-5.0 woky=2288) ALKALINE PHOSPHATASE 85 U/L 40-150 (BEAKER) (test mzst=216) BILIRUBIN TOTAL (BEAKER) 1.1 mg/dL 0.2-1.2 (test tybk=170) SODIUM (BEAKER) (test 134 meq/L 136-145 trgb=253) POTASSIUM (BEAKER) (test 2.9 meq/L 3.5-5.1 csiq=056) CHLORIDE (BEAKER) (test 107 meq/L 98-107 ezgv=485) CO2 (BEAKER) (test 20 meq/L 22-29 qgom=249) BLOOD UREA NITROGEN 10 mg/dL 7-21 (BEAKER) (test eleq=559) CREATININE (BEAKER) (test 0.58 mg/dL 0.57-1.25 mple=771) GLUCOSE RANDOM (BEAKER) 105 mg/dL 70-105 (test pntg=509) CALCIUM (BEAKER) (test 8.3 mg/dL 8.4-10.2 fovk=091) AST (SGOT) (BEAKER) (test 60 U/L 5-34 opmp=292) ALT (SGPT) (BEAKER) (test 37 U/L 6-55 vlqm=832) EGFR (BEAKER) (test 108 mL/min/1.73 sq ESTIMATED GFR IS NOT nsfo=6929) m ACCURATE CREATININE CLEARANCE IN PREDICTING GLOMERULAR FILTRATION RATE. ESTIMATED GFR IS NOT APPLICABLE FOR DIALYSIS PATIENTS. CREATINE KINASE (CK)2018-03-31 05:19:00 Test Item Value Reference Range Comments CREATINE KINASE TOTAL (BEAKER) (test oive=601) 969 U/L 29-200 [id number] 05:05:00 Test Item Value Reference Range Comments TRIGLYCERIDES (BEAKER) (test nstz=568) 85 mg/dL TRIGLYCERIDE REFERENCE RANGELow Risk <150Borderline Risk 150-199High Risk 200-499Very High Risk>=500BLOOD GAS, [id number] 05:01:00 Test Item Value Reference Range Comments PH ARTERIAL (BEAKER) (test xwwj=897) 7.45 7.35-7.45 PCO2 ARTERIAL (BEAKER) (test uheh=287) 29 mmHg 35-45 PO2 ARTERIAL (BEAKER) (test oidl=826) 175 mmHg 80-90 O2 SATURATION ARTERIAL (BEAKER) (test ognu=390) 99.3 % 96.0-97.0 HCO3 ARTERIAL (BEAKER) (test sqzv=414) 19 mmol/L 21-29 BASE EXCESS ARTERIAL (BEAKER) (test qzkl=490) -3.8 mmol/L -2.0-3.0 PATIENT TEMPERATURE (BEAKER) (test mokb=7216) 37.0 C FIO2 (BEAKER) (test hyqy=7806) 50.0 % LACTIC ACID, VENOUS, WHOLE [id number] 05:01:00 Test Item Value Reference Range Comments LACTATE BLOOD VENOUS (2) (BEAKER) (test 0.8 mmol/L 0.5-2.2 xbnk=6004) RAD, CHEST, 1 VIEW, NON [id number] 03:30:00Reason for exam:->ETTShould this be performed at [...] Location: [address] Reading Room POCT-GLUCOSE [id number] 23:48:00 Test Item Value Reference Range Comments POC-GLUCOSE METER (BEAKER) 70 mg/dL 70-110 TESTED AT [address] (test esfs=4116) [facility] [address] RAD, ABDOMEN/KUB, 1 VIEW [id number] 22:04:00Reason for exam:->ngt placement Should this be [...] Day Verified Date/Time: 03/30/2018 22:04:23 Reading Location: [address] Reading Room POCT-GLUCOSE [id number] 17:50:00 Test Item Value Reference Range Comments POC-GLUCOSE METER (BEAKER) 68 mg/dL 70-110 Notified AIME MCINTOSH/TESTED AT [facility] (test ysyo=5793) [address] [place] [address] EEG MONITORING WITH VIDEO RECORDING EACH 24 [id number] 16:39:00c/f subclinical seizuresDate(s) of EE03/29/18 DATE OF REPORT: 03/30/18 ACC: [id number] EEG Number: [id number] Start time: 03/29/2018 at 17:52 Stop time: 2017 at 22:28 ICD-10: R56.9 CPT Code: 40507-91 REASON FOR EXAM: 57 yo female with [...] interpretation. Igor Garnica MD Attending Neurophysiologist [facility] [place] RAD, ABDOMEN/ KUB, 1 VIEW [id number] 14:37:00Reason for exam:->NGT placementFINAL REPORT CLINICAL HISTORY: NGT placement TECHNIQUE: Two supine views of the abdomen. IMPRESSION: The tip of the feeding tube is at the gastroesophageal junction and should beadvanced into the stomach. The bowel gas pattern is nonspecific. Signed: Anahi Leigh MDReport Verified Date/Time: 14:37:17 Reading Location: [address] Consult Reading Room POCT- GLUCOSE [id number] 12:10:00 Test Item Value Reference Range Comments POC-GLUCOSE METER (BEAKER) 76 mg/dL 70-110 TESTED AT [address] (test hiss=9946) [facility] [address] RAD, CHEST, 1 VIEW, NON [id number] 07:16:00Reason for exam:->ETTShould this be performed at [...] MDReport Verified Date/Time: 03/30/2018 07:16:21 Reading Location: [facility] C013V Neuro Reading Room POCT-GLUCOSE [id number] 06:54:00 Test Item Value Reference Range Comments POC-GLUCOSE METER (BEAKER) 77 mg/dL 70-[address] [facility] [address] [facility] (test epqr=0279) [facility] [address] BASIC METABOLIC [id number] 06:01:00 Test Item Value Reference Range Comments SODIUM (BEAKER) (test 136 meq/L 136-145 ucho=792) POTASSIUM (BEAKER) (test 2.4 meq/L 3.5-5.1 iaqg=579) CHLORIDE (BEAKER) (test 109 meq/L 98-107 feck=511) CO2 (BEAKER) (test 20 meq/L 22-29 mgsi=212) BLOOD UREA NITROGEN 9 mg/dL 7-21 (BEAKER) (test grqk=430) CREATININE (BEAKER) (test 0.49 mg/dL 0.57-1.25 qqfo=098) GLUCOSE RANDOM (BEAKER) 80 mg/dL 70-105 (test zcax=575) CALCIUM (BEAKER) (test 8.0 mg/dL 8.4-10.2 pkwt=279) EGFR (BEAKER) (test 131 mL/min/1.73 sq m ESTIMATED GFR IS NOT zklf=6667) ACCURATE CREATININE CLEARANCE IN PREDICTING GLOMERULAR FILTRATION RATE. ESTIMATED GFR IS NOT APPLICABLE FOR DIALYSIS PATIENTS. LACTIC ACID, VENOUS, WHOLE [id number] 05:46:00 Test Item Value Reference Range Comments LACTATE BLOOD VENOUS (2) (BEAKER) (test 0.5 mmol/L 0.5-2.2 whsn=4687) CBC W/PLT COUNT & AUTO [id number] 05:40:00 Test Item Value Reference Range Comments WHITE BLOOD CELL COUNT (BEAKER) (test sbvg=163) 8.0 K/ L 3.5-10.5 RED BLOOD CELL COUNT (BEAKER) (test bqkl=244) 3.03 M/ L 3.93-5.22 HEMOGLOBIN (BEAKER) (test hmxp=605) 9.7 GM/DL 11.2-15.7 HEMATOCRIT (BEAKER) (test hler=047) 29.7 % 34.1-44.9 MEAN CORPUSCULAR VOLUME (BEAKER) (test kzud=617) 98.0 fL 79.4-94.8 MEAN CORPUSCULAR HEMOGLOBIN (BEAKER) (test 32.0 pg 25.6-32.2 rlml=179) MEAN CORPUSCULAR HEMOGLOBIN CONC (BEAKER) (test 32.7 GM/DL 32.2-35.5 oazy=324) RED CELL DISTRIBUTION WIDTH (BEAKER) (test 13.6 % 11.7-14.4 bsqe=733) PLATELET COUNT (BEAKER) (test qmiv=430) 140 K/CU MM 150-450 MEAN PLATELET VOLUME (BEAKER) (test uevt=768) 9.4 fL 9.4-12.3 NUCLEATED RED BLOOD CELLS (BEAKER) (test 0 /100 WBC 0-0 szrl=086) NEUTROPHILS RELATIVE PERCENT (BEAKER) (test 75 % xhaz=311) LYMPHOCYTES RELATIVE PERCENT (BEAKER) (test 14 % lvbe=079) MONOCYTES RELATIVE PERCENT (BEAKER) (test 10 % qczh=320) EOSINOPHILS RELATIVE PERCENT (BEAKER) (test 0 % hmfy=727) BASOPHILS RELATIVE PERCENT (BEAKER) (test 0 % tuyn=618) NEUTROPHILS ABSOLUTE COUNT (BEAKER) (test 5.98 K/ L 1.56-6.13 xmxc=320) LYMPHOCYTES ABSOLUTE COUNT (BEAKER) (test 1.15 K/ L 1.18-3.74 vvjw=680) MONOCYTES ABSOLUTE COUNT (BEAKER) (test 0.81 K/ L 0.24-0.36 nqyt=253) EOSINOPHILS ABSOLUTE COUNT (BEAKER) (test 0.01 K/ L 0.04-0.36 nzom=625) BASOPHILS ABSOLUTE COUNT (BEAKER) (test 0.03 K/ L 0.01-0.08 xcmx=277) IMMATURE GRANULOCYTES-RELATIVE PERCENT (BEAKER) 0 % 0-1 (test hrdx=5594) BLOOD GAS, [id number] 05:38:00 Test Item Value Reference Range Comments PH ARTERIAL (BEAKER) (test fpdx=830) 7.42 7.35-7.45 PCO2 ARTERIAL (BEAKER) (test oodu=767) 32 mmHg 35-45 PO2 ARTERIAL (BEAKER) (test kyrz=237) 131 mmHg 80-90 O2 SATURATION ARTERIAL (BEAKER) (test jgmm=495) 98.7 % 96.0-97.0 HCO3 ARTERIAL (BEAKER) (test vsow=948) 20 mmol/L 21-29 BASE EXCESS ARTERIAL (BEAKER) (test samz=551) -3.3 mmol/L -2.0-3.0 PATIENT TEMPERATURE (BEAKER) (test hfzc=4056) 36.8 C FIO2 (BEAKER) (test uknz=2642) 50.0 % LACTIC ACID, VENOUS, WHOLE [id number] 00:48:00 Test Item Value Reference Range Comments LACTATE BLOOD VENOUS (2) (BEAKER) (test 1.8 mmol/L 0.5-2.2 sfer=0285) POCT-GLUCOSE [id number] 23:53:00 Test Item Value Reference Range Comments POC-GLUCOSE METER (BEAKER) 107 mg/dL 70-110 TESTED AT [address] (test pxon=9617) [facility] [address] CT, CTANGIO [id number] 23:38:00FINAL REPORT CLINICAL HISTORY: Stroke TECHNIQUE: Initially, [...] vertebral arteries are otherwise patent. Signed: [facility] [place] Verified Date/Time: 03/29/2018 23:38:34 Reading Location: [facility] C0[facility] Transitional Reading Room CT, CAROTID, [id number] 23:38: 00FINAL REPORT CLINICAL HISTORY: Stroke TECHNIQUE: [...] Dayeport Verified Date/Time: 03/29/2018 23:38:34 Reading Location: [address] Transitional Reading Room EEG AWAKE AND [id number] 22:21:00Baseline for cEEGDate(s) of EE03/29/18 DATE OF REPORT: 03/29/18 ACC: [id number] EEG Number: [id number] Start time: 17:29 Stop time: 17:52 ICD-10: R56.9 CPT Code: 26046 REASON FOR EXAM: 57 yo female with [...] Cao MD Clinical Neurophysiology Fellow Arturo Walker [facility] Attending Neurophysiologist [facility] POCT-GLUCOSE [id number] 18:57:00 Test Item Value Reference Range Comments POC-GLUCOSE METER (BEAKER) 90 mg/dL 70-[address] [facility] [address] (test qlap=3088) [facility] [address] RAD, CHEST, 1 VIEW, NON [id number] 18:48:00Reason for exam:->TubeShould this be performed at [...] MDReport Verified Date/Time: 03/29/2018 18:48:13 Reading Location: [address] Consult Reading Room [id number] 18:04:00 Test Item Value Reference Range Comments PROCALCITONIN (BEAKER) (test znao=0973) 0.42 ng/mL <0.05 SEPSIS RISK (ng/mL)Low: 0.05-0.50Intermediate: 0.51-2.00High: & gt;=2.01CREATINE KINASE (CK)2018-03-29 17:58:00 Test Item Value Reference Range Comments CREATINE KINASE TOTAL (BEAKER) (test rphx=640) 983 U/L 29-200 [id number] 17:43:00 Test Item Value Reference Range Comments ETHANOL (BEAKER) (test xgjb=836) < mg/dL <=10 LACTIC ACID, VENOUS, WHOLE [id number] 17:42:00 Test Item Value Reference Range Comments LACTATE BLOOD VENOUS (2) 0.6 mmol/L 0.5-2.2 Specimen slightly hemolyzed (BEAKER) (test yztf=0151) LACTIC ACID, VENOUS, WHOLE [id number] 17:42:00 Test Item Value Reference Range Comments LACTATE BLOOD VENOUS (2) 1.6 mmol/L 0.5-2.2 Specimen slightly hemolyzed (BEAKER) (test pwbz=5615) PROTHROMBIN TIME/[id number] 17:34:00 Test Item Value Reference Range Comments PROTIME (BEAKER) (test kscg=874) 14.6 seconds 11.7-14.7 INR (BEAKER) (test aokc=325) 1.1 <=5.9 RECOMMENDED COUMADIN/WARFARIN INR THERAPY RANGESSTANDARD DOSE: 2.0 - 3.0 Includes: PROPHYLAXIS forvenous thrombosis, systemic embolization; TREATMENT for venous thrombosis and/or pulmonary embolus.HIGH RISK: Target INR is 2.5-3.5 for patients with mechanical heart valves.[id number] 17:34:00 Test Item Value Reference Range Comments PARTIAL THROMBOPLASTIN TIME (BEAKER) (test 29.1 seconds 22.5-36.0 unaj=800) BLOOD GAS, [id number] 17:33:00 Test Item Value Reference Range Comments PH ARTERIAL (BEAKER) (test khpc=705) 7.42 7.35-7.45 PCO2 ARTERIAL (BEAKER) (test wlhx=389) 35 mmHg 35-45 PO2 ARTERIAL (BEAKER) (test jtdq=923) 277 mmHg 80-90 O2 SATURATION ARTERIAL (BEAKER) (test lfqm=373) 99.7 % 96.0-97.0 HCO3 ARTERIAL (BEAKER) (test qtzx=936) 22 mmol/L 21-29 BASE EXCESS ARTERIAL (BEAKER) (test nfby=076) -1.3 mmol/L -2.0-3.0 PATIENT TEMPERATURE (BEAKER) (test hkdw=5478) 38.0 C FIO2 (BEAKER) (test isae=2080) 50.0 % POCT-GLUCOSE [id number] 16:39:00 Test Item Value Reference Range Comments POC-GLUCOSE METER (BEAKER) 110 mg/dL 70-110 TESTED AT [address] (test yvrx=8396) [facility] [address] URINE [id number] 11:34:00 Test Item Value Reference Range Comments CULTURE (BEAKER) (test 40-49,000 col/mL skin d[place] wjzu=5086) POCT-GLUCOSE [id number] 15:55:00 Test Item Value Reference Range Comments POC-GLUCOSE METER (BEAKER) 80 mg/dL 70-110 TESTED AT [address] (test kzir=4633) [facility] [address] URINALYSIS W/ [id number] 14:34:00 Test Item Value Reference Range Comments COLOR (BEAKER) (test olch=347) Light Yellow CLARITY (BEAKER) (test bjzw=017) Clear SPECIFIC GRAVITY UA (BEAKER) (test peva=264) 1.009 1.001-1.035 PH UA (BEAKER) (test xqip=640) 7.0 5.0-8.0 PROTEIN UA (BEAKER) (test cbli=194) Negative Negative GLUCOSE UA (BEAKER) (test rfsz=507) Negative Negative KETONES UA (BEAKER) (test clzx=952) Negative Negative BILIRUBIN UA (BEAKER) (test ztfl=481) Negative Negative BLOOD UA (BEAKER) (test cssb=900) Small Negative NITRITE UA (BEAKER) (test hqjh=933) Negative Negative LEUKOCYTE ESTERASE UA (BEAKER) (test cdst=120) Negative Negative UROBILINOGEN UA (BEAKER) (test xpqx=773) 0.2 mg/dL 0.2-1.0 RBC UA (BEAKER) (test npss=645) 2 /HPF WBC UA (BEAKER) (test zbpo=986) < /HPF MUCUS (BEAKER) (test euwf=1481) Rare SQUAMOUS EPITHELIAL (BEAKER) (test dmvp=346) < /HPF SOURCE(BEAKER) (test omln=8732) RAPID DRUG SCREEN, [id number] 13:10:00 Test Item Value Reference Range Comments BARBITURATE URINE (BEAKER) (test btop=399) Negative Negative BENZODIAZEPINE SCREEN URINE (BEAKER) (test Negative Negative crfo=941) COCAINE (METAB.) SCREEN (BEAKER) (test flky=2660) Negative Negative METHADONE SCREEN (BEAKER) (test ucni=7859) Negative Negative OPIATE SCREEN URINE (BEAKER) (test ebji=018) Negative Negative CANNABINOID SCREEN URINE (BEAKER) (test bpds=018) Negative Negative AMPH/METHAMPH SCREEN (BEAKER) (test wlzp=8909) Negative Negative PHENCYCLIDINE SCREEN URINE (BEAKER) (test mdcs=441) Negative Negative OXYCODONE SCREEN URINE (BEAKER) (test kehb=2818) Negative Negative DRUG CUTOFF CONC.Cocaine 300 ng/mL Cannabinoid 50 ng/mL Benzodiazepine 200 ng/mLBarbiturate 200 ng/ mLPhencyclidine 25 ng/mLOpiate 300 ng/mLMethadone 300 ng/mLAmphetamine/ 1000 ng/mL MethamphetamineOxycodone 300 ng/mLThis assay provides an unconfirmed qualitative test result for the clinical management of patients in emergency situations. Chain of custody not maintained. Some ibez-atb-kohyevt medications, as well as adulterants, may cause inaccurate results. Clinical correlation should be applied. A more comprehensive drug screen or confirmation of a detected drug may be performed upon request.POCT-GLUCOSE [id number] 11:49:00 Test Item Value Reference Range Comments POC-GLUCOSE METER (BEAKER) 93 mg/dL 70-[address] [facility] [address] [facility] (test qmwi=0775) [facility] [address] [id number] 10:40:00 Test Item Value Reference Range Comments PHOSPHORUS (BEAKER) (test shwz=028) 3.0 mg/dL 2.3-4.7 [id number] 10:40:00 Test Item Value Reference Range Comments MAGNESIUM (BEAKER) (test xxxg=331) 2.6 mg/dL 1.6-2.6 BASIC METABOLIC [id number] 10:40:00 Test Item Value Reference Range Comments SODIUM (BEAKER) (test 139 meq/L 136-145 aqst=998) POTASSIUM (BEAKER) (test 3.8 meq/L 3.5-5.1 zjfj=306) CHLORIDE (BEAKER) (test 105 meq/L 98-107 chxk=142) CO2 (BEAKER) (test 22 meq/L 22-29 pacy=801) BLOOD UREA NITROGEN 9 mg/dL 7-21 (BEAKER) (test srqd=466) CREATININE (BEAKER) (test 0.61 mg/dL 0.57-1.25 scod=228) GLUCOSE RANDOM (BEAKER) 86 mg/dL 70-105 (test bgpp=673) CALCIUM (BEAKER) (test 9.5 mg/dL 8.4-10.2 rmqd=930) EGFR (BEAKER) (test 102 mL/min/1.73 sq m ESTIMATED GFR IS NOT hdcs=4204) ACCURATE CREATININE CLEARANCE IN PREDICTING GLOMERULAR FILTRATION RATE. ESTIMATED GFR IS NOT APPLICABLE FOR DIALYSIS PATIENTS. HEPATIC FUNCTION [id number] 10:40:00 Test Item Value Reference Range Comments TOTAL PROTEIN (BEAKER) (test rskj=956) 7.5 gm/dL 6.0-8.3 ALBUMIN (BEAKER) (test ptok=4342) 4.4 g/dL 3.5-5.0 BILIRUBIN TOTAL (BEAKER) (test xuts=100) 0.9 mg/dL 0.2-1.2 BILIRUBIN DIRECT (BEAKER) (test zbzg=021) 0.3 mg/dL 0.1-0.5 ALKALINE PHOSPHATASE (BEAKER) (test mkbz=662) 108 U/L 40-150 AST (SGOT) (BEAKER) (test dxgj=089) 28 U/L 5-34 ALT (SGPT) (BEAKER) (test sekf=743) 18 U/L 6-55 CBC W/PLT COUNT & AUTO [id number] 09:28:00 Test Item Value Reference Range Comments WHITE BLOOD CELL COUNT (BEAKER) (test zxni=903) 8.8 K/ L 3.5-10.5 RED BLOOD CELL COUNT (BEAKER) (test qigs=925) 4.39 M/ L 3.93-5.22 HEMOGLOBIN (BEAKER) (test zvzs=351) 13.9 GM/DL 11.2-15.7 HEMATOCRIT (BEAKER) (test uwmu=229) 41.6 % 34.1-44.9 MEAN CORPUSCULAR VOLUME (BEAKER) (test soat=796) 94.8 fL 79.4-94.8 MEAN CORPUSCULAR HEMOGLOBIN (BEAKER) (test 31.7 pg 25.6-32.2 qzng=585) MEAN CORPUSCULAR HEMOGLOBIN CONC (BEAKER) (test 33.4 GM/DL 32.2-35.5 jzbo=508) RED CELL DISTRIBUTION WIDTH (BEAKER) (test 13.1 % 11.7-14.4 gnhr=806) PLATELET COUNT (BEAKER) (test ruuq=399) 234 K/CU MM 150-450 MEAN PLATELET VOLUME (BEAKER) (test pwvv=256) 9.0 fL 9.4-12.3 NUCLEATED RED BLOOD CELLS (BEAKER) (test 0 /100 WBC 0-0 nkqp=345) NEUTROPHILS RELATIVE PERCENT (BEAKER) (test 69 % clpq=924) LYMPHOCYTES RELATIVE PERCENT (BEAKER) (test 22 % lejc=825) MONOCYTES RELATIVE PERCENT (BEAKER) (test 9 % meug=321) EOSINOPHILS RELATIVE PERCENT (BEAKER) (test 0 % dpkp=056) BASOPHILS RELATIVE PERCENT (BEAKER) (test 0 % zqnm=207) NEUTROPHILS ABSOLUTE COUNT (BEAKER) (test 6.05 K/ L 1.56-6.13 rqwa=538) LYMPHOCYTES ABSOLUTE COUNT (BEAKER) (test 1.91 K/ L 1.18-3.74 efyb=274) MONOCYTES ABSOLUTE COUNT (BEAKER) (test 0.76 K/ L 0.24-0.36 wqin=389) EOSINOPHILS ABSOLUTE COUNT (BEAKER) (test 0.01 K/ L 0.04-0.36 kopa=308) BASOPHILS ABSOLUTE COUNT (BEAKER) (test 0.03 K/ L 0.01-0.08 rrjc=127) IMMATURE GRANULOCYTES-RELATIVE PERCENT (BEAKER) 0 % 0-1 (test eddo=9440) PROTHROMBIN [id number] 09:23:00 Test Item Value Reference Range Comments PROTIME (BEAKER) (test ojqh=386) 13.5 seconds 11.7-14.7 INR (BEAKER) (test pxcm=401) 1.0 <=5.9 RECOMMENDED COUMADIN/WARFARIN INR THERAPY RANGESSTANDARD DOSE: 2.0 - 3.0 Includes: PROPHYLAXIS forvenous thrombosis, systemic embolization; TREATMENT for venous thrombosis and/or pulmonary embolus.HIGH RISK: Target INR is 2.5-3.5 for patients with mechanical heart valves.POCT-GLUCOSE [id number] 07:05:00 Test Item Value Reference Range Comments POC-GLUCOSE METER (BEAKER) 96 mg/dL 70-110 TESTED AT [address] (test ledx=6757) [facility] [id number]
[2019-06-10] MEDS ORDERED: MIDAZOLAM HCL 2 MG/2 ML INJ ONE (12:46)
[2019-06-10] MEDS ORDERED: DIAZEPAM 10 MG/2 ML INJ SYRINGE ONE ×3 (13:14→14:20)
[2019-06-10] MEDS ORDERED: NA CHLORIDE 0.9% 2,000 ML ONE (13:33)
--- NOTE | 2019-06-10 13:46 | EKG ---
Test Date: 2019-06-10 Test Time: 13:15:51 Cadmium Plater: DAYAN MEASUREMENT RESULTS: Intervals: Rate: 109 RI: 162 QRSD: 86 QT: 322 QTc: 433 [place]: P: 83 RI: 162 QRS: 32 T: 90 INTERPRETIVE STATEMENTS: Sinus tachycardia Right atrial enlargement Borderline ECG Compared to ECG 01/09/2019 16:50:42 Atrial abnormality now present Sinus rhythm no longer present Myocardial infarct finding no longer present Electronically Signed On 06-10-19 13:45:26 LICENSING OFFICER by Pietro Jackson
[2019-06-10 14:03] LABS: Absolute Lymphocytes (CBC) 0.7 K/uL (0.7-4.9); Basophils % 0.1 % (0-1.3); Hematocrit 39.8 % (36.0-45.0); Lymphocytes % 3.9 % (15.3-44.8); MPV 7.5 fL (7.6-11.3); RBC Red Blood Cell Count 4.24 M/uL (3.86-4.86)
[2019-06-10 14:07] LABS: Protime INR 1.08
[2019-06-10 14:22] LABS: Blood Morphology Comment NOT SEEN (NOT SEEN); Platelet Estimate ADEQ; Urine White Blood Cell Casts OK
[2019-06-10 14:38] LABS: ALT/SGPT 17 U/L (12-78); AST/SGOT 32 U/L (15-37); Albumin 4.1 g/dL (3.4-5.0); Alkaline Phosphatase 131 U/L (45-117); BUN Blood Urea Nitrogen 20 mg/dL (7-18); Bicarbonate 23 mmol/L (21-32); Bilirubin Direct 0.1 mg/dL (0-0.2); Bilirubin Total 0.4 mg/dL (0.2-1.0); Creatine Phosphokinase 442 U/L (26-192); Glucose Level 129 mg/dL (74-106); Potassium 3.7 mmol/L (3.5-5.1); Sodium Level 139 mmol/L (136-145)
[2019-06-10 15:54] LABS: Urine Blood 2+ (NEG); Urine Glucose NEGATIVE (NEG); Urine Protein NEGATIVE (NEG); Urine Specific Gravity 1.025 (1.005-1.030); Urine pH 7.5 (5.0-7.0)
[2019-06-10 15:56] LABS: Urine Bacteria >50 /HPF (<20); Urine Culture Reflex Order NOT NEEDED; Urine RBC <5 /HPF (NONE SEEN); Urine Yeast PRESENT (NONE SEEN)
[2019-06-10 16:04] LABS: Barbiturates NEGATIVE (NEGATIVE); Benzodiazepines POSITIVE (NEGATIVE); Cocaine NEGATIVE (NEGATIVE); METHAMPHETAM NEGATIVE (NEGATIVE); Methadone NEGATIVE (NEGATIVE); Opiates NEGATIVE (NEGATIVE); Phencyclidine NEGATIVE (NEGATIVE); THC Cannibis NEGATIVE (NEGATIVE)
[2019-06-10] MEDS ORDERED: CIPROFLOXACIN 400mg IV 400 MG/200 ML BAG IV ONE (18:18)
[2019-06-10] MEDS ORDERED: LIDOCAINE 1% MPF 5 ML VIAL ONE (20:34)
[2019-06-10] MEDS ORDERED: CEFTRIAXONE 1000 MG/VIAL ONE (20:34)
[2019-06-10] MEDS ORDERED: CIPROFLOXACIN HCL 500 MG TAB ONE (21:40)
--- NOTE | 2019-06-10 21:52 | ER ---
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 instructions, Less restrictive alternatives attempted: decreased environmental stimuli, placed near Nurse station, reoriented to location, verbal de-escalation performed, Alternative interventions: Ineffective. Clinical justification for use: Violent/self destructing behavior impacts therapeutic environment. Poses a serious danger to physical safety of self \\T\\ others. Monitoring: Mental status: confused. Cognition: poor judgement, poor safety awareness, poor attention/concentration, unable to follow commands, Circulation: Within defined parameters (based on Cardiovascular assessment). Skin integrity: Within defined parameters (based on Integumentary assessment) No injuries due to Restraints noted. Restraint status: Soft wrist restraint (Right) Continued. Soft wrist restraint (Left) Continued. Soft ankle restraint (Right) Continued. Soft ankle restraint (Left) Continued. Readiness for Discontinue: Criteria not met. Patient still violent/self destructive and Alternative interventions still ineffective. Restraint continued. 15:45 Violent/Self Destructive Restraint: Monitoring: Mental status: patient asleep, bp Cognition: Unable to assess. Circulation: Within defined parameters (based on Cardiovascular assessment). Skin integrity: Within defined parameters (based on Integumentary assessment) No injuries due to Restraints noted. Restraint status: Soft wrist restraint (Right) Discontinued. Soft wrist restraint (Left) Discontinued. Soft ankle restraint (Right) Discontinued. Soft ankle restraint (Left) Discontinued. Readiness for Discontinue: Release criteria met. No longer exhibiting violent or self destructive behavior. Alt interventions effective. Administered Medications: 12:35 Drug: Versed 3 mg {Note: Administered by Antony Yan RN.} Route: IM; Site: right vastus aj1 lateralis; 13:34 Follow up: Response: No change in condition bp 12:50 Drug: Versed 1 mg Route: IM; Site: left deltoid; aj1 13:34 Follow up: Response: No change in condition bp 13:14 Drug: Valium 10 mg Route: IM; Site: left vastus lateralis; bp 13:34 Follow up: Response: No change in condition bp 13:34 Drug: Valium 10 mg Route: IM; Site: right deltoid; bp 13:34 Follow up: Response: No change in condition bp 13:55 Drug: NS 0.9% 1000 ml Route: IV; Rate: 1000 ml; Site: left antecubital; bp 13:56 Drug: NS 0.9% 1000 ml Route: IV; Rate: 1000 ml; Site: left antecubital; bp 14:18 Drug: Valium 10 mg Route: IVP; Site: left antecubital; bp 17:04 Follow up: Response: Marked relief of symptoms bp 17:50 CANCELLED (Duplicate Order): Rocephin 1 grams IV at calculated rate once; Given slow learning and development intern push per pharmacy instructions 18:33 Not Given (Patient Refused): Cipro 400 mg 200 ml IVPB once over 60 mins bp 21:39 Not Given (Patient Refused): Rocephin (cefTRIAXone) 1 grams IM once aa1 21:40 Drug: Cipro 500 mg Route: PO; aa1 22:40 Follow up: Response: No adverse reaction aa1 Outcome: 21:42 Discharge ordered by . kdr 06/11 00:20 Discharged to home via taxi aa1 Condition: good Discharge instructions given to patient, Instructed on discharge instructions, follow up and referral plans. medication usage, Demonstrated understanding of instructions, follow-up care, medications, Prescriptions given X 1. 00:31 Patient left the ED. aa1 Addendum: 06/13/2019 09:22 Addendum: Culture Results: Positive urine culture. No further action required. Bacteria s s sensitive to prescribed antibiotic. Signatures: Maxi Escobedo jb1 Juliann Capone RN RN aj1 Callie Garg RN RN aa1 Eh Garrison MD MD kdr Ballard, Brenda RN RN bb Marbin Aguirre MD MD rn Smirch, Shelby RN RN ss Alexander Yan RN RN bp Corrections: (The following items were deleted from the chart) 06/10 17:01 15:30 Violent/Self Destructive Restraint: Restraint status: Soft wrist restraint bp (Right) Discontinued. Soft wrist restraint (Left) Discontinued. Soft ankle restraint (Right) Discontinued. Soft ankle restraint (Left) Discontinued. Readiness for Discontinue: Release criteria met. No longer exhibiting violent or self destructive behavior. Alt interventions effective. bp
--- NOTE | 2019-06-10 21:52 | EDPHYS ---
Physician Documentation [facility] Name: Kena Cutler Age: 58 yrs Sex: Female : 1960 Arrival Date: 06/10/2019 Time: 12:29 Bed 3 Private MD: ED Physician Eh Garrison HPI: 06/10 13:17 This 58 yrs old Female presents to ER via EMS with complaints of Altered rn Mental Status. 13:17 The patient presents with agitation. Onset: The symptoms/episode began/occurred at an rn unknown time. Possible causes: drug use. Current symptoms: In the emergency department the patient's symptoms are unchanged from the initial presentation. It is unknown whether or not the patient has had similar symptoms in the past. Per EMS, called due to agitation, police at scene, told by bystanders that she had smoked synthetic marijuana, patient agitated and uncooperative, grunting, and fighting. Being held down by EMS personnel. Given 4mg ativan IM without response. No described seizure activity or trauma. . Historical: - Allergies: 12:40 No Known Allergies; bp - Home Meds: 12:40 None [Active]; bp - PMHx: 12:40 Substance Abuse; bp - Immunization history:: Adult Immunizations unknown. - Coronavirus screen:: The patient has NOT traveled to [place], [place], or [place] in the past 14 days. The patient has NOT had contact with known/suspected case of Coronavirus?. - Social history:: Smoking status: unknown. - Ebola Screening: : No symptoms or risks identified at this time. - History obtained from: EMS. - Unable to obtain history due to: altered mental status. ROS: 13:18 Unable to obtain ROS due to altered mental status, patient being uncooperative. rn 06/11 00:56 Constitutional: Negative for fever, chills, and weight loss. kdr Exam: 06/10 13:18 Constitutional: Thin female, on prone, being held down, soiled pants. Head/Face: rn Normocephalic, atraumatic. ENT: dry MM Cardiovascular: Tachycardic, regular Respiratory: Grunting, not speaking Abdomen/GI: soft, non-tender MS/ Extremity: Pulses equal, no cyanosis. Neurovascular intact. Full, normal range of motion. Neuro: Awake ,agitated, uncooperative, moving all 4 ext Vital Signs: 12:30 BP 188 / 79; Pulse 133; Resp 19; Temp 99; Pulse Ox 95% ; Weight 49.9 kg; bp 13:35 BP 177 / 93; Pulse 131; Resp 19; Pulse Ox 100% ; bp 14:30 BP 147 / 72; Pulse 99; Resp 22; Pulse Ox 94% on R/A; bp 15:36 BP 170 / 68; Pulse 95; Resp 19; Pulse Ox 97% ; bp 16:00 BP 152 / 59; Pulse 93; Resp 21; Pulse Ox 98% ; bp 17:00 BP 154 / 65; Pulse 94; Resp 24; Pulse Ox 96% ; bp 18:00 BP 158 / 55; Pulse 87; Resp 20; Pulse Ox 95% ; bp 19:25 BP 144 / 58; Pulse 85; Resp 14 S; Pulse Ox 96% on R/A; bb 20:05 BP 138 / 57; Pulse 89; Resp 16; Pulse Ox 96% on R/A; Pain 0/10; aa1 06/11 00:20 BP 129 / 60; Pulse 91; Resp 16; Temp 98.5; Pulse Ox 97% on R/A; Pain 0/10; aa1 MDM: 06/10 12:30 Patient medically screened. rn 18:21 ED course: Pt sobering up, normalization of vital signs, opens eyes now to command, no rn longer agitated or combative, awaiting sobriety as a lot of what we are seeing now is the benzos given to counteract her excited delirium upon presentation. Plan is to allo synthetic to wear off and then dc home with abx for UTI. Elevation of WBC and total CK likely from ingestion/agitation and not indicative of severity of infection. . 19:04 Transition of care: After a detail discussion of the patient's case, care is rn transferred to Eh Garrison MD. 06/11 00:55 Data reviewed: vital signs, nurses notes, lab test result(s), radiologic studies. kdr Counseling: I had a detailed discussion with the patient and/or guardian regarding: the historical points, exam findings, and any diagnostic results supporting the discharge/admit diagnosis, lab results, radiology results, the need for outpatient follow up. ED course: The patient became less confused and was able to ambulate in the ED without difficulty. At this point she wished to be discharged to home. She was otherwise stable and happy with the care provided and the plan for discharge and follow-up. 06/10 12:32 Order name: CBC with Diff; Complete Time: 14:24 06/10 12:32 Order name: Basic Metabolic Panel; Complete Time: 15:01 06/10 12:32 Order name: Acetaminophen; Complete Time: 15:01 06/10 12:32 Order name: ETOH Level; Complete Time: 15:01 06/10 12:32 Order name: Hepatic Function; Complete Time: 15: 06/10 12:32 Order name: PT-INR; Complete Time: 14:24 06/10 12:32 Order name: Ptt, Activated; Complete Time: 14:24 06/10 12:32 Order name: Salicylate; Complete Time: 15: 06/10 12:32 Order name: Urine Drug Screen; Complete Time: 16:07 06/10 14:23 Order name: CBC Smear Scan; Complete Time: 14:24 [facility] 06/10 14:30 Order name: Creatine Phosphokinase; Complete Time: 15: [facility] 06/10 15:42 Order name: Urine Dipstick--Ancillary (enter results); Complete Time: 16:07 06/10 15:42 Order name: Urine Culture 06/10 12:32 Order name: IV Start; Complete Time: 13:55 06/10 12:32 Order name: EKG; Complete Time: 12:41 06/10 12:32 Order name: EKG - Nurse/Tech; Complete Time: 13:15 06/10 12:32 Order name: Labs collected and sent; Complete Time: 13:54 06/10 15:42 Order name: Urine Microscopic Only; Complete Time: 16:07 06/10 12:32 Order name: Urine Dipstick-Ancillary (obtain specimen); Complete Time: 17:04 06/10 13:57 Order name: Restraint:Violent/Self Destructive (Adult:18yo or >); Complete Time: 13:58 bp Administered Medications: 06/10 12:35 Drug: Versed 3 mg {Note: Administered by Antony Yan, RN.} Route: IM; Site: right vastus aj1 lateralis; 13:34 Follow up: Response: No change in condition bp 12:50 Drug: Versed 1 mg Route: IM; Site: left deltoid; aj1 13:34 Follow up: Response: No change in condition bp 13:14 Drug: Valium 10 mg Route: IM; Site: left vastus lateralis; bp 13:34 Follow up: Response: No change in condition bp 13:34 Drug: Valium 10 mg Route: IM; Site: right deltoid; bp 13:34 Follow up: Response: No change in condition bp 13:55 Drug: NS 0.9% 1000 ml Route: IV; Rate: 1000 ml; Site: left antecubital; bp 13:56 Drug: NS 0.9% 1000 ml Route: IV; Rate: 1000 ml; Site: left antecubital; bp 14:18 Drug: Valium 10 mg Route: IVP; Site: left antecubital; bp 17:04 Follow up: Response: Marked relief of symptoms bp 17:50 CANCELLED (Duplicate Order): Rocephin 1 grams IV at calculated rate once; Given 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 Impression: Other psychoactive substance abuse, Urinary tract infection, site not specified. - Condition is Stable. - Discharge Instructions: Confusion, Substance Use Disorder, Urinary Tract Infection, Adult, [id number]. - Prescriptions for Bactrim DS 800- 160 mg Oral Tablet - take 1 tablet by ORAL route every 12 hours for 5 days; 10 tablet. - Medication Reconciliation Form, Thank You Letter, Antibiotic Education form. - Follow up: Private Physician; When: 2 - 3 days; Reason: If symptoms return, Further diagnostic work-up, Recheck today's complaints, Continuance of care, Re-evaluation by your physician. - Problem is an acute exacerbation. - Symptoms have improved. Signatures: Dispatcher [employer] EDJuliann Kearns RN RN aj1 Callie Garg RN RN aa1 Eh Garrison MD MD kdr Ballard, Brenda, RN RN bb Marbin Aguirre MD MD rn Peltier, Alexander, RN RN bp Corrections: (The following items were deleted from the chart) 14:43 14:28 CREATINE PHOSPHOKINASE+[id number] ordered. EDMS EDMS 17:50 17:49 Rocephin 1 grams IV at calculated rate once; Given slow IV push per pharmacy rn instructions ordered. rn 06/11 00:31 06/10 21:42 06/10/2019 21:42 Discharged to Home. Impression: Other psychoactive aa1 substance abuse; Urinary tract infection, site not specified. Condition is Stable. Forms are Medication Reconciliation Form, Thank You Letter, Antibiotic Education, Prescription Opioid Use. Follow up: Private Physician; When: 2 - 3 days; Reason: If symptoms return, Further diagnostic work-up, Recheck today's complaints, Continuance of care, Re-evaluation by your physician. Problem is an acute exacerbation. Symptoms have improved. kdr
[2019-06-11 00:48] VITALS: BP 129/60; TEMP 98.5; O2SAT 97
== END 2019-06-11 00:31 | disposition home or self-care (01) ==
LOC: ER 12:33
DX: F19.10 Other psychoactive substance abuse, uncomplicated (principal); N39.0 Urinary tract infection, site not specified
CPT/HCPCS: 36415; 51702; 80048; 80076; 80307; 80320; 80329; 81003; 81015; 82550; 85025; 85610; 85730; 87077; 87086; 87088; 87186; 93005; 96372; 96374; 99285; J0744; J2250; J3360; J7030